=== PATIENT | female | born 1960 | race Caucasian/White ===

== ENCOUNTER 2018-06-07 16:26 | Outpatient (REF) | payer OTHER, SELFPAY ==
[2018-06-07 20:42] LABS: Abs Immature Grans 0.01 k/cumm (0.0-0.09); Absolute Basophil Count 0.02 k/cumm (0.0-0.2); Absolute Eosinophil Count 0.09 k/cumm (0.0-0.7); Absolute Lymphocyte Count 2.23 k/cumm (1.2-3.4); Absolute Monocyte Count 0.71 k/cumm (0.11-0.7); Absolute Neutrophil Count 3.74 k/cumm (1.2-6.7); Basophils % 0.3; Eosinophils % 1.3; HCT 38.5 % (36.0-46.0); HGB 12.5 g/dL (12.0-15.5); Immature Grans % 0.1; Lymphocytes % 32.8; Mean Corp. HGB Concentration 32.5 g/dL (32.0-36.0); Mean Corpuscular Hemoglobin 28.9 pg (27.0-33.0); Mean Corpuscular Volume 89.1 fL (80-95); Mean Platelet Volume 11.6 fL (8.0-11.0); Monocytes % 10.4; Neutrophils % 55.1; Platelet Count 168 x1000/uL (130-400); RBC 4.32 m/cumm (4.00-5.20); RBC Distribution Width 13.8 % (11.7-14.6)
[2018-06-07 20:53] LABS: ALT 22 U/L (12-78); AST 15 U/L (15-37); Albumin 3.8 g/dL (3.4-5.0); Alkaline Phosphatase 54 U/L (46-116); Anion Gap 6.9 mmol/L (3-11); BUN 17 mg/dL (7-18); Bilirubin, Total 0.2 mg/dL (0.2-1.0); CO2 30.1 mmol/L (21.0-32.0); CREATININE 0.74 mg/dL (0.55-1.02); Calcium 9.2 mg/dL (8.5-10.1); Chloride 103 mmol/L (98-107); Glucose 97 mg/dL (70-100); Potassium 3.9 mmol/L (3.5-5.1); Sodium 140 mmol/L (136-145); TSH (W/Ref FT4) 2.69 uIU/mL (0.358-3.74); Total Protein 7.4 g/dL (6.4-8.2)
== END 2018-06-07 16:46 ==
LOC: NCHCN 16:26
PROVIDERS: PCP Nurse Practitioner Family; Visit Provider Nurse Practitioner
DX: R07.89 Other chest pain (principal); R51 Headache; I10 Essential (primary) hypertension
CPT/HCPCS: 80053; 84443; 85025

== ENCOUNTER 2018-06-24 09:11 | Outpatient (REF) | payer OTHER, SELFPAY ==
[2018-06-24 13:23] LABS: Cholesterol 188 mg/dL (50-200); HDL Cholesterol 74 mg/dL (40-60); LDL CHOLESTEROL 101 mg/dL (<100); Triglyceride 52 mg/dL (30-150)
== END 2018-06-24 09:31 ==
LOC: NCHCN 09:11
PROVIDERS: PCP Nurse Practitioner Family; Visit Provider Nurse Practitioner Family
DX: Z00.00 Encounter for general adult medical examination without abnormal findings (principal); I10 Essential (primary) hypertension
CPT/HCPCS: 80061; 83721

== ENCOUNTER 2018-07-16 12:57 | Outpatient (REF) | payer OTHER, SELFPAY ==
[2018-07-18 12:36] LABS: Hepatitis C Ab w Rflx HCV PCR Negative (NEGAT)
== END 2018-07-16 13:17 ==
LOC: NCHCN 12:57
PROVIDERS: PCP Nurse Practitioner Family; Visit Provider Nurse Practitioner Family
DX: I10 Essential (primary) hypertension (principal); R51 Headache; Z00.00 Encounter for general adult medical examination without abnormal findings; R07.89 Other chest pain
CPT/HCPCS: 86803

== ENCOUNTER 2018-10-21 16:05 | Outpatient (REF) | payer OTHER, SELFPAY ==
--- NOTE | 2018-10-21 15:13 | SKI_PTH ---
PATIENT: Maria Ines Hilliard LOC: [facility] U#:[id number] AGE/SX: 58/F ROOM: RE10/21/[address]: Devang Andres DO : 1960 BED: DIS: 10/21/2018 SPEC #: [id number] RECD: 10/22/18 12:48 STATUS: ROCK REQ #: [id number] [place]: 10/21/18 15:[address]: Devang Andres DEPT: Surgical Specimen RECD BY: Clarisa Howell ENTERED: 10/22/18 12:49 SP TYPE: SKI OTHR DR: Neetu Suresh Tissues: 1 - SKIN BIOPSY(SHAVE/PUNCH) Procedures: SKIN LEVEL 4 Comments: [id number]
== END 2018-10-21 16:25 ==
LOC: LBN 16:05
PROVIDERS: PCP Nurse Practitioner Family; Visit Provider Otolaryngology Otolaryngology/Facial Plastic Surgery
DX: B07.9 Viral wart, unspecified (principal)
CPT/HCPCS: 88305

== ENCOUNTER 2020-11-08 16:05 | Outpatient (REF) | payer OTHER, SELFPAY ==
[2020-11-08 21:18] LABS: Calculated LDL 101 mg/dL (<100); Cholesterol 196 mg/dL (<200); HDL Cholesterol 76 mg/dL (40-60); TSH (W/Ref FT4) 2.39 uIU/mL (0.36-3.74); Triglyceride 98 mg/dL (<150)
== END 2020-11-08 16:06 | disposition home or self-care (01) ==
LOC: NCHCN 16:05
PROVIDERS: PCP Nurse Practitioner Family; Visit Provider Nurse Practitioner Family
DX: I10 Essential (primary) hypertension (principal); R51.9 Headache, unspecified; F43.20 Adjustment disorder, unspecified; E04.1 Nontoxic single thyroid nodule; J30.2 Other seasonal allergic rhinitis; G47.00 Insomnia, unspecified; Z80.0 Family history of malignant neoplasm of digestive organs
CPT/HCPCS: 80061; 84443

== ENCOUNTER 2022-05-16 15:51 | Outpatient (REF) | payer BC, SELFPAY ==
--- NOTE | 2022-05-16 15:15 | PAPFT_PTH ---
PATIENT: Maria Ines Hilliard LOC: [facility]#:[id number] AGE/SX: 62/F ROOM: RE05/16/[address]: Neetu Suresh : 1960 BED: DIS: 05/16/2022 SPEC #: [id number] RECD: 05/17/22 12:54 STATUS: ROCK REIsidra #: [id number] DAK[place]: 05/16/22 15:[address]: Neetu Suresh DEPT: [facility] Cytology RECD BY: Clarisa Howell Tissues: 1 - CX/ENDOCX FOR PAP SMEARS Procedures: PAP THIN PREP/UVM Screening HPV DNA PROBE Comments: [id number]
[2022-05-16 21:13] LABS: FREE T4 0.82 ng/dL (0.76-1.46); TSH 3.08 uIU/mL (0.36-3.74)
[2022-05-17 17:57] LABS: T3,Free 3.7 pg/mL (2.8-5.3)
== END 2022-05-16 15:52 | disposition home or self-care (01) ==
LOC: NCHCN 15:51
PROVIDERS: PCP Nurse Practitioner Family; Visit Provider Nurse Practitioner Family
DX: Z00.00 Encounter for general adult medical examination without abnormal findings (principal); I10 Essential (primary) hypertension; E04.1 Nontoxic single thyroid nodule; F43.20 Adjustment disorder, unspecified; G47.00 Insomnia, unspecified; R60.0 Localized edema; Z12.4 Encounter for screening for malignant neoplasm of cervix; Z11.51 Encounter for screening for human papillomavirus (HPV); Z01.419 Encounter for gynecological examination (general) (routine) without abnormal findings
CPT/HCPCS: 88142; 84439; 84443; 84481; 87624

== ENCOUNTER 2022-05-18 01:55 | Outpatient (CLI) | payer OTHER, BC, SELFPAY ==
--- NOTE | 2022-05-18 | DI.MAMMO_ITS ---
Exam(s) MAMMO SCREENING EXAM: MAMMO SCREENING CLINICAL HISTORY: SCREENING MAMMO Z12.31 TECHNIQUE: Mammograms were interpreted according to the usual protocol including computer analysis w Enjoi CAD system, tomosynthesis and C-view imaging. COMPARISON: 2012 through 2018 FINDINGS: The breasts are composed of scattered fibroglandular densities, Breast Density category B. No suspicious masses or suspicious microcalcifications are seen. No skin thickening or abnormal axillary lymph nodes are seen. There has been no significant change from prior exams. IMPRESSION: BI-RADS Category 1, Negative mammogram Yearly screening mammography is recommended. Breast Density - Category B, scattered fibroglandular densities. A negative radiographic report should not delay biopsy if a dominant or clinically suspicious mass is present. Up to ten percent of cancers are not identified on mammography. A negative report may reinforce clinical impression. Adenosis and dense breasts may obscure an underlying neoplasm. False positive reports average 6 to 10%. Patient will receive a letter notifying them of these results.
== END 2022-05-18 02:15 ==
PROVIDERS: PCP Nurse Practitioner Family; Visit Provider Nurse Practitioner Family
DX: Z12.31 Encounter for screening mammogram for malignant neoplasm of breast (principal)
CPT/HCPCS: 77063; 77067

== ENCOUNTER 2022-06-08 01:01 | Outpatient (CLI) | payer OTHER, SELFPAY ==
--- NOTE | 2022-06-08 10:01 | DI.RAD_ITS ---
Exam(s) XR SHOULDER LT COMPLETE 2+V EXAM: XR SHOULDER LT COMPLETE 2+V CLINICAL HISTORY: LT SHOULDER PAIN, M25.512. TECHNIQUE: 2D digital imaging was performed of the left shoulder. Five images were obtained. AP, G rashey, Y-view and axillary views were obtained. COMPARISON: No exams were available for comparison FINDINGS: BONES: There is an acute comminuted mildly displaced fracture of the greater tuberosity. No bony boyd tructive lesion is seen. JOINTS: No dislocation present. SOFT TISSUE: Normal. IMPRESSION: Acute mildly displaced and comminuted fracture of the greater tuberosity. DATA REPOSITORY: RADIATION DOSE DELIVERED:
== END 2022-06-08 01:21 ==
PROVIDERS: PCP Nurse Practitioner Family; Visit Provider Internal Medicine
DX: M25.512 Pain in left shoulder (principal); S42.252A Displaced fracture of greater tuberosity of left humerus, initial encounter for closed fracture
CPT/HCPCS: 73030

== ENCOUNTER 2022-06-22 14:36 | Outpatient (CLI) | payer OTHER, SELFPAY ==
--- NOTE | 2022-06-22 09:03 | DI.RAD_ITS ---
Exam(s) XR SHOULDER LT COMPLETE 2+V EXAM: XR SHOULDER LT COMPLETE 2+V INDICATION: left shoulder fracture. COMPARISON: CR XR SHOULDER LT COMPLETE 2+V from 06/08/2022 TECHNIQUE: 2D digital imaging was performed. Two views. FINDINGS: Previously noted greater tuberosity fractures not well profiled on the current exam. No new findings . DATA REPOSITORY: RADIATION DOSE DELIVERED:
== END 2022-06-22 14:37 | disposition home or self-care (01) ==
LOC: DIORS 14:37
PROVIDERS: PCP Nurse Practitioner Family; Referring Provider Nurse Practitioner Family; Visit Provider Student in an Organized Health Care Education/Training Program
DX: S42.92XA Fracture of left shoulder girdle, part unspecified, initial encounter for closed fracture (principal); X58.XXXA Exposure to other specified factors, initial encounter
CPT/HCPCS: 73030

== ENCOUNTER 2022-06-29 01:17 | Outpatient (CLI) | payer OTHER, SELFPAY ==
--- NOTE | 2022-06-29 06:30 | DI.MRI_ITS ---
Exam(s) MR UPPER JOINT LT WO EXAM: MR UPPER JOINT LT WO CLINICAL HISTORY: PAIN,lt rotator cuff tear,m75.102. TECHNIQUE: Multiplanar multisequence MRI was performed. COMPARISON: Plain films 22 June 2022 FINDINGS: BONES: Increased signal and slight deformity at the region of the greater tuberosity. Fracture noted on prior plain films. JOINTS:The acromioclavicular joint shows minimal degenerative changes. The glenohumeral joint shows minimal fluid. TENDONS: Supraspinatus: Mild edema. No focal tear visible. Infraspinatus: Unremarkable. Subscapularis: Unremarkable. Teres Minor: Unremarkable. Biceps and [place]: Unremarkable. MUSCLES: Unremarkable. GLENOID LABRUM: Unremarkable on this noncontrast examination. SOFT TISSUES: Unremarkable. OTHER: Subacromial and subdeltoid bursae show minimal fluid.. Small amount of fluid in the subcoracoid bursa. IMPRESSION: Greater tuberosity fracture. No evidence of rotator cuff tear. Labrum appears intact. DATA REPOSITORY:
== END 2022-06-29 01:37 ==
LOC: DI 01:17
PROVIDERS: PCP Nurse Practitioner Family; Visit Provider Student in an Organized Health Care Education/Training Program
DX: M25.512 Pain in left shoulder (principal); M75.102 Unspecified rotator cuff tear or rupture of left shoulder, not specified as traumatic; S42.252D Displaced fracture of greater tuberosity of left humerus, subsequent encounter for fracture with routine healing
CPT/HCPCS: 73221

== ENCOUNTER 2022-09-06 11:27 | Outpatient (CLI) | payer OTHER, SELFPAY ==
--- NOTE | 2022-09-06 10:30 | DI.RAD_ITS ---
Exam(s) XR SHOULDER LT COMPLETE 2+V EXAM: XR SHOULDER LT COMPLETE 2+V CLINICAL HISTORY: left shoulder f/u. TECHNIQUE: 2D digital imaging was performed. COMPARISON: CR XR SHOULDER LT COMPLETE 2+V from 06/22/2022 FINDINGS: Two views There is no evidence of fracture nor dislocation at the glenohumeral joint level. No joint space dipti rowing. No osteophytes. Subacromial space exhibits normal height and AC joint appears unremarkable. On the Grashey view there is a faint calcific density at the level the greater tuberosity. This may indicate an element of rotator cuff tendinitis. IMPRESSION: Possible subtle evidence of rotator cuff tendinitis. DATA REPOSITORY: RADIATION DOSE DELIVERED:
== END 2022-09-06 11:28 | disposition home or self-care (01) ==
LOC: DIORS 11:27
PROVIDERS: PCP Nurse Practitioner Family; Referring Provider Nurse Practitioner Family; Visit Provider Student in an Organized Health Care Education/Training Program
DX: S42.252D Displaced fracture of greater tuberosity of left humerus, subsequent encounter for fracture with routine healing (principal); X58.XXXD Exposure to other specified factors, subsequent encounter; M75.102 Unspecified rotator cuff tear or rupture of left shoulder, not specified as traumatic
CPT/HCPCS: 73030

== ENCOUNTER 2023-02-05 11:32 | Day surgery (SDC) | payer OTHER, SELFPAY ==
--- NOTE | 2023-02-04 20:16 | W.PM.DSUDISC ---
Date of service: 02/05/23 Time of Service: 13:49 Discharge Plan Disposition Patient Disposition: Home Condition: Good Discharge Details Reason For Visit: screening colonoscopy Attending Provider: Beto Hernández Primary Care Provider: Neetu Suresh Home Meds and New Rx's Prescriptions: Continued diphenhydramine HCl [Simply Sleep] 25 mg tablet 25 mg PO QHS PRN One Daily Women's 18 mg iron-400 mcg-450 mg Ca tablet 1 tab PO DAILY amlodipine 5 mg tablet 5 mg PO DAILY vitamin B complex Tablet 1 tab PO DAILY cholecalciferol (vitamin D3) 25 mcg (1,000 unit) capsule 25 mcg PO DAILY Discharge Instructions Additional Instructions: Anitha, we were able to do your colonoscopy today without any difficulty. It was totally normal. Based on your family history, you will need another one in 5 years. 1. If tolerated, consume a soft, low fiber diet for 1-2 days. 2[address] Do not drive, drink alcohol, operate machinery, make critical decisions, or do activities that require coordination or balance for 24 hours. 3. Because air was put into your colon during the procedure, expelling air from your rectum (passing gas or farting) is normal. 4. You may not have a bowel movement for 1-3 days because of the colonoscopy prep. This is normal. 5. Go directly to the emergency room if you notice any of the following: Develop chills (warm to touch), or if you have a thermometer and your temperature is above 101 Difficulty breathing or difficultly swallowing Persistent vomiting Severe abdominal pain, other than gas cramps Severe chest pain Black, tarry stools Any bleeding ? exceeding one tablespoon 6. Call your physician if the site where your intravenous was started becomes red, swollen, painful, and warm to touch. 7. Your physician has reviewed your pre-procedure medications. Please continue to take those medications as previously ordered. You will be given specific information/education regarding any changes to your medications before leaving. Activity:: Activity as Tolerated Diet:: As Tolerated Discharge Orders Discharge Orders: Discharge Order (Routine); Ordered 02/04/23 Ordered By: Beto Hernández DS: Diagnosis Discharge Diagnosis (1) Screen for colon cancer: Status: Acute Asessment and Plan: Negative screening colonoscopy; based on family history, follow-up in 5 years
--- NOTE | 2023-02-04 20:17 | W.COLOREPORT ---
Date of service: 02/05/23 Time of Service: 13:50 Colonoscopy Report Date of procedure: 02/05/23 Pre-op diagnosis general: screening colonoscopy Post-op diagnosis procedure note: other (Negative screening colonoscopy) Procedure: Colonoscopy Surgeon: Beto Hernández Anesthesia Type: General:No Airway Estimated blood loss (mL): 0 Pathology: none sent Complications: None Disposition: same day Indications: Maria Ines us a 63 year old woman who needs a screening colonoscopy Prep: Miralax/Dulcolax Procedure Start Time: 13:22 Procedure End Time: 13:40 Retraction Time: 12 Findings: Negative screening colonoscopy Procedure Description: After the induction of monitored anesthetic care, and with the patient in left lateral decubitus position, I began by performing an external anorectal exam.? Perineum and skin were normal, as was the anal verge.? There was no evidence of external hemorrhoids.? Next, I performed a digital rectal exam.? I did not appreciate any abnormal findings.? Next, I advanced a colonoscope into the rectal vault.? I performed retroflexion.? This was normal.? Using insufflation, I then advanced the colonoscope beyond the rectal folds and into the sigmoid colon before advancing towards the cecum.?? The scope was noted to be in the cecum by identification of the ileocecal valve and appendiceal orifice.? I then began withdrawing the colonoscope using repeated irrigation as necessary for full evaluation of the colonic mucosa. ?Once the scope was withdrawn to the level of the rectum, great care was taken to examine portions of the rectal folds.? I did not see any signs of tumors, polyps, or any other abnormality. The quality of the prep by way of the [place] prep score was 3, 3, 3 from right to left. finally, the scope was withdrawn and the patient was brought to the same-day surgery recovery unit as the anesthetic wore off. ?The findings and instructions were shared with the patient prior to discharge.
[2023-02-05 11:59] VITALS: BP 131/73; PULSE 85; RESP 20; TEMP 36.5; O2SAT 99
[2023-02-05] MEDS: Lactated Ringers 1,000 ML 80 ML IV (12:20)
--- NOTE | 2023-02-05 13:07 | ANES.PREOP_ITS ---
General Info Date of Service Date Performed: 02/05/23 Height: 5 ft 8 in Weight: 80.9 kg Body Mass Index (BMI): 27.1 Surgical Procedure: Operation Date: 02/05/23 14:20 Proposed Procedure Side Surgeon reggie Hernández MD Meds Allergies and Home Medications Allergies Allergy/AdvReac Type Severity Reaction Status Date / Time amoxicillin Allergy Severe Verified 02/05/23 11:49 Penicillins Allergy Intermediate horrible Unverified 02/05/23 11:49 rash Home Medication Medication Instructions Recorded amlodipine 5 mg tablet 5 mg PO DAILY 06/19/22 cholecalciferol (vitamin D3) 25 25 mcg PO DAILY 06/19/22 mcg (1,000 unit) capsule multivit-iron 18 mg-folic acid 400 1 tab PO DAILY 06/19/22 mcg-calcium 450 mg-minerals tablet (One Daily Women's) vitamin B complex 1 tab PO DAILY 06/19/22 diphenhydramine HCl 25 mg tablet 25 mg PO QHS PRN 06/22/22 (Simply Sleep) Current Visit Medications: Current Medications Generic Name Dose Route Start Last Admin Trade Name Freq PRN Reason Stop Dose Admin Hyoscyamine Sulfate 0.125 mg 02/04/23 20:19 Hyoscyamine 0.125 Mg Sl/Oral/Chew SL 03/06/23 20:18 DIRECTED PRN Ringer's Solution 1,000 mls @ 80 mls/hr 02/05/23 06:00 02/05/23 12:20 IV 03/04/23 23:59 80 mls/hr INFUSION CAROLINE Administration IV Miscellaneous Supplies 1 each 02/05/23 06:00 Iv Access IV 03/04/23 23:59 DIRECTED CAROLINE Ondansetron HCl 4 mg 02/04/23 20:19 Ondansetron 4 Mg/2 Ml Vial IVP 03/06/23 20:18 Q4H PRN PRN Nausea / Vomiting Sodium Chloride 0 ml 02/05/23 06:00 Normal Saline Flush 10 Ml Syr IV 03/04/23 23:59 PRN PRN Sodium Chloride 0 ml 02/05/23 06:00 Normal Saline 10 Ml Vial IJ 03/04/23 23:59 DIRECTED PRN Sterile Water 0 ml 02/05/23 06:00 Water,Injection,Sterile 10 Ml Vial IJ 03/04/23 23:59 DIRECTED PRN PFSH Active Problems Active Problems: Problem Status Onset Code Screen for colon cancer Z12.11 Fracture of greater tuberosity of left humerus 02/10/22 S42.252A Left rotator cuff tear M75.102 History of thyroid nodule Z86.39 Actinic keratosis L57.0 Medical History Medical History Insomnia Neck pain Grief reaction Headache Family history of colon cancer Hemorrhoid Bruxism Stress incontinence Arrhythmia Pt. 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 Colonoscopy - IV Sedation (02/29/16) Tobacco Smoking/Tobacco Use Status: Never Alcohol Alcohol Intake: current Alcohol intake frequency: a few times a week Alcohol type: wine Substance Use Substance use: Never Substance use type: does not use Details: alcohol: t-14, one glass Vital Signs and Lab Results Vital Signs Most Recent Vital Signs in EMR: Most Recent Vital Signs Temp Pulse Resp BP Pulse Ox 36.5 C 85 20 131/73 99 02/05/23 11:59 02/05/23 11:59 02/05/23 11:59 02/05/23 11:59 02/05/23 11:59 Lab Results Blood Type / Crossmatch: No Data to Display Complete Blood Count: No Data to Display Complete Metabolic Panel: No Data to Display Liver Function Panel: No Data to Display Coagulation Panel: No Data to Display Cardiac Panel: No Data to Display Arterial Blood Gas: No Data to Display Venous Blood Gas: No Data to Display Pancreas Panel: No Data to Display Thyroid Panel: No Data to Display Infectious Disease: No Data to Display Blood Cultures: No Data to Display Toxicology Panel: No Data to Display Anesthesia Assessment and Plan Anesthesia History Personal History: Other [place]awoke during leg surgery, [place] issues with [place] [facility] [place] Family History: No Family History of Anesthesia Complications Exercise Tolerance Exercise Tolerance: Metabolic Equivalents>4 Pertinent Negatives Pertinent Negatives: No Symptoms of GERD, No Major Cardiovascular Symptoms or Complaints and No Major Pulmonary Symptoms or Complaints Cardiac & Pulmonary Exam Cardiac Exam: Normal S1/S2 Heart Sounds Pulmonary Exam: Clear Bilateral Breath Sounds Implantable Cardiac Device Does patient have a Pacemaker or an ICD?: No Airway Exam Known Difficult Airway: No Mallampati Class: 2 Mouth Opening: Normal (> 3cm) Thyromental Distance: Less than 3 cm Neck Range of Motion: Full ROM Neck Circumference: Normal Teeth Condition: Normal Dentition ASA Classification ASA Score: ASA 2 Emergency Case?: No NPO Status NPO Status: NPO Clears >2 hours, Solids >8 hours Anesthesia Plan Resuscitation Status: Full Code Anesthesia Technique: General Anesthesia Airway Planned: Natural Airway Monitors Used: Standard Monitors
[2023-02-05 13:16] VITALS: BMI 27.1
[2023-02-05 13:46] VITALS: BP 122/78; PULSE 69; RESP 17; TEMP 36.5; O2SAT 98
--- NOTE | 2023-02-05 14:03 | W.ANESPOSTOP ---
Postoperative Evaluation Date, Time and Location Date Performed: 02/05/23 Time Performed: 14:03 Patient Location: Day Surgery Unit Vital Signs Most Recent Imported Vital Signs: Most Recent Vital Signs Temp Pulse Resp BP Pulse Ox 36.5 C 69 17 122/78 98 02/05/23 13:46 02/05/23 13:46 02/05/23 13:46 02/05/23 13:46 02/05/23 13:46 Pain Score Most Recent Pain Score: Most Recent Pain Score Pain Level 0 02/05/23 13:46 Assessment Mental Status: Awake (Alert & Oriented to Patient Baseline) Airway and Respiratory Function: Patent airway with normal (patient baseline) respiratory exam Cardiovascular Function: Hemodynamically Stable Hydration Status: Adequately Hydrated Nausea & Vomiting: No Nausea or Vomiting Pain: Pt. Denies Any Pain Peripheral Nerve Block: Patient did not receive a nerve block
[2023-02-05 14:16] VITALS: BP 115/68; PULSE 75; RESP 18; TEMP 36.9; O2SAT 99
== END 2023-02-05 14:25 | disposition home or self-care (01) ==
LOC: SUR 11:33
PROVIDERS: PCP Nurse Practitioner Family; Visit Provider Surgery
PROC: 0DJD8ZZ Inspection of Lower Intestinal Tract, Via Natural or Artificial Opening Endoscopic (ICD-10-PCS; CPT 45378; principal; 2023-02-05 14:15)
DX: Z12.11 Encounter for screening for malignant neoplasm of colon (principal); Z80.0 Family history of malignant neoplasm of digestive organs
CPT/HCPCS: 45378

== ENCOUNTER 2023-05-21 16:14 | Outpatient (REF) | payer OTHER, SELFPAY ==
[2023-05-21 21:35] LABS: Calculated LDL 115 mg/dL (<100); Cholesterol 213 mg/dL (<200); FREE T4 0.79 ng/dL (0.76-1.46); HDL Cholesterol 77 mg/dL (40-60); TSH 2.19 uIU/mL (0.36-3.74); Triglyceride 106 mg/dL (<150)
[2023-05-22 18:40] LABS: T3,Free 4.3 pg/mL (2.8-5.3)
== END 2023-05-21 16:15 | disposition home or self-care (01) ==
LOC: NCHCN 16:14
PROVIDERS: PCP Nurse Practitioner Family; Visit Provider Nurse Practitioner Family
DX: E04.1 Nontoxic single thyroid nodule (principal); Z13.6 Encounter for screening for cardiovascular disorders
CPT/HCPCS: 80061; 84439; 84443; 84481

== ENCOUNTER → 2023-06-01 00:45 | Outpatient (CLI) | payer OTHER, SELFPAY ==
--- NOTE | 2023-06-01 | DI.MAMMO_ITS ---
Exam(s) MAMMO SCREENING EXAM: MAMMO SCREENING CLINICAL HISTORY: SCREENING, Z12.31,FAMILY H/O BREAST CA,H/O LUMPECTOMY 20 YRS AGO NOT FOR CA TECHNIQUE: Bilateral full field digital CC and MLO mammographic images were obtained with 3D tomosyn thesis and utilizing computer aided detection (CAD). COMPARISON: Available for comparison. FINDINGS: Masses/Architectural Distortion: None seen. Microcalcifications: No suspicious pleomorphic-type are seen. Skin Thickening/Nipple Retraction: None. IMPRESSION: 1. No significant interval change with no specific features of malignancy noted. 2. Unless there is more urgent need, screening mammography is recommended, as per [employer] [employer] guidelines. BI-RADS Category 1 - Negative Breast Density - Category B - Scattered areas of fibroglandular density Breast density category C or D implies that the patient has dense breast tissue. Dense breast tissue is very common and is not abnormal but dense breast tissue can make it harder to find cancer on a ma mmogram. Also, dense breast tissue may increase their breast cancer risk. This information about the result of the mammogram report was provided to the patient to raise their awareness. Use this report when you speak with the patient about their risks for breast cancer, which includes their family hist ory. At that time, you may recommend for more screening tests (Ultrasound or MRI) as they might be us eful based on their risk. A negative radiographic report should not delay biopsy if a dominant or clinically suspicious mass is present. Up to ten percent of cancers are not identified on mammography. A negative report may reinforce clinical impression. Adenosis and dense breasts may obscure an underlying neoplasm. False positive reports average 6 to 10%. Patient will receive a letter notifying them of these results.
== END ==
PROVIDERS: PCP Nurse Practitioner Family; Visit Provider Nurse Practitioner Family
DX: Z12.31 Encounter for screening mammogram for malignant neoplasm of breast (principal)
CPT/HCPCS: 77063; 77067

== ENCOUNTER → 2023-11-02 13:43 | Outpatient (CLI) | payer OTHER, SELFPAY ==
--- NOTE | 2023-11-02 14:40 | DI.RAD_ITS ---
Exam(s) XR RIBS LT W PA LAT CHEST CLINICAL HISTORY Pleurodynia, R07.81. COMPARISON: No exams were available for comparison TECHNIQUE:: PA and lateral views of the chest and four views of the left ribs were performed. FINDINGS: LUNGS: Clear. No pleural abnormality seen. HEART: Normal. MEDIASTINUM: Normal. BONES: No displaced rib fracture is seen. No compression fractures are seen in the thoracic spine. No bony destructive lesion is seen. OTHER FINDINGS: None. IMPRESSION: 1. Unremarkable radiographic appearance of the left ribs. 2. No acute pulmonary findings.
== END ==
PROVIDERS: PCP Nurse Practitioner Family; Visit Provider Nurse Practitioner Family
DX: R07.81 Pleurodynia (principal)
CPT/HCPCS: 71046; 71100

== ENCOUNTER 2023-12-28 21:30 | Emergency (ER) | payer OTHER, SELFPAY ==
[2023-12-28] VITALS (14 sets, daily range): BP systolic 136–206; BP diastolic 55–107; PULSE 76–90; RESP 10–20; TEMP 36.6–37.5; O2SAT 95–98
--- NOTE | 2023-12-28 21:30 | RT.EKG_ITS ---
APPROVED REPORT Exam: Resting ECG Reason for Exam: chest pain Patient Location: E HR:87 bpm ECG Measurements Heart Rate 87 AXIS NC 146 P 69 QRSd 88 QRS 28 QT 360 T 27 QTc 435 Conclusion Sinus rhythm...normal P axis, V-rate 60- 99 sinus rhtyhm, normal axis, normal intervals, consider lateral st segment depressions
--- NOTE | 2023-12-28 21:45 | DI.RAD_ITS ---
Exam(s) XR CHEST 2V PA LATERAL EXAM: XR CHEST 2V PA LATERAL CLINICAL HISTORY: chest pain sob TECHNIQUE: 2D digital imaging was performed. Two views. COMPARISON: No exams were available for comparison FINDINGS: HEART: Normal size. Aorta: Not dilated. PULMONARY VASCULATURE: Normal. MEDIASTINUM: Unremarkable. LUNGS: Clear. PLEURAL SPACE: No pleural effusion or pneumothorax. BONE:Unremarkable for age. SOFT TISSUES: Unremarkable. IMPRESSION: No acute abnormality. DATA REPOSITORY: RADIATION DOSE DELIVERED:
--- NOTE | 2023-12-28 21:55 | W.ED.GENAD ---
Discharge Plan Disposition Patient Disposition: Home Condition: Improving Discharge Details Chief Complaint: Chest Pain Clinical Impression: Chest pain Primary Care Provider: Neetu Suresh ED Provider: Aleksey Paz Home Meds and New Rx's Prescriptions: No Action One Daily Women's 18 mg iron-400 mcg-450 mg Ca tablet 1 tab PO DAILY amlodipine 5 mg tablet 5 mg PO DAILY vitamin B complex Tablet 1 tab PO DAILY cholecalciferol (vitamin D3) 25 mcg (1,000 unit) capsule 25 mcg PO DAILY trazodone 50 mg tablet 50 mg PO HS PRN Discharge Instructions Instructions: Chest Pain, Adult ED Additional Instructions: Please follow-up with your primary care physician and cardiology follow-up. We have sent out a referral to [facility] cardiology as well as Dr. Sr cardiology at [facility] [place] [facility] please be seen as soon as possible for cardiac evaluation. If you have any worsening symptoms please return to the emergency department HPI General Date/Time Provider Initiated Documentation: 12/28/23 21:39. HPI Narrative: 63-year-old female history of hypertension, arrhythmia, presents with left anterior chest pain nonexertional over the last several hours, comes and goes no shortness of breath however sometimes discomfort is worse with deep breath, no dizziness nausea or diaphoresis, patient took 81 mg of aspirin before arrival, patient has no personal cardiac history with regards to coronary artery disease however her father had significant coronary disease at a young age and before he could receive a heart transplant. No history of thromboembolic disease. Patient denies orthopnea Related Data Home Medications ?Medication ?Instructions ?Recorded ?Confirmed amlodipine 5 mg tablet 5 mg PO DAILY 06/19/22 12/28/23 cholecalciferol (vitamin D3) 25 25 mcg PO DAILY 06/19/22 12/28/23 mcg (1,000 unit) capsule multivit-iron 18 mg-folic acid 400 1 tab PO DAILY 06/19/22 12/28/23 mcg-calcium 450 mg-minerals tablet (One Daily Women's) vitamin B complex 1 tab PO DAILY 06/19/22 12/28/23 trazodone 50 mg tablet 50 mg PO HS PRN 12/28/23 12/28/23 Allergies Allergy/AdvReac Type Severity Reaction Status Date / Time amoxicillin Allergy Severe Skin Rash Verified 12/28/23 21:40 Penicillins Allergy Intermediate horrible Unverified 12/28/23 21:40 rash General Stated Complaint: Chest Pain CHRISTIANO: 3 Exam Narrative Exam Narrative: Rest comfortably no acute distress Moist mucous membranes tongue secretions normal speech Lungs clear bilaterally no wheezes rales or rhonchi Normal heart sounds no murmurs rubs or gallops Mild edema to bilateral ankles Alert oriented moving all extremities without deficit Course Vital Signs Vital signs: Vital Signs Temperature 37.5 C 12/28/23 21:36 Pulse 88 12/28/23 21:36 Respiratory Rate 18 12/28/23 21:36 Blood Pressure 182/83 H 12/28/23 21:36 Pulse Oximetry 97 12/28/23 21:36 Temperature 36.6 C 12/28/23 21:45 Temperature Source Temporal Artery Scan 12/28/23 21:36 Pulse 88 12/28/23 21:36 Respiratory Rate 14 12/28/23 21:49 Respiratory Effort Normal, Non-Labored 12/28/23 21:49 Respiratory Depth Normal 12/28/23 21:49 Respiratory Pattern Normal 12/28/23 21:49 Blood Pressure 182/83 H 12/28/23 21:36 Blood Pressure Position Sitting 12/28/23 21:36 Pulse Oximetry 97 12/28/23 21:36 Oxygen Delivery Method Room Air 12/28/23 21:36 Oxygen Flow Rate 0 12/28/23 21:36 Pain Level 6 12/28/23 21:49 Medical Decision Making 63-year-old female history of hypertension, arrhythmia, presents with left anterior chest pain nonexertional over the last several hours, comes and goes no shortness of breath however sometimes discomfort is worse with deep breath, no dizziness nausea or diaphoresis, patient took 81 mg of aspirin before arrival, patient has no personal cardiac history with regards to coronary artery disease however her father had significant coronary disease at a young age and before he could receive a heart transplant. No history of thromboembolic disease. Patient denies orthopnea. Patient afebrile nontoxic noted to be hypertensive arrival. EKG normal sinus rhythm nonischemic. No respiratory distress no hypoxia no tachypnea. Patient does have peripheral edema to bilateral ankles. Consider ACS versus hypertensive urgency versus PE versus pleurisy versus musculoskeletal discomfort; will load with remainder 243 mg aspirin, as patient took 81 mg aspirin before arrival, will provide sublingual nitroglycerin as patient does have hypertension to the 200 systolic and active chest discomfort, will obtain serial troponins BNP basic labs chest x-ray, D-dimer. Close reassessment 23: 28 patient resting comfortably no acute distress. 2 troponin negative negative D-dimer chest x-ray clear, blood pressure greatly improved. Coordinated referral to [facility] cardiology as well as Dr. Sr here at [facility] with hopes the patient can receive the most prompt cardiology follow-up, in order to obtain echocardiogram and stress test. Home care instructions and return precautions given Quality:SDOH Health Related Social Needs: No Data to Display PFSH All Active Problems (Updated 12/28/23 @ 23:29 by Aleksey Paz MD) Chest pain (Acute) Screen for colon cancer (Acute) Fracture of greater tuberosity of left humerus (Acute 02/10/22) Left rotator cuff tear (Acute) History of thyroid nodule (Acute) S/P LEFT THYROID LOBECTOMY Actinic keratosis (Acute) Medical History (Updated 12/28/23 @ 23:29 by Aleksey Paz MD) Insomnia Neck pain Grief reaction Headache Family history of colon cancer Hemorrhoid Bruxism Stress incontinence Arrhythmia Pt. 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
[2023-12-28] MEDS: nitroGLYcerin 0.4 MG TAB SL (21:59)
[2023-12-28] MEDS: Aspirin 81 MG CHEW 243 MG CH (21:59)
[2023-12-28 22:02] LABS: Abs Immature Grans 0.02 10^3/uL (0.0-0.06); Absolute Basophil Count 0.05 10^3/uL (0.0-0.2); Absolute Eosinophil Count 0.09 10^3/uL (0.0-0.7); Absolute Lymphocyte Count 3.27 10^3/uL (1.2-3.4); Absolute Neutrophil Count 4.14 10^3/uL (1.2-6.7); Basophils % 0.6 %; Eosinophils % 1.1 %; HCT 37.6 % (36.0-46.0); HGB 12.3 g/dL (11.2-15.7); Immature Grans % 0.2 %; Lymphocytes % 39.1 %; MCH 29.5 pg (27.0-33.0); MCHC 32.7 % (32.0-36.0); MCV 90 fL (80-95); MPV 10.6 fL (8.0-11.0); Monocytes % 9.6 %; Neutrophils % 49.4 %; Platelet Count 158 10^3/uL (130-400); RBC 4.17 10^6/uL (3.93-5.22); RDW 14.3 % (11.7-14.6); RDW-SD 47.7 fL; WBC 8.37 10^3/uL (4.4-10.8)
[2023-12-28 22:15] LABS: PTT Activated 24.5 sec (23.6-32.8); Prothrombin Time 10.2 sec (9.1-11.1)
[2023-12-28 22:26] LABS: ALT 15 U/L (14-59); AST 25 U/L (15-37); Albumin 3.9 g/dL (3.4-5.0); Alkaline Phosphatase 67 U/L (46-116); Anion Gap 5.3 mmol/L (3-11); BUN 16 mg/dL (7-18); CO2 31.7 mmol/L (21.0-32.0); Calcium 9.7 mg/dL (8.5-10.1); Chloride 104 mmol/L (98-107); Estimated GFR 62.91 (mL/min/1.73m2); Glucose 140 mg/dL (74-106); NT-proBNP 25 pg/mL (<300); Potassium 3.5 mmol/L (3.5-5.1); Sodium 141 mmol/L (136-145); TSH (W/Ref FT4) 5.87 uIU/mL (0.36-3.74); Total Protein 7.8 g/dL (6.4-8.2); Troponin I 5 ng/L (<or=51)
--- OUTSIDE RECORDS SUMMARY | 2023-12-28 22:44 | XMS_ITS | Continuity of Care Document ---
Author Organization [place] - [facility] Address [address] [place] [address] Assessment No assessment recorded. Plan of Treatment Reminders Order Date Submit Date Provider Last Modified By Organization Details Last Modified Time Details Appointments Follow Up 30 2023 10:00A M Not available Not available Not available Lab None recorded . Referral None recorded . Procedures None recorded . Surgeries None recorded . Imaging None recorded . Medication Orders None recorded . Patient TargetsNo targets recorded. Patient InstructionsNo instructions recorded. Reason for Referral None Reported. Results Created Date Observation Date Name Description Value Unit Range Abnormal Flag Note LastModifiedBy Organization Detail LastModifiedTime 11/02/19 24 11/02/2023 XR, ribs, unila teral Patien t Name: Jack Valencia Unit #: [id number] Loc: DI Orderi ng Provid er: Elizabeth Álvarez Accoun t #: [id number] Status : REG CLI Primar y Care Provid er: Albania Gonzalez Date of Exam: Sex: F Admiss ion Date: : 1959 Age: 63 Exam(s ) XR RIBS LT W PA LAT CHEST CLINIC AL HISTOR Y Pleuro dynia, R07.81 . COMPAR SHELLEY: No exams were availa ble for compar shelley TECHNI QUE:: PA and latera l views of the chest and four views of the left ribs were perfor med. FINDIN GS: LUNGS: Clear. No pleura l abnorm ality seen. HEART: Normal . MEDIAS TINUM: Normal . BONES: No displa orly rib fractu re is seen. No compre ssion fractu res are seen in the thorac ic spine. No bony destru ctive lesion is seen. OTHER FINDIN GS: None. IMPRES KEILA: 1. Unrema rkable radiog raphic appear ance of the left ribs. 2. No acute pulmon elizabeth findin gs. Ordere d By: Elizabeth Álvarez CC: ------ ------ ------ ------ ------ ------ ------ ------ ------ ------ ------ ------ - Dictat ed By: Russel Sterling [id number] Transc ribed By: Patricio Juarez 145 This is privil eged, confid ential inform ation intend ed only for the provid er named. Any use or distri bution by any person other than this provid er is strict ly prohib ited. If you receiv e this report in error, please notify us immedi joycely at [phone] and return the origin al report to us at the addres s above. Thank- you. [email or web address] [facility] (Radiology) [address] , [place], [address], 12/07/2023 12:02:29 Result Notes None recorded. Problems Name Problem SNOMED Code Status Onset Date Resolution Date Notes Provider Name and Address Organization Details Recorded Time Cardiac arrhythm ia 400474187 Active 200210/25/19 19 - Comments only - Neetu Umana LINER REPLACER - asymptom atic. if becomes symptoma tic, evaluate further. Problem Code: I49.9; Problem Code Type: ICD-10; NEETU UMANA APRN [address], [place], [address] , [place] [facility]. 07:13:29 Heart murmur 18854425 Active 200210/25/19 19 - Comments only - Neetu Umana APRN - monitor routinel y. If becomes more promimen t, would do echocard iogram. Problem Code: R01.1; Problem Code Type: ICD-10; [address], [place], [address] , [facility] 4 07:13:29 Adult health examinat ion Active 201505/14/19 18 - Comments only - Neetu Umana APRN - annual exam complete d today. UTD on pap smear and HPV testing. Order mammogra m. UTD on colonosc opy. UTD on vaccines , flu shot through employer . Problem Code: Z00.00; Problem Code Type: ICD-10; [address], [place], [address] , [facility] 4 07:13:29 Family history of malignan t neoplasm of digestiv e organ 913347814 Active 201505/08/19 17 - Comments only - Neetu Umana APRN - UTD on routine colonosc opy, due every 5 years, next due in 2020. Problem Code: Z80.0; Problem Code Type: ICD-10; [address], [place], [address] , [facility] 4 07:13:29 Insomnia 843018181 Active 201610/25/19 19 - Comments only - Neetu Umana APRN - Well controll ed, continue OTC sleep aid since effectiv e. Problem Code: G47.00; Problem Code Type: ICD-10; [address], [place], [address] , [facility] 4 07:13:29 Genuine stress incontin ence 19330812 Active 201605/14/19 18 - Comments only - Neetu Umana APRN - Encourag ed pelvic floor exercise s, kegel exercise s. Problem Code: N39.3; Problem Code Type: ICD-10; [address], [place], [address] , [facility] 4 07:13:29 Seasonal allergic rhinitis 396037516 Active 201610/25/19 19 - Comments only - Neetu Umana LINER REPLACER - asymptom atic. monitor for now and treat as indicate d. Problem Code: J30.2; Problem Code Type: ICD-10; [address], [place], [address] , [facility] 4 07:13:29 Melanocy tic nevus 330685972 Active 201605/08/19 17 - Comments only - Neetu Umana APRN - right ear lobe. Most likely benign. Desires to have removed, refer to ENT for further manageme nt. Problem Code: D22.9; Problem Code Type: ICD-10; [address], [place], [address] , [facility] 4 07:13:29 Non-toxi c uninodul ar goiter 013617413 Active 2016 Problem Code: E04.1; Problem Code Type: ICD-10; [address], [place], [address] , [facility] 4 07:13:29 Neck pain 79167681 Active 201610/25/19 19 - Comments only - Neetu Umana LINER REPLACER - resolved . Problem Code: M54.2; Problem Code Type: ICD-10; [address], [place], [address] , [facility] 4 07:13:29 Screenin g mammogra phy Completed 201707/12/2017 Problem Code: Z12.31; Problem Code Type: ICD-10; [address], [place], [address] , [facility] 4 07:13:29 Screenin g mammogra phy Active 2018 Problem Code: Z12.31; Problem Code Type: ICD-10; [address], [place] [address] , [facility] 4 07:13:29 Headache 20865282 Active 201810/25/19 19 - Comments only - Neetu Umana APRN - improved . continue APAP PRN. continue norvasc since helping headache s as well. Problem Code: R51; Problem Code Type: ICD-10; [address], [facility] [address] , [facility] 4 07:13:29 Essentia l hyperten keila 32457115 Active 201810/25/19 19 - Comments only - Neetu Umana APRN - stable, continue medicati on regimen. Problem Code: I10; Problem Code Type: ICD-10; [address], [place], [address] , [facility] 4 07:13:29 Screenin g for malignan t neoplasm of colon Active 2020 Problem Code: Z12.11; Problem Code Type: ICD-10; [address], [facility] [address] , [facility] 4 07:13:29 Localize d edema 160221239 Active 2022 Problem Code: R60.0; Problem Code Type: ICD-10; [address], [facility] [address] , [facility] 4 07:13:29 Pain of left shoulder joint 88010461026 792722 Active 2022 Problem Code: M25.512; Problem Code Type: ICD-10; NEETU UMANA APRN [address], [facility] [address] , [facility] 4 07:13:29 Cramp in lower limb associat ed with sleep 86373995311 4104 Active 2022 Problem Code: G47.62; Problem Code Type: ICD-10; [address], [facility] [address] , [facility] 4 07:13:29 Conjunct ival hemorrha ge of left eye 99221278310 9102 Completed 201710/31/2019 Problem Code: H11.32; Problem Code Type: ICD-10; Not Available [facility] 3 04:02:41 Urinary tract infectio us disease 11080609 Completed 201505/08/2016 Problem Code: N39.0; Problem Code Type: ICD-10; Not Available [facility] 3 04:02:41 Dysuria 26884937 Completed 201505/08/2016 Problem Code: R30.0; Problem Code Type: ICD-10; Not Available [facility] 3 04:02:42 Chest pain 41254394 Completed 201705/03/2020 Problem Code: R07.89; Problem Code Type: ICD-10; Not Available [facility] 3 04:02:44 Foot pain 96013463 Completed 201811/08/2020 Problem Code: M79.673; Problem Code Type: ICD-10; Not Available [facility] 3 04:02:44 Hyperlip idemia 67443305 Active 2023 ASCVD risk 6.89% calculat ed 05/22/23 NEETU UMANA APRN [address], [place], [address] , [facility] 4 06:56:16 Rib pain 706517054 Active 2023 JOHN AMBROCIO [address], [place], [address] , [facility] 4 11:24:12 Menopa e present 672377529 Active 2023 JOHN AMBROCIO [address], [facility] [address] , [facility] 4 12:36:07 Overweig 106934550 Active 2023 NEETU UMANA APRN [address], [facility] [address] , [facility] 4 08:39:51 Acute right otitis media 468804843 Active 2023 NEETU UMANA APRN [address], [facility] [address] , [facility] 4 08:50:39 Notes:*Problem Name: Arrhyth fallon Heart *ICD-10 Codes: *Problem Status: inactive *Comments: 05/08/2016 - Comments only - Neetu Umana LINER REPLACER - declined testing or further management at this time. *Note Date: 05/29/2002 *Problem Name: Heart Murmur/mvp *ICD-10 Codes: *Problem Status: inactive *Comments: *Note Date: 05/29/2002 Problem Notes None recorded. Medical Equipment None Reported. Allergies Allergen ID Allergen Name Allergen Category Reaction Reaction Severity Criticality Documentation Date Start Date Code Code System Note Provider Name and Address Organization Details Recorded Time 83336 ampicilli n trihydrat e medicatio n hives Not available Not available 02/23/20232002 62352 5 RxNorm rash/ hives Aller gyRea ction : 'rash / hives '; Not Available [facility] 3 16:22:03 02433 amoxicill in trihydrat e medicatio n hives Not available Not available 02/23/20232003 84429 8 RxNorm rash/ hives Aller gyCod e: '3081 82'; Aller gyNam e: 'AMOX ICILL IN'; Aller gyCon ceptT ype: 'RX Norm' ; Aller gyRea ction : 'rash / hives '; Not Available [facility] 3 16:22:03 90321 Medicinal product containin g penicilli n and acting as antibacte rial agent (product) medicatio n hives Not available Not available 02/23/20232006 14465 05 SNOMED rash/ hives Aller gyCod e: '8340 61'; Aller gyNam e: 'PENI CILLI N'; Aller gyCon ceptT ype: 'RX Norm' ; Aller gyRea ction : 'rash / hives '; Not Available [facility] 3 16:22:03 Medications Name Sig Start Date Stop Date Status Note LastModified by Organization Details LastModified Time doxycycline hyclate 100 mg capsule Take 1 capsule twice a day by oral route for 10 days. active Not Available Not Available No t Available trazodone 50 mg tablet take 1/2- 1 tablet at bedtime active Not Available Not Available No t Available amlodipine 5 mg tablet TAKE 1 TABLET BY MOUTH EVERY DAY active Not Available Not Available No t Available Macrobid 100 mg capsule Take 1 cap by mouth twice daily 08/22 completed Not Available Not Available Not Available cephalexin 500 mg tablet 1 TAB bid 01/30 completed Not Available Not Available Not Available vitamin B complex tablet Take 1 tablet by mouth once a day active Not Available Not Available No t Available cyclobenzapr ine 5 mg tablet Take 1 tab by mouth daily at bedtime as needed 05/14 completed Not Available Not Available Not Available cholecalcife rol (vitamin D3) 25 mcg (1,000 unit) tablet once a day 2020 active Not Available Not Available Not Avai lable Women's Daily Formula 18 mg iron-400 mcg-500 mg Ca tablet Take 1 tablet by mouth once a day active Not Available Not Available No t Available Vitals Date Recorded Body height Body mass index (BMI) Body weight Body temperature Oxygen saturation Oxygen saturation in Arterial blood by Pulse oximetry Heart rate Systolic blood pressure Diastolic blood pressure Provider Name and Address Organization Details Last Updated DateTime 4 171.45 cm 28.1 kg/m2 87597.8 1 g 98.4 [degF] 96 % 96 % 86 /min 142 mm[Hg] 82 mm[Hg] JOLENE PARRY CMA [facility] 08:25:59 Social History Question Answer Notes LastModified by Organizat ion Details LastModified Time Tobacco Smoking Status Never Smoker JOLENE PARRY CMA null, [facility] 05/21/2023 14:26:48 Would You Say That, In General, Your Health Is Good Information not available 05/21/2023 Women Aged 18-50 - Would You Like To Become In The Next Year? (Female Patients Only) No Information not available 05/21/2023 How Often Does Anyone, Including Family, Physically Hurt You? Never Information not available 05/21/2023 How Often Does Anyone, Including Family, Insult Or Talk Down To You? Never Information no t available 05/21/2023 How Often Does Anyone, Including Family, Threaten You With Harm? Never Information not available 05/21/2023 How Often Does Anyone, Including Family, Scream Or Curse At You? Never Information not available 05/21/2023 Within The Past 12 Months, You Worried That Your Food Would Run Out Before You Got Money To Buy More. Never True Information n ot available 05/21/2023 Within The Past 12 Months, The Food You Bought Just Didn't Last And You Didn't Have Money To Get More. Never True Information not available 05/21/2023 How Hard Is It For You To Pay For The Very Basics Like Food, Housing, Medical Care, And Heating? Would You Say It Is: Not Hard At All Information not available 05/21/2023 In The Past 12 Months, Has Lack Of Reliable Transportation Kept You From Medical Appointments, Meetings, Work Or From Getting Things Needed For Daily Living? No Information not available 05/21/2023 What Is Your Housing Situation Today? I Have Housing. Information not available 05/21/2023 How Often In The Past Year Have You Used Marijuana (including Smoking, Vaping, Dabbing, Or Edibles)? Never Information not available 05/21/2023 How Often In The Past Year Have You Used Prescription Medications That Were Not Prescribed To You? Never Information not available 05/21/2023 How Often In The Past Year Have You Taken Your Own Prescription Medication More Than The Way It Was Prescribed Or For Different Reasons Than Its Intended Purpose? Never Information not available 05/21/2023 How Often In The Past Year Have You Used Other Drugs (for Example, Heroin, Cocaine, Meth, Salvia, Inhalants)? Never Information not available 05/21/2023 Have You Ever Used IV Drugs? No Information not available 05/21/2023 Date Of Most Recent SBINS 05/21/2023 Information not available 05/21/2023 What Was The Date Of Your Most Recent Tobacco Screening? 05/21/2023 Information n ot available 05/21/2023 Has Tobacco Cessation Counseling Been Provided? No Information not available 05/21/2023 Do You Or Have You Ever Used Any Other Forms Of Tobacco Or Nicotine? No Information not available 05/21/2023 Sex: Female Functional Status None recorded. Mental Status None recorded. Family History Nothing Reported Notes:*Problem: Mother- dece ased age 65. Multiple myeloma. sleep disorder. chronic anemia Father- age 62 while awaiting heart transplant. CAD/ stroke age 49. HTN. 1 sister- age 40 from colon cancer. Brother- - pancreatic cancer and tumors on liver, HTN Children- 2 farida- both alive and well. HTN: Father HLD: unsure CAD: Yes DM: no Breast CA: MGM Colon CA: Yes, sister Uterine/ ovarian CA: no mental health illness: brother, addiction issues Paternal uncle: lung cancer was a non smoker, he also had capillary cancer and pancreatic cancer. Medical History No medical history recorded. Gynecological HistoryNo gynecological history recorded. Obstetrics History GPAL:G 0 P 0 0 0 0 Immunizations Vaccine Type Date Status Provider Name and Address Organization Details Recorded Time MMR 05/03/2022 completed Not Available [facility] 05:06:54 MMR 03/27/2022 completed Not Available [facility] 05:06:54 Tdap 05/16/2022 completed Not Available [facility] 05:06:55 Tdap 06/14/2012 completed Not Available [facility] 05:06:55 Td(adult) unspecified formulation 04/30/1999 completed Not Available [facility] 02/23/2023 05:06:56 Influenza, split virus, quadrivalent, PF 03/15/2022 completed Not Available [facility] 02/23/2023 05:06:57 zoster recombinant 07/24/2019 completed Not Available [facility] 02/23/2023 05:06:57 zoster recombinant 10/31/2019 completed Not Available [facility] 02/23/2023 05:06:58 COVID-19, mRNA, LNP-S, PF, 100 mcg/0.5mL dose or 50 mcg/0.25mL dose 08/30/2020 completed Not Available [facility] 02/24/20 05:06:59 COVID-19, mRNA, LNP-S, PF, 100 mcg/0.5mL dose or 50 mcg/0.25mL dose 03/02/2021 completed Not Available [facility] 02/24/20 05:06:59 SARS-COV-2 (COVID-19) vaccine, UNSPECIFIED 08/02/2020 completed Not Available [facility] 02/23/2023 05:07:00 SARS-COV-2 (COVID-19) vaccine, UNSPECIFIED 09/08/2021 completed Not Available [facility] 02/23/2023 05:07:00 COVID-19, mRNA, LNP-S, bivalent, PF, 30 mcg/0.3 mL dose 03/17/2022 completed Not Available [facility] 02/23/2023 05:07:00 Hep B, unspecified formulation 05/29/2002 completed Not Available [facility] 02/23/2023 05:07:01 Hep B, unspecified formulation 07/09/2002 completed Not Available [facility] 02/23/2023 05:07:01 Hep B, unspecified formulation 12/09/2003 completed Not Available [facility] 02/23/2023 05:07:01 influenza, unspecified formulation 2019 completed Not Available [facility] 02/23/2023 05:07:01 influenza, unspecified formulation 01/25/2020 completed Not Available [facility] 02/23/2023 05:07:02 influenza, unspecified formulation 01/27/2014 completed Not Available [facility] 02/23/2023 05:07:02 influenza, unspecified formulation 01/31/2017 completed Not Available [facility] 02/23/2023 05:07:02 influenza, unspecified formulation 02/25/2021 completed Not Available [facility] 02/23/2023 05:07:02 influenza, unspecified formulation 02/26/2018 completed Not Available [facility] 02/23/2023 05:07:02 COVID-19, mRNA, LNP-S, PF, 100 mcg/0.5mL dose or 50 mcg/0.25mL dose 05/04/2023 completed JOLENE PARRY RESEARCH MECHANIC null, [facility] 05/15/2023 12:34:41 influenza, unspecified formulation 03/01/2023 completed JOLENE PARRY RESEARCH MECHANIC null, [facility] 05/15/2023 12:35:59 Respiratory syncytial virus (RSV) vaccine, unspecified 05/10/2023 completed JOLENE PARRY RESEARCH MECHANIC null, [facility] 05/21/2023 14:26:21 Past Encounters Encounter ID Performer Location Encounter Start Date Encounter Closed Date Diagnosis/Indication Diagnosis SNOMED-CT Code Diagnosis ICD10 Code [id number] JOHN AMBROCIO [address] [address] 11/01/2023 10:46:16 11/01/2023 11:44:15 Rib pain 211395177 R07.81 Menopause present 693073 006 N95.1 [id number] NEETU UMANA APRN [address] [address] 11/20/2023 08:15:01 11/20/2023 09:07:37 Essential hypertension 53009229 I10 Headache 73229889 R51.9 Neck pain 63338316 M54.2 Non-toxic uninodular goiter 831274033 E04.1 Seasonal a llergic rhinitis 445566916 J30.2 Insomnia 232479774 G47.0 0 Cardiac arrhythmia 77991 7007 I49.9 Localized edema 83245208 4 R60.0 Cramp in l ower limb associated with sleep 9243571820 44367 G47.62 Overweight 677174259 E66 .3 Acute righ t otitis media 900395217 H66.91 [id number] NEETU UMANA APRN [address] [address] 11/27/2023 08:16:42 11/27/2023 08:42:40 Acute right otitis media 821861414 H66.91 Health Concerns Section Related Observation LastModified by Organization Detai ls LastModified Time None Recorded Concern Status LastModified by Organization Details LastModified Time None Recorded Payers Encounter Date Sequence Insurance Name Policy Number Policy [place] Covered Member ID [place] Member ID Guarantor Name 11/27/2023 1 [employer] ([employer]) Maria Inesdeandre Valencia [id number] Maria Inesdeandre Valencia Notes Date Note Type Note Provider Name and Address Organization Details Recorded Time 11/27/2023 text/html HPI Notes: Is he re for follow-up OM. was seen in the office on 11.20.23. She had about 1 week of productive cough, green. No SOB. No loss of smell or taste. + sinus congestion, rhinitis, post nasal drip, mild sore throat. Nausea, no vomiting or diarrhea. Had fatigue. Right ear pain. Taking OTC remedies. On exam her left TM wad effusion without erythema. Right TM was erythematous, bulging. She had some erythema and post nasal drip to her oropharynx, and right sided cervical chain adenopathy. Decision was to treat for OM. Is Pen allergic, hives so opted not to treat with cephalosporins either. Was started on doxycycline. Today: Sore throat has resolved. Sinuses are active today, started yesterday with running some, not a lot. Is able to smell. drainage from sinuses is clear. + headaches, feels better. Nausea when takes doxycyline on empty stomach, no vomiting, no diarrhea. Ear, is about the same. Denies body aches, muscle aches. Not coughing as much, but still has a cough, cough is non productive. Denies SOB. Denies fevers, chills. Symptom mgmt includes APAP, this does help except for the ear pressure. NEETU UMANA APRN [address], [place], [address], [facility]. 11/27/2023 08:45:10 OBGyn Episode No OBEpisode recorded."
--- OUTSIDE RECORDS SUMMARY | 2023-12-28 22:44 | XMS_ITS | Data Portability ---
Author Organization [place] - [facility] Address [address] [place] [address] Assessment Encounter Date Assessment Date Assessment LastModified by Organization Details LastModified Time 11/20/2023 11/20/2023 Flu vaccine: current Comirnaty: current Td: current- due 2032 PCV20: n/a Shingrix: completed RSV: completed 05/10/23 Pap/ HPV: current due 2024 Mammogram: declines Jun 09 CRC: current last 2022- due next 2027; family hx of CRC DEXA: order not completed Lipids: last 06/09, ASCVD risk was 6.89% Annual: last 2.5.24 Hep C screening: completed 4.4.19 HIV screening: declines Diabetes screening: declines Follow-up in 3 Months. Call or RTO sooner if needs arise. Not available 11/20/2023 08:59:00 Plan of Treatment Reminders Order Date Submit Date Provider Last Modified By Organization Details Last Modified Time Details Appointments Follow Up 30 2023 10:00A M Not available Not available Not available Lab pap, LB + HR HPV 2023 024 [email or web address] [facility] (Registration ), [address] [place] [address] [place], [address], 10/08/2023 09:06:54 lipid panel, blood 2023 024 [email or web address] [facility] (Registration ), [address] [place] [address] [place], [address], 05/28/2023 10:47:57 microalbu min/creat inine, mass ratio, urine [address], [address] [place] [address], [address], 05/21/2023 15:49:36 urinalysi s, dipstick [address], [address] [place] [address], [address], 05/21/2023 15:49:36 TSH, serum or plasma 2023 024 [email or web address] [facility] (Registration ), [address] [place] [address] [place], [address], 05/28/2023 10:47:58 T4, free, serum 2023 024 [facility] (Registration ), [address] [place] [address] [place], [address], 05/21/2023 21:39:10 T3, free, serum or plasma 2023 024 [facility] (Registration ), [address] [place] [address] [place], [address], 05/23/2023 14:02:38 rapid strep group A, throat [address], [address] [place] [address], [address], 11/20/2023 09:59:49 Referral None recorded. Procedures None recorded. Surgeries None recorded. Imaging MAMMO, screening , bilateral - Family history of breast CA, maternal grandmoth er, lumpectom y 20 years ago 2023 024 [facility] (Radiology), [address] [place] [address] [place], [address], 06/01/2023 13:20:12 XR, ribs, unilatera l 2023 024 [email or web address] [facility] (Radiology), [address] [place] [address] [place], [address], 12/07/2023 12:02:22 DEXA 2023 024 [email or web address] [facility] (Radiology), [address] [place] [address] [place], [address], 11/02/2023 12:36:59 Medication Orders doxycycli ne hyclate 100 mg capsule [address] [facility], [address] [place] [address] [place], [address], 11/20/2023 09:03:46 trazodone 50 mg tablet [address] [place], [address], 11/20/2023 09:03:43 Patient TargetsNo targets recorded. Patient Instructions Encounter Date Encounter Id Patient Instructions Last Modified By Organization Details Last Modified Time 05/21/2023 [id number] learning about healthy weight Not available 05/21/2023 15:02:23 stay at [facility] weight Not available 05/21/2023 15:02:24 11/20/2023 [id number] starting a weigh t loss plan: care instructions Not available 11/20/2023 09:01:43 diet Not available 2023 09:01:42 exercise Not available 2023 09:01:42 Reason for Referral None Reported. Results Created Date Observation Date Name Description Value Unit Range Abnormal Flag Note LastModifiedBy Organization Detail LastModifiedTime 05/21/1905/21/2023 LIPID 2 cholesterol 213 mg/dL <200 high Not Available Rosalind bacon [address] [place], [address] 05/21/2023 21:39:09 05/21/19 24 05/21/2023 LIPID 2 triglyceride 106 mg/dL <150 Not Available [address] [place], [address] 05/21/2023 21:39:09 05/21/19 24 05/21/2023 LIPID 2 HDL cholesterol 77 mg/dL 40-60 Not Available Jimmylulu sridharjordi [address], [address] 05/21/2023 21:39:09 05/21/19 24 05/21/2023 LIPID 2 calculated LDL 115 mg/dL <100 high Natio nal Anais stero l Educa tion Progr am (NCEP -ATPI II) class ifica tions : Anais stero l <200 mg/dL Rizwana able Anais stero l 200-2 39 mg/dL Borde rline High Anais stero l >or=2 40 mg/dL High HDL <40 mg/dL Low HDL >or=6 0 mg/dL High LDL <100 mg/dL Optim al LDL 100-1 29 mg/dL Near Optim al/Ab ove Optim al LDL 130-1 59 mg/dL Borde rline High LDL 160-1 89 mg/dL High LDL >or=1 90 mg/dL Very High *The above refer ence range is for adult s 18 years or older . Not Available [address] [place], [address] 05/21/2023 21:39:09 05/21/1905/21/2023 TSH TSH 2.19 uIU/m L 0.36-3 .74 normal NOTE: Supra -phys iolog ic doses of Bioti n(B7) may cause false negat cherri resul ts. Not Available [address] [place], [address] 05/21/2023 21:39:10 05/21/19 24 05/21/2023 FREE T4 free T4 0.79 NG/dL 0.76-1 .46 normal Not Available [address] [place], [address] 05/21/2023 21:39:10 05/21/19 24 05/22/2023 T3,FR EE T3,free 4.3 pg/mL 2.8-5. 3 Test perfo rmed or refer red by [facility] [address] [facility] [place] [address] Not Available [facility] [address] [place], [address] 05/23/2023 14:02:38 05/21/19 24 05/21/2023 micro album in/cr eatin ine, mass ratio , urine microalbumin 5.0 mcg/L Not Available [address], [address], 05/21/2023 15:18:21 05/21/19 24 05/21/2023 micro album in/cr eatin ine, mass ratio , urine creatinine 83.2 mg/L Not Available [address], [address], 05/21/2023 15:18:21 05/21/19 24 05/21/2023 micro album in/cr eatin ine, mass ratio , urine microalbumin /creatinine 6.0 mcg/m g Not Available [address], [address], 05/21/2023 15:18:21 05/21/19 24 05/21/2023 urina lysis , dipst ick Leukocytes Trace Not Available [address], [address], 05/21/2023 15:18:48 05/21/19 24 05/21/2023 urina lysis , dipst ick Nitrite negati ve Not Available [address], [address], 05/21/2023 15:18:48 05/21/19 24 05/21/2023 urina lysis , dipst ick Urobilinogen .2 Not Available [address], [address], 05/21/2023 15:18:48 05/21/19 24 05/21/2023 urina lysis , dipst ick Protein Negati ve Not Available [address], [address], 05/21/2023 15:18:48 05/21/19 24 05/21/2023 urina lysis , dipst ick pH 5.5 Not Available [address], [address], 05/21/2023 15:18:48 05/21/19 24 05/21/2023 urina lysis , dipst ick Blood Negati ve Not Available [address], [address], 05/21/2023 15:18:48 05/21/19 24 05/21/2023 urina lysis , dipst ick Specific [place] 1.020 Not Available [address], [address], 05/21/2023 15:18:48 05/21/19 24 05/21/2023 urina lysis , dipst ick Ketone Negati ve Not Available [address], [address], 05/21/2023 15:18:48 05/21/19 24 05/21/2023 urina lysis , dipst ick Bilirubin Negati ve Not Available [address], [address], 05/21/2023 15:18:48 05/21/19 24 05/21/2023 urina lysis , dipst ick Glucose Negati ve Not Available [address], [address], 05/21/2023 15:18:48 05/21/19 24 05/21/2023 urina lysis , dipst ick Appearance Clear Not Available [address], [address], 05/21/2023 15:18:48 05/21/19 24 05/21/2023 urina lysis , dipst ick Color Pale Yellow Not Available [address], [address], 05/21/2023 15:18:48 11/20/19 24 11/20/2023 rapid strep group A, throa t Strep negati ve Not Available [address], [address], 11/20/2023 09:22:14 12/28/19 24 12/28/2023 NT-LA OBNP nt-probnp 25 pg/mL <300 NT-pr oBNP value s <300 pg/mL have a 98% negat cherri predi ctive value for exclu ding acute conge stive heart failu re(CH F). NOTE: Supra -phys iolog ic doses of Bioti n(B7) may cause false negat cherri resul ts. Not Available [address] [place], [address] 12/28/2023 22:32:34 12/28/19 24 12/28/2023 TROPO JENNIFER I troponin I 5 NG/L <or=51 An eleva day/a bnorm al tropo jennifer value above 51ng/ L for Femal e and above 76ng/ L for Male( which is the 99th perce ntile cutof f of a carlitos l, healt hy refer ence popul ation ) must be inter prete d in the edward xt of the clini onesimo prese ntati on. Clini onesimo and labor atory corre latio n is requi red to evalu ate for an acute myoca rdial infar ction . The resul ts of this assay can be false ly lower ed due to the consu mptio n of Bioti n (Shyanne min B7). Not Available [address] [place], [address] 12/28/2023 22:32:34 12/28/19 24 12/28/2023 TSH (W/RE F FT4) TSH (w/ref FT4) 5.87 uIU/m L 0.36-3 .74 high Not Available [address] [place], [address] 12/28/2023 22:32:33 12/28/19 24 12/28/2023 MAGNE SIUM magnesium 2.0 mg/dL 1.8-2. 4 normal Not Available [address] [place], [address] 12/28/2023 22:32:33 12/28/19 24 12/28/2023 COMPR EHENS CHERRI METAB OLIC PANEL calcium 9.7 mg/dL 8.5-10 .1 normal Not Available [address] [place], [address] 12/28/2023 22:32:32 12/28/19 24 12/28/2023 COMPR EHENS CHERRI METAB OLIC PANEL glucose 140 mg/dL 74-106 high Not Available Kailyn coy [address], [address] 12/28/2023 22:32:32 12/28/19 24 12/28/2023 COMPR EHENS CHERRI METAB OLIC PANEL BUN 16 mg/dL 7-18 normal Not Available Kailyn coy [address] [place], [address] 12/28/2023 22:32:32 12/28/19 24 12/28/2023 COMPR EHENS CHERRI METAB OLIC PANEL creatinine 1.0 mg/dL 0.55-1 .02 normal Not Available [address] [place], [address] 12/28/2023 22:32:32 12/28/19 24 12/28/2023 COMPR EHENS CHERRI METAB OLIC PANEL estimated GFR 62.91 mL/min /1.73M 2 The eGFR is calcu lated from a serum creat inine using the CKD-E PI 2020 equat ion. Other varia bles requi red for the equat ion are gende r and age; this equat ion does not inclu de a race coeff icien t. This equat ion has simil ar overa ll perfo rmanc e to previ ous equat ions excep t value s may diffe r, in parti cular , in patie nts with highe r value s of eGFR and young er-ag ed adult s. Not Available [address] [place], [address] 12/28/2023 22:32:32 12/28/19 24 12/28/2023 COMPR EHENS CHERRI METAB OLIC PANEL total protein 7.8 g/dL 6.4-8. 2 normal Not Available [address] [place], [address] 12/28/2023 22:32:32 12/28/19 24 12/28/2023 COMPR EHENS CHERRI METAB OLIC PANEL albumin 3.9 g/dL 3.4-5. 0 normal Not Available [address] [place], [address] 12/28/2023 22:32:32 12/28/19 24 12/28/2023 COMPR EHENS CHERRI METAB OLIC PANEL bilirubin, total 0.20 mg/dL 0.2-1. 0 normal Not Available [address] [place], [address] 12/28/2023 22:32:32 12/28/19 24 12/28/2023 COMPR EHENS CHERRI METAB OLIC PANEL alk phos 67 U/L 46-116 normal Not Available [address] [place], [address] 12/28/2023 22:32:32 12/28/19 24 12/28/2023 COMPR EHENS CHERRI METAB OLIC PANEL sodium 141 mmol/ L 136-14 5 normal Not Available [address] [place], [address] 12/28/2023 22:32:32 12/28/19 24 12/28/2023 COMPR EHENS CHERRI METAB OLIC PANEL potassium 3.5 mmol/ L 3.5-5. 1 normal Not Available [address] [place], [address] 12/28/2023 22:32:32 12/28/19 24 12/28/2023 COMPR EHENS CHERRI METAB OLIC PANEL chloride 104 mmol/ L 98-107 normal Not Available [address] [place], [address] 12/28/2023 22:32:32 12/28/19 24 12/28/2023 COMPR EHENS CHERRI METAB OLIC PANEL CO2 31.7 mmol/ L 21.0-3 2.0 normal Not Available [address] [place], [address] 12/28/2023 22:32:32 12/28/19 24 12/28/2023 COMPR EHENS CHERRI METAB OLIC PANEL anion gap 5.3 mmol/ L 3-11 normal Not Available [address] [place], [address] 12/28/2023 22:32:32 12/28/19 24 12/28/2023 COMPR EHENS CHERRI METAB OLIC PANEL AST 25 U/L 15-37 normal Not Available Kailyn [address] [place], [address] 12/28/2023 22:32:32 12/28/19 24 12/28/2023 COMPR EHENS CHERRI METAB OLIC PANEL ALT 15 U/L 14-59 normal Not Available Kailyn [address] [place], [address] 12/28/2023 22:32:32 12/28/19 24 12/28/2023 COMPL ETE BLOOD COUNT W/DIF F WBC 8.37 10_3/ uL 4.4-10 .8 normal Not Available [address] [place], [address] 12/28/2023 22:05:28 12/28/19 24 12/28/2023 COMPL ETE BLOOD COUNT W/DIF F RBC 4.17 10_6/ uL 3.93-5 .22 normal Not Available [address] [place], [address] 12/28/2023 22:05:28 12/28/19 24 12/28/2023 COMPL ETE BLOOD COUNT W/DIF F HGB 12.3 g/dL 11.2-1 5.7 normal Not Available [address] [place], [address] 12/28/2023 22:05:28 12/28/19 24 12/28/2023 COMPL ETE BLOOD COUNT W/DIF F HCT 37.6 % 36.0-4 6.0 normal Not Available [address] [place], [address] 12/28/2023 22:05:28 12/28/19 24 12/28/2023 COMPL ETE BLOOD COUNT W/DIF F MCV 90 fL 80-95 normal Not Available [address] [place], [address] 12/28/2023 22:05:28 12/28/19 24 12/28/2023 COMPL ETE BLOOD COUNT W/DIF F MCH 29.5 pg 27.0-3 3.0 normal Not Available [address] [place], [address] 12/28/2023 22:05:28 12/28/19 24 12/28/2023 COMPL ETE BLOOD COUNT W/DIF F MCHC 32.7 % 32.0-3 6.0 normal Not Available [address] [place], [address] 12/28/2023 22:05:28 12/28/19 24 12/28/2023 COMPL ETE BLOOD COUNT W/DIF F RDW 14.3 % 11.7-1 4.6 normal Not Available [address] [place], [address] 12/28/2023 22:05:28 12/28/19 24 12/28/2023 COMPL ETE BLOOD COUNT W/DIF F platelet count 158 10_3/ uL 130-40 0 normal Not Available [address] [place], [address] 12/28/2023 22:05:28 12/28/19 24 12/28/2023 COMPL ETE BLOOD COUNT W/DIF F MPV 10.6 fL 8.0-11 .0 normal Not Available [address] [place], [address] 12/28/2023 22:05:28 12/28/19 24 12/28/2023 COMPL ETE BLOOD COUNT W/DIF F neutrophils % 49.4 % Not Available [address] [place], [address] 12/28/2023 22:05:28 12/28/19 24 12/28/2023 COMPL ETE BLOOD COUNT W/DIF F lymphocytes % 39.1 % Not Available [address] [place], [address] 12/28/2023 22:05:28 12/28/19 24 12/28/2023 COMPL ETE BLOOD COUNT W/DIF F monocytes % 9.6 % Not Available [address] [place], [address] 12/28/2023 22:05:28 12/28/19 24 12/28/2023 COMPL ETE BLOOD COUNT W/DIF F eosinophils % 1.1 % Not Available [address] [place], [address] 12/28/2023 22:05:28 12/28/19 24 12/28/2023 COMPL ETE BLOOD COUNT W/DIF F basophils % 0.6 % Not Available [address] [place], [address] 12/28/2023 22:05:28 12/28/19 24 12/28/2023 COMPL ETE BLOOD COUNT W/DIF F immature grans % 0.2 % Not Available [address] [place], [address] 12/28/2023 22:05:28 12/28/19 24 12/28/2023 COMPL ETE BLOOD COUNT W/DIF F nucleated RBC 0.0 % 0.0-0. 3 normal Not Available [address] [place], [address] 12/28/2023 22:05:28 12/28/19 24 12/28/2023 COMPL ETE BLOOD COUNT W/DIF F absolute neutrophil count 4.14 10_3/ uL 1.2-6. 7 normal Not Available [address] [place], [address] 12/28/2023 22:05:28 12/28/19 24 12/28/2023 COMPL ETE BLOOD COUNT W/DIF F absolute lymphocyte count 3.27 10_3/ uL 1.2-3. 4 normal Not Available [address] [place], [address] 12/28/2023 22:05:28 12/28/19 24 12/28/2023 COMPL ETE BLOOD COUNT W/DIF F absolute monocyte count 0.80 10_3/ uL 0.1-0. 8 normal Not Available [address] [place], [address] 12/28/2023 22:05:28 12/28/19 24 12/28/2023 COMPL ETE BLOOD COUNT W/DIF F absolute eosinophil count 0.09 10_3/ uL 0.0-0. 7 normal Not Available [address] [place], [address] 12/28/2023 22:05:28 12/28/19 24 12/28/2023 COMPL ETE BLOOD COUNT W/DIF F absolute basophil count 0.05 10_3/ uL 0.0-0. 2 normal Not Available [address] [place], [address] 12/28/2023 22:05:28 12/28/19 24 12/28/2023 PTT ACTIV ATED PTT activated 24.5 sec 23.6-3 2.8 normal Hepar in Thera peuti c Range for PTT = 52-84 secon ds New Hepar in Thera peuti c Range 05/22 Not Available [address] [place], [address] 12/28/2023 22:18:30 12/28/19 24 12/28/2023 PROTH ROMBI N TIME prothrombin time 10.2 sec 9.1-11 .1 normal Not Available [address] [place], [address] 12/28/2023 22:18:30 12/28/19 24 12/28/2023 PROTH ROMBI N TIME INR 1.0 0.9-1. 1 normal Recom teja d INR thera peuti c range s for orall y admin ister ed drugs are as follo ws: -Gama dard Inten sity 2.0 to 3.0 -High er Inten sity 3.0 to 4.5 Not Available [address] [place], [address] 12/28/2023 22:18:30 06/01/19 24 06/01/2023 MAMMO , scree miesha, bilat eral No observ ation record ed. [email or web address] [facility] (Radiology) [address] [place] [address] [facility] [place], [address], 06/06/2023 15:17:30 11/02/19 24 11/02/2023 XR, ribs, unila teral Patien t Name: Jack Valencia Unit #: [id number] Loc: DI Orderi ng Provid er: Elizabeth Álvarez Accoun t #: [id number] Status : REG CLI Primar y Care Provid er: Martin[place] chase [email or web address] Date of Exam: Sex: F Admiss ion [...] ------ - Dictat ed By: Russel Sterling [id number] Transc ribed By: Patricio Juarez 1452 This is privil eged, confid ential inform ation intend ed only for the provid er named. Any use or distri bution by any person other than this provid er is strict ly prohib ited. If you receiv e this report in error, please notify us immedi joycely at and return the origin al report to us at the addres s above. Thank- you. [email or web address] [facility] (Radiology) [address], [place], [address], 12/07/2023 12:02:29 Result Notes Documentation Provider Name and Address Organization Details Recorded Time Xr, Ribs, Unilateral : Patient Name: Maria Ines Valencia Unit #: [id number] Loc: DI Ordering Provider: Elizabeth Álvarez Status: REG CLI Primary Care Provider: Neetu Umana Date of Exam: Sex: F Admission Date: 11/02/23 : 1960 Age: 63 Exam(s) XR RIBS LT W PA LAT CHEST CLINICAL HISTORY Pleurodynia, R07.81. COMPARISON: No exams were available for comparison TECHNIQUE:: PA and lateral views of the chest and four views of the left ribs were performed. FINDINGS: LUNGS: Clear. No pleural abnormality seen. HEART: Normal. MEDIASTINUM: Normal. BONES: No displaced rib fracture is seen. No compression fractures are seen in the thoracic spine. No bony destructive lesion is seen. OTHER FINDINGS: None. IMPRESSION: 1. Unremarkable radiographic appearance of the left ribs. 2. No acute pulmonary findings. Ordered By: Elizabeth Álvarez CC: - Dictated By: Stephanie Juarez M.D. 11/02/23 1453 11/02/23 1453 Transcribed By: Stephanie Juarez 11/02/23 1453 This is privileged, confidential information intended only for the provider named. Any use or distribution by any person other than this provider is strictly prohibited. If you receive this report in error, please notify us immediately at [phone] and return the original report to us at the address above. Thank-you. Jordana mao, [facility] 12/07/2023 12:02:29 Problems Name Problem SNOMED Code Status Onset Date Resolution Date Notes Provider Name and Address Organization Details Recorded Time Cardiac arrhythm ia 556469731 Active 200210/25/19 19 - Comments only - Neetu Umana APRN - asymptom atic. if becomes symptoma tic, evaluate further. Problem Code: I49.9; Problem Code Type: ICD-10; NEETU UMANA APRN [address], [place], [address] , [facility] 4 07:13:29 Heart murmur 43024976 Active 200210/25/19 19 - Comments only - Neetu Umana APRN - monitor routinel y. If becomes more promimen t, would do echocard iogram. Problem Code: R01.1; Problem Code Type: ICD-10; NEETU UMANA APRN [address], [place], [address] , [facility] 4 07:13:29 Adult health examinat ion Active 201505/14/19 18 - Comments only - Neetu Umana APRN - annual exam complete d today. UTD on pap smear and HPV testing. Order mammogra m. UTD on colonosc opy. UTD on vaccines , flu shot through employer . Problem Code: Z00.00; Problem Code Type: ICD-10; [address], [place], [address] , [facility] 4 07:13:29 Family history of malignan t neoplasm of digestiv e organ [id number] Active 201505/08/19 17 - Comments only - Neetu Umana APRN - UTD on routine colonosc opy, due every 5 years, next due in 2020. Problem Code: Z80.0; Problem Code Type: ICD-10; [address], [place], [address] , [facility] 4 07:13:29 Insomnia 496838740 Active 201610/25/19 19 - Comments only - Neetu Umana APRN - Well controll ed, continue OTC sleep aid since effectiv e. Problem Code: G47.00; Problem Code Type: ICD-10; [address], [place], [address] , [facility] 4 07:13:29 Genuine stress incontin ence 09925698 Active 201605/14/19 18 - Comments only - Neetu Umana APRN - [facility] ed pelvic floor exercise s, kegel exercise s. Problem Code: N39.3; Problem Code Type: ICD-10; [address], [place], [address] , [facility] 4 07:13:29 Seasonal allergic rhinitis 304108028 Active 201610/25/19 19 - Comments only - Neetu Umana APRN - asymptom atic. monitor for now and treat as indicate d. Problem Code: J30.2; Problem Code Type: ICD-10; [address], [place], [address] , [facility] 4 07:13:29 Melanocy tic nevus 619501627 Active 201605/08/19 17 - Comments only - Neetu Umana [employer] - right ear lobe. Most likely benign. Desires to have removed, refer to ENT for further manageme nt. Problem Code: D22.9; Problem Code Type: ICD-10; [address], [place], [address] , [facility] 4 07:13:29 Non-toxi c uninodul ar goiter 941493155 Active 2016 Problem Code: E04.1; Problem Code Type: ICD-10; [address], [place], [address] , [facility] 4 07:13:29 Neck pain 02438465 Active 201610/25/19 19 - Comments only - Neetu Umana [employer] - resolved . Problem Code: M54.2; Problem Code Type: ICD-10; [address], [place], [address] , [facility] 4 07:13:29 Screenin g mammogra phy Completed 201707/12/2017 Problem Code: Z12.31; Problem Code Type: ICD-10; [address], [place], [address] , [facility] 4 07:13:29 Screenin g mammogra phy Active 2018 Problem Code: Z12.31; Problem Code Type: ICD-10; [address], [place], [address] , [facility] 4 07:13:29 Headache 72891932 Active 201810/25/19 19 - Comments only - Neetu Umana [employer] - improved . continue APAP PRN. continue norvasc since helping headache s as well. Problem Code: R51; Problem Code Type: ICD-10; [address], [place], [address] , [facility] 4 07:13:29 [facility]entia l hyperten keila 36765667 Active 201810/25/19 19 - Comments only - Neetu Umana APRN - stable, continue medicati on regimen. Problem Code: I10; Problem Code Type: ICD-10; [address], [place], [address] , [facility] 4 07:13:29 Screenin g for malignan t neoplasm of colon Active 2020 Problem Code: Z12.11; Problem Code Type: ICD-10; [address], [place], [address] , [facility] 4 07:13:29 Localize d edema [id number] Active 2022 Problem Code: R60.0; Problem Code Type: ICD-10; [address], [place], [address] , [facility] 4 07:13:29 Pain of left shoulder joint [id number] Active 2022 Problem Code: M25.512; Problem Code Type: ICD-10; [address], [place], [address] , [facility] 4 07:13:29 Cramp in lower limb associat ed with sleep [id number] 4104 Active 2022 Problem Code: G47.62; Problem Code Type: ICD-10; [address], [place], [address] , [facility]. 4 07:13:29 Conjunct ival hemorrha ge of left eye 39663967810 9102 Completed 201710/31/2019 Problem Code: H11.32; Problem Code Type: ICD-10; Not Available [facility] 3 04:02:41 Urinary tract infectio us disease 53782636 Completed 201505/08/2016 Problem Code: N39.0; Problem Code Type: ICD-10; Not Available [facility] 3 04:02:41 Dysuria 30034393 Completed 201505/08/2016 Problem Code: R30.0; Problem Code Type: ICD-10; Not Available [facility] 3 04:02:42 Chest pain 93331217 Completed 201705/03/2020 Problem Code: R07.89; Problem Code Type: ICD-10; Not Available [facility] 3 04:02:44 Foot pain 14967274 Completed 201811/08/2020 Problem Code: M79.673; Problem Code Type: ICD-10; Not Available [facility] 3 04:02:44 Hyperlip idemia 13481519 Active 2023 ASCVD risk 6.89% calculat ed 05/22/23 NEETU UMANA APRN [address], [place], [address] , [facility]. 4 06:56:16 Rib pain 999755237 Active [address], [place], [address] , [facility]. 4 11:24:12 Menopaus e present 069575051 Active [address], [place], [address] , [facility]. 4 12:36:07 Overweig ht 104372209 Active 2023 NEETU UMANA APRN [address], [place], [address] , [facility], [facility] 4 08:39:51 Acute right otitis media 826104176 Active 2023 NEETU UMANA APRN [address], [place], [address] , [facility] 4 08:50:39 Notes:*Problem Name: Arrhyth fallon Heart *ICD-10 Codes: *Problem Status: inactive *Comments: 05/08/2016 - Comments only - Neetu Umana [employer] - declined testing or further management at this time. *Note Date: 05/29/2002 *Problem Name: Heart Murmur/mvp *ICD-10 Codes: *Problem Status: inactive *Comments: *Note Date: 05/29/2002 Problem Notes None recorded. Procedures Surgical History None recorded. Imaging Results Imaging Date Name Status LastModified by Darrian ation Details LastModified Time 06/01/2023 MAMMO, screening, bilateral completed [email or web address] [facility] (Radiology) [address] [place] [address] [facility] [place], [address], 06/06/2023 15:17:30 11/02/2023 XR, ribs, unilateral completed [email or web address] [facility] (Radiology) [address] [place] [address] [place] [facility] [place], [address], 12/07/2023 12:02:29 Procedure Notes None recorded. Medical Equipment None Reported. Allergies Allergen ID Allergen Name Allergen Category Reaction Reaction Severity Criticality Documentation Date Start Date Code Code System Note Provider Name and Address Organization Details Recorded Time 88971 ampicilli n trihydrat e medicatio n hives Not available Not available 02/23/20232002 87087 5 RxNorm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
--- OUTSIDE RECORDS SUMMARY | 2023-12-28 22:44 | XMS_ITS | Continuity of Care Document ---
Author Organization [place] - [facility], [facility] Address [address] [place] [address] Assessment Encounter Date Assessment Date Assessment LastModified [...] Not available Not available Not available Lab rapid strep group A, throat 2023 024 [facility], [address] [place], [address], 11/20/2023 09:59:49 Referral None recorded. Procedures None recorded. Surgeries None recorded. Imaging None recorded. Medication Orders doxycycli ne hyclate 100 mg capsule 2023 024 [facility], [address] [place], [address], 11/20/2023 09:03:46 trazodone 50 mg tablet [address] [facility] [place] [facility] [place], [address], 11/20/2023 09:03:43 Patient TargetsNo targets recorded. Patient Instructions Encounter Date Encounter Id Patient Instructions Last Modified By Organization Details Last Modified Time 11/20/2023 [id number] starting a weigh t loss plan: care instructions Not available 11/20/2023 09:01:43 diet Not available 2023 09:01:42 exercise Not available 2023 09:01:42 Reason for Referral None Reported. Results Created Date Observation Date Name Description Value Unit Range Abnormal Flag Note LastModifiedBy Organization Detail LastModifiedTime 11/20/1911/20/2023 rapid strep group A, throa t Strep negati ve Not Available [address], [address], 11/20/2023 09:22:14 11/02/19 24 11/02/2023 XR, ribs, unila teral Patien t Name: Jack Valencia Unit #: [id number] Loc: DI Orderi ng Provid er: Elizabeth Álvarez Accoun t #: [id number] Status : REG CLI Primar y Care Provid er: Tanvi Albania pathak herson Date of Exam: Sex: F Admiss ion [...] 1453 145 Transc ribed By: Patricio Juarez 1453 This is privil eged, confid ential inform ation intend ed only for the [facility] named. Any use or distri bution by any person other than this [facility] is strict ly prohib ited. If you receiv e this report in error, please notify us immedi ately at [phone] and return the origin al report to us at the addres s above. Thank- you. [email or web address] [facility] (Radiology) [address] [facility] , [place], [address], 12/07/2023 12:02:29 Result Notes None recorded. Problems Name Problem SNOMED Code Status Onset Date Resolution Date Notes Provider Name and Address Organization Details Recorded Time Cardiac arrhythm ia 697446232 Active 200210/25/19 19 - Comments only - Neetu Umana APRN - asymptom atic. if becomes symptoma tic, evaluate further. Problem Code: I49.9; Problem Code Type: ICD-10; NEETU UMANA APRN [address], [place], [address] , [place] - [facility] 07:13:29 Heart murmur 79010467 Active 200210/25/19 19 - Comments only - Neetu Umana APRN - monitor routinel y. If becomes more promimen t, would do echocard iogram. Problem Code: R01.1; Problem Code Type: ICD-10; [address], [place], [address] , [facility] 4 07:13:29 Adult health examinat ion Active 201505/14/19 18 - Comments only - Neetu Umana APRN - annual exam complete d today. UTD on pap smear and HPV testing. Order mammogra m. UTD on colonosc opy. UTD on vaccines , flu shot through employer . Problem Code: Z00.00; Problem Code Type: ICD-10; [address], [place], [address] , [facility] 4 07:13:29 Family history of malignan t neoplasm of digestiv e organ 619757390 Active 201505/08/19 17 - Comments only - Neetu Umana APRN - UTD on routine colonosc opy, due every 5 years, next due in 2020. Problem Code: Z80.0; Problem Code Type: ICD-10; [address], [place], [address] , [facility] 4 07:13:29 Insomnia 550258411 Active 201610/25/19 19 - Comments only - Neetu Umana APRN - Well controll ed, continue OTC sleep aid since effectiv e. Problem Code: G47.00; Problem Code Type: ICD-10; [address], [place], [address] , [facility] 4 07:13:29 Genuine stress incontin ence 91459435 Active 201605/14/19 18 - Comments only - Neetu Umana APRN - Encourag ed pelvic floor exercise s, kegel exercise s. Problem Code: N39.3; Problem Code Type: ICD-10; [address], [facility] [address] , [facility] 4 07:13:29 Seasonal allergic rhinitis 188484026 Active 201610/25/19 19 - Comments only - Neetu Umana APRN - asymptom atic. monitor for now and treat as indicate d. Problem Code: J30.2; Problem Code Type: ICD-10; [address], [facility] [address] , [facility] 4 07:13:29 Melanocy tic nevus 569696150 Active 201605/08/19 17 - Comments only - Neetu Umana APRN - right ear lobe. Most likely benign. Desires to have removed, refer to ENT for further manageme nt. Problem Code: D22.9; Problem Code Type: ICD-10; [address], [place], [address] , [facility] 4 07:13:29 Non-toxi c uninodul ar goiter 152870845 Active 2016 Problem Code: E04.1; Problem Code Type: ICD-10; [address], [facility] [address] , [facility] 4 07:13:29 Neck pain 98549206 Active 201610/25/19 19 - Comments only - Neetu Umana APRN - resolved . Problem Code: M54.2; Problem Code Type: ICD-10; [address], [facility] [address] , [facility] 4 07:13:29 Screenin g mammogra phy Completed 201707/12/2017 Problem Code: Z12.31; Problem Code Type: ICD-10; [address], [place], [address] , [facility] 4 07:13:29 Screenin g mammogra phy Active 2018 Problem Code: Z12.31; Problem Code Type: ICD-10; [address], [facility] [address] , [facility] 4 07:13:29 Headache 34093656 Active 201810/25/19 19 - Comments only - Neetu Umana APRN - improved . continue APAP PRN. continue norvasc since helping headache s as well. Problem Code: R51; Problem Code Type: ICD-10; [address], [place], [address] , [facility] 4 07:13:29 Essentia l hyperten keila 54999219 Active 201810/25/19 19 - Comments only - Neetu Umana APRN - stable, continue medicati on regimen. Problem Code: I10; Problem Code Type: ICD-10; [address], [place], [address] , [facility] 4 07:13:29 Screenin g for malignan t neoplasm of colon Active 2020 Problem Code: Z12.11; Problem Code Type: ICD-10; [address], [place], [address] , [facility] 4 07:13:29 Localize d edema 300435802 Active 2022 Problem Code: R60.0; Problem Code Type: ICD-10; [address], [place], [address] , [facility] 4 07:13:29 Pain of left shoulder joint 76556411719 987383 Active 2022 Problem Code: M25.512; Problem Code Type: ICD-10; [address], [place], [address] , [facility] 4 07:13:29 Cramp in lower limb associat ed with sleep 10034799321 4104 Active 2022 Problem Code: G47.62; Problem Code Type: ICD-10; [address], [place], [address] , [facility] 4 07:13:29 Conjunct ival hemorrha ge of left eye 79513571502 9102 Completed 201710/31/2019 Problem Code: H11.32; Problem Code Type: ICD-10; Not Available [facility] 3 04:02:41 Urinary tract infectio us disease 14850694 Completed 201505/08/2016 Problem Code: N39.0; Problem Code Type: ICD-10; Not Available [facility] 3 04:02:41 Dysuria 73671857 Completed 201505/08/2016 Problem Code: R30.0; Problem Code Type: ICD-10; Not Available [facility] 3 04:02:42 Chest pain 65768082 Completed 201705/03/2020 Problem Code: R07.89; Problem Code Type: ICD-10; Not Available [facility] 3 04:02:44 Foot pain 91927572 Completed 201811/08/2020 Problem Code: M79.673; Problem Code Type: ICD-10; Not Available [facility] 3 04:02:44 Hyperlip idemia 38300860 Active 2023 ASCVD risk 6.89% calculat ed 05/22/23 NEETU UMANA APRN [address], [place], [address] , [facility] 4 06:56:16 Rib pain 160510197 Active 2023 JOHN AMBROCIO [address], [facility] [address] [facility] 4 11:24:12 Menopaus e present 986131055 Active 2023 JOHN AMBROCIO [address], [facility] [address] [place] [address] 4 12:36:07 [facility] 692319878 Active 2023 NEETU UMANA APRN [address], [facility] [address] [place] [address] 4 08:39:51 Acute right otitis media 478248433 Active 2023 NEETU UMANA APRN [address], [facility] [address] [place] [address] 4 08:50:39 Notes:*Problem Name: Arrhyth fallon Heart *ICD-10 Codes: *Problem Status: inactive *Comments: 05/08/2016 - Comments only - Neetu Umana APRN - declined testing or further management at this time. *Note Date: 05/29/2002 *Problem Name: Heart Murmur/mvp *ICD-10 Codes: *Problem Status: inactive *Comments: *Note Date: 05/29/2002 Problem Notes None recorded. Medical Equipment None Reported. Allergies Allergen ID Allergen Name Allergen Category Reaction Reaction Severity Criticality Documentation Date Start Date Code Code System Note Provider Name and Address Organization Details Recorded Time 59383 ampicilli n trihydrat e medicatio n hives Not available Not available 02/23/20232002 85633 5 RxNorm rash/ hives Aller gyRea ction : 'rash / hives '; Not Available [facility] 3 16:22:03 92820 amoxicill in trihydrat e medicatio n hives Not available Not available 02/23/20232003 60517 8 RxNorm rash/ hives Aller gyCod e: '3081 82'; Aller gyNam e: 'AMOX ICILL IN'; Aller gyCon ceptT ype: 'RX Norm' ; Aller gyRea ction : 'rash / hives '; Not Available [facility] 3 16:22:03 85786 Medicinal product containin g penicilli n and acting as antibacte rial agent (product) medicatio n hives Not available Not available 02/23/20232006 50319 05 SNOMED rash/ hives Aller gyCod e: '8340 61'; Aller gyNam e: 'PENI CILLI N'; Aller gyCon ceptT ype: 'RX Norm' ; Aller gyRea ction : 'rash / hives '; Not Available [facility] 3 16:22:03 Medications Name Sig Start Date [...] Updated DateTime 4 171.45 cm 27.7 kg/m2 38950.1 3 g 100.2 [degF] 96 % 96 % 83 /min 130 mm[Hg] 74 mm[Hg] JOLENE PARRY CMA [facility] 08:32:48 Social History Question Answer Notes LastModified by Organizat ion Details LastModified Time Tobacco Smoking Status Never Smoker JOLENE PARRY CMA null, [facility] 05/21/2023 14:26:48 Would You Say That, [...] Recorded Time MMR 05/03/2022 completed Not Available [facility] 05:06:54 MMR 03/27/2022 completed Not Available [facility] 05:06:54 Tdap 05/16/2022 completed Not Available [facility] 05:06:55 Tdap 06/14/2012 completed Not Available [facility] 05:06:55 Td(adult) unspecified formulation 04/30/1999 completed Not Available [facility] 02/23/2023 05:06:56 Influenza, split virus, quadrivalent, PF 03/15/2022 completed Not Available [facility] 02/23/2023 05:06:57 zoster recombinant 07/24/2019 completed Not Available [facility] 02/23/2023 05:06:57 zoster recombinant 10/31/2019 completed Not Available [facility] 02/23/2023 05:06:58 COVID-19, mRNA, LNP-S, PF, 100 mcg/0.5mL dose or 50 mcg/0.25mL dose 08/30/2020 completed Not Available [facility] 02/24/20 05:06:59 COVID-19, mRNA, LNP-S, PF, 100 mcg/0.5mL dose or 50 mcg/0.25mL dose 03/02/2021 completed Not Available [facility] 02/24/20 05:06:59 SARS-COV-2 (COVID-19) vaccine, UNSPECIFIED 08/02/2020 completed Not Available [facility] 02/23/2023 05:07:00 SARS-COV-2 (COVID-19) vaccine, UNSPECIFIED 09/08/2021 completed Not Available [facility] 02/23/2023 05:07:00 COVID-19, mRNA, LNP-S, bivalent, PF, 30 mcg/0.3 mL dose 03/17/2022 completed Not Available [facility] 02/23/2023 05:07:00 Hep B, unspecified formulation 05/29/2002 completed Not Available [facility] 02/23/2023 05:07:01 Hep B, unspecified formulation 07/09/2002 completed Not Available [facility] 02/23/2023 05:07:01 Hep B, unspecified formulation 12/09/2003 completed Not Available [facility] 02/23/2023 05:07:01 influenza, unspecified formulation 2019 completed Not Available [facility] 02/23/2023 05:07:01 influenza, unspecified formulation 01/25/2020 completed Not Available [facility] 02/23/2023 05:07:02 influenza, unspecified formulation 01/27/2014 completed Not Available [facility] 02/23/2023 05:07:02 influenza, unspecified formulation 01/31/2017 completed Not Available [facility] 02/23/2023 05:07:02 influenza, unspecified formulation 02/25/2021 completed Not Available [facility] 02/23/2023 05:07:02 influenza, unspecified formulation 02/26/2018 completed Not Available [facility] 02/23/2023 05:07:02 COVID-19, mRNA, LNP-S, PF, 100 mcg/0.5mL dose or 50 mcg/0.25mL dose 05/04/2023 completed JOLENE PARRY CMA null, [facility] 05/15/2023 12:34:41 influenza, unspecified formulation 03/01/2023 completed JOLENE PARRY CMA null, [facility] 05/15/2023 12:35:59 Respiratory syncytial virus (RSV) vaccine, unspecified 05/10/2023 completed JOLENE PARRY CUSHION INSTALLER null, [facility] 05/21/2023 14:26:21 Past Encounters Encounter ID Performer Location Encounter Start Date Encounter Closed Date Diagnosis/Indication Diagnosis SNOMED-CT Code Diagnosis ICD10 Code [id number] JOHN AMBROCIO [address] [address] 11/01/2023 10:46:16 11/01/2023 11:44:15 Rib pain 285393285 R07.81 Menopause present 197031 006 N95.1 [id number] NEETU UMANA APRN [address] [address] 11/20/2023 08:15:01 11/20/2023 09:07:37 Essential hypertension 35129274 I10 Headache 97492231 R51.9 Neck pain 53566574 M54.2 Non-toxic uninodular goiter 018021170 E04.1 Seasonal a llergic rhinitis 338810253 J30.2 Insomnia 663719977 G47.0 0 Cardiac arrhythmia 12808 7007 I49.9 Localized edema 46610612 4 R60.0 Cramp in l ower limb associated with sleep 2304761712 01113 G47.62 Overweight 660004893 E66 .3 Acute righ t otitis media 900599223 H66.91 Health Concerns Section Related Observation LastModified by Organization Detai ls LastModified Time None Recorded Concern Status LastModified by Organization Details LastModified Time None Recorded Payers Encounter Date Sequence Insurance Name Policy Number Policy [place] Covered Member ID [place] Member ID Guarantor Name 11/20/2023 1 [employer] ([employer]) Maria Ines Valencia [id number] Maria Ines Valencia Notes Date Note Type Note Provider Name and Address Organization Details Recorded Time 11/20/2023 text/html HPI Notes: Is he re [...] cramps, nocturnal. Managed with hydration. -Overweight. Joined [employer]. Working on weight loss. Trying to eat better. NEETU UMANA, KITCHEN RUNNER [address], [place], [address], [place] - [facility]. 11/20/2023 10:00:05 OBGyn Episode No OBEpisode recorded.
--- OUTSIDE RECORDS SUMMARY | 2023-12-28 22:45 | XMS_ITS | Clinical Summary ---
Author Organization [facility] [place] [address] Care Team Providers Care Enchilada Maker Name Role Phone Neetu Suresh APRN Primary Care Provider [phone] Allergies Active Allergy Reactions Criticality Noted Date Comments Penicillins Hives,Rash High 07/05/2016 All cillins Medications Medication Sig Dispensed Refills Start Date End Date Status amLODIPine (NORVASC) 5 mg Tablet take 1 tablet by mouth once daily 0 08/05/2018 Active Active Problems Problem Noted Date Diagnosed Date Multiple thyroid nodules Social History Tobacco Use Types Packs/Day Years Used Date Smoking Tobacco: Never Smokeless Tobacco: Never Sex and Gender Information Value Date Recorded Sex Assigned at Not on file Gender Identity Not on file Sexual Orientation Not on file Last Filed Vital Signs Vital Sign Reading Time Taken Comments Blood Pressure 148/79 02/11/2020 1:30 PM EDT Pulse 76 02/11/2020 1:30 PM EDT Temperature 36 ??C (96.8 ??F) 02/11/2020 12: 45 PM EDT Respiratory Rate 16 02/11/2020 1:30 PM EDT Oxygen Saturation 99% 02/11/2020 1:30 PM EDT Inhaled Oxygen Concentration - - Weight 75.7 kg (166 lb 14.4 oz) 020 11:30 AM EST Height 172.7 cm (5' 8) 02/11/2020 9:23 AM EDT Body Mass Index 25.38 02/11/2020 9:23 AM EDT Plan of Treatment Health Maintenance Due Date Last Done Comments CT Colonography 1959 Colonoscopy 1959 Colorectal Cancer Screening 1959 FIT DNA 1959 FIT 1959 Sigmoidoscopy (10 year) with FIT yearly 1959 Sigmoidoscopy 1959 HIV screen 1977 Hepatitis C Screening 1977 Tdap adult 1978 Tetanus vaccine 1978 HPV test 1989 PAP Smear 1989 Breast Cancer Share Decision Needed 1999 Breast Cancer screening 1999 Zoster vaccine (1 of 2) 2009 Advance Directive 2014 Covid-19 Vaccine ( - season) 2023 Influenza (Flu) vaccine (1 o f 1 - Influenza standard series) 12/16/2023 Care Teams Enchilada Maker Relationship Specialty Start Date End Date Neetu Suresh APRN [address] [place], [place] [address] PCP - General Family Medicine 05/31/16
--- OUTSIDE RECORDS SUMMARY | 2023-12-28 22:45 | XMS_ITS | Encounter Summary ---
Author Organization [facility] Address [address] [place] [address] Care Team Providers Care Tennis Director Name Role Phone Rosemary Patel JOHN Primary Care Provider [phone] Encounter Details Date Type Department Care Team (Latest Contact Info) Description 05/18/2022 Lab Requisition [facility] Pathology & Laboratory Medicine - [facility] [address] [place] [address] Neetu Suresh, SKATE SHOP ATTENDANT [address] [address] Encounter for general adult medical examination without abnormal findings; Encounter for gynecological examination (general) (routine) without abnormal findings; Encounter for screening for malignant neoplasm of cervix Social History Tobacco Use Types Packs/Day Years Used Date Smoking Tobacco: Never Assessed Interpersonal Safety Answer Date Record ed Physically Hurt Never 11/16/2019 Verbally Threaten Not on file 11/16/2019 Sex and Gender Information Value Date Recorded Sex Assigned at Not on file Gender Identity Not on file Sexual Orientation Not on file documented as of this encounter Plan of Treatment Not on file documented as of this encounter Procedures Procedure Name Priority Date/Time Associated Diagnosis Comments PAP TEST Today 05/16/2022 15:15 EST Encounter for general adult medical examination without abnormal findings Encounter for gynecological examination (general) (routine) without abnormal findings Encounter for screening for malignant neoplasm of cervix HPV DNA DETECTION WITH GENOTYPING, PCR Today 05/16/2022 15:15 EST Encounter for general adult medical examination without abnormal findings Encounter for gynecological examination (general) (routine) without abnormal findings Encounter for screening for malignant neoplasm of cervix documented in this encounter Results * HUMAN PAPILLOMAVIRUS (HPV) DETECTION-HIGH RISK TYPES (05/16/2022 15:15 EST) HPV other High Risk types, PCR Negative Negative 05/29/2022 14:03 [facility] Comment:No E6 or E7 mRNA is detected from HPV types 16,18,31,33,35,39,45,51,52,56,58,59,66, and 68 by siphon operator mediated amplification. Papanicolaou smear specimen (specimen) CERVIX UTERI STRUCTURE / Unknown 05/16/2022 15:15 EST 05/26/2022 14:59 EST Neetu Suresh APRN MICROBIOLOGY - GE NERAL ORDERABLES [facility] [address] [place] [address] * PAP TEST (05/16/2022 15:15 EST) Specimens A. Cervix and/or Endocervix , ThinPrep Imaging System with Manual Evaluation 05/29/2022 14:03 [facility] Specimen Adequacy Satisfactory for Evaluation - transformation zone component present 05/29/2022 14:03 [facility] General Categorization Negative for intraepithelial lesion or malignancy 05/29/2022 14:03 [facility] Attestation . 05/29/2022 14:03 [facility] at 1403 Clinical History See below 05/29/19 23 14:03 [facility] HPV The result for the Human Papillomavirus (HPV) Detection-High Risk Types is Negative. No E6 or E7 mRNA is detected from HPV types 16,18,31,33,35,39 ,45,51,52,56,58,5 9,66, and 68 by siphon operator mediated amplification.Annalisa ting was performed on specimen [id number] and was resulted on 05/29/2022 1403 EST by MELANIE, LAB INSTRUMENT RESULTS IN 05/29/2022 14:03 EST [facility] Performing Lab [facility] 05/29/2022 14:03 EST [facility] Scanned Images 05/29/2022 14:03 EST [facility] Papanicolaou smear specimen (specimen) CERVIX UTERI STRUCTURE / Unknown 05/16/2022 15:15 EST 05/18/2022 11:51 EST Neetu Suresh SKATE SHOP ATTENDANT PATHOLOGY ORDERAB LES [facility] [address] [place] [address] documented in this encounter Visit Diagnoses Diagnosis Encounter for general adult medical examination without abnormal findings Unspecified general medical examination Encounter for gynecological examination (general) (routine) without abnormal findings Encounter for screening for malignant neoplasm of cervix Screening for malignant neoplasm of the cervix documented in this encounter Care Teams Tennis Director Relationship Specialty Start Date End Date Rosemary Patel FNP [address] [place] [address] PCP - General 08/07/08 documented as of this encounter
--- OUTSIDE RECORDS SUMMARY | 2023-12-28 22:45 | XMS_ITS | Encounter Summary ---
Author Organization [facility] Address [address] [place] [address] Care Team Providers Care Peripheral Equipment Operator Name Role Phone Rosemary Patel INSTALLER INSPECTOR FINAL Primary Care Provider [phone] Encounter Details Date Type Department Care Team (Late st Contact Info) Description 02/03/2004 Results Only [facility] - Maple conversion [address] [place] [address] Soumya Marshall MD [address] [place] [address] [place] [address] Social History Tobacco Use Types Packs/Day Years Used Date Smoking Tobacco: Never Assessed Sex and Gender Information Value Date Recorded Sex Assigned at Not on file Gender Identity Not on file Sexual Orientation Not on file documented as of this encounter Plan of Treatment Not on file documented as of this encounter Procedures Procedure Name Priority Date/Time Associated Diagnosis Comments CYTOPATHOLOGY Routine 02/03/2004 0:00 EDT documented in this encounter Results * CYTOPATHOLOGY (02/03/2004 0:00 EDT) Pathology Report: CYTOPATHOLOGY REPORT Reports generated via electronic interface contain original data; however they are lacking the format of the original report. Caution should be taken when reading/interpreti ng unformatted reports. Name: ? MARIA INES THORNTON ? Accession #: ? [id number] : ? 1960 (Age: 44) ??F ?Collect Date: ? 02/03/2004 Location: ? [facility] ? Receive Date: ? 02/05/2004 Provider: ?SOUMYA MARSHALL MD Copy to: ? Specimen/Source: ?ThinPrep Pap Test, Cervix/Endocervix Last Menstrual Period: ? 01/21/04 Previous Gynecologic Pathology: ? LSIL: 08/15 ? SPECIMEN ADEQUACY ? Satisfactory for Evaluation - transformation zone component present GENERAL CATEGORIZATION ? Negative for Intraepithelial Lesion or Malignancy ? Document reviewed and electronically signed by: ? Denny Jacob, [place](ASCP) ? Report Date: ??02/10/2004 12:42 End of Report AUNDRE[facility] GRANADO 02/03/2004 02/05/2004 Soumya Marshall MD PATHOLOGY ORDERABLES Performing Organization Address City/State/[facility] Co de Phone Number [facility] [address] [place] [address] documented in this encounter Visit Diagnoses Not on filedocumented in this encounter Care Teams Peripheral Equipment Operator Relationship Specialty Start Date End Date Rosemary Patel FNP [address] [place] [address] PCP - General 08/07/08 documented as of this encounter
--- OUTSIDE RECORDS SUMMARY | 2023-12-28 22:45 | XMS_ITS | Encounter Summary ---
Author Organization [facility] Address [address] [place] [address] Care Team Providers Care Leaf Conditioner Helper Name Role Phone Rosemary Patel CHARGING MANIPULATOR Primary Care Provider Encounter Details Date Type Department Care Team (Late st Contact Info) Description 05/08/2016 Results Only [facility] [phone] Edwin Umana, MAIL PROCESSING EQUIPMENT MECHANIC [address] [facility] [address] [place] [address] Social History Tobacco Use Types Packs/Day Years Used Date Smoking Tobacco: Never Assessed Sex and Gender Information Value Date Recorded Sex Assigned at Not on file Gender Identity Not on file Sexual Orientation Not on file documented as of this encounter Plan of Treatment Not on file documented as of this encounter Procedures Procedure Name Priority Date/Time Associated Diagnosis Comments PAP TEST- RESULT ONLY Routine 05/08/2016 0:00 EST documented in this encounter Results * PAP TEST- RESULT ONLY (05/08/2016 0:00 EST) Pathology Report: CYTOPATHOLOGY REPORT Reports generated via electronic interface contain original data; however they are lacking the format of the original report. Caution should be taken when reading/interpreti ng unformatted reports. Name: ? MARIA INES THORNTON ? Accession #: ? [id number] ? : ? 1960 (Age: 56) ??F ?Collect Date: ? 05/08/2016 ? Location: ? [facility] ? Receive Date: ? 05/10/2016 ? Provider: EDWIN UMANA MAIL PROCESSING EQUIPMENT MECHANIC Copy to: ? Final Report SPECIMEN ADEQUACY ? Satisfactory for Evaluation - transformation zone component present - scant squamous epithelial component - obscuring contamination, possibly lubricant GENERAL CATEGORIZATION ? Negative for Intraepithelial Lesion or Malignancy ?? Hormonal/Contracep tive status: None Treatment History: Colposcopy: Once in 30's neg results Specimen/Source: ??Pap Test, Cervix/Endocervix, ThinPrep Imaging System with manual evaluation Document reviewed and electronically signed by: ? Rose Cronin, [facility](ASCP) ? Report ??Date: 05/12/2016 15:11 HPV with Pap Test ? Date Ordered: ? 05/12/2016 ? Status: ?? Signed Out ?Date Complete: ? 05/16/2016 ? By: ??System Interface ? Date Reported: ? 05/16/2016 ? Interpretation RESULT: Negative for HPV. No E6 or E7 mRNA is detected from HPV types 16,18,31,33,35, 39,45,51,52,56,58, 59,66, and 68 by fuel system maintenance supervisor mediated amplification. Comments Document reviewed and electronically signed by: ? System Interface ? Report date: 05/16/2016 By the signature above, the attending physician certifies that he/she has personally conducted a gross and/or microscopic examination of the described specimens and rendered or confirmed the above diagnosis. End of Report [facility] 05/08/2016 05/10/2016 Edwin Umana MAIL PROCESSING EQUIPMENT MECHANIC PATHOLOGY ORDERAB LES [facility] [address] [place] [address] documented in this encounter Visit Diagnoses Not on filedocumented in this encounter Care Teams Leaf Conditioner Helper Relationship Specialty Start Date End Date Rosemary Patel FNP [address] [place], [place] [address] PCP - General 08/07/08 documented as of this encounter
--- OUTSIDE RECORDS SUMMARY | 2023-12-28 22:45 | XMS_ITS | Encounter Summary ---
Author Organization [facility] [place] [address] Care Team Providers Care Heavy Duty Press Operator Name Role Phone Neetu Suresh APRN Primary Care Provider [phone] Reason for Referral * Consultation (Routine) - Closed Specialty Diagnoses / Procedures Referred By Aislinn lawson Referred To Contact General Surgery Diagnoses Nontoxic single thyroid nodule Velasquez Muñiz MD [facility] [place] [address] Marilou Dozier MD [facility] [place] [address] Referral ID Status Reason Start Date Expiration Date V isits Requested Visits Authorized [id number] Closed Consult, Test & Treat 09/01/2019 08/31/2020 1 1 Reason for Visit * Reason Comments Follow-up Encounter Details Date Type Department Care Team (Late st Contact Info) Description 09/01/2019 4:30 PM EDT Office [place] [address] Velasquez Muñiz MD [facility] [place] [address] Nontoxic single thyroid nodule Social History Tobacco Use Types Packs/Day Years Used Date Smoking Tobacco: Never Smokeless Tobacco: Never Sex and Gender Information Value Date Recorded Sex Assigned at Not on file Gender Identity Not on file Sexual Orientation Not on file documented as of this encounter Last Filed Vital Signs Vital Sign Reading Time Taken Comments Blood Pressure 148/82 09/01/2019 4:22 PM EDT Pulse 82 09/01/2019 4:22 PM EDT Temperature - - Respiratory Rate 16 09/01/2019 4:22 PM EDT Oxygen Saturation 98% 09/01/2019 4:22 PM EDT Inhaled Oxygen Concentration - - Weight 90.7 kg (200 lb) 09/01/2019 4:22 PM EDT Height 172.7 cm (5' 8) 09/01/2019 4:22 PM EDT Body Mass Index 30.41 09/01/2019 4:22 PM EDT documented in this encounter Progress Notes * Velasquez Muñiz MD - 09/01/2019 4:30 PM EDT Endocrinology Clinic Follow-up Visit Reason for Visit: thyroid nodule reassessment. HISTORY OF PRESENT ILLNESS: Ms. Maria Ines Valencia is a 59 y.o. year old lady with history significant for a L- sided spongiform nodule that had benign cytology on FNA in June 2016, which I rebiopsied at last visit in August 2018 because of a significant enlargement. Cytology of the re-biopsy in August 2018 was benign. She preferred to shorten her follow-up intervals to 6 months, and at last visit 6 months ago, her thyroid nodule was 3.6 cm in greatest dimension, and appeared to have continued to increase in size in all 3 dimensions, Cytology has been benign twice, as recently as August 2018. No dysphagia, no anterior neck pressure. But she has noticed some enlargement since last visit. PAST MEDICAL HISTORY: Patient Active Problem List Diagnosis Date Noted ??? Multiple thyroid nodules MEDICATIONS: Medications 09/01/19 1634 Medication Sig Taking? amLODIPine (NORVASC) 5 mg Tablet take 1 tablet by mouth once daily ALLERGIES: Allergies Allergen Reactions ??? Penicillins Hives and Rash All cillins SOCIAL HISTORY: Social History Tobacco Use Smoking Status Never Smoker Smokeless Tobacco Never Used FAMILY HISTORY: Mother & maternal grandmother had thyroid surgery, but doesn't recall they taking thyroid medication afterwards. Mother had multiple myeloma, sister had colon cancer dx age 38. Brother pancreatic cancer. Mat grandmother had breast cancer. Father's brother had lung cancer but wasnot a smoker, also had pancreatic cancer. REVIEW OF SYSTEMS: All 12 systems reviewed and negative except as noted per HPI. PHYSICAL EXAM: Vitals [place] [facility] [place] 90.7 kg (200 lb) Height 172.7 cm (5' 8) BSA (Calculated - sq m) 2.09 sq meters BMI (Calculated) 30.41 Heart Rate 82 Resp 16 BP 148/82 SpO2 98 % Gen: NAD, AAOx3, speaking full sentences, Calm very pleasant demeanor, average habitus Skin: warm and dry Eyes: PERRL, EOMI, anicteric sclerae without injection, no proptosis or lid lag ENT: moist oral mucosa Neck: L-sided thyromegaly with visible and palpable nodule, no lymphadenopathy Pulm: CTAB, no stridor Cardiac: reg s1s2, no m/r/g MSK: 5/5 strength in all muscle groups of the upper and lower extremities Neuro: 1+ biceps and patellar DTRs, no clonus, no delay of the relaxation phase, no tremor. ASSESSMENT: 59 yo F with a L-sided spongiform thyroid nodule that had benign cytology on two FNA biopsies (in 2016 and August 2018). This nodule continues to increase in size and is now larger than 4cm,which is the threshold above which FNA is not felt to be helpful due to the probability of samplingerrorAlvino is interested in pursuing thyroidectomy. PLAN: --referral for L hemithyroidectomy vs total thyroidectomy. VELASQUEZ MUÑIZ MD General Office Workerautomation engineering manager Section of Endocrinology [facility] [place] * Velasquez Muñiz MD - 09/01/2019 4:30 PM EDT THYROID ULTRASOUND Date: 09/01/2019 Indication: thyroid nodule reassessment Comparison: June 2016, August 2017, Feb 2018, August 2018, Feb 2019 Real time images of the thyroid gland were obtained using a BK US machine. All measurements are given as AP x Transverse x Longitudinal. Right Lobe: The right lobe measures 1.3 x 1.6 x 4.3 cm, with slightly heterogeneous echotexture. Solid isoechoic nodule stable in size at 0.45 x 0.52 x 0.45 cm Left Lobe: L-sided spongiform nodule almost completely replacing the L hemithyroid, ~35% cystic (multiple pockets), currently measures 3.1 x 3.6 x4.1 cm (Feb 2019 - 2.9 x 3.6 x 3.5 cm, August 2018 - 2.2 x 3.2 x 3.2 cm, 02/2018 - 2.1 x 3.0 x 3.0 cm, 08/2017 - 2.1 x 2.7 x 3.0cm, 06/2016 - 2.2 x 2.6 x 2.6 cm). This nodule underwent FNA in June 2016 and August 2018 and had benign cytology each time. Lateral neck: Several reactive-appearing lymph nodes seen bilaterally, all with benign architecture. Isthmus: The isthmus measures 0.23 cm in the AP dimension. Pure cyst in the mid-isthmus 0.6cm Impression: L spongiform nodule, despite prior benign cytologies as recently as 1 year ago, continues to increase in size, and at 4.1cm is now larger than the 4cm threshold for proceeding to surgical resection. Velasquez Muñiz MD General Office Workerautomation engineering manager Section of Endocrinology [facility] [place] documented in this encounter Plan of Treatment Scheduled Referrals Name Type Priority Associated Diagnoses Orde r Schedule Referral to General Surgery Outpatient Referral Routine Nontoxic single thyroid nodule Ordered: 09/01/2019 documented as of this encounter Visit Diagnoses Diagnosis Nontoxic single thyroid nodule Nontoxic uninodular goiter documented in this encounter Care Teams Heavy Duty Press Operator Relationship Specialty Start Date End Date Neetu Suresh, CREPE SOLE WIRE BRUSHER [address] [place] [address] PCP - General Family Medicine 05/31/16 documented as of this encounter
--- OUTSIDE RECORDS SUMMARY | 2023-12-28 22:45 | XMS_ITS | Encounter Summary ---
Author Organization [facility] Address [address] [place] [address] Care Team Providers Care Cut Off Saw Tender Metal Name Role Phone Rosemary Patel Primary Care Provider [phone] Encounter Details Date Type Department Care Team (Latest Contact Info) Description 07/24/2016 8:21 EDT - 07/24/2016 23:59 EDT Hospital Encounter [address] [address] Unknown, Provider, Discharge Disposition: Home or Self Care Social History Tobacco Use Types Packs/Day Years Used Date Smoking Tobacco: Never Assessed Sex and Gender Information Value Date Recorded Sex Assigned at Not on file Gender Identity Not on file Sexual Orientation Not on file documented as of this encounter Discharge Disposition Disposition Code Departure Means Destination Home or Self Longterm documented in this encounter Plan of Treatment Not on file documented as of this encounter Visit Diagnoses Not on filedocumented in this encounter Care Teams Cut Off Saw Tender Metal Relationship Specialty Start Date End Date Rosemary Patel FNP [address] [place] [address] PCP - General 08/07/08 documented as of this encounter
--- OUTSIDE RECORDS SUMMARY | 2023-12-28 22:45 | XMS_ITS | Encounter Summary ---
Author Organization [facility] [address] Care Team Providers Care Hall Clerk Name Role Phone Neetu Suresh APRN Primary Care Provider [phone] Encounter Details Date Type Department Care Team (Late st Contact Info) Description 09/05/2018 Telephone [place] [phone] Stephanie Bryan LPN Social History Tobacco Use Types Packs/Day Years Used Date Smoking Tobacco: Never Smokeless Tobacco: Never Sex and Gender Information Value Date Recorded Sex Assigned at Not on file Gender Identity Not on file Sexual Orientation Not on file documented as of this encounter Miscellaneous Notes * Telephone Encounter - Stephanie Bryan LPN - 09/05/2018 4:31 PM EDT Able to reach patient at work number, and read her Dr. Muñiz's message below. She stated GREAT, and she'll see her at follow up appointment in 6 months. Message Jacob Brown, would you let Maria Ines know the great news that her thyroid nodule biopsy came back benign,so I'll just plan to see her back in 6 months like we planned, for reassessment of the nodule with ultrasound. Thanks! Mckenzie ----- Message ----- From: Hung, Lab In [facility] Sent: 09/04/2018 ?? 2:18 PM To: Mckenzie Muñiz MD documented in this encounter Plan of Treatment Not on file documented as of this encounter Visit Diagnoses Not on filedocumented in this encounter Care Teams Hall Clerk Relationship Specialty Start Date End Date Neetu Suresh APRN [address] [place] [address] PCP - General Family Medicine 05/31/16 documented as of this encounter
--- OUTSIDE RECORDS SUMMARY | 2023-12-28 22:45 | XMS_ITS | Encounter Summary ---
Author Organization [facility] Address [address] [place] [address] Care Team Providers Care Grinding Machine Operator Portable Name Role Phone Hannah Patel DOT ETCHER APPRENTICE Primary Care Provider [phone] Encounter Details Date Type Department Care Team (Late st Contact Info) Description 09/07/2003 Results Only [facility] - Maple conversion [address] [place] [address] Blaine Pérez MD [address] [place] [address] Social History Tobacco Use Types Packs/Day Years Used Date Smoking Tobacco: Never Assessed Sex and Gender Information Value Date Recorded Sex Assigned at Not on file Gender Identity Not on file Sexual Orientation Not on file documented as of this encounter Plan of Treatment Not on file documented as of this encounter Procedures Procedure Name Priority Date/Time Associated Diagnosis Comments SURGICAL PATHOLOGY Routine 09/07/2003 0:00 EDT documented in this encounter Results * SURGICAL PATHOLOGY (09/07/2003 0:00 EDT) Pathology Report: SURGICAL PATHOLOGY REPORT Reports generated via electronic interface contain original data; however they are lacking the format of the original report. Caution should be taken when reading/interpreti ng unformatted reports. Name: ? MARIA INES THORNTON ? Accession #: ? [id number] ? : ? 1960 (Age: 43) ??F ? Collect Date: ? 09/07/2003 ? Location: ? [facility] ? Receive Date: ? 09/07/2003 ? Provider: BLAINE PÉREZ MD Copy to: HANNAH PATEL DOT ETCHER APPRENTICE ? Final Pathologic Diagnosis: ? Breast, right, 5 to 6 o'clock, region of inframammary crease, excisional biopsy: - Fibroadenoma with myxoid stroma. Document reviewed and electronically signed by: CHAI MENDOZA MD Report ??Date: 09/08/2003 15:27 By the signature above, the attending physician certifies that he/she has personally conducted a gross and/or microscopic examination of the described specimens and rendered or confirmed the above diagnosis. Specimen(s) Received: ? Rt breast 5-6 o' clock inframammary crease Clinical History: ? Palp mass prob. fibroadenoma Gross Description: ? Received in formalin labelled Babak and right breast mass is a coleman-yellow to white unoriented soft tissue fragment measuring 1.7 x 1.0 x 0.6 cm and weighs 1.06 grams. ??The cut surfaces reveal an ovoid coleman-pink 1.2 x 0.8 x 0.6 cm coleman-white glistening nodule. ??The specimen is inked, serially sectioned, and entirely submitted as (A1) and (A2). ??(Lizbet Mir)/[facility] End of Report AUNDREA GRANADO 09/07/2003 09/07/2003 15: 07 EDT Blaine Pérez MD PATHOLOGY ORDERABLE S AUNDREA GRANADO [address] [place] [address] documented in this encounter Visit Diagnoses Not on filedocumented in this encounter Care Teams Grinding Machine Operator Portable Relationship Specialty Start Date End Date Hannah Patel FNP [address] [place], [place] [address] PCP - General 08/07/08 documented as of this encounter
--- OUTSIDE RECORDS SUMMARY | 2023-12-28 22:45 | XMS_ITS | Encounter Summary ---
Author Organization [facility] Address [address] [place] [address] Care Team Providers Care Cut Pressman Name Role Phone Rosemary Patel JOHN Primary Care Provider Encounter Details Date Type Department Care Team (Late st Contact Info) Description 05/22/2023 Lab Requisition [facility] Pathology & Laboratory Medicine - [address] [id number] Outr Resulting Lab, Provider Social History Tobacco Use Types Packs/Day Years [...] Procedure Name Priority Date/Time Associated Diagnosis Comments T3 FREE Routine 05/21/2023 15:05 EST documented in this encounter Results * T3 FREE (05/21/2023 15:05 EST) T3, Free 4.3 2.8 - 5.3 pg/mL 05/22/2023 18:35 EST [facility] Blood VENOUS BLOOD / Unknown 05/21/2023 15:05 EST 05/22/2023 17:58 EST Provider Outr Resulting Lab CHEMISTRY & BLOOD GAS ORDERABLES [facility] [address] [place] [address] documented in this encounter Visit Diagnoses Not on filedocumented in this encounter Care Teams Cut Pressman Relationship Specialty Start Date End Date Rosemary Patel FNP [address] [place], [place] [id number] PCP - General 08/07/08 documented as of this encounter
--- OUTSIDE RECORDS SUMMARY | 2023-12-28 22:45 | XMS_ITS | Encounter Summary ---
[place] [address] Care Team Providers Care Supervisor Denture Department Name Role Phone Neetu Suresh APRN Primary Care Provider [phone] Encounter Details Date Type Department Care Team (Late st Contact Info) Description 07/12/2016 Tele[place] [phone] Norah Boswell RN Social History Tobacco Use Types Packs/Day Years Used Date Smoking Tobacco: Never Smokeless Tobacco: Never Sex and Gender Information Value Date Recorded Sex Assigned at Not on file Gender Identity Not on file Sexual Orientation Not on file documented as of this encounter Miscellaneous Notes * Telephone Encounter - Norah Boswell RN - 07/12/2016 8:40 AM EDT Maria Ines Valencia - 07/05/16 << Less Detail ?? Mckenzie Muñiz MD ?? Sent: SunJuly 11, 2016 ??9:35 PM ?? To: Norah Boswell RN ?? Message ?? Jacob Almazan, may you let Maria Ines know that her thyroid nodule biopsy came back benign. ?? I'll see her back in 1 year unless the nodule becomes more symptomatic in which case she should let me know and if so, i would refer her to the thyroid surgeon. ? Thanks so much! ? Mckenzie ?? Placed call to Maria Ines, message from Dr Muñiz given. Maria Ines states understanding and agrees with plan. documented in this encounter Plan of Treatment Not on file documented as of this encounter Visit Diagnoses Not on filedocumented in this encounter Care Teams Supervisor Denture Department Relationship Specialty Start Date End Date Neetu Suresh, NEW ACCOUNTS BANKING REPRESENTATIVE [address] [place] [address] PCP - General Family Medicine 05/31/16 documented as of this encounter
--- OUTSIDE RECORDS SUMMARY | 2023-12-28 22:45 | XMS_ITS | Encounter Summary ---
Author Organization [facility] Address [address] [place] [address] Care Team Providers Care Nuts And Bolts Assembler Name Role Phone Rosemary Patel JOHN Primary Care Provider [phone] Encounter Details Date Type Department Care Team (Late st Contact Info) Description 05/16/2022 Lab Requisition [facility]ology & Laboratory Medicine - [address] [id number] Outr Resulting Lab, Provider Social History Tobacco [...] Date/Time Associated Diagnosis Comments T3 FREE Routine 05/16/2022 15:25 EST documented in this encounter Results * T3 FREE (05/16/2022 15:25 EST) T3, Free 3.7 2.8 - 5.3 pg/mL 05/17/2022 17:52 EST [facility] Blood VENOUS BLOOD / Unknown 05/16/2022 15:25 EST 05/17/2022 17:13 EST Provider Outr Resulting Lab CHEMISTRY & BLOOD GAS ORDERABLES [facility] [address] [place] [address] documented in this encounter Visit Diagnoses Not on filedocumented in this encounter Care Teams Nuts And Bolts Assembler Relationship Specialty Start Date End Date Rosemary Patel FNP [address] [place], [place] [id number] PCP - General 08/07/08 documented as of this encounter
--- OUTSIDE RECORDS SUMMARY | 2023-12-28 22:45 | XMS_ITS | Encounter Summary ---
Author Organization [facility] [place] [address] Care Team Providers Care Obiee Architect Name Role Phone Neetu Suresh APRN Primary Care Provider [phone] Reason for Visit * Auth/Cert Specialty Diagnoses / Procedures Referred By Aislinn lawson Referred To Contact Diagnoses THYROID NODULE Procedures PRO THYROID LOBECTOMY, UNILAT PRG EMG, LARYNX THYROIDECTOMY, LOBECTOMY, TOTAL, UNILATERAL (WRVU 11.19) FACIAL NERVE MONITORING, SETUP LARYNGEAL (WRVU 1.57) Referral ID Status Reason Start Date Expiration Date Visits Re quested Visits Authorized [id number] 1 1 Encounter Details Date Type Department Care Team (Late st Contact Info) Description 02/11/2020 10:21 AM EDT - 02/11/2020 12:20 PM EDT Surgery [facility] [place] [address] Rosanna Torres MD [facility] [place] [address] THYROIDECTOMY, LOBECTOMY, TOTAL, UNILATERAL (WRVU 11.19) Social History Tobacco Use Types Packs/Day Years Used Date Smoking Tobacco: Never Smokeless Tobacco: Never Sex and Gender Information Value Date Recorded Sex Assigned at Not on file Gender Identity Not on file Sexual Orientation Not on file documented as of this encounter Last Filed Vital Signs Vital Sign Reading Time Taken Comments Blood Pressure 133/69 02/11/2020 9:23 AM EDT Pulse 66 02/11/2020 9:23 AM EDT Temperature 36.6 ??C (97.9 ??F) 02/11/2020 9:23 AM ED T Respiratory Rate 18 02/11/2020 9:23 AM EDT Oxygen Saturation 98% 02/11/2020 9:23 AM EDT Inhaled Oxygen Concentration - - Weight 91.5 kg (201 lb 11.5 oz) 02/11/2020 9:23 AM EDT Height 172.7 cm (5' 8) 02/11/2020 9:23 AM EDT Body Mass Index 30.67 02/11/2020 9:23 AM EDT documented in this encounter Discharge Instructions * Discharge Instructions* Linda Barreto RN - 02/11/2020 10:19 AM EDT General Anesthesia Discharge Instructions Go home and rest. You may be sleepy for several hours. Take it easy as sudden position changes may cause nausea and/or dizziness. Use caution on stairs. Do not smoke if you are alone. Follow a light to regular diet as tolerated today. If nausea occurs, start with clear liquids, and progress slowly to a regular diet. Do not drive, operate machinery, drink alcoholic beverages or make any legal decisions after havinggeneral anesthesia. The medications given change your reaction time and alter your judgement. IV site -- slight redness is normal, you can use warm compresses. If tenderness and redness increases or foul drainage occurs, please contact your M.D. Patients who have had endotracheal tubes/LMA (tubes used by the anesthesia staff to ensure a safe airway during your operation) may have a sore throat. This is normal and cold liquids or soothing lozenges will help ease this discomfort. Narcotic pain medications can cause constipation, please ask the surgeons office what they recommend for prevention of this. Some non-pharmaceutical means of constipation prevention include increasing intake of fluids, eating more fruits and vegetables as well as fruit juices. If you are uncomfortable and/or unable to urinate within 8 hours of discharge and it is before 5 pm, call your physician. If it is after 5pm go to the closest emergency room or call the hospital band scroll saw operator at [phone] and ask for physician carton waxing machine operator covering for your physician. Questions or problems after 5pm or on a weekend: Call the [facility] band scroll saw operator at and ask for the physician carton waxing machine operator covering for your doctor. * Patient Instructions* Sy Dunn MD - 02/11/2020 12:49 PM EDT THYROID LOBECTOMY (HEMITHYROIDECTOMY) PATIENT DISCHARGE INSTRUCTIONS What to Expect Following Surgery: Swelling and/or bruising under and around the incision is normal. It is usually greatest on the second or third day following surgery. You may also feel the sensation of swelling or firmness that canlast for a month or more Your scar will be most visible for 1-2 months following your operation and will gradually fade overthe next 6-8 months. As it heals, a scar often looks more pink or red than the skin around it. You may feel a ???healing ridge?? directly under the incision. This is completely normal and is the result of swelling, healing, and scar formation. Usually, this will go away when healing is complete in 3-6 months. The skin just above and below your incision will feel numb. This will improve over several months but some patients may have a long-term decrease in sensation over these areas. You may notice minor difficulty in swallowing which will improve over time. Your voice may be hoarse or weak at first--this is normal and does not mean there was damage done to the nerves that make the vocal cords move. Your voice will usually go back to normal after severaldays to a few weeks. Incision Care: Neck incisions heal rapidly--usually within a week or two. The incision can get wet in the shower 24 hours after surgery. However, do not submerge the incision underwater (i.e. bath tub, swimming pool, hot tub, etc.) for at least 2 weeks after your operation. Pat the incision dry immediately following your shower. Do not scrub the area vigorously for the next 2 weeks. You have a skin glue closure, and you may notice tiny pieces of yellow/white/pearson material on your washcloth or there may be a thin clear or purplish/pearson crust around the edges of the incision. Thisis normal. The glue will start to come off about a week after surgery. Do not pull off the skin glue in order to allow time for the incision to heal completely. If there is still some glue on your skin 2 weeks after surgery, you may gently wash it away. Do not use any ointments/salves/Vitamin E on the incision for 2 weeks as these may impair early wound healing. After 2 weeks (and after the skin glue is gone), you may apply vitamin E oil or scar creams to the incision. Gentle massage may help soften your scar tissue. Incisions are sensitive to sunlight. For at least 1 year after surgery you should use sunscreen when outdoors for long periods of time to prevent permanent darkening of the scar. This includes tanning booths. Pain Management: You may apply ice or cold packs to the incision for 15-20 minutes several times a day for the first2-3 days following surgery to help with discomfort. You may feel some stiffness/soreness in your shoulders, back, and neck. This may take a few days orweeks to go away completely. You may use moist warm heat, a heating pad, or massage to these areas for 15-20 minutes several times a day. Do not be afraid to move your neck - gently flexing and stretching your neck muscles and light massage will help prevent stiffness NSAIDs (non-steroidal anti-inflammatory drugs) such as ibuprofen (Motrin, Advil) and naproxen (Naprosyn, Aleve) or acetaminophen (Tylenol) are most helpful for the pain experienced after surgery. Generally, these are even more effective than the stronger pain medications (narcotics or opioids) after thyroid surgery. Take NSAIDS or Tylenol every 6 hours [id number] for the first 3-5 days following surgery to help minimize pain. It is unusual to require opioid pain medications after thyroid surgery. If you were prescribed oxycodone, use only for severe pain, and never take with alcohol. Opioid medications typically cause constipation, so we suggest using a stool softener in addition (metamucil, colace...etc.). Diet & Activity: No restrictions in your diet are necessary. Activity as tolerated by your comfort level. You may return to work as soon as you would like. However, if your job requires heavy lifting or strenuous physical activity, your surgeon may ask you to wait to return to work for two weeks. NO DRIVING for 24 hours after general anesthesia and for at least 8 hours following any dose of an opioid pain medication if one was prescribed for you. Thyroid Hormone: About 25% of patients will require thyroid hormone supplementation after a hemithyroidectomy. A blood test will performed in approximately 6 weeks to determine whether you need this. This lab test will be coordinated with your follow-up appointment. Pathology Report: All specimens removed at surgery are analyzed by a pathologist. This report usually takes approximately 5-7 business days to be ready. Dr. Torres will call you with this report as soon as it is available. Follow-up Appointment: Will be scheduled with Dr. Torres in approximately 6 weeks. Please call [phone] to confirm the date and time of your appointment if you do not hear from us in the next 2 weeks or if you need to reschedule. Call Doctor for: Call if you have trouble talking or breathing (call 911 if this is severe) Call if you develop numbness or tingling around your mouth/lips or on the tips of your fingers or your hands, as this may mean your calcium is low. This may also be related to pain medication, where the breathing tube was positioned against your lips, the positioning of your arms and hands in the operating room, or how you were positioned when sleeping. If the sensation does not go away within a half hour, or if it worsens prior to that, call us immediately so we can discuss increasing your calcium if we think you need it. Call if your incision becomes red or begins to drain fluid. Call if you have fevers greater than 101 degrees F Call if you have persistent nausea or vomiting (this may be related to opioid pain medications). Call if you begin feeling worse, rather than better, several days after surgery. Phone number for questions: [phone] before 5 PM on weekdays [phone] after 5 PM and on weekends/holidays. Ask for the general surgery resident carton waxing machine operator. documented in this encounter Medications at Time of Discharge Medication Sig Dispensed Refills Start Date End Date amLODIPine (NORVASC) 5 mg Tablet take 1 tablet by mouth once daily 0 08/05/2018 documented as of this encounter Progress Notes * Linda Barreto RN - 02/11/2020 1:48 PM EDT Discharge instructions and medications reviewed with patient and daughter Padma. All questions answered and written copy sent home with patient. Patient ambulated to restroom and then to car for discharge accompanied by [facility] staff member. * Mariela Vega RN - 02/11/2020 12:45 PM EDT Arrived [facility] #11 monitors placed, alarms set/ audible. Neck incision open to air with no drainage, ice applied to site. * Mckenzie Brown RN - 02/06/2020 9:45 AM EDT During this call the patient was questioned regarding travel outside of [facility], fever, cough, SOB or other illness in the last 14 days. Patient also questioned regarding any exposure to aCOVID positive person, a person awaiting results from testing or a person in quarantine.Patient denies any positive responses to the above questions for themselves or their escort for the day of procedure. Patient informed of procedure to be followed upon arrival to the [facility]. 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 documented in this encounter H&P Notes * Sy Dunn MD - 02/11/2020 10:42 AM EDT Patient Name: Maria Ines Valencia Patient Age: 60 y.o. Birthdate: 1960 Admit date: 02/11/2020 Attending Physician: Rosanna Torres MD H&P 24hr interval update/Pre-operative note Please see Dr. Torres's note from clinic on 11/13/19 for further information. ID: Maria Ines Valencia is a 60 y.o. female with a hx of left-sided thyroid nodule who presents to [facility] for left thyroidectomy S: Maria Ines Valencia endorses no recent change in health. Denies any fever, chills, cough, congestion, change in bowel habits. Prior to arrival today, Maria Ines Valencia was in a normal state of health. O: Physical Exam: Patient Vitals for the past 24 hrs: Temp Pulse Resp BP SpO2 02/11/20 0923 36.6 ??C (97.9 ??F) 66 18 133/69 98 % Gen: NAD CVS: RRR Pulm: CTAB Abd: soft, nt/nd Ext: wwp A/P: Maria Ines Valencia is a 60 y.o. female who presents for planned left thyroidectomy. Will proceed with planned operation. Sy Dunn MD 02/11/2020 General Surgery Pgr. [id number] documented in this encounter Miscellaneous Notes * Op Note - Rosanna Torres MD - 02/11/2020 12:26 PM EDT [facility] Operative Note Patient Name: Maria Ines Valencia : [id number] MR#: [id number] Case Date: 02/11/2020 Surgeon: Surgeon(s) and Role: * Rosanna Torres MD - Primary * Sy Dunn MD - Resident Preoperative diagnosis: THYROID NODULE Postoperative diagnosis: THYROID NODULE Procedure(s) (LRB): THYROIDECTOMY, LOBECTOMY, TOTAL, UNILATERAL (WRVU 11.19) (N/A) FACIAL NERVE MONITORING, SETUP LARYNGEAL (WRVU 1.57) (N/A) Anesthesia: General Estimated Blood Loss: 47 mL Specimens removed during surgery: Order Name Source Comment Collection Info Order Time SPECIMEN TO PATHOLOGY THYROID NODULE Left hemithyroid lobe excision 02/11/2020 12:12 PM Time specimen removed from patient: 12:12 PM Number of tissue samples (in container) 1 Drains: * No LDAs found * Surgical Closure: Primary Closure - skin incision is completely closed without any wires, ibrahima, drains or other devices Disposition: awakened from anesthesia, extubated and taken to the recovery room in a stable condition, having suffered no apparent untoward event. Condition: doing well without problems (Please see the Surgical Encounter Summary for any Implant and Specimen details pertinent to this patient.) HPI/Surgical Indications: Ms. Maria Ines Valencia is a 59 y.o. year old female with a left-sided thyroid nodule and FNA demonstrating benign (Marlette 2) cytology. The nodule has been enlarging over time, and is becoming increasingly bothersome to the patient in terms of its appearance and also concern that it might be causing trouble every time she coughs or chokes. It now exceeds 4cm. I therefore recommended left thyroid lobectomy. Procedure Description: The patient was correctly identified in the preoperative holding area. The risks, benefits, and indications of a thyroidectomy were reviewed with the patient. She was then taken to the operating room and placed on the operating table in the supine position and an identification procedure was performed. Adequate general anesthesia was achieved by anesthesiology with the [employer] recurrent laryngeal nerve monitoring system. A natural crease in the anterior neck was marked with a marking pen. This area was infiltrated with 0.25% Sensorcaine with epinephrine. The patient'santerior neck was then prepped and draped in sterile fashion. A timeout procedure was done and all members of the OR team were in agreement. We made a curvilinear incision along the previously marked crease with a scalpel. The incision was carried down through the subcutaneous tissue and platysma muscle using electrocautery. Subplatysmal flaps were created in the cranial and caudal directions. The median raphe of the strap muscles was id entified and this was divided in vertical fashion using electrocautery. This exposed the thyroid gland, which was from its lateral attachments to the strap muscles on the left side using electrocautery. The thyroid lobe was replaced by a large nodule (~4-5cm). The middle thyroidal veins were ligated with 3-0 silk sutures and Harmonic scalpel. The inferior thyroid vessels were identifiedand divided using a combination of hand ties and harmonic scalpel. We then identified the recurrentlaryngeal nerve as it ran in the tracheoesophageal groove and followed this up to chip of Luis, ligating vessels to expose the nerve's anterior surface. We then took down the upper pole thyroid vessels with a combination of 2-0 and 3-0 silk sutures and Harmonic scalpel. In this process, one ofthe arteries avulsed, and there was some bleeding that dissected within the muscle layers posteriorto the nerve. Hemostasis was achieved with a combination of silk ties and a small clip. The left upper parathyroid gland was seen and preserved on its vascular pedicle. A candidate for the left lower parathyroid was preserved, though at the conclusion of the case, this looked more like a tiny pieceof nodular thyroid tissue. We then divided the attachments of the ligament of Smith with sharp dissection and 3-0 silk sutures and divided the attachments of the thyroid off the pretracheal fascia past the midline with electrocautery. We divided the thyroid through its isthmus using the Harmonic scalpel and sent the specimen to pathology. The recurrent laryngeal nerve remained intact throughout. We then irrigated the operative field. A Valsalva to 30 millimeters of mercury was accomplished by Anesthesia. Hemostasis was assured. Surgicel was placed in the paratracheal space. We then closed the strap muscles using running 3-0 Vicryl suture, the platysma with interrupted 3-0Vicryl suture, and the skin with running 5-0 Prolene subcuticular suture, followed by placement of Dermabond and removal of the Prolene suture. The patient tolerated the procedure well. Sponge and needle counts were correct upon completion of the procedure. Infection Bundle used? N/A Attestation: Case Date: 02/11/2020 I was present and I participated during the entire procedure (does not need to include opening and closing). ROSANNA TORRES MD 02/11/2020 * Brief Op Note - Rosanna Torres MD - 02/11/2020 12:24 PM EDT Brief Operative Note Patient Name: Maria Ines Valencia DOB: [id number] MR#: [id number] Case Date: 02/11/2020 Surgeon: Surgeon(s) and Role: * Rosanna Torres MD - Primary * Sy Dunn MD - Resident Preoperative diagnosis: THYROID NODULE Postoperative diagnosis: THYROID NODULE Procedure(s) (LRB): THYROIDECTOMY, LOBECTOMY, TOTAL, UNILATERAL (WRVU 11.19) (N/A) FACIAL NERVE MONITORING, SETUP LARYNGEAL (WRVU 1.57) (N/A) Anesthesia: General Findings: left thyroid essentially replaced by large (4.5-5cm) nodule. Left RLN intact throughout. Left upper and candidate for left lower parathyroids preserved. Complications: none apparent Intake: Intraprocedure Crystalloid Total Intake Lactated Ringers 800.00 mL Total Intake 800 mL Output Blood Loss 47 mL Total Output 47 mL Net Net Volume 753 mL Transfusion No data found in the last 1 encounters. Output: Estimated Blood Loss: 47 mL Urine Output:: (no urine output recorded) Other Output: (no other output recorded) Drains: none Specimens removed during surgery: Order Name Source Comment Collection Info Order Time SPECIMEN TO PATHOLOGY THYROID NODULE Left hemithyroid lobe excision 02/11/2020 12:12 PM Time specimen removed from patient: 12:12 PM Number of tissue samples (in container) 1 Disposition: awakened from anesthesia, extubated and taken to the recovery room in a stable condition, having suffered no apparent untoward event. Condition: doing well without problems Attestation: Case Date: 02/11/2020 I was present and I participated during the entire procedure (does not need to include opening and closing). (Please see the Surgical Encounter Summary for any Implant and Specimen details pertinent to this patient.) Infection Bundle used? N/A documented in this encounter Plan of Treatment Not on file documented as of this encounter Procedures Procedure Name Priority Date/Time Associated Diagnosis Comments SURGICAL PATHOLOGY REPORT Routine 02/11/2020 12:12 PM EDT SPECIMEN TO PATHOLOGY Routine 02/11/2020 12:12 PM EDT Needle Electromyography, Larynx Global ([id number]) Yes 02/11/2020 11:04 AM EDT THYROID NODULE Total Thyroid Lobectomy Unilateral W/Wo Isthmusectomy ([id number]) Yes 02/11/2020 11:04 AM EDT THYROID NODULE documented in this encounter Results * TSH (03/26/2020 10:18 AM EST) Thyroid Stimulating Hormone 2.47 0.27 - 4.20 mcIU/mL [facility] Blood specimen (specimen) 03/26/2020 10:18 AM EST 03/26/2020 10:33 AM EST Narrative Resulting Agency Comment Spec In Lab Rosanna Torres MD CHEMISTRY ORDERAB LES [facility] [place] [address] * Surgical Pathology Report (02/11/2020 12:12 PM EDT) Final Diagnosis [id number] ? Location: [facility] The signing pathologist has (i) examined the relevant preparation(s) for the specimen(s) and (ii) rendered or confirmed the diagnosis(es). . 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 Electronically signed by: ??MD Eligio, Tyler Lamb Verified: ??02/17/2020 ?Pathologist Performed at: ??-[facility] Dept. of Pathology, [place], [place] SPECIMEN(S) SUBMITTED A - Left hemithyroid lobe, excision (1) CLINICAL INFORMATION Thyroid nodule SPECIMEN PROCESSING A - Labeled/Fixative: Left hemithyroid lobe, formalin. Quantity/Size/Weig ht: Single, 5.1 x 4.9 x 2.5 cm, 43.71 g. SPECIMEN DESCRIPTION: Resection Specimen: Intact, kerry-thyroidectomy , consisting of left thyroid lobe. External Surface: Purple smooth and intact. Thyroid lobe symmetrically enlarged. ??LESION ?Location: Lower pole, mid-lobe, upper pole. ?Description: Well-circumscribed , cystic, hemorrhagic and necrotic soft mass. ?Size: 3.7 x 3.5 x 1.4 cm. ?Contour/capsule: Circumscribed. Parenchyma: Firm, dark brown and glassy. Inking: The thyroid capsule is inked black. The isthmic margin is inked yellow. Serially sectioned and entirely submitted in 33 cassettes as follows: ?A1-A33: ??Thyroid, superior to inferior ??RT 02/17/2020 2:02 PM EST [facility] THYROID STRUCTURE / Unknown 02/11/2020 12:12 PM EDT 02/11/2020 12:12 PM EDT Rosanna Torres MD PATHOLOGY/CYTOLOG Y ORDERABLES Performing Organization Address City/[facility]/ZIP [place] [address] * Specimen to Pathology (02/11/2020 12:12 PM EDT) AP Specimen 02/11/2020 12:1 2 PM EDT 02/11/2020 12:12 PM EDT Narrative [facility] - 02/11/2020 12:12 PM EDT Specimen requisition ordered. ??Separate Pathology report to follow Rosanna Torres MD PATHOLOGY/CYTOLOG Y ORDERABLES Performing Organization Address City/[facility]/[place]IP [place] [address] documented in this encounter Visit Diagnoses Not on filedocumented in this encounter Administered Medications Inactive Administered Medications - up to 3 most recent administrations Medication Order MAR Action Action Date Dose Rate Site acetaminophen (Tylenol) tablet 1,000 mg 1,000 mg, Oral, ONCE, 1 dose, On Sun02/11/20 at 1315, Maximum dose of acetaminophen is 4000 mg from all sources in 24 hours. When ordered for pain, acetaminophen should be given even when other ordered pain medications are indicated. , Routine Given 02/11/2020 1:12 PM EDT 1,000 mg BUpivacaine (PF) (MARCAINE) 0.25 % (2.5 mg/mL) injection ONCE PRN, Starting on Sun02/11/20 at 1138, Until Sun02/11/20 at 1548, Intra-Operative (Intra-Procedure), Routine Given 02/11/2020 11:38 AM EDT 5 mLs 19- Surgical Site lidocaine-EPINEPHrine 1 %-1:100,000 injection ONCE PRN, Starting on Sun02/11/20 at 1138, Until Sun02/11/20 at 1548, Intra-Operative (Intra-Procedure), Routine Given 02/11/2020 11:38 AM EDT 5 mLs 19- Surgical Site documented in this encounter Active and Recently Administered Medications Times are shown in EDT. Scheduled Medication Order 02/09/2020 02/10/2020 02/11/2020 acetaminophen (Tylenol) tablet 1,000 mg (COMPLETED) 1,000 mg, Oral, ONCE, 1 dose, On Sun02/11/20 at 1315, Maximum dose of acetaminophen is 4000 mg from all sources in 24 hours. When ordered for pain, acetaminophen should be given even when other ordered pain medications are indicated. , Routine 1312 (Given - Provid er: Mariela Christiansen RN) PRN Medication Order 02/09/2020 02/10/2020 02/11/2020 BUpivacaine (PF) (MARCAINE) 0.25 % (2.5 mg/mL) injection (CANCELED) ONCE PRN, Starting on Sun02/11/20 at 1138, Until Sun02/11/20 at 1548, Intra-Operative (Intra-Procedure), Routine 1138 (Given - Provid er: Rosanna Torres MD - Comment: local mix of 0.25% bupivacaine mixed 1-1 with 1% lidocaine with epi. total of 10 ml given at this time.) lidocaine-EPINEPHrine 1 %-1:100,000 injection (CANCELED) ONCE PRN, Starting on Sun02/11/20 at 1138, Until Sun02/11/20 at 1548, Intra-Operative (Intra-Procedure), Routine 1138 (Given - Provid er: Rosanna Torres MD - Comment: local mix of 0.25% bupivacaine mixed 1-1 with 1% lidocaine with epi. total of 10 ml given at this time.) documented in this encounter Care Teams Obiee Architect Relationship Specialty Start Date End Date Neetu Suresh APRN [address] [place] [address] PCP - General Family Medicine 05/31/16 documented as of this encounter
--- OUTSIDE RECORDS SUMMARY | 2023-12-28 22:45 | XMS_ITS | Encounter Summary ---
Author Organization [facility] Address [address] [place] [address] Care Team Providers Care Adapted Physical Education Teacher Name Role Phone Hannah Patel TURKISH LINE ATTENDANT Primary Care Provider [phone] Encounter Details Date Type Department Care Team (Late st Contact Info) Description 07/24/2016 Results Only [facility] [phone] Eliseo Davalos, [address] [place], [place] [id number] Social History Tobacco Use Types Packs/Day Years Used Date Smoking Tobacco: Never Assessed Sex and Gender Information Value Date Recorded Sex Assigned at Not on file Gender Identity Not on file Sexual Orientation Not on file documented as of this encounter Plan of Treatment Not on file documented as of this encounter Procedures Procedure Name Priority Date/Time Associated Diagnosis Comments SURGICAL PATHOLOGY Routine 07/24/2016 9:09 EDT documented in this encounter Results * SURGICAL PATHOLOGY (07/24/2016 9:09 EDT) Pathology Report: SURGICAL PATHOLOGY REPORT Reports generated via electronic interface contain original data; however they are lacking the format of the original report. Caution should be taken when reading/interpreting unformatted reports. Name: ? MARIA INES THORNTON ? Accession #: ? [id number] ? : ? 1960 (Age: 56) ??F ? Collect Date: ? 07/24/2016 ? Location: ? [facility] ? Receive Date: ? 07/26/2016 ? Provider: ELISEO DAVALOS DO Copy to: HANNAH PATEL TURKISH LINE ATTENDANT ? Final Pathologic Diagnosis: A. ??SKIN OF EARLOBE, RIGHT, SHAVE BIOPSY: - Melanocytic nevus, intradermal type. B. ??SKIN OF FOREHEAD, RIGHT, SHAVE BIOPSY: - Features suggestive of actinic keratosis. ??See comment. Comment: The biopsy from right forehead (B) is small and transects the epidermis. Where the epidermis is best represented, there is mild nuclear atypia and overlying parakeratosis. ??These features are suggestive of actinic keratosis. However, given the superficial nature of the biopsy, a deeper pathologic process cannot be excluded. ??Correlation with the clinical history and examination is recommended. ??(Dr. Moreno)/[facility] Microscopic Description: (A) ??Sections are of a papule with mild epidermal hyperplasia and hyperkeratosis. ??There is a proliferation of melanocytes within the dermis. ??The proliferation consists of nests, cords, and strands that diminish in size with descent into the dermis. ??The melanocytes are slightly enlarged but generally have round-oval nuclei and a moderate amount of cytoplasm. ??The melanocytes show senior ruby developer maturation. ?? (B) ??Sections consist of a shave biopsy of skin that transects the epidermis and papillary dermis. ??There is orthohyperkeratosis and parakeratosis. ??The epidermis is mildly hyperplastic. ??In areas, there is mild atypia along the basal zone. ??Deeper sections have similar features. ??(Dr. Moreno)/[facility] [place] Document reviewed and electronically signed by: CAMILLE MORENO MD Report ??Date: 07/28/2016 16:33 By the signature above, the attending physician certifies that he/she has personally conducted a gross and/or microscopic examination of the described specimens and rendered or confirmed the above diagnosis. Specimen(s) Received: A. ??Right earlobe B. ??Right forehead Clinical History: Enlarging skin lesion(s); clinical diagnosis code: ??D49.2 Gross Description: A. ?Received in formalin labelled with proper patient identification (initials H, T) and right earlobe is a rubbery ovoid skin, 0.9 x 0.6 x up to 0.3 cm. The central skin surface shows an ill-defined mottled pale to darker brown area, 0.6 x 0.5 cm. The margin is inked, trisected and entirely submitted in A1. B. ?Received in formalin labelled with proper patient identification (initials H, T) and right forehead is an irregular skin shave, 0.3 x 0.2 x 0.1 cm. The skin surface is dull coleman-pearson. Entirely submitted in B1. KE Shrestha (ASCP) 07/26/2016 10:19 AM End of Report [facility] 07/24/2016 9:09 EDT 07/26/2016 9:09 EDT Eliseo Davalos DO PATHOLOGY ORDER EGRDA [facility] [address] [place] [address] documented in this encounter Visit Diagnoses Not on filedocumented in this encounter Care Teams Adapted Physical Education Teacher Relationship Specialty Start Date End Date Hannah Patel FNP [address] [place] [address] PCP - General 08/07/08 documented as of this encounter
--- OUTSIDE RECORDS SUMMARY | 2023-12-28 22:45 | XMS_ITS | Encounter Summary ---
[place] [address] Care Team Providers Care Towel Sewer Name Role Phone Neetu Suresh APRN Primary Care Provider [phone] Encounter Details Date Type Department Care Team (Latest Contact Info) Description 03/26/2020 10:20 AM EST Laboratory Appointment Lab [address] [place] [address] Multiple thyroid nodules Social History Tobacco Use [...] Procedure Name Priority Date/Time Associated Diagnosis Comments HC THYROID STIMULATING HORMONE, SERUM Routine 03/26/2020 10:18 AM EST Multiple thyroid nodules documented in this encounter Results * TSH (03/26/2020 10:18 AM EST) Thyroid Stimulating Hormone 2.47 0.27 - 4.20 mcIU/mL [facility] Blood specimen (specimen) 03/26/2020 10:18 AM EST 03/26/2020 10:33 AM EST Narrative Resulting Agency Comment Spec In Lab Marilou J Dozier MD CHEMISTRY ORDERAB LES [facility] [place] [address] documented in this encounter Visit Diagnoses Diagnosis Multiple thyroid nodules Nontoxic multinodular goiter documented in this encounter Care Teams Towel Sewer Relationship Specialty Start Date End Date Neetu Suresh, [employer] [address] [place] [address] PCP - General Family Medicine 05/31/16 documented as of this encounter
--- OUTSIDE RECORDS SUMMARY | 2023-12-28 22:45 | XMS_ITS | Encounter Summary ---
Author Organization [facility] Address [address] [place] [address] Care Team Providers Care Mobile Home Mechanic Name Role Phone Rosemary Patel [employer]CT SUPPORT TECH[employer]ANS Primary Care Provider [phone] Encounter Details Date Type Department Care Team (Late st Contact Info) Description 05/20/2002 Results Only [facility] [address] [place] [address] Soumya Marshall MD [address] [place] [address] [place] [address] Social History Tobacco Use Types Packs/Day Years Used Date Smoking Tobacco: Never Assessed Sex and Gender Information Value Date Recorded Sex Assigned at Not on file Gender Identity Not on file Sexual Orientation Not on file documented as of this encounter Plan of Treatment Not on file documented as of this encounter Procedures Procedure Name Priority Date/Time Associated Diagnosis Comments CYTOPATHOLOGY Routine 05/20/2002 0:00 EST documented in this encounter Results * CYTOPATHOLOGY (05/20/2002 0:00 EST) Pathology Report: CYTOPATHOLOGY REPORT Reports generated via electronic interface contain original data; however they are lacking the format of the original report. Caution should be taken when reading/interpreti ng unformatted reports. Name: ? MARIA INES THORNTON ? Accession #: ? [id number] : ? 1960 (Age: 42) ??F ?Collect Date: ? 05/20/2002 Location: ? [facility] ? Receive Date: ? 05/22/2002 Provider: ?SOUMYA MARSHALL MD Copy to: ? Specimen/Source: ?ThinPrep Pap Test, Cervix/Endocervix Last Menstrual Period: ? 04/28/02 Previous Gynecologic Pathology: ? LSIL: 08/15 Treatment History: ? Colposcopy: no TA 09/15 Cervical biopsy: no TA 09/15 Other: ? HPVA - HPV testing requested if ASC-US on the current ThinPrep Pap test. ? SPECIMEN ADEQUACY ? Satisfactory for Evaluation - transformation zone component present GENERAL CATEGORIZATION ? Negative for Intraepithelial Lesion or Malignancy ? Document reviewed and electronically signed by: ? Gricelda Khoury, ??SCT(ASCP) ? Report Date: ??05/22/2002 14:38 End of Report [facility] 05/20/2002 05/22/2002 Soumya Marshall MD PATHOLOGY ORDERABLES Performing Organization Address City/State/[facility] Co de Phone Number [facility] [address] [place] [address] documented in this encounter Visit Diagnoses Not on filedocumented in this encounter Care Teams Mobile Home Mechanic Relationship Specialty Start Date End Date Rosemary Patel FNP [address] [place], [place] [id number] PCP - General 08/07/08 documented as of this encounter
--- OUTSIDE RECORDS SUMMARY | 2023-12-28 22:45 | XMS_ITS | Encounter Summary ---
Author Organization [facility] [place] [address] Care Team Providers Care Inspector Machined Parts Name Role Phone Neetu Suresh APRN Primary Care Provider [phone] Reason for Visit * Consultation (Routine) - Closed Specialty Diagnoses / Procedures Referred By Aislinn lawson Referred To Contact General Surgery Diagnoses Nontoxic single thyroid nodule Mckenzie Muñiz MD [facility] [address] Marilou Dozier MD [facility] [place] [address] Referral ID Status Reason Start Date Expiration Date V isits Requested Visits Authorized [id number] Closed Consult, Test & Treat 09/01/2019 08/31/2020 1 1 Encounter Details Date Type Department Care Team (Late st Contact Info) Description 11/13/2019 9:30 AM EDT Office [place] [id number] Marilou Dozier MD [facility] [place] [address] Thyroid nodule Social History Tobacco Use Types Packs/Day Years Used Date Smoking Tobacco: Never Smokeless Tobacco: Never Sex and Gender Information Value Date Recorded Sex Assigned at Not on file Gender Identity Not on file Sexual Orientation Not on file documented as of this encounter Last Filed Vital Signs Vital Sign Reading Time Taken Comments Blood Pressure 146/73 11/13/2019 9:21 AM EDT Pulse 73 11/13/2019 9:21 AM EDT Temperature 36.7 ??C (98.1 ??F) 11/13/2019 9:21 AM ED T Respiratory Rate 16 11/13/2019 9:21 AM EDT Oxygen Saturation 99% 11/13/2019 9:21 AM EDT Inhaled Oxygen Concentration - - Weight 91.5 kg (201 lb 12.8 oz) 11/13/2019 9:21 AM EDT Height 172.7 cm (5' 8) 11/13/2019 9:21 AM EDT Body Mass Index 30.68 11/13/2019 9:21 AM EDT documented in this encounter Progress Notes * Marilou Dozier MD - 11/13/2019 9:30 AM EDT Endocrine Surgery Initial Consultation HPI: Ms. Maria Ines Valencia is a 59 y.o. year old female referred by Dr. Muñiz who presents for evaluation of a left-sided thyroid nodule. This has been followed for several years and has been gradually enlarging. She denies compressive symptoms including dysphagia, dyspnea, globus sensation and pos itional discomfort. She denies symptoms of hyperthyroidism or hypothyroidism, and recent thyroid function tests have been normal per report. There is not personal history of radiation exposure, and the patient has not had prior anterior neck surgery. There is not a known family history of endocrinetumors or malignancy, but her mother and maternal grandmother had thyroid surgery (for unknown reason) and her brother is being worked up for a nodule. Imaging studies to date include thyroid ultrasound [facility], including a spongiform nodule on the left that measures 4.1cm. There is not a reported substernal component. 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 She is now referred to me for consideration of surgical management of her thyroid disease. Past Medical History: Diagnosis Date ??? Thyroid nodule Past Surgical History: Procedure Laterality Date ??? BONE RESECTION Left Femur ??? BREAST LUMPECTOMY Current Outpatient Medications on File Prior to Visit Medication Sig Dispense Refill ??? amLODIPine (NORVASC) 5 mg Tablet take 1 tablet by mouth once daily 0 No current facility-administered medications on file prior to visit. Allergies Allergen Reactions ??? Penicillins Hives and Rash All cillins Family History: No known thyroid cancer, but mother and maternal grandmother had thyroid surgery, and brother is being worked up for a nodule. No pituitary, pancreas or adrenal tumors. No parathyroiddisease. Social History: (I operated on her a few years ago). Nonsmoker. Social EtOH. 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 She does not do any professional public speaking or singing. Review of Systems - 10 of 14 systems were reviewed with the patient and were negative except as perHPI Most Recent Vitals: 11/13/19 0921 BP: 146/73 Pulse: 73 Resp: 16 Temp: 36.7 ??C (98.1 ??F) SpO2: 99% PainSc: 0 - No pain Body mass index is 30.68 kg/m??. Physical Exam: General: well-appearing, NAD Neuro: Alert and oriented x 3. Cranial nerves II-XII grossly intact. Eyes: no lid lag or proptosis ENT: Moist mucus membranes. Trachea midline Thyroid: large (~4-5cm) visible and palpable left thyroid nodule. Mobile with swallowing. Lymph: No palpable cervical lymphadenopathy CV: RRR Respiratory: Normal respiratory effort. Lungs clear bilaterally. Extremities well-perfused without edema Skin: warm and dry. No rashes Psych: appropriate affect Labs: None available Imaging: Thyroid, Parathyroid and Cervical Ultrasound I performed a thyroid, parathyroid and cervical ultrasound at the time of the clinic visit today using the 12 mHz linear ultrasound transducer. The thyroid, parathyroid and central and bilateral lateral neck lymph node basins were evaluated. Thyroid Isthmus: Thickness: 0.31 cm Nodules: none Right lobe: Lobe: 4.57 x 1.32 x 1.65 cm Nodules: There is a hyperechoic nodule measuring 0.64 x 0.60 x0.54 cm. It has well-defined borders.There are not microcalcifications. There is no/low vascularity Left lobe: Lobe: 5.13 x 3.08 x 3.99 cm Nodules: There is a mixed nodule measuring 4.54 x 2.96 x3.92 cm. It has well- defined borders. Thereare not microcalcifications. There is increased central vascularity. It is partially cystic Cervical lymph nodes Central neck: Normal ultrasonographic appearing lymph nodes. Right lateral neck: Normal ultrasonographic appearing lymph nodes. Left lateral neck: Normal ultrasonographic appearing lymph nodes. A/P: Ms. Maria Ines Valencia is a 59 y.o. year old female with a left-sided thyroid nodule and FNA demonstrating benign (Tacoma 2) cytology. The nodule has been enlarging over time, and is becoming increasingly bothersome to the patient in terms of its appearance and also concern that it might be causing trouble every time she coughs or chokes. It now exceeds 4cm. I therefore recommended left thyroidlobectomy. I discussed the risks of thyroidectomy including, but not limited to, laryngeal nerve injury resulting in voice changes or hoarseness, low calcium due to damage or removal of one or more parathyroid glands, bleeding which may require return to the operating room, post-operative infectionand other complications related to anesthesia. The patient's questions were answered, and consent was obtained today. We will schedule surgery for the next mutually convenient date. [facility] Data Body mass index is 30.68 kg/m??. Race: Patient Ethnicity & Race Ethnic Group Patient Race Not nor White Prior neck irradiation: no Prior anterior neck surgery: no Pre-operative laryngoscopy: no Anti-coagulation meds (aspirin, warfarin, clopidogrel, heparin, oral thrombin or factor Xa inhibitors): no Substernal component: no Symptoms of compression: no FNA: yes FNA Classification: [place] 2 documented in this encounter Plan of Treatment Scheduled Referrals Name Type Priority Associated Diagnoses Orde r Schedule Referral to General Surgery Outpatient Referral Routine Nontoxic single thyroid nodule Ordered: 09/01/2019 documented as of this encounter Visit Diagnoses Diagnosis Thyroid nodule Nontoxic uninodular goiter documented in this encounter Care Teams Inspector Machined Parts Relationship Specialty Start Date End Date Neetu Suresh APRN [address] [place] [address] PCP - General Family Medicine 05/31/16 documented as of this encounter
--- OUTSIDE RECORDS SUMMARY | 2023-12-28 22:45 | XMS_ITS | Encounter Summary ---
Author Organization [facility] [place] [address] Care Team Providers Care Aquaculture Director Name Role Phone Neetu Suresh APRN Primary Care Provider [phone] Encounter Details Date Type Department Care Team (Late st Contact Info) Description 09/03/2018 3:00 PM EDT Office [place] [phone] Mckenzie Muñiz MD [facility] [place] [address] Multiple thyroid nodules; Nontoxic single thyroid nodule Social History Tobacco Use Types Packs/Day Years Used Date Smoking Tobacco: Never Smokeless Tobacco: Never Sex and Gender Information Value Date Recorded Sex Assigned at Not on file Gender Identity Not on file Sexual Orientation Not on file documented as of this encounter Last Filed Vital Signs Vital Sign Reading Time Taken Comments Blood Pressure 132/68 09/03/2018 3:06 PM EDT Pulse 72 09/03/2018 3:06 PM EDT Temperature - - Respiratory Rate - - Oxygen Saturation - - Inhaled Oxygen Concentration - - Weight 88.5 kg (195 lb) 09/03/2018 3:06 PM EDT Height 172.7 cm (5' 8) 09/03/2018 3:06 PM EDT Body Mass Index 29.65 09/03/2018 3:06 PM EDT documented in this encounter Progress Notes * Mckenzie Muñiz MD - 09/03/2018 3:00 PM EDT Endocrinology Clinic Follow-up Visit Reason for Visit: thyroid nodule reassessment. HISTORY OF PRESENT ILLNESS: Ms. Maria Ines Valencia is a 58 y.o. year old lady with history significant for a L- sided spongiform nodule that had benign cytology on FNA in June 2016. At follow-up about a year later, in August 2017, her nodule measured 3.0cm in greatest dimension and appeared to have increased by 4mm in the longitudinal dimension only. Six months later the longitudinal dimension has remained stable in size but the transverse dimension has increased by 3mm, so we planned another 6-month follow-up and possible FNA this visit. No dysphagia, no anterior neck pressure. She hasn't noticed any enlargement since last visit. PAST MEDICAL HISTORY: Patient Active Problem List Diagnosis Date Noted ??? Multiple thyroid nodules MEDICATIONS: Medications 09/03/18 1516 Medication Sig Taking? amLODIPine (NORVASC) 5 mg Tablet take 1 tablet by mouth once daily Yes ALLERGIES: Allergies Allergen Reactions ??? Penicillins Hives [...] HPI. PHYSICAL EXAM: Vitals Office Visit from 09/03/2018 in Endocrinology at [place] Weight 88.5 kg (195 lb) Height 172.7 cm (5' 8) BSA (Calculated - sq m) 2.06 sq meters BMI (Calculated) 29.65 Heart Rate 72 BP 132/68 Gen: NAD, AAOx3, speaking full sentences, Calm [...] of the relaxation phase, no tremor. ASSESSMENT: 58 yo F with a L-sided spongiform thyroid nodule that has been enlarging over the past 2 years, currently 3.2cm in greatest dimension. We will proceed with FNA of this thyroid nodule today. PLAN: --will plan follow-up in 6 months if cytology is benign, per patient's preference (versus 1 year). MCKENZIE MUÑIZ MD Master Data Analystsupervising law enforcement analyst Section of Endocrinology [facility] * Mckenzie Muñiz MD - 09/03/2018 3:00 PM EDT THYROID ULTRASOUND Date: 09/03/18 Indication: thyroid nodule reassessment Comparison: June 2016, August 2017, Feb 2018 Real time images of the thyroid gland were obtained using a BK US machine. All measurements are given as AP x Transverse x Longitudinal. Right Lobe: The right lobe measures 1.3 x 1.6 x 4.3 cm, with slightly heterogeneous echotexture. Pure cyst, currently 0.6 cm in greatest dimension, continues to decrease in size (02/2018 - 0.8 cm, Solid isoechoic nodule stable in size at ~0.5 cm, unchanged Left Lobe: L-sided spongiform nodule almost completely replacing the L hemithyroid, ~35% cystic (multiple pockets), currently measures 2.2 x 3.2 x 3.2 cm (02/2018 - 2.1 x 3.0 x 3.0 cm, 08/2017 - 2.1 x 2.7 x 3.0cm, 06/2016 - 2.2 x 2.6 x 2.6 cm). This nodule underwent FNA in June 2016 and had benign cytology. Lateral neck: Several reactive-appearing lymph nodes seen bilaterally, all with benign architecture. Isthmus: The isthmus measures 0.23 cm in the AP dimension. Impression: L spongiform nodule, continuing to increase in size, in all 3 dimensions, currently 3.2cm in greatest dimension. Mckenzie Muñiz MD Master Data Analystsupervising law enforcement analyst Section of Endocrinology [facility] * Mckenzie Muñiz MD - 09/03/2018 3:00 PM EDT THYROID ULTRASOUND GUIDED BIOPSY PROCEDURE NOTE Indication: enlarging thyroid nodule, previously with benign cytology in June 2016. Date: 09/03/2018 Informed consent was obtained after a discussion of the nature of the procedure, its risks, benefits and possible alternatives. Immediately prior to the start of the procedure a time out was taken: - The patient's identity was confirmed using two identifiers - The intended procedure, patient positioning and availability of all required equipment was also confirmed. - The proper site(s)/side(s) of the nodule(s) was/were confirmed by visualization with ultrasound. The biopsy site(s) on the patient's neck was/were prepared using isopropyl alcohol. 5 passes of a 25g needle were performed at each site. Two passes were placed on slides, two passes directly to Cytolyte liquid medium, and one pass reserved for Thyroseq molecular genetic testing in the event of an indeterminate cytology result. The needle placement was ultrasound guided. The needle was visualizedin the nodule(s) in each pass. -Biopsy was performed of: -3.2 cm L spongiform nodule The procedure was well tolerated by the patient without any complications. The patient was given a thyroid FNA post-procedure handout upon completion Representatives from pathology were present during the procedure. Mckenzie Muñiz MD Master Data Analystsupervising law enforcement analyst Section of Endocrinology documented in this encounter Plan of Treatment Not on file documented as of this encounter Procedures Procedure Name Priority Date/Time Associated Diagnosis Comments NON-CUTTING MACHINE OFFBEARER FINAL REPORT Routine 09/03/2018 3:32 PM EDT CYTOPATHOLOGY NON-GYNECOLOGICAL Routine 09/03/2018 3:32 PM EDT Nontoxic single thyroid nodule documented in this encounter Results * Non-Sql Application Developer Final Report (09/03/2018 3:32 PM EDT) Diagnosis Discussion [id number] ? Location: 5C The signing pathologist has (i) examined the relevant preparation(s) for the specimen(s) and (ii) rendered or confirmed the diagnosis(es). . ? Non-Sql Application Developer Final DIAGNOSIS Benign Electronically signed by: ??Rachael RAMIREZ PhD, Gonzales Rios Verified: ??09/04/2018 ?Pathologist Performed at: ??-[facility] Dept. of Pathology, [place], [place] DISCUSSION Thyroid, left (US-guided FNA): Benign (see note). Cytologic preservation: ?? Adequate Cellularity (follicular cells): ?? Low, adequate Colloid: ?? Absent Macrophages: ?? Present Architectural pattern: ?? Predominantly macrofollicular pattern. Note: Recommend clinicopathologic correlation and follow up as clinically indicated. Reference: Samaria PEREZ, Jose LINO. The [place] System for Reporting Thyroid Cytopathology. [place]: [place]; 2018. CLINICAL INFORMATION Specimen Source : Thyroid, left (US-guided FNA, assisted) Pertinent Clinical Data and Significant Therapy: 58 yo F with a 3.3 cm L spongiform nodule that has been enlarging over the past 1.5 years. benign cytology in 2017, but would like to rebiopsy because of growth Clinical Impression : Enlarging thyroid nodule, previously with benign cytology in 2017 Pertinent Radiologic Findings ??: Size: (not provided) Echogenicity: Iso Cystic: Partial Calcification: No Vascularity: (not provided) Gross Description: Received in CytoLyt approximately 15 mL total volume of cloudy, pink fluid, with light flecks. . CLINICAL INFORMATION Total Preparation: Liquid-Based Prep 1; Diff-Quik 2; Pap Stain 2. A separate sample was received for potential molecular testing. 09/04/2018 2:18 PM EDT [facility] THYROID STRUCTURE / Unknown 09/03/2018 3:32 PM EDT 09/03/2018 3:32 PM EDT Mckenzie Muñiz MD PATHOLOGY/CYTOLOGY O PETE Performing Organization Address [place]/[place] [address] * Cytopathology Non-Gynecological (09/03/2018 3:32 PM EDT) AP Specimen 09/03/2018 3:32 PM EDT 09/03/2018 3:32 PM EDT Narrative [facility] - 09/03/2018 3:32 PM EDT Specimen requisition ordered. ??Separate Pathology report to follow Mckenzie Muñiz MD PATHOLOGY/CYTOLOGY O PETE Performing Organization Address [place] [place] [address] documented in this encounter Visit Diagnoses Diagnosis Multiple thyroid nodules Nontoxic multinodular goiter Nontoxic single thyroid nodule Nontoxic uninodular goiter documented in this encounter Care Teams Aquaculture Director Relationship Specialty Start Date End Date Neetu Suresh, CARE ATTENDANT [address] [place] [id number] PCP - General Family Medicine 05/31/16 documented as of this encounter
--- OUTSIDE RECORDS SUMMARY | 2023-12-28 22:45 | XMS_ITS | Encounter Summary ---
Author Organization [facility] [place] [address] Care Team Providers Care Syrup Blender Name Role Phone Neetu Suresh APRN Primary Care Provider [phone] Encounter Details Date Type Department Care Team (Late st Contact Info) Description 08/22/2017 4:30 PM EDT Office [place] [phone] Mckenzie Muñiz MD [facility] [place] [address] Multiple thyroid nodules Social History Tobacco Use Types Packs/Day Years Used Date Smoking Tobacco: Never Smokeless Tobacco: Never Sex and Gender Information Value Date Recorded Sex Assigned at Not on file Gender Identity Not on file Sexual Orientation Not on file documented as of this encounter Last Filed Vital Signs Vital Sign Reading Time Taken Comments Blood Pressure 159/81 08/22/2017 4:30 PM EDT Pulse 80 08/22/2017 4:30 PM EDT Temperature - - Respiratory Rate - - Oxygen Saturation - - Inhaled Oxygen Concentration - - Weight 83.9 kg (185 lb) 08/22/2017 4:30 PM EDT Height 172.7 cm (5' 8) 08/22/2017 4:30 PM EDT Body Mass Index 28.13 08/22/2017 4:30 PM EDT documented in this encounter Progress Notes * Mckenzie Muñiz MD - 08/22/2017 4:30 PM EDT Endocrinology Clinic Follow-up Visit Reason for Visit: thyroid nodule reassessment HISTORY OF PRESENT ILLNESS: Ms. Maria Ines Valencia is a 57 y.o. year old lady with history significant for 2.6cm L thyroid nodule noted on thyroid ultrasound in April 2016. TSH was 2.39 at the time. I initially evaluated her for this about 1 year ago in June 2016 and performed FNA of this nodule which had benign cytology. She is just getting over an upper respiratory infection. She feels like perhaps her thyroid nodule has increased in size over the past year. No dysphagia. Has had some neck muscle strain at her posterolateral neck bilaterally. She reports she had a recent TSH done by her PCP that she was told was normal. PAST MEDICAL HISTORY: Patient Active Problem List Diagnosis Date Noted ??? Multiple thyroid nodules MEDICATIONS: Medications 08/22/17 1636 Not on File ALLERGIES: Allergies Allergen Reactions ??? Penicillins Hives and Rash All cillins SOCIAL HISTORY: History Smoking Status ??? Never Smoker Smokeless Tobacco ??? Never Used FAMILY HISTORY: No family history on file. REVIEW OF SYSTEMS: All 12 systems reviewed and negative except as noted per HPI. PHYSICAL EXAM: Vitals Office Visit from 08/22/2017 in Endocrinology at [place] Weight 83.9 kg (185 lb) Height 172.7 cm (5' 8) BSA (Calculated - sq m) 2.01 sq meters BMI (Calculated) 28.13 Heart Rate 80 BP 159/81 Gen: NAD, AAOx3, speaking full sentences, Calm [...] of the relaxation phase, no tremor. ASSESSMENT: 57 yo F with a dominant L-sided spongiform nodule that is almost completely replacing the L hemithyroid, which had benign cytology 1 year ago, but has increased in size longitudinally by 4mm in the past year. AP dimension is slightly smaller and transverse dimension is not significantlychanged. This nodule does seem to have more cystic areas than 1 year ago, which could explain the size increase. Because only one dimension has increased in size, and slightly, I think it is reasonable to reassess in 6 months and decide at that time whether a repeat FNA is needed at that time. PLAN: --follow-up in 6 months for thyroid nodule reassessment and possible FNA if the L-sided thyroid nodule continues to enlarge. MCKENZIE MUÑIZ MD Repairer Engine Productionbirdcage assembler Section of Endocrinology [facility] * Mckenzie Muñiz MD - 08/22/2017 4:30 PM EDT THYROID ULTRASOUND Date: 08/22/17 Indication: thyroid nodule reassessment Comparison: June 2016 Real time images of the thyroid gland were obtained using a BK US machine. All measurements are given as AP x Transverse x Longitudinal. Right Lobe: The right lobe measures 1.3 x 1.6 x 4.3 cm, with slightly heterogeneous echotexture. Pure cyst, slightly smaller in size, currently 0.8 cm in greatest dimension. Solid isoechoic nodule stable in size at ~0.5 cm. Left Lobe: L-sided nodule almost completely replacing the L hemithyroid now more clearly appears spongiform and is ~35% cystic (multiple pockets), currently measures 2.1 x 2.7 x 3.0cm (06/2016 - 2.2 x 2.6 x 2.6 cm). This nodule underwent FNA in June 2016 and had benign cytology. Lateral neck: Several reactive-appearing lymph nodes seen bilaterally, all with benign architecture. Isthmus: The isthmus measures 0.23 cm in the AP dimension. Impression: L spongiform nodule with benign cytology 1 year ago, slightly increased in longitudinal dimension from 2.6cm to 3.0cm over the past 1 year, and contains more cystic areas. Mckenzie Muñiz MD Repairer Engine Productionbirdcage assembler Section of Endocrinology [facility] documented in this encounter Plan of Treatment Not on file documented as of this encounter Visit Diagnoses Diagnosis Multiple thyroid nodules Nontoxic multinodular goiter documented in this encounter Care Teams Syrup Blender Relationship Specialty Start Date End Date Neetu Suresh APRN [address] [place] [address] PCP - General Family Medicine 05/31/16 documented as of this encounter
--- OUTSIDE RECORDS SUMMARY | 2023-12-28 22:45 | XMS_ITS | Encounter Summary ---
Author Organization [facility] Address [address] [place] [address] Care Team Providers Care Calf Skinner Name Role Phone Rosemary Patel ASPHALT SCREED OPERATOR Primary Care Provider [phone] Encounter Details Date Type Department Care Team (Late st Contact Info) Description 11/06/2006 Results Only [facility] [address] [place] [address] Soumya Marshall MD [address] [place] [address] [place] [address] Social History Tobacco Use Types Packs/Day Years Used Date Smoking Tobacco: Never Assessed Sex and Gender Information Value Date Recorded Sex Assigned at Not on file Gender Identity Not on file Sexual Orientation Not on file documented as of this encounter Plan of Treatment Not on file documented as of this encounter Procedures Procedure Name Priority Date/Time Associated Diagnosis Comments CYTOPATHOLOGY Routine 11/06/2006 0:00 EDT documented in this encounter Results * CYTOPATHOLOGY (11/06/2006 0:00 EDT) Pathology Report: CYTOPATHOLOGY REPORT Reports generated via electronic interface contain original data; however they are lacking the format of the original report. Caution should be taken when reading/interpreti ng unformatted reports. Name: ? MARIA INES THORNTON ? Accession #: ? [id number] : ? 1960 (Age: 46) ??F ?Collect Date: ? 11/06/2006 Location: ? [facility] ? Receive Date: ? 11/07/2006 Provider: ?SOUMYA MARSHALL MD Copy to: ? Specimen/Source: ?ThinPrep Pap Test, Cervix/Endocervix, processed on Cyota ThinPrep Imaging System, with manual evaluation Last Menstrual Period: ? Other: ? HPVA - HPV testing requested if ASC-US on the current ThinPrep Pap test. ? SPECIMEN ADEQUACY ? Satisfactory for Evaluation - transformation zone component present GENERAL CATEGORIZATION ? Negative for Intraepithelial Lesion or Malignancy ? Document reviewed and electronically signed by: ? [facility] Martinez(ASCP) ? Report Date: ??11/13/2006 10:55 End of Report AUNDREA GRANADO 11/06/2006 11/07/2006 Soumya Marshall MD PATHOLOGY ORDERABLES Performing Organization Address City/State/[facility] Co de Phone Number AUNDREA GRANADO [address] [place] [address] documented in this encounter Visit Diagnoses Not on filedocumented in this encounter Care Teams Calf Skinner Relationship Specialty Start Date End Date Rosemary Patel FNP [address] [place] [address] PCP - General 08/07/08 documented as of this encounter
--- OUTSIDE RECORDS SUMMARY | 2023-12-28 22:45 | XMS_ITS | Encounter Summary ---
Author Organization [place] [address] Care Team Providers Care Process Improvement Analyst Name Role Phone Neetu Suresh APRN Primary Care Provider [phone] Encounter Details Date Type Department Care Team (Late st Contact Info) Description 03/05/2018 3:00 PM EST Office [place] [phone] Mckenzie Muñiz MD [facility] [place] [address] Multiple thyroid nodules Social History Tobacco Use Types Packs/Day Years Used Date Smoking Tobacco: Never Smokeless Tobacco: Never Sex and Gender Information Value Date Recorded Sex Assigned at Not on file Gender Identity Not on file Sexual Orientation Not on file documented as of this encounter Last Filed Vital Signs Vital Sign Reading Time Taken Comments Blood Pressure 161/77 03/05/2018 2:54 PM EST Pulse - - Temperature - - Respiratory Rate 18 03/05/2018 2:54 PM EST Oxygen Saturation - - Inhaled Oxygen Concentration - - Weight 86.3 kg (190 lb 3.2 oz) 03/05/2018 2:54 P M EST Height 172.7 cm (5' 8) 03/05/2018 2:54 PM EST Body Mass Index 28.92 03/05/2018 2:54 PM EST documented in this encounter Progress Notes * Mckenzie Muñiz MD - 03/05/2018 3:00 PM EST Endocrinology Clinic Follow-up Visit Reason for Visit: [...] increased by 4mm in the longitudinal dimension only (and some increased cystic areas, and was stable in the other 2 dimensions, so a 6 month reassessment was planned to determine growth trend. She is here today for this reason. She reports today that she feels like the nodule is sticking out more. No dysphagia, no anterior neck pressure. PAST MEDICAL HISTORY: Patient Active Problem List Diagnosis Date Noted ??? Multiple thyroid nodules MEDICATIONS: Medications 03/05/18 1456 Not on File ALLERGIES: Allergies Allergen Reactions ??? Penicillins Hives and Rash All cillins SOCIAL HISTORY: Social History Tobacco Use Smoking Status Never Smoker Smokeless Tobacco Never Used FAMILY HISTORY: No family history on file. REVIEW OF SYSTEMS: All 12 systems reviewed and negative except as noted per HPI. PHYSICAL EXAM: Vitals Office Visit from 03/05/2018 in Endocrinology at [place] Weight 86.3 kg (190 lb 3.2 oz) Height 172.7 cm (5' 8) BSA (Calculated - sq m) 2.03 sq meters BMI (Calculated) 28.92 Resp 18 BP 161/77 Gen: NAD, AAOx3, speaking full sentences, Calm [...] no tremor. ASSESSMENT: 58 yo F with an asymptomatic dominant L-sided spongiform nodule that is almost completely replacing the L hemithyroid, which had benign cytology 1.5 year ago. The longitudinal dimension has remained stable in size over the past 6 months but the transverse dimension has increased by 3mm,AP dimension remains unchanged. Will continue to monitor the nodule closely, next US evaluation in a nother 6 months. Will tentatively plan for an FNA at that visit, if current trend continues. PLAN: --follow-up in 6 months for thyroid nodule reassessment. --will plan for 1 hour appt in case FNA is needed. MCKENZIE MUÑIZ MD Bank Runnerweeder thinner Section of Endocrinology [facility] * Mckenzie Muñiz MD - 03/05/2018 3:00 PM EST THYROID ULTRASOUND Date: 03/05/18 Indication: thyroid nodule reassessment Comparison: June 2016, August 2017. Real time images of the thyroid gland [...] size at ~0.5 cm. Left Lobe: L-sided spongiform nodule almost completely replacing the L hemithyroid, ~35% cystic (multiple pockets), currently measures 2.1 x 3.0 x 3.0 cm (08/2017 - 2.1 x 2.7 x 3.0cm, 06/2016 - 2.2 x 2.6 x 2.6 cm). This nodule underwent FNA in June 2016 and had benign cytology. Lateral neck: Several reactive-appearing lymph nodes seen bilaterally, all with benign architecture. Isthmus: The isthmus measures 0.23 cm in the AP dimension. Impression: 3.0cm L spongiform nodule with benign cytology June 2016, stable in size in the AP and longitudinal dimension, over the past 6 months, but increased by 3 mm in the transverse dimension this time. Mckenzie Muñiz MD Bank Runnerweeder thinner Section of Endocrinology [facility] documented in this encounter Plan of Treatment Not on file documented as of this encounter Visit Diagnoses Diagnosis Multiple thyroid nodules Nontoxic multinodular goiter documented in this encounter Care Teams Process Improvement Analyst Relationship Specialty Start Date End Date Neetu Suresh APRN [address] [place] [address] PCP - General Family Medicine 05/31/16 documented as of this encounter
--- OUTSIDE RECORDS SUMMARY | 2023-12-28 22:45 | XMS_ITS | Referral Summary ---
Author Organization [facility] Address [address] [place] [address] Care Team Providers Care Sports Doctor Name Role Phone Rosemary Patel Primary Care Provider [phone] Social History Tobacco Use Types Packs/Day Years Used Date Smoking Tobacco: Never Assessed Interpersonal Safety Answer Date Record ed Physically Hurt Never 11/16/2019 Verbally Threaten Not on file 11/16/2019 Sex and Gender Information Value Date Recorded Sex Assigned at Not on file Gender Identity Not on file Sexual Orientation Not on file Plan of Treatment Not on file Care Teams Sports Doctor Relationship Specialty Start Date End Date Rosemary Patel FNP [address] [place] [address] PCP - General 08/07/08
--- OUTSIDE RECORDS SUMMARY | 2023-12-28 22:45 | XMS_ITS | Encounter Summary ---
Author Organization [facility] [address] Care Team Providers Care Business Database Analyst Name Role Phone Neetu Suresh APRN Primary Care Provider [phone] Encounter Details Date Type Department Care Team (Late st Contact Info) Description 02/28/2019 3:00 PM EST Office [place] [id number] Mckenzie Muñiz MD [facility] [place] [address] Multiple thyroid nodules Social History Tobacco Use Types Packs/Day Years Used Date Smoking Tobacco: Never Smokeless Tobacco: Never Sex and Gender Information Value Date Recorded Sex Assigned at Not on file Gender Identity Not on file Sexual Orientation Not on file documented as of this encounter Last Filed Vital Signs Vital Sign Reading Time Taken Comments Blood Pressure 133/76 02/28/2019 3:06 PM EST Pulse 91 02/28/2019 3:06 PM EST Temperature - - Respiratory Rate - - Oxygen Saturation - - Inhaled Oxygen Concentration - - Weight 90.8 kg (200 lb 3.2 oz) 02/28/2019 3:06 P M EST Height 172.7 cm (5' 8) 02/28/2019 3:06 PM EST Body Mass Index 30.44 02/28/2019 3:06 PM EST documented in this encounter Progress Notes * Mckenzie Muñiz MD - 02/28/2019 3:00 PM EST Endocrinology Clinic Follow-up Visit [...] shorten her follow-up intervals to 6 months, so she is here today for reassessment of her thyroid nodule No dysphagia, no anterior neck pressure. She hasn't noticed any enlargement since last visit. She describes that she's been feeling more tension soreness along her L shoulder, that she wonders if it's related to her thyroid nodule. PAST MEDICAL HISTORY: Patient Active Problem List Diagnosis Date Noted ??? Multiple thyroid nodules MEDICATIONS: Medications 02/28/19 1511 Medication Sig Taking? amLODIPine (NORVASC) 5 mg [...] HPI. PHYSICAL EXAM: Vitals Office Visit from 02/28/2019 in Endocrinology at [facility] Weight 90.8 kg (200 lb 3.2 oz) Height 172.7 cm (5' 8) BSA (Calculated - sq m) 2.09 sq meters BMI (Calculated) 30.44 Heart Rate 91 BP 133/76 Gen: NAD, AAOx3, speaking full sentences, Calm [...] two FNA biopsies (in 2016 and August 2018) despite a significant size increase over 2 years. PLAN: --will plan follow-up in 6 months for thyroid nodule reassessment. MCKENZIE MUÑIZ MD Pulperincident response manager Section of Endocrinology [facility] * Mckenzie Muñiz MD - 02/28/2019 3:00 PM EST THYROID ULTRASOUND Date: 02/28/19 Indication: thyroid nodule reassessment Comparison: June 2016, August 2017, Feb 2018, August 2018 Real time images of the thyroid [...] hemithyroid, ~35% cystic (multiple pockets), currently measures 2.9 x 3.6 x 3.5 cm (August 2018 - 2.2 x 3.2 x 3.2 [...] the mid-isthmus 0.6cm Impression: L spongiform nodule, continuing to increase in size, in all 3 dimensions, currently 3.6cm in greatest dimension. Cytology has been benign twice, as recently as August 2018. Mckenzie Muñiz MD Pulperincident response manager Section of Endocrinology [facility] documented in this encounter Plan of Treatment Not on file documented as of this encounter Visit Diagnoses Diagnosis Multiple thyroid nodules Nontoxic multinodular goiter documented in this encounter Care Teams Business Database Analyst Relationship Specialty Start Date End Date Neetu Suresh, FITTER TACKER [address] [place] [address] PCP - General Family Medicine 05/31/16 documented as of this encounter
--- OUTSIDE RECORDS SUMMARY | 2023-12-28 22:45 | XMS_ITS | Encounter Summary ---
Author Organization [facility] [address] Care Team Providers Care Him Specialists Name Role Phone Neetu Suresh APRN Primary Care Provider [phone] Reason for Visit * Auth/Cert Specialty Diagnoses / Procedures Referred By Aislinn lawson Referred To Contact Diagnoses THYROID NODULE Procedures PRO THYROID LOBECTOMY, UNILAT PRG EMG, LARYNX THYROIDECTOMY, LOBECTOMY, TOTAL, UNILATERAL (WRVU 11.19) FACIAL NERVE MONITORING, SETUP LARYNGEAL (WRVU 1.57) Referral ID Status Reason Start Date Expiration Date Visits Re quested Visits Authorized [id number] 1 1 Encounter Details Date Type Department Care Team (Late st Contact Info) Description 02/11/2020 11:04 AM EDT Anesthesia Event [facility]patient [place] [address] Matt Bernard MD [facility] [place] [address] Berry Longoria MD [facility] [place] [address] Anesthesia Record Procedure Summary Procedure Name Responsible Anesthesiologist Anesthesia Start Time Anesthesia Stop Time THYROIDECTOMY, LOBECTOMY, TOTAL, UNILATERAL (WRVU 11.19) (Neck) Matt Bernard MD 02/11/20 1104 02/11/20 1244 Events Date Time Event Comment 02/11/2020 1104 AN Verify 1104 Start 1104 An Start Data 1109 An Induction 1112 An Intubation 1119 Anesthesia Ready 1132 Procedure Start 1240 Extubation/LMA Out 1244 an stop data 1244 Recovery or ICU Handoff Ju ent care was transferred to the destination unit staff after review of the patient's medical history, current anesthetic/surgical status and plan, according to the Provider Handoff Checklist. 1244 Stop 1347 Meds Name Total Midazolam 2 mg IV Lidocaine 40 mg Propofol 210 mg PHENYLephrine 160 mcg Ondansetron 8 mg Dexamethasone 8 mg Lidocaine 4% LTA 3 mL Succinylcholine 100 mg Propofol INF 1,390.8 mg ketorolac (Toradol) (30 mg/mL) injection 15 mg Lactated Ringers 800 mL * Agents Name O2 Air N2O Sevoflurane (et) * Blood No blood administrations on file. Lines, Drains, and Airways Type Details Placement Removal (RETIRED) Peripheral IV Line - Single Lumen 02/11/20; 1000; basilic vein (medial side of arm), left; [id number] catheter system; 20 gauge, 1 in length; pre-op RN; 01/19/21 (LDA Cleanup utility RA#[id number]); 1650 (LDA Cleanup utility RA#[id number]) 02/11/20 1000 by Mariela Vega RN 01/19/21 1650 by Zohaib Lees ETT Mask Ventilation: Ea sy (1); ETT Type: Cuffed, Oral, NIM; ETT Size: 7 mm; Mac Blade: 3; Notes: Asleep, Stylette, Cricoid Pressure; Attempts: 1; Laryngoscopy Grade: 2; ETT Placement Verified By: Capnometry, Visual; Removal Date: 02/11/20; Removal Time: 1240 02/11/20 1124 by Berry Longoria MD 02/11/20 1240 by Berry Longoria MD Incision 02/11/20; 1136; neck ; 12/12/21 (LDA cleanup utility RA#[id number]); 1715 (LDA cleanup utility RA#[id number]) 02/11/20 1136 by Britta Robles RN 12/12/21 1715 by Marion Schultz documented in this encounter Social History Tobacco Use Types Packs/Day Years Used Date Smoking Tobacco: Never Smokeless Tobacco: Never Sex and Gender Information Value Date Recorded Sex Assigned at Not on file Gender Identity Not on file Sexual Orientation Not on file documented as of this encounter OR Notes * Anesthesia Postprocedure Evaluation - Berry Longoria - 02/11/2020 12:50 PM EDT Department of Anesthesiology Post-procedure Note Patient: Maria Ines Valencia Procedure Summary Date: 02/11/20 Room / Location: [facility] OR [address] [place] [address] Anesthesia Start: 1104 Anesthesia Stop: 1244 Procedures: THYROIDECTOMY, LOBECTOMY, TOTAL, UNILATERAL (WRVU 11.19) (N/A Neck) FACIAL NERVE MONITORING, SETUP LARYNGEAL (WRVU 1.57) (N/A Neck) Diagnosis: (THYROID NODULE) Surgeon: Marilou Dozier MD Responsible Provider: Matt Bernard MD Anesthesia Type: general ASA Status: 3 All Anesthesia Providers: Anesthesiologist: Matt Bernard MD Crematorium Operator: Berry Longoria MD Vitals Value Taken Time BP Temp Pulse Resp SpO2 Pain Level Patient Location: PACU/[facility] Level of Consciousness: Conscious but Sleepy Pain Management: Satisfactory Analgesia PONV: None Cardiovascular Status: At Baseline Respiratory Status: At Baseline Postoperative Fluid Status: Intravascular EUvolemia Possible Anesthetic Complications: NONE apparent at time of evaluation Final Primary Anesthesia Type: General (The anesthetic type performed was the same as planned.) Comments: * Anesthesia Preprocedure Evaluation - Matt Bernard MD - 02/10/2020 1:38 PM EDT Pre-Anesthesia Evaluation for: Maria Ines Valencia a 60 y.o. female. Procedure(s): THYROIDECTOMY, LOBECTOMY, TOTAL, UNILATERAL (WRVU 11.19) FACIAL NERVE MONITORING, SETUP LARYNGEAL (WRVU 1.57) Patient Active Problem List Diagnosis ??? Multiple thyroid nodules Past Medical History: Diagnosis Date ??? Thyroid nodule Past Surgical History: Procedure Laterality Date ??? BONE RESECTION Left Femur ??? BREAST LUMPECTOMY Social History Tobacco Use ??? Smoking status: Never Smoker ??? Smokeless tobacco: Never Used Substance Use Topics ??? Alcohol use: Not on file Social History Substance and Sexual Activity Drug Use Not on file Allergies Allergen Reactions ??? Penicillins Hives and Rash All cillins Medications: MAR and/or home medications have been reviewed. Physical Exam: No data found. There is no height or weight on file to calculate BMI. Airway Assessment: Mallampati: II TM distance: >3 FB Neck ROM: full Cardiovascular Assessment: Rate: normal Pulmonary Assessment: breath sounds clear to auscultation Dental Assessment: - normal exam Misc Assessment: Patient is wearing No contact(s). IV access: Peripheral line Anesthesia Plan: ASA 3 general, 60 yo f will undergo thyroidectomy. Has thyroid nodules (benighn). No other significant Mhx. No cardiac hx. No prior anesthesia record. Will plan on GA with neuromonitoring. Berry Longoria PhD, MD. Anesthesiology CA2. Informed Consent: PAT Clinic Note documented in this encounter Plan of Treatment Not on file documented as of this encounter Visit Diagnoses Not on filedocumented in this encounter Administered Medications Inactive Administered Medications - up to 3 most recent administrations Medication Order MAR Action Action Date Dose Rate Site dexamethasone (Decadron) injection PRN, Starting on Sun02/11/20 at 1127, Until Sun02/11/20 at 1244, Anesthesia Intra-op, Routine Given 02/11/2020 11:27 AM EDT 8 mg ketorolac (Toradol) (30 mg/mL) injection PRN, Starting on Sun02/11/20 at 1238, Until Sun02/11/20 at 1244, Anesthesia Intra-op, Routine Given 02/11/2020 12:38 PM EDT 15 mg lactated ringers infusion CONTINUOUS PRN, Starting on Sun02/11/20 at 1104, Until Sun02/11/20 at 1244, Anesthesia Intra-op New Bag 02/11/2020 11:04 AM EDT lidocaine (PF) (XYLOCAINE) 100 mg/5 mL (2 %) injection PRN, Starting on Sun02/11/20 at 1109, Until Sun02/11/20 at 1244, Anesthesia Intra-op, Routine Given 02/11/2020 11:09 AM EDT 40 mg lidocaine (XYLOCAINE) 4 % external solution PRN, Starting on Sun02/11/20 at 1109, Until Sun02/11/20 at 1244, Anesthesia Intra-op Given 02/11/2020 11:09 AM EDT 3 mLs midazolam (PF) (VERSED) multi-dose injection PRN, Starting on Sun02/11/20 at 1124, Until Sun02/11/20 at 1244, Anesthesia Intra-op, Routine Given 02/11/2020 11:24 AM EDT 2 mg ondansetron (ZOFRAN) injection PRN, Starting on Sun02/11/20 at 1244, Until Sun02/11/20 at 1250, Anesthesia Intra-op, Routine Given 02/11/2020 12:44 PM EDT 8 mg PHENYLephrine in NS (PF) (CHE-SYNEPHRINE) 0.8 mg/10 mL (80 mcg/mL) multi-dose injection Syrg PRN, Starting on Sun02/11/20 at 1140, Until Sun02/11/20 at 1244, Anesthesia Intra-op, Routine Given 02/11/2020 11:40 AM EDT 160 mcg propofoL (Diprivan) 10 mg/mL bolus injection (Anesthesia) PRN, Starting on Sun02/11/20 at 1109, Until Sun02/11/20 at 1244, Anesthesia Intra-op Given 02/11/2020 12:33 PM EDT 30 mg Given 02/11/2020 11:09 AM EDT 180 mg propofoL (Diprivan) infusion CONTINUOUS PRN, Starting on Sun02/11/20 at 1109, Until Sun02/11/20 at 1244, Anesthesia Intra-op, Routine Rate/Dose Change 02/11/2020 12:18 PM EDT 150 mcg/kg/min 82.4 mL/hr Rate/Dose Change 02/11/2020 11:59 AM EDT 200 mcg/kg/min 10 9.8 mL/hr New Bag 02/11/2020 11:09 AM EDT 150 mcg/kg/min 82.4 mL/ hr succinylcholine chloride (Quelicin) injection PRN, Starting on Sun02/11/20 at 1109, Until Sun02/11/20 at 1244, Anesthesia Intra-op, Routine Given 02/11/2020 11:09 AM EDT 100 mg documented in this encounter Care Teams Him Specialists Relationship Specialty Start Date End Date Neetu Suresh APRN [address] [place] [address] PCP - General Family Medicine 05/31/16 documented as of this encounter
--- OUTSIDE RECORDS SUMMARY | 2023-12-28 22:45 | XMS_ITS | Encounter Summary ---
Author Organization [facility] Address [address] [place] [address] Care Team Providers Care Railroad Signal And Switch Operator Name Role Phone Rosemary Patel CHIEF YEOMAN Primary Care Provider Encounter Details Date Type Department Care Team (Late st Contact Info) Description 10/21/2018 Results Only [facility] [phone] Eliseo Davalos, [address] [place], [place] [id number] Social History Tobacco Use Types Packs/Day Years Used Date Smoking Tobacco: Never Assessed Sex and Gender Information Value Date Recorded Sex Assigned at Not on file Gender Identity Not on file Sexual Orientation Not on file documented as of this encounter Plan of Treatment Not on file documented as of this encounter Procedures Procedure Name Priority Date/Time Associated Diagnosis Comments SURGICAL PATHOLOGY Routine 10/21/2018 15 :50 EDT documented in this encounter Results * SURGICAL PATHOLOGY (10/21/2018 15:50 EDT) Pathology Report: SURGICAL PATHOLOGY REPORT Reports generated via electronic interface contain original data; however they are lacking the format of the original report. Caution should be taken when reading/interpret ing unformatted reports. Name: ? MARIA INES THORNTON ? Accession #: ? [id number] ? : ? 1960 (Age: 58) ??F ? Collect Date: ? 10/21/2018 ? Location: ? [facility] ? Receive Date: ? 10/22/2018 ? Provider: EILSEO DAVALOS DO Copy to: EDWIN UMANA FLUMER ? Final Pathologic Diagnosis: SKIN OF FOREHEAD, LEFT, SHAVE BIOPSY: - Superficial portion of verruca vulgaris. ?? Document reviewed and electronically signed by: AMANDA GUERRERO MD Report ??Date: 10/23/2018 12:59 By the signature above, the attending physician certifies that he/she has personally conducted a gross and/or microscopic examination of the described specimens and rendered or confirmed the above diagnosis. Specimen(s) Received: Left forehead Clinical History: History of actinic keratosis; clinical diagnosis code: D49.2 Gross Description: ? Received in formalin labelled with proper patient identification (initials H, T) and left forehead is a shave biopsy of coleman-white skin (0.4 x 0.3 x 0.1 cm). There is a central white well-circumscribe d nodule (0.3 x 0.2 x 0.1 cm) located on the skin surface. The margin is inked blue and the tissue is submitted intact in 1. KE Rahman (ASCP) 10/22/2018 5:43 PM End of Report [facility] 10/21/2018 15:5 0 EDT 10/22/2018 15:50 EDT Eliseo Davalos DO PATHOLOGY ORDER GERDA [facility] [address] [place] [address] documented in this encounter Visit Diagnoses Not on filedocumented in this encounter Care Teams Railroad Signal And Switch Operator Relationship Specialty Start Date End Date Rosemary Patel FNP [address] [place] [address] PCP - General 08/07/08 documented as of this encounter
--- OUTSIDE RECORDS SUMMARY | 2023-12-28 22:45 | XMS_ITS | Encounter Summary ---
Author Organization [facility] [place] [address] Care Team Providers Care Hat Forming Machine Feeder Name Role Phone Neetu Suresh APRN Primary Care Provider [phone] Reason for Visit * Reason Comments Follow-up Encounter Details Date Type Department Care Team (Latest Contact Info) Description 03/26/2020 11:20 AM EST Office [place] [address] Amira León APRN [facility] [place] [address] S/P partial thyroidectomy Social History Tobacco Use Types Packs/Day Years Used Date Smoking Tobacco: Never Smokeless Tobacco: Never Sex and Gender Information Value Date Recorded Sex Assigned at Not on file Gender Identity Not on file Sexual Orientation Not on file documented as of this encounter Last Filed Vital Signs Vital Sign Reading Time Taken Comments Blood Pressure - - Pulse - - Temperature - - Respiratory Rate - - Oxygen Saturation - - Inhaled Oxygen Concentration - - Weight 75.7 kg (166 lb 14.4 oz) 020 11:30 AM EST Height - - Body Mass Index 25.38 02/11/2020 9:23 AM EDT documented in this encounter Progress Notes * Amira León APRN - 03/26/2020 11:20 AM EST Thyroid Lobectomy Follow Up Subjective: Ms. Maria Ines Valencia is a very pleasant 60 y.o. year old female who is 6 weeks s/p left thyroid lobectomy for solitary thyroid nodule. She is doing very well without complaints. She is not having issueswith pain or difficulty swallowing. Exam: No data found. Healing anterior neck incision with underlying healing ridge. No hematoma or seroma. Voice appears normal. 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 Labs: Lab Results Component Value Date TSH 2.47 03/26/2020 Assessment and Plan: Ms. Maria Ines Valencia is a very pleasant 60 y.o. year old female s/p left thyroid lobectomy who is doing very well post-operatively without evidence of complications. I discussed the pathology results with the patient and recommended no further treatment. TSH today was within normal limits, so she willnot require thyroid hormone supplementation. I discussed scar massage with vitamin E to aid in incisional appearance and discussed the importance of UV light protection on scar healing. Overall, she is doing very well post-operatively and I recommended follow up with me on an as needed basis hereafter. Amira León APRN documented in this encounter Plan of Treatment Not on file documented as of this encounter Visit Diagnoses Diagnosis S/P partial thyroidectomy Other postprocedural status documented in this encounter Care Teams Hat Forming Machine Feeder Relationship Specialty Start Date End Date Neetu Suresh APRN [address] [place] [address] PCP - General Family Medicine 05/31/16 documented as of this encounter
--- OUTSIDE RECORDS SUMMARY | 2023-12-28 22:45 | XMS_ITS | Encounter Summary ---
Author Organization [facility] Address [address] [place] [address] Care Team Providers Care Sharepoint Manager Name Role Phone Rosemary Patel Primary Care Provider [phone] Encounter Details Date Type Department Care Team (Latest Contact Info) Description 10/21/2018 10:14 EDT - 10/21/2018 23:59 EDT Hospital Encounter [address] [address] Unknown, Provider, Discharge Disposition: Home or Self Care Social History Tobacco Use Types Packs/Day Years Used Date Smoking Tobacco: Never Assessed Sex and Gender Information Value Date Recorded Sex Assigned at Not on file Gender Identity Not on file Sexual Orientation Not on file documented as of this encounter Discharge Disposition Disposition Code Departure Means Destination Home or Self Custodial documented in this encounter Plan of Treatment Not on file documented as of this encounter Visit Diagnoses Not on filedocumented in this encounter Care Teams Sharepoint Manager Relationship Specialty Start Date End Date Rosemary Patel FNP [address] [place] [address] PCP - General 08/07/08 documented as of this encounter
--- OUTSIDE RECORDS SUMMARY | 2023-12-28 22:45 | XMS_ITS | Encounter Summary ---
Author Organization [facility] Address [address] [place] [address] Care Team Providers Care Rn Wound Name Role Phone Rosemary Patel JOHN Primary Care Provider [phone] Encounter Details Date Type Department Care Team (Late st Contact Info) Description 03/17/2022 Lab Requisition [facility] Pathology & Laboratory Medicine - [facility] [address] [place] [address] Outr Resulting Lab, Provider Social History Tobacco [...] Procedure Name Priority Date/Time Associated Diagnosis Comments HOLD SST Today 03/16/2022 15:13 EST HOLD SST Today 03/16/2022 15:13 EST HOLD SST Today 03/16/2022 15:13 EST MEASLES IGG AB Today 03/16/2022 15:13 EST RUBELLA IGG ANTIBODY Today 03/16/2022 15:13 EST HEPATITIS B SURFACE ANTIBODY Today 03/16/2022 15:13 EST MUMPS ANTIBODY IGG Today 03/16/2022 15 :13 EST documented in this encounter Results * HOLD SST (03/16/2022 15:13 EST) Hold Hold 03/17/2022 19:46 EST [facility] Blood VENOUS BLOOD / Unknown 03/16/2022 15:13 EST 03/17/2022 18:34 EST Provider Outr Resulting Lab LAB INFO SER VICE AND SUPPORT & PHONE RESULT Performing Organization Address [facility]/ZIP Co de Phone Number [facility] [address] [place] [address] * HOLD SST (03/16/2022 15:13 EST) Hold Hold 03/17/2022 19:46 EST [facility] Blood VENOUS BLOOD / Unknown 03/16/2022 15:13 EST 03/17/2022 18:34 EST Provider Outr Resulting Lab LAB INFO SER VICE AND SUPPORT & PHONE RESULT Performing Organization Address [facility]/ZIP Co de Phone Number [facility] [address] [place] [address] * HOLD SST (03/16/2022 15:13 EST) Hold Hold 03/17/2022 19:46 EST [facility] Blood VENOUS BLOOD / Unknown 03/16/2022 15:13 EST 03/17/2022 18:34 EST Provider Outr Resulting Lab LAB INFO SER VICE AND SUPPORT & PHONE RESULT Performing Organization Address [facility]/ZIP Co de Phone Number [facility] [address] [place] [address] * HEPATITIS B SURFACE ANTIBODY (03/16/2022 15:13 EST) Hep B Surface Ab, Quantitative 196.5 See Note mIU/mL 03/20/2022 9:32 EST [facility] Comment: Reference Range for Hep B Surface Ab, Quant: Positive: >= 10.0 mIU/mL Negative: ??< 10.0 mIU/mL Patient is presumed to be immune to infection with Hepatitis B Virus. Hep B Surface Ab, Qualitative Positive See Note 03/20/2022 9:32 EST [facility] Comment: Reference Range for Hep B Surface Ab, Qual: Unvaccinated: ??Negative Vaccinated: ??Positive Blood VENOUS BLOOD / Unknown 03/16/2022 15:13 EST 03/17/2022 18:34 EST Provider Outr Resulting Lab CHEMISTRY & BLOOD GAS ORDERABLES Performing Organization Address [facility] Co de Phone Number [facility] [address] [place] [address] * MEASLES IGG AB (03/16/2022 15:13 EST) Measles IgG Ab Positive See Note 03/20/2022 9:10 EST [facility] Comment:Presence of detectab le measles virus IgG antibodies. Blood VENOUS BLOOD / Unknown 03/16/2022 15:13 EST 03/17/2022 18:34 EST Provider Outr Resulting Lab IMMUNOLOGY A ND SEROLOGY ORDERABLES Performing Organization Address [facility] Co de Phone Number [facility] [address] [place] [address] * MUMPS ANTIBODY IGG (03/16/2022 15:13 EST) Mumps Antibody IgG Equivocal See Note 03/20/2022 11:21 EST [facility] Comment:Recommend collecting a second sample for testing in no less than one to two weeks. Blood VENOUS BLOOD / Unknown 03/16/2022 15:13 EST 03/17/2022 18:34 EST Provider Outr Resulting Lab IMMUNOLOGY A ND SEROLOGY ORDERABLES Performing Organization Address [facility] Co de Phone Number [facility] [address] [place] [address] * RUBELLA IGG ANTIBODY (03/16/2022 15:13 EST) Rubella IgG Ab Positive See Note 03/20/2022 9:16 EST [facility] Comment:Positive for IgG ant ibodies to Rubella virus. Blood VENOUS BLOOD / Unknown 03/16/2022 15:13 EST 03/17/2022 18:34 EST Provider Outr Resulting Lab CHEMISTRY & BLOOD GAS ORDERABLES Performing Organization Address City/State/[facility] Co de Phone Number [facility] [address] [place] [address] documented in this encounter Visit Diagnoses Not on filedocumented in this encounter Care Teams Rn Wound Relationship Specialty Start Date End Date Rosemary Patel FNP [address] [place], [place] [id number] PCP - General 08/07/08 documented as of this encounter
--- OUTSIDE RECORDS SUMMARY | 2023-12-28 22:45 | XMS_ITS | Encounter Summary ---
Author Organization [facility] [place] [address] Care Team Providers Care Medical Records Clerk Name Role Phone Neetu Suresh APRN Primary Care Provider [phone] Reason for Visit * Reason Comments Thyroid Nodule * Consultation (Routine) - Closed Specialty Diagnoses / Procedures Referred By Aislinn lawson Referred To Contact Endocrinology Diagnoses thyroid nodules Neetu Suresh APRN [address] [place] [address] [facility] [address] [place] [address] Referral ID Status Reason Start Date Expiration Date V isits Requested Visits Authorized [id number] Closed Consult, Test & Treat Connection Center 05/31/2016 05/31/2017 1 1 Encounter Details Date Type Department Care Team (Late st Contact Info) Description 07/05/2016 2:00 PM EDT Office [place] [address] Velasquez Muñiz MD [facility] [place] [address] Nontoxic single thyroid nodule Social History Tobacco Use Types Packs/Day Years Used Date Smoking Tobacco: Never Smokeless Tobacco: Never Sex and Gender Information Value Date Recorded Sex Assigned at Not on file Gender Identity Not on file Sexual Orientation Not on file documented as of this encounter Last Filed Vital Signs Vital Sign Reading Time Taken Comments Blood Pressure 154/100 07/05/2016 2:04 PM EDT Pulse 79 07/05/2016 2:04 PM EDT Temperature - - Respiratory Rate - - Oxygen Saturation - - Inhaled Oxygen Concentration - - Weight 83.6 kg (184 lb 4.8 oz) 07/05/2016 2:04 P M EDT Height 172.7 cm (5' 8) 07/05/2016 2:04 PM EDT Body Mass Index 28.02 07/05/2016 2:04 PM EDT documented in this encounter Progress Notes * Velasquez Muñiz MD - 07/05/2016 2:00 PM EDT Endocrinology New Patient Consultation RFC: Referred to Endocrinology by Neetu Suresh for further evaluation of a thyroid nodule HISTORY OF PRESENT ILLNESS: Ms. Maria Ines Valencia is a 56 y.o. year old lady with history significant for a 2.6cm L thyroid nodule noted on thyroid ultrasound in April 2016. TSH was 2.39 at the time. First noticed nodule about 6 months ago, noticed some asymmetry to her anterior neck. Coughs a lot after drinking a liquid, seems to go down the wrong way. Sometimes feels a mild pressure sensation at the anterior neck, not necessarily with laying flat. FH - Mother & maternal grandmother had thyroid surgery, but doesn't recall they taking thyroid medication afterwards. Mother had multiple myeloma, sister had colon cancer dx age 38. Brother pancreatic cancer. Mat grandmother had breast cancer. Father's brother had lung cancer but was not a smoker, also had pancreatic cancer. No known exposure to ionizing radiation. PAST MEDICAL HISTORY: No other medical problems Lipomas Thyroid nodule MEDICATIONS: Medications 07/05/16 1419 Not on File ALLERGIES: Allergies Allergen Reactions ??? Penicillins Hives and Rash All cillins SOCIAL HISTORY: History Smoking Status ??? Never Smoker Smokeless Tobacco ??? Never Used FAMILY HISTORY: No family history on file. REVIEW OF SYSTEMS: All 12 systems reviewed and negative except as noted per HPI. PHYSICAL EXAM: Vitals Office Visit from 07/05/2016 in Endocrinology Weight - Scale 83.6 kg (184 lb 4.8 oz) Height 172.7 cm (5' 8) BSA (Calculated - sq m) 2 sq meters BMI (Calculated) 28.1 Heart Rate 79 BP (!) 154/100 Gen: NAD, AAOx3, speaking full sentences, calm very pleasant demeanor, average habitus Skin: warm and dry Eyes: PERRL, EOMI, anicteric sclerae without injection, no proptosis or lid lag ENT: moist oral mucosa Neck: L-sided thyromegaly, L thyroid nodule visible and palpable, no lymphadenopathy Pulm: CTAB, no stridor Cardiac: reg s1s2, no m/r/g MSK: 5/5 strength in all muscle groups of the upper and lower extremities Neuro: 2+ patellar DTRs, no clonus, no delay of the relaxation phase, no tremor. ASSESSMENT: 56 yo clinically and biochemically euthryoid female with a mildly symptomatic 2.6cm L thyroid nodule, appearing spongiform on sonographic examination, but meeting size criteria for FNA. Will perform FNA today. PLAN: --FNA of 2.6cm L thyroid nodule today. VELASQUEZ MUÑIZ MD Finishing Department Supervisorfood service representative Section of Endocrinology [facility] [place] * Velasquez Muñiz MD - 07/05/2016 2:00 PM EDT THYROID ULTRASOUND GUIDED BIOPSY PROCEDURE NOTE Indication: thyroid nodule meeting size criteria for FNA Date: 07/05/2016 Informed consent was obtained after a discussion [...] the patient's neck was/were prepared using isopropyl alchohol. 3 passes of a 25g needle were performed at each site. The needle placement was ultrasound guided. The needle was visualized in the nodule(s) in each pass. -Biopsy was performed of: -2.6cm spongiform L-sided thyroid nodule The procedure was well tolerated by the patient without any complications. The patient was given a thyroid FNA post-procedure handout upon completion Representatives from pathology were present during the procedure. Velasquez Muñiz MD Finishing Department Supervisorfood service representative Section of Endocrinology * Velasquez Muñiz MD - 07/05/2016 2:00 PM EDT THYROID ULTRASOUND Date: 07/05/16 Indication: thyroid nodule Comparison: Real time images of the thyroid gland were obtained using a BK US machine. All measurements are given as AP x Transverse x Longitudinal. Right Lobe: The right lobe measures 1.3 x 1.6 x 4.3 cm, with slightly heterogeneous echotexture. 0.63 x 0.70 x 1.0 cm Pure cyst 0.47 x 0.61 x 0.49 cm solid isoechoic nodule Left Lobe: 2.2 x 2.6 x 2.6 cm isoechoic complex versus spongiform nodule with ~20% cystic component almost completely replacing the L hemithyroid. Lateral neck: No abnormal lymph nodes were seen. Isthmus: The isthmus measures 0.23 cm in the AP dimension. Impression: 2.6cm L solid-cystic nodule meeting size criteria for FNA. Velasquez Muñiz MD Finishing Department Supervisorfood service representative Section of Endocrinology [facility] [place] documented in this encounter Plan of Treatment Not on file documented as of this encounter Procedures Procedure Name Priority Date/Time Associated Diagnosis Comments NON-PARATRANSIT OPERATOR FINAL REPORT Routine 07/05/2016 3:36 PM EDT CYTOPATHOLOGY NON-GYNECOLOGICAL Routine 07/05/2016 2:46 PM EDT Nontoxic single thyroid nodule documented in this encounter Results * Non-School Leader Final Report (07/05/2016 3:36 PM EDT) Diagnosis Discussion [id number] ?Location: 5C The signing pathologist has (i) examined the relevant preparation(s) for the specimen(s) and (ii) rendered or confirmed the diagnosis(es). . ? Non-School Leader Final DIAGNOSIS Negative for Malignancy Electronically signed by: ??Sangita Betts MD Verified: ??07/06/2016 ?Pathologist DISCUSSION Thyroid, left (US guided FNA): Favor ??a benign follicular nodule (see note). Cytologic preservation: ?? A few follicular groups are embedded in blood clot. Cellularity (follicular cells): ?? Adequate, low. Colloid: ?? Present, moderate amount. Macrophages: ?? Present, abundant. Architectural pattern: ?? Mixed microfollicular and macrofollicular pattern (see note). Note: ?? The vast majority of mixed microfollicular and macrofollicular pattern aspirates are considered to represent benign follicular lesions (adenomas and goiters). There is a low risk of malignancy. ?? Recommend clinical and radiologic correlation and follow-up as clinically indicated. CLINICAL INFORMATION Specimen Source : Thyroid, left (US guided FNA, assisted) Pertinent Clinical Data and Significant Therapy: 2.6cm mildly symptomatic L thyroid spongiform nodule meeting size criteria for FNA Clinical Impression: Thyroid nodule meeting size criteria for FNA Pertinent Radiologic Findings: (not provided) Gross Description: Received in CytoLyt approximately 15 mL total volume of clear, pink fluid. Total Preparation: Liquid Based Prep 1; Diff-Quik 3; Pap Stain 3. Fine Needle Aspiration Intraoperative Consultation: Evaluation Episode #1 (3 slides): Adequate for final diagnosis; deferred. . CLINICAL INFORMATION Low cellularity, a few clusters of follicular epithelial cells present. Intraoperative Consultation by: ?? John Isaac MD (fellow) and ?? Sangita Betts MD. I have personally examined the cytologic slides. My interpretation is as stated. Note: Intraoperative Consultation results are preliminary assessments of adequacy and diagnosis. See final diagnostic comments for completed interpretation. 07/06/2016 2:18 PM EDT [facility] THYROID STRUCTURE / Unknown 07/05/2016 3:36 PM EDT 07/05/2016 3:36 PM EDT Velasquez Muñiz MD PATHOLOGY/CYTOLOGY O PETE Performing Organization Address City/[facility]/[place] [address] * Cytopathology Non-Gynecological (07/05/2016 2:46 PM EDT) AP Specimen 07/05/2016 2:46 PM EDT 07/05/2016 2:46 PM EDT Narrative [facility] - 07/05/2016 2:46 PM EDT Specimen requisition ordered. ??Separate Pathology report to follow Velasquez Muñiz MD PATHOLOGY/CYTOLOGY O PETE Performing Organization Address City/[facility] [place] [address] documented in this encounter Visit Diagnoses Diagnosis Nontoxic single thyroid nodule Nontoxic uninodular goiter documented in this encounter Care Teams Medical Records Clerk Relationship Specialty Start Date End Date Neetu Suresh, POCKET MACHINE OPERATOR [address] [place] [id number] PCP - General Family Medicine 05/31/16 documented as of this encounter
--- OUTSIDE RECORDS SUMMARY | 2023-12-28 22:45 | XMS_ITS | Encounter Summary ---
Author Organization [facility] [place] [address] Care Team Providers Care Computer Hardware Designer Name Role Phone Neetu Suresh APRN Primary Care Provider [phone] Encounter Details Date Type Department Care Team (Late st Contact Info) Description 02/20/2020 Telephone [place] [address] Amira León APRN [facility] [place] [address] Social History Tobacco Use Types Packs/Day Years Used Date Smoking Tobacco: Never Smokeless Tobacco: Never Sex and Gender Information Value Date Recorded Sex Assigned at Not on file Gender Identity Not on file Sexual Orientation Not on file documented as of this encounter Miscellaneous Notes * Telephone Encounter - Amira León APRN - 02/20/2020 4:24 PM EST I called Ms. Maria Ines Valencia today to discuss the results of her pathology. Specifically, this demonstrated: Left hemithyroid lobe, excision: ??- Follicular adenoma (3.7 cm), predominantly macrofollicular pattern. She is doing well. Her voice sounds normal. She is not complaining of perioral numbness/tingling, numbness/tingling in the hands, or muscle spasms. I answered her questions, and we will discuss further at her regularly-scheduled postoperative follow up appointment. Amira León APRN documented in this encounter Plan of Treatment Not on file documented as of this encounter Visit Diagnoses Not on filedocumented in this encounter Care Teams Computer Hardware Designer Relationship Specialty Start Date End Date Neetu Suresh APRN [address] [place] [address] PCP - General Family Medicine 05/31/16 documented as of this encounter
--- OUTSIDE RECORDS SUMMARY | 2023-12-28 22:45 | XMS_ITS | Encounter Summary ---
Author Organization [facility] Address [address] [place] [address] Care Team Providers Care Flight Operations Dispatch Clerk Name Role Phone Rosemary Patel SUPERVISOR DOG LICENSE OFFICER Primary Care Provider Encounter Details Date Type Department Care Team (Late st Contact Info) Description 02/29/2016 Results Only [facility] [phone] Jose Cruz Suh MD [address] [facility] [place], [place] [id number] Social History Tobacco Use Types Packs/Day Years Used Date Smoking Tobacco: Never Assessed Sex and Gender Information Value Date Recorded Sex Assigned at Not on file Gender Identity Not on file Sexual Orientation Not on file documented as of this encounter Plan of Treatment Not on file documented as of this encounter Procedures Procedure Name Priority Date/Time Associated Diagnosis Comments SURGICAL PATHOLOGY Routine 02/29/2016 13 :45 EST documented in this encounter Results * SURGICAL PATHOLOGY (02/29/2016 13:45 EST) Pathology Report: SURGICAL PATHOLOGY REPORT Reports generated via electronic interface contain original data; however they are lacking the format of the original report. Caution should be taken when reading/interpret ing unformatted reports. Name: ? MARIA INES THORNTON ? Accession #: ? [id number] ? : ? 1960 (Age: 56) ??F ? Collect Date: ? 02/29/2016 ? Location: ? [facility] ? Receive Date: ? 03/01/2016 ? Provider: JOSE CRUZ SUH MD Copy to: EDWIN UMANA SENIOR ACCOUNTS PAYABLE CLERK ? Final Pathologic Diagnosis: COLON, TRANSVERSE, POLYP, BIOPSY: - Colonic mucosa with prominent lymphoid aggregate. See comment. Comment: Deeper levels have been examined; no adenomatous epithelium is identified. ? Dr. Blum 03/03/2016 9:05 AM Document reviewed and electronically signed by: DEB BLUM MD Report ??Date: 03/03/2016 16:31 By the signature above, the attending physician certifies that he/she has personally conducted a gross and/or microscopic examination of the described specimens and rendered or confirmed the above diagnosis. Specimen(s) Received: Transverse colon polyp Clinical History: F/H colon cancer Gross Description: ? Received in formalin labelled with proper patient identification (initials H, T) and transverse colon polyp is a single pink-coleman tissue fragment (0.3 x 0.3 x 0.2 cm). Submitted intact in 1. KE Pearl (ASCP) 03/01/2016 4:36 PM End of Report [facility] 02/29/2016 13:4 5 EST 03/01/2016 13:45 EST Jose Cruz Suh MD PATHOLOGY ORDERA BLES [facility] [address] [place] [address] documented in this encounter Visit Diagnoses Not on filedocumented in this encounter Care Teams Flight Operations Dispatch Clerk Relationship Specialty Start Date End Date Rosemary Patel FNP [address] [place] [address] PCP - General 08/07/08 documented as of this encounter
--- OUTSIDE RECORDS SUMMARY | 2023-12-28 22:45 | XMS_ITS | Encounter Summary ---
Author Organization [facility] Address [address] [place] [address] Care Team Providers Care Quality Control Systems Manager Name Role Phone Rosemary Patel SALES AND MARKETING ASSISTANT Primary Care Provider [phone] Encounter Details Date Type Department Care Team (Late st Contact Info) Description 11/18/2002 Results Only [facility] - [facility] [address] [place] [address] Soumya Marshall MD [address] [place] [address] [place] [address] Social History Tobacco Use Types Packs/Day Years Used Date Smoking Tobacco: Never Assessed Sex and Gender Information Value Date Recorded Sex Assigned at Not on file Gender Identity Not on file Sexual Orientation Not on file documented as of this encounter Plan of Treatment Not on file documented as of this encounter Procedures Procedure Name Priority Date/Time Associated Diagnosis Comments CYTOPATHOLOGY Routine 11/18/2002 0:00 EDT documented in this encounter Results * CYTOPATHOLOGY (11/18/2002 0:00 EDT) Pathology Report: CYTOPATHOLOGY REPORT Reports generated via electronic interface contain original data; however they are lacking the format of the original report. Caution should be taken when reading/interpreti ng unformatted reports. Name: ? MARIA INES THORNTON ? Accession #: ? [id number] : ? 1960 (Age: 42) ??F ?Collect Date: ? 11/18/2002 Location: ? [facility] ? Receive Date: ? 11/20/2002 Provider: ?SOUMYA MARSHALL MD Copy to: ? Specimen/Source: ?ThinPrep Pap Test, Cervix/Endocervix Last Menstrual Period: ? 11/18/02 Previous Gynecologic Pathology: ? [facility] Other: ? HPVA - HPV testing requested if ASC-US on the current ThinPrep Pap test. ? SPECIMEN ADEQUACY ? Satisfactory for Evaluation - transformation zone component present GENERAL CATEGORIZATION ? Negative for Intraepithelial Lesion or Malignancy ? Document reviewed and electronically signed by: ? Mckenzie Dickens, [facility](ASCP) ? Report Date: ??11/25/2002 12:46 End of Report [facility] 11/18/2002 11/20/2002 Soumya Marshall MD PATHOLOGY ORDERABLES Performing Organization Address City/State/[facility] Co de Phone Number [facility] [address] [place] [address] documented in this encounter Visit Diagnoses Not on filedocumented in this encounter Care Teams Quality Control Systems Manager Relationship Specialty Start Date End Date Rosemary Patel FNP [address] [place] [address] PCP - General 08/07/08 documented as of this encounter
--- OUTSIDE RECORDS SUMMARY | 2023-12-28 22:45 | XMS_ITS | Clinical Summary ---
Author Organization [facility] Address [address] [place] [address] Care Team Providers Care Cell Attendant Helper Name Role Phone Rosemary Patel Primary Care Provider [phone] Social History Tobacco Use Types Packs/Day Years Used Date Smoking Tobacco: Never Assessed Interpersonal Safety Answer Date Record ed Physically Hurt Never 11/16/2019 Verbally Threaten Not on file 11/16/2019 Sex and Gender Information Value Date Recorded Sex Assigned at Not on file Gender Identity Not on file Sexual Orientation Not on file Plan of Treatment Health Maintenance Due Date Last Done Comments Hepatitis C Screen 1960 RSV Immunization ( o r 60+ Years) (1 - 1-dose 60+ series) 2019 COVID-19 Vaccine (2022- season) 2022 Care Teams Cell Attendant Helper Relationship Specialty Start Date End Date Rosemary Patel FNP [address] [place] [address] PCP - General 08/07/08
--- OUTSIDE RECORDS SUMMARY | 2023-12-28 22:45 | XMS_ITS | Encounter Summary ---
Author Organization [facility] [place] [address] Care Team Providers Care Roofer Vinyl Coating Name Role Phone Neetu Suresh APRN Primary Care Provider [phone] Reason for Visit * Auth/Cert Specialty Diagnoses / Procedures Referred By Aislinn lawson Referred To Contact Diagnoses THYROID NODULE Procedures PRO THYROID LOBECTOMY, UNILAT PRG EMG, LARYNX THYROIDECTOMY, LOBECTOMY, TOTAL, UNILATERAL (WRVU 11.19) FACIAL NERVE MONITORING, SETUP LARYNGEAL (WRVU 1.57) Referral ID Status Reason Start Date Expiration Date Visits Re quested Visits Authorized [id number] 1 1 Encounter Details Date Type Department Care Team (Latest Contact Info) Description 02/11/2020 9:11 AM EDT - 02/11/2020 1:48 PM EDT Hospital Encounter [place] [address] Rosanna Torres MD [facility] [place] [address] Multiple thyroid nodules Discharge Disposition: Home Social History Tobacco Use Types Packs/Day Years [...] closest emergency room or call the hospital side seam machine operator at [phone] and ask for physician welder production line gas covering for your physician. Questions or problems after 5pm or on a weekend: Call the [facility] side seam machine operator at and ask for the physician welder production line gas covering for your doctor. * Patient Instructions* [...] Take NSAIDS or Tylenol every 6 hours [id number] for the first 3-5 days following surgery [...] Torres in approximately 6 weeks. Please call [phone] to confirm the date and time of [...] days after surgery. Phone number for questions: [phone] before 5 PM on weekdays [phone] after 5 PM and on weekends/holidays. Ask for the general surgery resident welder production line gas. documented in this encounter Medications at Time [...] patient was questioned regarding travel outside of [facility], fever, cough, SOB or other illness in [...] again, temperature will be taken, patient and caregiver/lift driver will be given a mask to [...] of left-sided thyroid nodule who presents to [facility] for left thyroidectomy S: Maria Ines Valencia [...] Torres MD - 02/11/2020 12:26 PM EDT [facility] Operative Note Patient Name: Maria Ines Valencia : [id number] MR#: [id number] Case Date: 02/11/2020 Surgeon: Surgeon(s) and Role: [...] left-sided thyroid nodule and FNA demonstrating benign ([place] 2) cytology. The nodule has been enlarging [...] anesthesia was achieved by anesthesiology with the [employer] recurrent laryngeal nerve monitoring system. A natural [...] tracheoesophageal groove and followed this up to Eliseo, ligating vessels to expose the nerve's anterior [...] Note Patient Name: Maria Ines Valencia : [id number] MR#: [id number] Case Date: 02/11/2020 Surgeon: Surgeon(s) and Role: [...] 12:12 PM EDT Needle Electromyography, Larynx Global ([id number]) Yes 02/11/2020 11:04 AM EDT THYROID NODULE Total Thyroid Lobectomy Unilateral W/Wo Isthmusectomy ([id number]) Yes 02/11/2020 11:04 AM EDT THYROID NODULE documented in this encounter Results * TSH (03/26/2020 10:18 AM EST) Thyroid Stimulating Hormone 2.47 0.27 - 4.20 mcIU/mL [facility] Blood specimen (specimen) 03/26/2020 10:18 AM EST 03/26/2020 10:33 AM EST Narrative Resulting Agency Comment Spec In Lab Rosanna Torres MD CHEMISTRY ORDERAB LES [facility] [place] [address] * Surgical Pathology Report (02/11/2020 12:12 PM EDT) Final Diagnosis [id number] ? Location: [facility] The signing pathologist has (i) examined the relevant preparation(s) for the specimen(s) and (ii) rendered or confirmed the diagnosis(es). . 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 Electronically signed by: ??MD Eligio, Tyler Lamb Verified: ??02/17/2020 ?Pathologist Performed at: ??-[facility] Dept. of Pathology, [place], [place] SPECIMEN(S) SUBMITTED A - Left hemithyroid [...] to inferior ??RT 02/17/2020 2:02 PM EST [facility] THYROID STRUCTURE / Unknown 02/11/2020 12:12 PM EDT 02/11/2020 12:12 PM EDT Rosanna Torres MD PATHOLOGY/CYTOLOG Y ORDERABLES Performing Organization Address City/[facility]/ZIP Co de Phone Number [facility] [place] [address] * Specimen to Pathology (02/11/2020 12:12 PM EDT) AP Specimen 02/11/2020 12:1 2 PM EDT 02/11/2020 12:12 PM EDT Narrative [facility] - 02/11/2020 12:12 PM EDT Specimen requisition ordered. ??Separate Pathology report to follow Rosanna Torres MD PATHOLOGY/CYTOLOG Y ORDERABLES Performing Organization Address City/[facility]/ZIP Co de Phone Number [facility] [place] [address] documented in this encounter Visit Diagnoses Diagnosis Multiple thyroid nodules Nontoxic multinodular goiter documented in this encounter Administered Medications Inactive Administered [...] Given 02/11/2020 1:12 PM EDT 1,000 mg documented in this encounter Active and Recently [...] time.) documented in this encounter Care Teams Roofer Vinyl Coating Relationship Specialty Start Date End Date Neetu Suresh APRN [address] [place] [address] PCP - General Family Medicine 05/31/16 documented as of this encounter
--- OUTSIDE RECORDS SUMMARY | 2023-12-28 22:45 | XMS_ITS | Continuity of Care Document ---
Author Organization [place] - [facility] Address [address] [place] [address] Assessment No assessment recorded. Plan of Treatment Reminders Order Date Submit Date Provider Last Modified By Organization Details Last Modified Time Details Appointments Follow Up 30 2023 10:00A M Not available Not available Not available Lab None recorded. Referral None recorded. Procedures None recorded. Surgeries None recorded. Imaging XR, ribs, unilatera l 2023 024 [facility] (Radiology), [address] [place] [address] [facility] [place], [address], 12/07/2023 12:02:22 DEXA 2023 024 [email or web address] [facility] (Radiology), [address] [place] [address] [place], [address], 11/02/2023 12:36:59 Medication Orders None recorded. Patient TargetsNo targets recorded. Patient InstructionsNo instructions recorded. Reason for Referral None Reported. Results Created Date Observation Date Name Description Value Unit Range Abnormal Flag Note LastModifiedBy Organization Detail LastModifiedTime 11/02/1911/02/2023 XR, ribs, unila teral Patien t Name: Jack Valencia Unit #: [id number] Loc: DI Orderi ng Provid er: Casa Álvarez t #: [id number] Status : REG CLI Primar y [...] pulmon elizabeth findin gs. Ordere d By: Casa Álvarez CC: ------ ------ ------ ------ ------ ------ ------ ------ ------ ------ ------ ------ - Dictat ed By: Russel Sterling 1453 1453 Transc ribed By: Patricio Juarez 1453 This is privil eged, confid ential inform ation intend ed only for the provid er named. Any use or distri bution by any person other than this [facility] er is strict ly prohib ited. If you receiv e this report in error, please notify us immedi joycely at and return the origin al report to us at the addres s above. Thank- you. [email or web address] [facility] (Radiology) [address] [place] [address] [place], [address], 12/07/2023 12:02:29 Result Notes Documentation Provider Name and Address Organization Details Recorded Time Xr, Ribs, Unilateral : Patient Name: Maria Ines Valencia Unit #: [id number] Loc: DI Ordering Provider: Casa Álvarez Status: REG CLI Primary Care Provider: Neetu Suresh Date of Exam: Sex: F Admission Date: [...] 2. No acute pulmonary findings. Ordered By: Casa Álvarez CC: - Dictated By: Stephanie Juarez M.D. 11/02/23 1453 11/02/23 1453 Transcribed By: Stephanie Juarez 11/02/23 1453 This is privileged, confidential information intended only for the provider named. Any use or distribution by any person other than this provider is strictly prohibited. If you receive this report in error, please notify us immediately at [phone] and return the original report to us at the address above. Thank-you. Jordana mao, [place] - [facility]. 12/07/2023 12:02:29 Problems Name Problem SNOMED Code Status Onset Date Resolution Date Notes Provider Name and Address Organization Details Recorded Time Cardiac arrhythm ia 270953893 Active 200210/25/19 19 - Comments only - Neetu Suresh [employer] - asymptom atic. if becomes symptoma tic, evaluate further. Problem Code: I49.9; Problem Code Type: ICD-10; [address], [place], [address] , [facility] 4 07:13:29 Heart murmur 98356912 Active 200210/25/19 19 - Comments only - Neetu Suresh APRN - monitor routinel y. If becomes more promimen t, would do echocard iogram. Problem Code: R01.1; Problem Code Type: ICD-10; [address], [place], [address] , [facility], [facility] 4 07:13:29 Adult health examinat ion Active 201505/14/19 18 - Comments only - Neetu Suresh APRN - annual exam complete d today. UTD on pap smear and HPV testing. Order mammogra m. UTD on colonosc opy. UTD on vaccines , flu shot through employer . Problem Code: Z00.00; Problem Code Type: ICD-10; [address], [place], [address] , [facility] 4 07:13:29 Family history of malignan t neoplasm of digestiv e organ 192720932 Active 201505/08/19 17 - Comments only - Neetu Suresh APRN - UTD on routine colonosc opy, due every 5 years, next due in 2020. Problem Code: Z80.0; Problem Code Type: ICD-10; [address], [place], [address] , [facility] 4 07:13:29 Insomnia 192341455 Active 201610/25/19 19 - Comments only - Neetu Suresh APRN - Well controll ed, continue OTC sleep aid since effectiv e. Problem Code: G47.00; Problem Code Type: ICD-10; [address], [place], [address] , [facility] 4 07:13:29 Genuine stress incontin ence 78692696 Active 201605/14/19 18 - Comments only - Neetu Suresh APRN - [facility] ed pelvic floor exercise s, kegel exercise s. Problem Code: N39.3; Problem Code Type: ICD-10; [address], [place], [address] , [facility] 4 07:13:29 Seasonal allergic rhinitis 462139246 Active 201610/25/19 19 - Comments only - Neetu Suresh APRN - asymptom atic. monitor for now and treat as indicate d. Problem Code: J30.2; Problem Code Type: ICD-10; [address], [facility] [address] , [facility] 4 07:13:29 Melanocy tic nevus 224062090 Active 201605/08/19 17 - Comments only - Neetu Suresh APRN - right ear lobe. Most likely benign. Desires to have removed, refer to ENT for further manageme nt. Problem Code: D22.9; Problem Code Type: ICD-10; [address], [place], [address] , [facility] 4 07:13:29 Non-toxi c uninodul ar goiter 034049794 Active 2016 Problem Code: E04.1; Problem Code Type: ICD-10; [address], [place], [address] , [facility] 4 07:13:29 Neck pain 28997761 Active 201610/25/19 19 - Comments only - Neetu Surehs APRN - resolved . Problem Code: M54.2; Problem Code Type: ICD-10; [address], [place] [address] , [facility] 4 07:13:29 Screenin g mammogra phy Completed 201707/12/2017 Problem Code: Z12.31; Problem Code Type: ICD-10; [address], [facility] [address] , [facility] 4 07:13:29 Screenin g mammogra phy Active 2018 Problem Code: Z12.31; Problem Code Type: ICD-10; [address], [place] [address] , [facility] 4 07:13:29 Headache 92583284 Active 201810/25/19 19 - Comments only - Neetu Suresh APRN - improved . continue APAP PRN. continue norvasc since helping headache s as well. Problem Code: R51; Problem Code Type: ICD-10; [address], [place], [address] , [facility] 4 07:13:29 Essentia l hyperten keila 14987215 Active 201810/25/19 19 - Comments only - Neetu Suresh APRN - stable, continue medicati on regimen. Problem Code: I10; Problem Code Type: ICD-10; [address], [facility] [address] , [facility] 4 07:13:29 Screenin g for malignan t neoplasm of colon Active 2020 Problem Code: Z12.11; Problem Code Type: ICD-10; [address], [place], [address] , [facility] 4 07:13:29 Localize d edema 813516024 Active 2022 Problem Code: R60.0; Problem Code Type: ICD-10; [address], [place], [address] , [facility] 4 07:13:29 Pain of left shoulder joint 51338835642 030138 Active 2022 Problem Code: M25.512; Problem Code Type: ICD-10; [address], [facility] [address] , [facility] 4 07:13:29 Cramp in lower limb associat ed with sleep 36580476659 4104 Active 2022 Problem Code: G47.62; Problem Code Type: ICD-10; [address], [place], [address] , [facility] 4 07:13:29 Conjunct ival hemorrha ge of left eye 05449219413 9102 Completed 201710/31/2019 Problem Code: H11.32; Problem Code Type: ICD-10; Not Available [facility] 3 04:02:41 Urinary tract infectio us disease 16223412 Completed 201505/08/2016 Problem Code: N39.0; Problem Code Type: ICD-10; Not Available [facility] 3 04:02:41 Dysuria 82978071 Completed 201505/08/2016 Problem Code: R30.0; Problem Code Type: ICD-10; Not Available [facility] 3 04:02:42 Chest pain 96673847 Completed 201705/03/2020 Problem Code: R07.89; Problem Code Type: ICD-10; Not Available [facility] 3 04:02:44 Foot pain 12936434 Completed 201811/08/2020 Problem Code: M79.673; Problem Code Type: ICD-10; Not Available [facility] 3 04:02:44 Hyperlip idemia 94328394 Active 2023 ASCVD risk 6.89% calculat ed 05/22/23 NEETU SURESH APRN [address], [place], [address] , [facility] 4 06:56:16 Rib pain 699250181 Active [address], [facility] [address] , [facility] 4 11:24:12 Menopaus e present 803639117 Active [address], [facility] [address] , [facility] 4 12:36:07 [place]weig ht 691918414 Active 2023 NEETU SURESH APRN [address], [facility] [address] , [facility] 4 08:39:51 Acute right otitis media 155520573 Active [address], [place], [address] , [facility] 4 08:50:39 Notes:*Problem Name: Arrhyth fallon Heart *ICD-10 Codes: *Problem Status: inactive *Comments: 05/08/2016 - Comments only - Neetu Suresh APRN - declined testing or further management at this time. *Note Date: 05/29/2002 *Problem Name: Heart Murmur/mvp *ICD-10 Codes: *Problem Status: inactive *Comments: *Note Date: 05/29/2002 Problem Notes None recorded. Medical Equipment None Reported. Allergies Allergen ID Allergen Name Allergen Category Reaction Reaction Severity Criticality Documentation Date Start Date Code Code System Note Provider Name and Address Organization Details Recorded Time 18198 ampicilli n trihydrat e medicatio n hives Not available Not available 02/23/20232002 5 RxNorm rash/ hives Aller gyRea ction : 'rash / hives '; Not Available [facility] 3 16:22:03 92036 amoxicill in trihydrat e medicatio n hives Not available Not available 02/23/20232003 11933 8 RxNorm rash/ hives Aller gyCod e: '3081 82'; Aller gyNam e: 'AMOX ICILL IN'; Aller gyCon ceptT ype: 'RX Norm' ; Aller gyRea ction : 'rash / hives '; Not Available [facility] 3 16:22:03 99588 Medicinal product containin g penicilli n and acting as antibacte rial agent (product) medicatio n hives Not available Not available 02/23/20232006 70521 05 SNOMED rash/ hives Aller gyCod e: '8340 61'; Aller gyNam e: 'PENI CILLI N'; Aller gyCon ceptT ype: 'RX Norm' ; Aller gyRea ction : 'rash / hives '; Not Available [facility] 3 16:22:03 Medications Name Sig Start Date [...] Updated DateTime 4 171.45 cm 28 kg/m2 93966.3 7 g 97 [degF] 98 % 98 % 73 /min 140 mm[Hg] 82 mm[Hg] Jane Beavers RN [facility] 4 11:08:27 Social History Question Answer Notes LastModified by Organizat ion Details LastModified Time Tobacco Smoking Status Never Smoker JOLENE PARRY CMA null, [facility] 05/21/2023 14:26:48 Would You Say That, [...] Recorded Time MMR 05/03/2022 completed Not Available [facility] 05:06:54 MMR 03/27/2022 completed Not Available [facility] 05:06:54 Tdap 05/16/2022 completed Not Available [facility] 05:06:55 Tdap 06/14/2012 completed Not Available [facility] 05:06:55 Td(adult) unspecified formulation 04/30/1999 completed Not Available [facility] 02/23/2023 05:06:56 Influenza, split virus, quadrivalent, PF 03/15/2022 completed Not Available [facility] 02/23/2023 05:06:57 zoster recombinant 07/24/2019 completed Not Available [facility] 02/23/2023 05:06:57 zoster recombinant 10/31/2019 completed Not Available [facility] 02/23/2023 05:06:58 COVID-19, mRNA, LNP-S, PF, 100 mcg/0.5mL dose or 50 mcg/0.25mL dose 08/30/2020 completed Not Available [facility] 02/24/20 05:06:59 COVID-19, mRNA, LNP-S, PF, 100 mcg/0.5mL dose or 50 mcg/0.25mL dose 03/02/2021 completed Not Available [facility] 02/24/20 05:06:59 SARS-COV-2 (COVID-19) vaccine, UNSPECIFIED 08/02/2020 completed Not Available [facility] 02/23/2023 05:07:00 SARS-COV-2 (COVID-19) vaccine, UNSPECIFIED 09/08/2021 completed Not Available [facility] 02/23/2023 05:07:00 COVID-19, mRNA, LNP-S, bivalent, PF, 30 mcg/0.3 mL dose 03/17/2022 completed Not Available [facility] 02/23/2023 05:07:00 Hep B, unspecified formulation 05/29/2002 completed Not Available [facility] 02/23/2023 05:07:01 Hep B, unspecified formulation 07/09/2002 completed Not Available [facility] 02/23/2023 05:07:01 Hep B, unspecified formulation 12/09/2003 completed Not Available [facility] 02/23/2023 05:07:01 influenza, unspecified formulation 2019 completed Not Available [facility] 02/23/2023 05:07:01 influenza, unspecified formulation 01/25/2020 completed Not Available [facility] 02/23/2023 05:07:02 influenza, unspecified formulation 01/27/2014 completed Not Available [facility] 02/23/2023 05:07:02 influenza, unspecified formulation 01/31/2017 completed Not Available [facility] 02/23/2023 05:07:02 influenza, unspecified formulation 02/25/2021 completed Not Available [facility] 02/23/2023 05:07:02 influenza, unspecified formulation 02/26/2018 completed Not Available [facility] 02/23/2023 05:07:02 COVID-19, mRNA, LNP-S, PF, 100 mcg/0.5mL dose or 50 mcg/0.25mL dose 05/04/2023 completed JOLENE PARRY CMA null, [facility] 05/15/2023 12:34:41 influenza, unspecified formulation 03/01/2023 completed JOLENE PARRY FIRE TENDER null, [facility] 05/15/2023 12:35:59 Respiratory syncytial virus (RSV) vaccine, unspecified 05/10/2023 completed JOLENE PARRY FIRE TENDER null, [facility] 05/21/2023 14:26:21 Past Encounters Encounter ID Performer Location Encounter Start Date Encounter Closed Date Diagnosis/Indication Diagnosis SNOMED-CT Code Diagnosis ICD10 Code [id number] JOHN AMBROCIO [address] [address] 11/01/2023 10:46:16 11/01/2023 11:44:15 Rib pain 926699339 R07.81 Menopause present 576733 006 N95.1 Health Concerns Section Related Observation LastModified by Organization Detai ls LastModified Time None Recorded Concern Status LastModified by Organization Details LastModified Time None Recorded Payers Encounter Date Sequence Insurance Name Policy Number Policy [place] Covered Member ID [place] Member ID Guarantor Name 11/01/2023 1 [employer] (PP[employer]) Maria Ines Valencia [id number] Maria Ines Valencia Notes Date Note Type Note Provider Name and Address Organization Details Recorded Time 11/01/2023 text/html HPI Notes: Patient stated that 5 days ago she was [...] broken her arm and her ankle historically. CASA ÁLVAREZ, JOHN [address], [place], [address], [facility] - [facility]. 11/02/2023 12:37:22 OBGyn Episode No OBEpisode recorded.
--- OUTSIDE RECORDS SUMMARY | 2023-12-28 22:45 | XMS_ITS | Encounter Summary ---
Author Organization [facility] Address [address] [place] [address] Care Team Providers Care Inclusion Internship Name Role Phone Unavailable Primary Care Provider Unavailabl e Encounter Details Date Type Department Care Team (Late st Contact Info) Description 08/05/2008 Orders Only [facility] Medicine [address] [address] Travis Talley MD [address] [place], [place] [id number] Social History Tobacco Use Types Packs/Day Years Used Date Smoking Tobacco: Never Assessed Sex and Gender Information Value Date Recorded Sex Assigned at Not on file Gender Identity Not on file Sexual Orientation Not on file documented as of this encounter Plan of Treatment Not on file documented as of this encounter Procedures Procedure Name Priority Date/Time Associated Diagnosis Comments SURGICAL PATHOLOGY Routine 08/05/2008 0:00 EDT documented in this encounter Results * SURGICAL PATHOLOGY (08/05/2008 0:00 EDT) Pathology Report: SURGICAL PATHOLOGY REPORT ? Reports generated via electronic interface contain original data; ? however they are lacking the format of the original report. ? Caution should be taken when reading/interpreti ng unformatted reports. ? Name: ? HILLARY, MARIA INES ? Accession #: ? [id number] ? : ? 1960 (Age: 48) ??F ? Collect Date: ? 08/05/2008 ? Location: ? [facility] ? Receive Date: ? 08/05/2008 ? Provider: TRAVIS WALKO MD ? Copy to: HANNAH JANG MOTION PICTURE PROJECTIONIST ? Final Pathologic Diagnosis: ? Ileocecal valve, biopsy: ? - Benign ileal mucosa with prominent lymphoid follicles. ? Document reviewed and electronically signed by: ? Masatoshi Kida, MD ? Report ??Date: 08/06/2008 15:53 ? By the signature above, the attending physician certifies that he/she has ? personally conducted a gross and/or microscopic examination of the described ? specimens and rendered or confirmed the above diagnosis. ? Specimen(s) Received: ? Bx ileocecal valve ? Clinical History: ? thickened?, F/H colon cancer ? Gross Description: ? Received in Hollande's fixative labelled Hillary, Maria Ines and bx ileocecal valve is a coleman-pink 0.3 x 0.2 x 0.2 cm soft tissue fragment. ??The specimen is ?? entirely submitted in one cassette. /mpl ? End of Report ? [facility] 08/05/2008 08/05/2008 8:2 6 EDT Travis Talley MD PATHOLOGY ORDERABLES Performing Organization Address City/State/[facility] Co de Phone Number [facility] [address] [place] [address] documented in this encounter Visit Diagnoses Not on filedocumented in this encounter
--- OUTSIDE RECORDS SUMMARY | 2023-12-28 22:45 | XMS_ITS | Encounter Summary ---
Author Organization [facility] Address [address] [place] [address] Care Team Providers Care Speed Belt Sander Name Role Phone Rosemary Patel JOHN Primary Care Provider [phone] Encounter Details Date Type Department Care Team (Late st Contact Info) Description 03/17/2022 Lab Requisition [facility] Pathology & Laboratory Medicine - [facility] [address] [place] [address] Outr Resulting Lab, Provider Social History Tobacco [...] Procedure Name Priority Date/Time Associated Diagnosis Comments QUANTIFERON MITOGEN (PERFORMABLE) Today 03/16/2022 15:13 EST QUANTIFERON TB2 (PERFORMABLE) Today 03/16/2022 15:13 EST QUANTIFERON TB1 (PERFORMABLE) Today 03/16/2022 15:13 EST QUANTIFERON NIL (PERFORMABLE) Today 03/16/2022 15:13 EST QUANTIFERON INTERPRETATION (PERFORMABLE) Today 03/16/2022 15:13 EST QUANTIFERON TB GOLD PLUS Routine 03/16/2022 15:13 EST documented in this encounter Results * QUANTIFERON INTERPRETATION (PERFORMABLE) (03/16/2022 15:13 EST) [facility] Quantiferon Interpretation Negative Negative 03/20/2022 11:13 EST [facility] Comment:No interferon-gamma response to M. tuberculosis antigens was detected. ??Infection with M. tuberculosis is unlikely. A single negative result does not exclude infection with M. tuberculosis. ??In patients at high risk for M. tuberculosis infection, a second test should be considered. TB1 Ag minus Nil 0.00 IU/ml 03/20/20 11:13 EST [facility] TB2 Ag minus Nil 0.01 IU/mL 03/20/20 11:13 EST [facility] Blood VENOUS BLOOD / Unknown 03/16/2022 15:13 EST 03/20/2022 11:10 EST Narrative [facility] - 03/20/2022 11:13 EST Results were obtained with the [employer] QuantiFERON-TB Gold Plus CLIA. New platform in use 12/22/2020 Provider Outr Resulting Lab IMMUNOLOGY A ND SEROLOGY ORDERABLES Performing Organization Address [facility] Co de Phone Number [facility] [address] [place] [address] * QUANTIFERON MITOGEN (PERFORMABLE) (03/16/2022 15:13 EST) Blood VENOUS BLOOD / Unknown 03/16/2022 15:13 EST 03/17/2022 18:35 EST Provider Outr Resulting Lab IMMUNOLOGY A ND SEROLOGY ORDERABLES Performing Organization Address City/[facility]/ZIP Co de Phone Number [facility] [address] [place] [address] * QUANTIFERON TB2 (PERFORMABLE) (03/16/2022 15:13 EST) Blood VENOUS BLOOD / Unknown 03/16/2022 15:13 EST 03/17/2022 18:35 EST Provider Outr Resulting Lab IMMUNOLOGY A ND SEROLOGY ORDERABLES Performing Organization Address [facility]/ZIP Co de Phone Number [facility] [address] [place] [address] * QUANTIFERON TB1 (PERFORMABLE) (03/16/2022 15:13 EST) Blood VENOUS BLOOD / Unknown 03/16/2022 15:13 EST 03/17/2022 18:35 EST Provider Outr Resulting Lab IMMUNOLOGY A ND SEROLOGY ORDERABLES Performing Organization Address [facility] de Phone Number [facility] [address] [place] [address] * QUANTIFERON NIL (PERFORMABLE) (03/16/2022 15:13 EST) Blood VENOUS BLOOD / Unknown 03/16/2022 15:13 EST 03/17/2022 18:35 EST Provider Outr Resulting Lab IMMUNOLOGY A ND SEROLOGY ORDERABLES Performing Organization Address [facility] de Phone Number [facility] [address] [place] [address] documented in this encounter Visit Diagnoses Not on filedocumented in this encounter Care Teams Speed Belt Sander Relationship Specialty Start Date End Date Rosemary Patel FNP [address] [place] [address] PCP - General 08/07/08 documented as of this encounter
--- OUTSIDE RECORDS SUMMARY | 2023-12-28 22:45 | XMS_ITS | Encounter Summary ---
Author Organization [facility] Address [address] [place] [address] Care Team Providers Care Cloth Classer Name Role Phone Rosemary Patel Primary Care Provider [phone] Encounter Details Date Type Department Care Team (Latest Contact Info) Description 03/03/2016 15:02 EST - 03/03/2016 23:59 EST Hospital Encounter [address] [address] Unknown, Provider, Discharge Disposition: Home or Self Care Social History Tobacco Use Types Packs/Day Years Used Date Smoking Tobacco: Never Assessed Sex and Gender Information Value Date Recorded Sex Assigned at Not on file Gender Identity Not on file Sexual Orientation Not on file documented as of this encounter Discharge Diagnoses Diagnosis Z01.89 Encounter for other specified special examinations-Z01.89[ICD-10-CM] documented in this encounter Discharge Disposition Disposition Code Departure Means Destination Home or Self [facility] documented in this encounter Plan of Treatment Not on file documented as of this encounter Visit Diagnoses Not on filedocumented in this encounter Care Teams Cloth Classer Relationship Specialty Start Date End Date Rosemary Patel FNP [address] [place] [address] PCP - General 08/07/08 documented as of this encounter
[2023-12-28 22:46] LABS: FREE T4 0.75 ng/dL (0.76-1.46)
[2023-12-28 23:12] LABS: Troponin I 5 ng/L (<or=51)
--- NOTE | 2023-12-28 23:12 | DI.VRAD_ITS ---
PROCEDURE INFORMATION: Exam: XR Chest Exam date and time: 12/28/2023 10:11 PM Age: 63 years old Clinical indication: Shortness of breath; Additional info: Chest pain SOB TECHNIQUE: Imaging protocol: Radiologic exam of the chest. Views: 2 views. COMPARISON: CR XR RIBS LT W PA LAT CHEST 11/02/2023 2:35 PM FINDINGS: Lungs: Unremarkable. No consolidation. Pleural spaces: Unremarkable. No pleural effusion. No pneumothorax. Heart/Mediastinum: Unremarkable. No cardiomegaly. Bones/joints: Unremarkable. IMPRESSION: No acute findings. Dictated and Authenticated by: Constantino Salinas MD. Ordering:SUKUMAR Ryder MD
[2023-12-28 23:14] LABS: D-Dimer 296 ng/mlFEU (<500)
--- NOTE | 2024-01-02 07:31 | NUR.NOTE ---
Access chart to review referral that was sent. Nursing Note:
== END 2023-12-28 23:53 | disposition home or self-care (01) ==
PROVIDERS: Emergency Provider Emergency Medicine; PCP Nurse Practitioner Family
DX: R07.9 Chest pain, unspecified (principal); I10 Essential (primary) hypertension; Z82.49 Family history of ischemic heart disease and other diseases of the circulatory system
CPT/HCPCS: 80053; 93005; 99285; 71046; 83735; 83880; 84439; 84443; 84484; 85025; 85379; 85610; 85730; 93010; 99284

== ENCOUNTER 2024-01-24 00:49 | Outpatient (CLI) | payer OTHER, SELFPAY ==
--- NOTE | 2024-01-24 | ETT_ITS ---
APPROVED REPORT Exam: Exercise Treadmill Patient Location: Out-Patient Room/Bed: Stress Nurse: Earlene Cain RN Ordering Provider:EDWIN UMANA, Contact Number: [phone] BMI: 27.51 Baseline Rhythm: Sinus Rhythm Indications: Chest pain, Medical History Medical History: HTN, arrythmia, thyroid nodule, insomnia, prediabetes, murmur Cardiac Medications: Amlodipine, levothyroxine, magnesium, trazodone Allergies: Amoxicillin, penicillins Cardiac Risk Factors: Family hx, HTN, HLD, prediabetes Previous Cardiac Procedures: None Pretest Chest Pain Characteristics: None Exercise History: Sedentary Physical Disabilities: None Lung Sounds: Clear to auscultation Heart Sounds: Regular Stress Test Details Test: Exercise stress testing was performed using a René protocol. Rest Stress HR Resting HR Supine: 68 bpm Max Heart Rate (APMHR): 155 bpm Resting HR Standin bpm Target HR (85% APMHR): 132 bpm Max HR Achieved: 135 bpm % of APMHR: 87 Recovery HR: 77 bpm HR response to stress: Normal HR response to stress BP Resting BP Supine: 138/74 mmHg Resting BP Standin/76 mmHg Max BP: 200/35 mmHg Recovery BP: 140/68 mmHg BP response to stress: Normal blood pressure response to stress. ECG Resting ECG: Sinus Rhythm Ectopy: None Stress ECG: Sinus Tachycardia ST Change: No significant ST segment changes noted Arrhythmia: Rare PAC Recovery ECG: Sinus Rhythm Recovery ST Change: No significant ST segment changes noted Recovery Arrhythmia: None Clinical Reason for Termination: Target HR Achieved, artifiact Stress Symptoms: None Exercise duration: 07 min41 sec Highest Stage Reached: Stage 3: 3.4 mph at 14% grade. Exercise capacity: 9.64 METs Angina Score: None Rate Pressure Product: [id number] Stress ECG Conclusion 1. Resting electrocardiogram was normal 2. Patient exercised on the René protocol and completed workload of 9.64 METS 3. Normal heart rate and blood pressure response to exercise. The patient achieved 87% of maximum pr edicted heart rate for age 4. There was no electrocardiographic evidence of myocardial ischemia 5. There were no significant dysrhythmias Stress Test Summary STAGE Time (mins) Speed (mph) Grade (%) HR BP SpO2 SYMPTOMS METS Supine 68 138/74 Standing 67 148/76 1 3 1.7 10 100 156/58 4.5 2 6 2.5 12 100 7 3 9 3.4 14 133 10 1 min recovery 113 200/35 3 min recovery 83 190/48 6 min recovery 77 140/68
== END 2024-01-24 01:09 ==
PROVIDERS: PCP Nurse Practitioner Family; Visit Provider Nurse Practitioner Family
DX: R07.9 Chest pain, unspecified (principal)
CPT/HCPCS: 93017

== ENCOUNTER 2024-02-14 01:49 | Outpatient (CLI) | payer OTHER, SELFPAY ==
--- NOTE | 2024-02-14 | DI.DEXA_ITS ---
Exam(s) XR DEXA BONE DENSITY W/WO TRUMAN EXAM: XR DEXA BONE DENSITY W/WO TRUMAN CLINICAL HISTORY: Menopausal and female climacteric states, N95.1 TECHNIQUE: Routine DEXA evaluation of the lumbar spine, hip, or forearm. COMPARISON: No exams were available for comparison FINDINGS: Performed on a Hologic unit. Lateral image: No compression fracture evident. Lumbar Spine total T-score: -1.9 Hip total T-score:-0.9 Independent reading at the level of the femoral neck yields T-score of -1.5 Forearm total T-score: -1.4 IMPRESSION: Bone mineral density measures in the osteopenia range. Fracture risk is moderate. Note: Any spine fracture indicates 5x risk for subsequent spine fracture and 2x risk for subsequent h ip fracture. World Health Organization criteria for BMD interpretation classify patients: Normal...... T- Score at or above -1.0 Osteopenic... T- Score between -1.0 and -2.5 Osteoporosis... T-Score at or below -2.5
== END 2024-02-14 02:09 ==
LOC: DI 01:49
PROVIDERS: PCP Nurse Practitioner Family; Visit Provider Nurse Practitioner Family
DX: Z13.820 Encounter for screening for osteoporosis (principal); N95.1 Menopausal and female climacteric states; M85.89 Other specified disorders of bone density and structure, multiple sites
CPT/HCPCS: 77080

== ENCOUNTER 2024-02-22 11:25 | Outpatient (REF) | payer OTHER, SELFPAY ==
--- OUTSIDE RECORDS SUMMARY | 2024-02-22 11:28 | XMS_ITS | Data Portability ---
Author Organization [place] - [facility] Address [address] [place] [address] Care Team Providers Care [facility] And Wellness Director Name Role Phone NEETU UMANA Primary Care Provider [phone] BOZENA BRANHAM OTHER CHEYANNE GARCIA OTHER Assessment Encounter Date Assessment Date Assessment LastModified [...] if needs arise. Not available 11/20/2023 08:59:00 01/07/2024 01/07/2024 The total time devoted to today's encounter, including both the hcsl-ro-osqa time with the patient and/or family/caregi sylwia and lcv-vwdq-cv-f tana time I personally spent is 35 minutes. Flu vaccine: she will get through employer Comirnaty: declines Td: current due 2032 PCV20: n/a Shingrix: completed RSV: Completed Pap/ HPV: current due 2024 Mammogram: declines CRC: current last 2022- due next 2027; family hx of CRC DEXA: n/a Lipids: last 06/09, ASCVD risk was 6.89% Annual: last 2.5.24 Hep C screening: completed 4.4.19 HIV screening: declines Diabetes screening: declines Future Nursing Orders: Lab work to include TSH with R in approx 6 weeks. Primary diagnosis includes thyroid goiter. [email or web address] Not available 01/07/2024 10:31:02 Plan of Treatment Reminders Order Date Submit Date Provider Last Modified By Organization Details Last Modified Time Details Appointments Follow Up 30 2023 10:00A M NEETU UMANA Not available Not available Not available Annual Chronic Care (65+) 40 2024 11:50A M NEETU UMANA Not available Not available Not available Lab rapid strep group A, throat [address], [address] [place] [address], [address], 11/20/2023 09:59:49 hemoglobi n A1C, fingersti ck [address], [address] [place] [address], [address], 01/07/2024 09:38:00 Referral cardiolog ist referral 2023 024 [facility]- Cardiology, [address] [place] [address] [place], [address], 01/28/2024 13:32:37 Procedures None recorded. Surgeries None recorded. Imaging XR, ribs, unilatera l [email or web address] [place] [address] (Radiology), [address] [place] [address] [place], [address], 12/07/2023 12:02:22 DEXA 2023 024 [facility] (Radiology), [address] [place] [address] [place], [address], 02/20/2024 08:56:28 exercise stress test 2023 [email or web address] [facility] ([facility]), [address] [place] [address] [place], [address], 01/28/2024 07:49:12 Medication Orders doxycycli ne hyclate 100 mg capsule [address] [place], [address], 01/07/2024 05:12:10 trazodone 50 mg tablet [address] [place], [address], 01/07/2024 08:08:38 levothyro xine 25 mcg tablet [address] [place], [address], 01/07/2024 09:40:22 Patient TargetsNo targets recorded. Patient Instructions Encounter Date Encounter Id Patient Instructions Last Modified By Organization Details Last Modified Time 11/20/2023 [id number] starting a weigh t loss plan: care instructions Not available 11/20/2023 09:01:43 diet Not available 2023 09:01:42 exercise Not available 2023 09:01:42 01/07/2024 [id number] Dear Anitha, Thank you for visiting us on January 07, 2024. We appreciate your commitment to improving your health and addressing your concerns thoroughly. Here is a summary of the gamble instructions and recommendations from your visit: - Medications: - Levothyroxine: Start with half of a 25-microgram tablet daily. Take with a full glass of water on an empty stomach, and avoid other medications or vitamins for 30-60 minutes after taking it. - Trazodone: Increase to a maximum dose of 100 mg at bedtime for sleep issues. - Tests and Monitoring: - Blood Pressure: Continue monitoring at home and maintain current medication as it shows satisfactory levels. - Thyroid Function: Recheck in six weeks to assess the effectiveness of Levothyroxine. - Diabetes: Finger stick test performed today; follow up with an A1C test every three to six months. You have been diagnosed with prediabetes (A1C 5.8%). - Cardiac Health: Referral for a stress test and consultation with cardiology to evaluate chest pain and heart function under stress. - Lifestyle Adjustments: - Diet: Focus on reducing red meats, sweets, and increasing intake of chicken, fish, and turkey. - Exercise: Regular physical activity to help manage prediabetes. - Educational Materials: - Provided a blue folder with initial information about managing prediabetes. - Ear Health: - Flonase: Use once or twice a day to address Eustachian tube dysfunction. - Follow-Up Appointments: - With Bozena: For prediabetes management. - With me: Scheduled for February, and I will call you with any test results. Please follow these instructions carefully and do not hesitate to reach out if you have any questions or concerns. Best regards, Padma rowdy Not available 01/07/2024 09:39:34 Reason for Referral Protective Services Officer Referral for Ch est pain Referring Physician: Neetu Umana, Family Medicine, Encounter Date: 01/07/2024 Results Created Date Observation Date Name Description Value Unit Range Abnormal Flag Note LastModifiedBy Organization Detail LastModifiedTime 11/20/1911/20/2023 rapid strep group A, throa t Strep negati ve Not Available [address], [address], 11/20/2023 09:22:14 12/28/19 24 12/28/2023 TROPO JENNIFER I troponin [...] Bioti n (Shyanne min B7). Not Available [address], [place], [address] 12/28/2023 23:14:36 12/28/19 24 12/28/2023 [facility] REPOR T vrad report Abram silva Name: Arcadio Dozier Unit #: [id number] Loc: ER Order ing Provi kraig: Accou nt #: [id number] Statu s: REG ER Prima ry Care Provi kraig: Ximena Dale Date of Exam: Sex: F : [birth year] Age: 63 Exam( s) PROCE DURE INFOR MATIO N: Exam: XR Chest Exam date and time: 2023 10:11 PM Age: 63 years old Clini onesimo indic ation : Short ness of breat h; Addit ional info: Chest pain SOB TECHN IQUE: Imagi ng mao col: Radio logic exam of the chest . Views : 2 views . TRINIDAD RISON : CR XR RIBS LT W PA LAT CHEST 2023 2:35 PM FINDI NGS: Lungs : Unrem arkab le. No conso lidat ion. Pleur al space s: Unrem arkab le. No pleur al effus ion. No pneum othor ax. Heart /Medi astin um: Unrem arkab le. No cardi omega ly. Bones /join ts: Unrem arkab le. IMPRE SSION : No acute findi ngs. Dicta day and Authe ntica day by: Ana pleitez MD. Order ing:P .JOAQUIN giang MD Accivan radha# [id number] Order ed By: CC: ----- ----- ----- ----- ----- ----- ----- ----- ----- ----- ----- ----- ----- ----- ----- - Dicta day By: Lacey ts vrad 12/27 Trans cribe d By: Licha Saunders 12/27 This is privi leged , confi denti al infor matosman purcell inten ded only for the provi kraig named . Any use or distr ibuti on by any perso n other than this provi kraig is stric tly prohi bited . If you recei ve this repor t in error , pleas e notif y us immed iatel y at [phone] and retur n the origi nal repor t to us at the addre ss above . Thank -you. Not Available [address] [facility] [place], [address] 12/28/2023 23:15:36 12/28/19 24 12/28/2023 D-DIM ER D-dimer 296 NG/ml feu <500 *Lite ratur e suppo rts the exclu radha of DVT and/o r PE with a resul t less than 500 ng/ml FEU with this metho d.* Not Available [address] [facility] [place], [address] 12/28/2023 23:16:37 12/28/1912/28/2023 PTT ACTIV ATED PTT activated 24.5 sec 23.6-3 2.8 normal Hepar in Thera peuti c Range for PTT = 52-84 secon ds New Hepar in Thera peuti c Range 05/22 Not Available [address] [place], [address] 12/28/2023 23:16:37 12/28/19 24 12/28/2023 PROTH ROMBI N TIME prothrombin time 10.2 sec 9.1-11 .1 normal Not Available [address] [place], [address] 12/28/2023 23:16:36 12/28/19 24 12/28/2023 PROTH ROMBI N TIME INR 1.0 0.9-1. 1 normal Recom teja d INR thera peuti c range s for orall y admin ister ed drugs are as follo ws: -Gama dard Inten sity 2.0 to 3.0 -High er Inten sity 3.0 to 4.5 Not Available [address] [place], [address] 12/28/2023 23:16:36 12/28/19 24 12/28/2023 NT-MA OBNP nt-probnp 25 pg/mL <300 NT-pr oBNP value s <300 pg/mL have a 98% negat cherri predi ctive value for exclu ding acute conge stive heart failu re(CH F). NOTE: Supra -phys iolog ic doses of Bioti n(B7) may cause false negat cherri resul ts. Not Available [address] [place], [address] 12/28/2023 22:51:37 12/28/1912/28/2023 TROPO JENNIFER I troponin I 5 NG/L [...] Bioti n (Shyanne min B7). Not Available [address] [place], [address] 12/28/2023 22:51:36 12/28/19 24 12/28/2023 FREE T4 free T4 0.75 NG/dL 0.76-1 .46 low Not Available [address] [place], [address] 12/28/2023 22:51:36 12/28/19 24 12/28/2023 TSH (W/RE F FT4) TSH (w/ref FT4) 5.87 uIU/m L 0.36-3 .74 high Not Available [address] [place], [address] 12/28/2023 22:51:35 12/28/19 24 12/28/2023 MAGNE SIUM magnesium 2.0 mg/dL 1.8-2. 4 normal Not Available [address] [place], [address] 12/28/2023 22:51:35 12/28/19 24 12/28/2023 COMPR EHENS CHERRI METAB OLIC PANEL calcium 9.7 mg/dL 8.5-10 .1 normal Not Available [address] [place], [address] 12/28/2023 22:51:34 12/28/19 24 12/28/2023 COMPR EHENS CHERRI METAB OLIC PANEL glucose 140 mg/dL 74-106 high Not Available Kailyn coy [address] [place], [address] 12/28/2023 22:51:34 12/28/19 24 12/28/2023 COMPR EHENS CHERRI METAB OLIC PANEL BUN 16 mg/dL 7-18 normal Not Available Kailyn coy [address] [place], [address] 12/28/2023 22:51:34 12/28/19 24 12/28/2023 COMPR EHENS CHERRI METAB OLIC PANEL creatinine 1.0 mg/dL 0.55-1 .02 normal Not Available [address] [place], [address] 12/28/2023 22:51:34 12/28/19 24 12/28/2023 COMPR EHENS CHERRI METAB [...] young er-ag ed adult s. Not Available [address] [place], [address] 12/28/2023 22:51:34 12/28/19 24 12/28/2023 COMPR EHENS CHERRI METAB OLIC PANEL total protein 7.8 g/dL 6.4-8. 2 normal Not Available [address] [place], [address] 12/28/2023 22:51:34 12/28/19 24 12/28/2023 COMPR EHENS CHERRI METAB OLIC PANEL albumin 3.9 g/dL 3.4-5. 0 normal Not Available [address] [place], [address] 12/28/2023 22:51:34 12/28/19 24 12/28/2023 COMPR EHENS CHERRI METAB OLIC PANEL bilirubin, total 0.20 mg/dL 0.2-1. 0 normal Not Available [address] [place], [address] 12/28/2023 22:51:34 12/28/19 24 12/28/2023 COMPR EHENS CHERRI METAB OLIC PANEL alk phos 67 U/L 46-116 normal Not Available [address] [place], [address] 12/28/2023 22:51:34 12/28/19 24 12/28/2023 COMPR EHENS CHERRI METAB OLIC PANEL sodium 141 mmol/ L 136-14 5 normal Not Available [address] [place], [address] 12/28/2023 22:51:34 12/28/19 24 12/28/2023 COMPR EHENS CHERRI METAB OLIC PANEL potassium 3.5 mmol/ L 3.5-5. 1 normal Not Available [address] [place], [address] 12/28/2023 22:51:34 12/28/19 24 12/28/2023 COMPR EHENS CHERRI METAB OLIC PANEL chloride 104 mmol/ L 98-107 normal Not Available [address] [place], [address] 12/28/2023 22:51:34 12/28/19 24 12/28/2023 COMPR EHENS CHERRI METAB OLIC PANEL CO2 31.7 mmol/ L 21.0-3 2.0 normal Not Available [address] [place], [address] 12/28/2023 22:51:34 12/28/19 24 12/28/2023 COMPR EHENS CHERRI METAB OLIC PANEL anion gap 5.3 mmol/ L 3-11 normal Not Available [address] [place], [address] 12/28/2023 22:51:34 12/28/19 24 12/28/2023 COMPR EHENS CHERRI METAB OLIC PANEL AST 25 U/L 15-37 normal Not Available Kailyn coy [address] [place], [address] 12/28/2023 22:51:34 12/28/19 24 12/28/2023 COMPR EHENS CHERRI METAB OLIC PANEL ALT 15 U/L 14-59 normal Not Available Kailyn [address] [place], [address] 12/28/2023 22:51:34 12/28/19 24 12/28/2023 NT-MA OBNP nt-probnp 25 pg/mL <300 NT-pr oBNP value s <300 pg/mL have a 98% negat cherri predi ctive value for exclu ding acute conge stive heart failu re(CH F). NOTE: Supra -phys iolog ic doses of Bioti n(B7) may cause false negat cherri resul ts. Not Available [address] [place], [address] 12/28/2023 22:32:34 12/28/1912/28/2023 TROPO JENNIFER I troponin I 5 NG/L [...] Bioti n (Shyanne min B7). Not Available [address] [place], [address] 12/28/2023 22:32:34 12/28/19 24 12/28/2023 TSH (W/RE F FT4) TSH (w/ref FT4) 5.87 uIU/m L 0.36-3 .74 high Not Available [address] [place], [address] 12/28/2023 22:32:33 12/28/19 24 12/28/2023 MAGNE SIUM magnesium 2.0 mg/dL 1.8-2. 4 normal Not Available [address] [place], [address] 12/28/2023 22:32:33 12/28/19 24 12/28/2023 COMPR EHENS CHERRI METAB OLIC PANEL calcium 9.7 mg/dL 8.5-10 .1 normal Not Available [address] [place], [address] 12/28/2023 22:32:32 12/28/19 24 12/28/2023 COMPR EHENS CHERRI METAB OLIC PANEL glucose 140 mg/dL 74-106 high Not Available Kailyn coy [address] [facility] [place], [address] 12/28/2023 22:32:32 12/28/19 24 12/28/2023 COMPR EHENS CHERRI METAB OLIC PANEL BUN 16 mg/dL 7-18 normal Not Available Kailyn coy [address] [facility] [place], [address] 12/28/2023 22:32:32 12/28/19 24 12/28/2023 COMPR EHENS CHERRI METAB OLIC PANEL creatinine 1.0 mg/dL 0.55-1 .02 normal Not Available [address] [place], [address] 12/28/2023 22:32:32 12/28/19 24 12/28/2023 COMPR EHENS [...] young er-ag ed adult s. Not Available [address] [place], [address] 12/28/2023 22:32:32 12/28/19 24 12/28/2023 COMPR EHENS CHERRI METAB OLIC PANEL total protein 7.8 g/dL 6.4-8. 2 normal Not Available [address] [place], [address] 12/28/2023 22:32:32 12/28/19 24 12/28/2023 COMPR EHENS CHERRI METAB OLIC PANEL albumin 3.9 g/dL 3.4-5. 0 normal Not Available [address] [place], [address] 12/28/2023 22:32:32 12/28/19 24 12/28/2023 COMPR EHENS CHERRI METAB OLIC PANEL bilirubin, total 0.20 mg/dL 0.2-1. 0 normal Not Available [address] [place], [address] 12/28/2023 22:32:32 12/28/19 24 12/28/2023 COMPR EHENS CHERRI METAB OLIC PANEL alk phos 67 U/L 46-116 normal Not Available [address] [place], [address] 12/28/2023 22:32:32 12/28/19 24 12/28/2023 COMPR EHENS CHERRI METAB OLIC PANEL sodium 141 mmol/ L 136-14 5 normal Not Available [address] [place], [address] 12/28/2023 22:32:32 12/28/19 24 12/28/2023 COMPR EHENS CHERRI METAB OLIC PANEL potassium 3.5 mmol/ L 3.5-5. 1 normal Not Available [address] [place], [address] 12/28/2023 22:32:32 12/28/19 24 12/28/2023 COMPR EHENS CHERRI METAB OLIC PANEL chloride 104 mmol/ L 98-107 normal Not Available [address] [place], [address] 12/28/2023 22:32:32 12/28/19 24 12/28/2023 COMPR EHENS CHERRI METAB OLIC PANEL CO2 31.7 mmol/ L 21.0-3 2.0 normal Not Available [address] [place], [address] 12/28/2023 22:32:32 12/28/19 24 12/28/2023 COMPR EHENS CHERRI METAB OLIC PANEL anion gap 5.3 mmol/ L 3-11 normal Not Available [address] [place], [address] 12/28/2023 22:32:32 12/28/19 24 12/28/2023 COMPR EHENS CHERRI METAB OLIC PANEL AST 25 U/L 15-37 normal Not Available Kailyn coy [address] [place], [address] 12/28/2023 22:32:32 12/28/19 24 12/28/2023 COMPR EHENS CHERRI METAB OLIC PANEL ALT 15 U/L 14-59 normal Not Available Kailyn coy [address] [place], [address] 12/28/2023 22:32:32 12/28/19 24 12/28/2023 COMPL ETE BLOOD COUNT W/DIF F WBC 8.37 10_3/ uL 4.4-10 .8 normal Not Available [address] [place], [address] 12/28/2023 22:05:28 12/28/19 24 12/28/2023 COMPL ETE BLOOD COUNT W/DIF F RBC 4.17 10_6/ uL 3.93-5 .22 normal Not Available [address] [place], [address] 12/28/2023 22:05:28 12/28/19 24 12/28/2023 COMPL ETE BLOOD COUNT W/DIF F HGB 12.3 g/dL 11.2-1 5.7 normal Not Available [address] [place], [address] 12/28/2023 22:05:28 12/28/19 24 12/28/2023 COMPL ETE BLOOD COUNT W/DIF F HCT 37.6 % 36.0-4 6.0 normal Not Available [address] [place], [address] 12/28/2023 22:05:28 12/28/19 24 12/28/2023 COMPL ETE BLOOD COUNT W/DIF F MCV 90 fL 80-95 normal Not Available [address] [place], [address] 12/28/2023 22:05:28 12/28/19 24 12/28/2023 COMPL ETE BLOOD COUNT W/DIF F MCH 29.5 pg 27.0-3 3.0 normal Not Available [address] [place], [address] 12/28/2023 22:05:28 12/28/19 24 12/28/2023 COMPL ETE BLOOD COUNT W/DIF F MCHC 32.7 % 32.0-3 6.0 normal Not Available [address] [place], [address] 12/28/2023 22:05:28 12/28/19 24 12/28/2023 COMPL ETE BLOOD COUNT W/DIF F RDW 14.3 % 11.7-1 4.6 normal Not Available [address] [place], [address] 12/28/2023 22:05:28 12/28/19 24 12/28/2023 COMPL ETE BLOOD COUNT W/DIF F platelet count 158 10_3/ uL 130-40 0 normal Not Available [address] [place], [address] 12/28/2023 22:05:28 12/28/19 24 12/28/2023 COMPL ETE BLOOD COUNT W/DIF F MPV 10.6 fL 8.0-11 .0 normal Not Available [address] [place], [address] 12/28/2023 22:05:28 12/28/19 24 12/28/2023 COMPL ETE BLOOD COUNT W/DIF F neutrophils % 49.4 % Not Available [address] [place], [address] 12/28/2023 22:05:28 12/28/19 24 12/28/2023 COMPL ETE BLOOD COUNT W/DIF F lymphocytes % 39.1 % Not Available [address] [place], [address] 12/28/2023 22:05:28 12/28/19 24 12/28/2023 COMPL ETE BLOOD COUNT W/DIF F monocytes % 9.6 % Not Available [address] [place], [address] 12/28/2023 22:05:28 12/28/19 24 12/28/2023 COMPL ETE BLOOD COUNT W/DIF F eosinophils % 1.1 % Not Available [address] [place], [address] 12/28/2023 22:05:28 12/28/19 24 12/28/2023 COMPL ETE BLOOD COUNT W/DIF F basophils % 0.6 % Not Available [address] [place], [address] 12/28/2023 22:05:28 12/28/19 24 12/28/2023 COMPL ETE BLOOD COUNT W/DIF F immature grans % 0.2 % Not Available [address] [place], [address] 12/28/2023 22:05:28 12/28/19 24 12/28/2023 COMPL ETE BLOOD COUNT W/DIF F nucleated RBC 0.0 % 0.0-0. 3 normal Not Available [address] [place], [address] 12/28/2023 22:05:28 12/28/19 24 12/28/2023 COMPL ETE BLOOD COUNT W/DIF F absolute neutrophil count 4.14 10_3/ uL 1.2-6. 7 normal Not Available [address] [place], [address] 12/28/2023 22:05:28 12/28/19 24 12/28/2023 COMPL ETE BLOOD COUNT W/DIF F absolute lymphocyte count 3.27 10_3/ uL 1.2-3. 4 normal Not Available [address] [place], [address] 12/28/2023 22:05:28 12/28/19 24 12/28/2023 COMPL ETE BLOOD COUNT W/DIF F absolute monocyte count 0.80 10_3/ uL 0.1-0. 8 normal Not Available [address] [place], [address] 12/28/2023 22:05:28 12/28/19 24 12/28/2023 COMPL ETE BLOOD COUNT W/DIF F absolute eosinophil count 0.09 10_3/ uL 0.0-0. 7 normal Not Available [address] [place], [address] 12/28/2023 22:05:28 12/28/19 24 12/28/2023 COMPL ETE BLOOD COUNT W/DIF F absolute basophil count 0.05 10_3/ uL 0.0-0. 2 normal Not Available [address] [place], [address] 12/28/2023 22:05:28 12/28/19 24 12/28/2023 PTT ACTIV ATED PTT activated 24.5 sec 23.6-3 2.8 normal Hepar in Thera peuti c Range for PTT = 52-84 secon ds New Hepar in Thera peuti c Range 05/22 Not Available [address] [place], [address] 12/28/2023 22:18:30 12/28/19 24 12/28/2023 PROTH ROMBI N TIME prothrombin time 10.2 sec 9.1-11 .1 normal Not Available [address] [facility] [place], [address] 12/28/2023 22:18:30 12/28/19 24 12/28/2023 PROTH ROMBI N TIME INR 1.0 0.9-1. 1 normal Recom teja d INR thera peuti c range s for orall y admin ister ed drugs are as follo ws: -Gama dard Inten sity 2.0 to 3.0 -High er Inten sity 3.0 to 4.5 Not Available [address] [place], [address] 12/28/2023 22:18:30 01/07/20 24 01/07/2024 hemog lobin A1C, finge rstic k hemoglobin A1C 5.8 % <5.7 Not Available [address], [address], 01/07/2024 08:48:13 11/02/19 24 11/02/2023 XR, ribs, unila teral Patien t Name: Jack Valencia Unit #: [id number] Loc: DI Orderi ng Provid er: Cas[facility]lvarez Accoun t #: [id number] Status : REG CLI Primar y Care Provid er: Albania Gonzalez Date of Exam: Sex: F Admiss ion Date: : 1959 Age: 63 Exam(s ) XR RIBS LT W PA LAT CHEST CLINIC AL HISTOR Y Pleuro dynia, R07.81 . COMPAR MAX: No exams were availa ble for compar max TECHNI QUE:: PA and latera l views [...] is seen. OTHER FINDIN GS: None. IMPRES RADHA: 1. Unrema rkable radiog raphic appear ance [...] error, please notify us immedi joycely at [phone] and return the origin al report to us at the addres s above. Thank- you. [email or web address] [facility] (Radiology) [facility], [place], [address], 12/07/2023 12:02:29 12/29/19 24 12/29/2023 x-ray imagi ng lacey lawson Name: Jack Valencia Unit #: [id number] Loc: ER Orderi ng Provid er: Glenn Knowles M.D. Accoun t #: [id number] Status : DEP ER Primar y Care Provid er: Tanvi pathakAlbaniamoncho bains Date of Exam: Sex: F Admiss ion Date: : 1959 Age: 63 Exam(s ) XR CHEST 2V PA LATERA L EXAM: XR CHEST 2V PA LATERA L CLINIC AL HISTOR Y: chest pain sob TECHNI QUE: 2D digita l imagin g was perfor med. Two views. COMPAR MAX: No exams were availa ble for compar max FINDIN GS: HEART: Normal size. Aorta: Not dilate d. PULMON ELIZABETH VASCUL ATURE: Normal . MEDIAS TINUM: Unrema rkable . LUNGS: Clear. PLEURA L SPACE: No pleura l effusi on or pneumo thorax . BONE:U nremar kable for age. SOFT TISSUE S: Unrema rkable . IMPRES RADHA: No acute abnorm ality. DATA REPOSI TORY: RADIAT ION DOSE DELIVE RED: Ordere d By: Glenn Knowles M.D. CC: ------ ------ ------ ------ ------ ------ ------ ------ ------ ------ ------ ------ - Dictat ed By: Russel Sterling 744 Transc ribed By: Patricio Juarez 744 This is privil eged, confid ential inform ation intend ed only for the provid er named. Any use or distri bution by any person other than this provid er is strict ly prohib ited. If you receiv e this report in error, please notify us immedi ately at [phone] and return the origin al report to us at the addres s above. Thank- you. INTERFACE [facility] [address], [place], [address] 12/29/2023 07:50:03 12/31/19 24 06/08/2022 imagi ng/di agnos tic resul t No observ ation record ed. Not Available 12/30 06:54:48 12/31/19 24 06/22/2022 imagi ng/di agnos tic resul t No observ ation record ed. Not Available 12/30 06:54:49 12/31/19 24 09/06/2022 imagi ng/di agnos tic resul t No observ ation record ed. Not Available 12/30 06:54:50 12/31/19 24 08/23/2018 MAMMO , diagn ostic No observ ation record ed. Not Available 12/30 06:55:15 12/31/19 24 02/21/2021 MAMMO , diagn ostic No observ ation record ed. Not Available 12/30 06:55:16 12/31/19 24 05/18/2022 MAMMO , scree miesha No observ ation record ed. Not Available 12/30 06:55:17 12/31/19 24 02/20/2020 MAMMO , diagn ostic No observ ation record ed. Not Available 12/30 06:55:21 12/31/19 24 06/29/2022 imagi ng/di agnos tic resul t No observ ation record ed. Not Available 12/30 06:55:22 01/24/20 24 01/24/2024 exerc ise stres s test STRESS TEST PATIEN T NAME: Jack Valencia UNIT #: [id number] ORDERI NG PROVID ER: [place]ia Gonzalez ACCOUN T #: [id number] PRIMAR Y CARE PROVID ER: Karmen GONZALEZ APRN DATE/T DENNIS OF SERVIC E: ADMITT ING PROVID ER: ROLANDO GUERRA MD : 1959 ------ ------ --- APPROV ED REPORT ------ ------ -- Exam: Exerci se Treadm ill Patien t Locati on: Out-Pa tient Room/B ed: Stress Nurse: Earlene purcell RN Orderi ng Provid er:Aislinn CORTEZ Number : [id number] BMI: 27.51 Baseli ne Rhythm : Sinus Rhythm Indica tions: Chest pain, Medica l Histor y Medica l Histor y: HTN, arryth alysia, thyroi d nodule , insomn ia, predia betes, murmur Cardia c Medica tions: Amlodi pine, levoth yroxin e, magnes ium, trazod one Allerg ies: Amoxic illin, penici llins Cardia c Risk Factor s: Family hx, HTN, HLD, predia betes Previo us Cardia c Proced ures: None Pretes t Chest Pain Charac terist ics: None Exerci se Histor y: Sedent elizabeth Physic al Disabi lities : None Lung Sounds : Clear to auscul tation Heart Sounds : Regula r Stress Test Detail s Test: Exerci se stress testin g was perfor med using a René protoc ol. Rest Stress HR Restin g HR Supine : 68 bpm Max Heart Rate (APMHR ): 155 bpm Restin g HR Standi n bpm Target HR (85% APMHR) : 132 bpm Max HR Achiev ed: 135 bpm % of APMHR: 87 Recove ry HR: 77 bpm HR respon se to stress : Normal HR respon se to stress BP Restin g BP Supine : 138/74 mmHg Restin g BP Standi n/76 mmHg Max BP: 200/35 mmHg Recove ry BP: 140/68 mmHg BP respon se to stress : Normal blood pressu re respon se to stress . ECG Restin g ECG: Sinus Rhythm Ectopy : None Stress ECG: Sinus Tachyc ardia ST Change : No signif icant ST segmen t change s noted Arrhyt hmia: Rare PAC Recove ry ECG: Sinus Rhythm Recove ry ST Change : No signif icant ST segmen t change s noted Recove ry Arrhyt hmia: None Clinic al Reason for Termin ation: Target HR Achiev ed, artifi act Stress Sympto ms: None Exerci se durati on: 07 min41 sec Highes t Stage Reache d: Stage 3: 3.4 mph at 14% grade. Exerci se capaci ty: 9.64 METs Angina Score: None Rate Pressu re Produc t: 08149 Stress ECG Conclu radha 1. Restin g electr ocardi ogram was normal 2. Patien t exerci sed on the René protoc ol and comple day worklo ad of 9.64 METS 3. Normal heart rate and blood pressu re respon se to exerci se. The patien t achiev ed 87% of jen bernstein heart rate for age 4. There was no electr ocardi ograph ic eviden ce of myocar dial ischem ia 5. There were no signif icant dysrhy thmias Stress Test Summar y STAGE Time (mins) Speed (mph) Grade (%) HR BP SpO2 SYMPTO MS METS Supine 68 138/74 Standi ng 67 148/76 1 3 1.7 10 100 156/58 4.5 2 6 2.5 12 100 7 3 9 3.4 14 133 10 1 min recove ry 113 200/35 3 min recove ry 83 190/48 6 min recove ry 77 140/68 ------ ------ ------ ------ ------ ------ ------ ------ ------ ------ ------ ------ ------ ------ ------ ------ ---- -- Dictat ed by: CHARLIE RAMIREZ,ROLANDO SKY Dictat ed:: 936 Transc ribed Date: Transc ribed Time: 936 By: CELINA This is privil eged, confid ential inform ation, intend ed only for the provid er named. Any use or distri bution by any person other than this provid er is strict ly prohib ited. If you receiv e this report in error, please notify us immedi grace at [phone] and return the origin al report to us at the addres s above. Thank you. [email or web address] [facility] (Radiology) [facility], [place], [address], 02/20/2024 08:56:37 02/14/20 24 02/14/2024 MEREDITH Uday lawson Name: Jack Valencia Unit #: [id number] Loc: DI Orderi ng Provid er: Casa Álvarez t #: [id number] Status : REG CLI Primar y Care Provid er: Albania Gonzalez Date of Exam: Sex: F Admiss ion Date: : 1959 Age: 64 Exam(s ) XR DEXA BONE DENSIT Y W/WO TRUMAN EXAM: XR DEXA BONE DENSIT Y W/WO TRUMAN CLINIC AL HISTOR Y: Menopa usal and female climac ter states , N95.1 TECHNI QUE: Routin e DEXA evalua tion of the lumbar spine, hip, or forear m. COMPAR MAX: No exams were availa ble for compar max FINDIN GS: Perfor med on a Hologi c unit. Latera l image: No compre ssion fractu re eviden t. Lumbar Spine total T-scor e: -1.9 Hip total T-scor e:-0.9 Indepe ndent readin g at the level of the femora l neck yields T-scor e of -1.5 Forear m total T-scor e: -1.4 IMPRES RADHA: Bone minera l densit y measur es in the osteop enia range. Fractu re risk is modera te. Note: Any spine fractu re indica hilary 5x risk for subseq uent spine fractu re and 2x risk for subseq uent hip fractu re. World Health Organi zation criter ia for BMD interp retati on classi fy patien ts: Normal ...... T- Score at or above -1.0 Osteop enic.. . T- Score betwee n -1.0 and -2.5 Osteop orosis ... T-Scor e at or below -2.5 Ordere d By: Casa Álvarez CC: ------ ------ ------ ------ ------ ------ ------ ------ ------ ------ ------ ------ - Dictat ed By: Rajinder Nichols M.D. 1410 1410 Transc ribed By: Tyrese Nichols MD 1410 This is privil eged, confid ential inform ation intend ed only for the provid er named. Any use or distri bution by any person other than this [facility] er is strict ly prohib ited. If you receiv e this report in error, please notify us immedi ately at and return the origin al report to us at the addres s above. Thank- you. [email or web address] [facility] (Radiology) [address], [place], [address], 02/20/2024 08:56:28 Result Notes Documentation Provider Name and Address Organization Details Recorded Time Xr, Ribs, Unilateral : Patient Name: Maria Ines Valencia Unit #: [id number] Loc: DI Ordering Provider: Casa Álvarez Status: [...] pulmonary findings. Ordered By: Casa Álvarez CC: Dictated By: Stephanie Juarez M.D. 11/02/23 1453 11/02/23 1453 Transcribed By: Stephanie Juarez 11/02/23 1453 This is privileged, confidential information intended only for the provider named. Any use or distribution by any person other than this provider is strictly prohibited. If you receive this report in error, please notify us immediately at [phone] and return the original report to us at the address above. Thank-you. Jordana Mai [facility] [place] - [facility]. 12/07/2023 12:02:29 Dexa : Patient Name: Maria Ines Valencia Unit #: [id number] Loc: DI Ordering Provider: Casa Álvarez Status: REG I Primary Care Provider: Neetu Umana Date of Exam: Sex: F Admission Date: 02/14/24 : 1960 Age: 64 Exam(s) XR DEXA BONE DENSITY W/WO TRUMAN EXAM: XR DEXA BONE DENSITY W/WO TRUMAN CLINICAL HISTORY: Menopausal and female climacteric states, N95.1 TECHNIQUE: Routine DEXA evaluation of the lumbar spine, hip, or forearm. COMPARISON: No exams were available for comparison FINDINGS: Performed on a Hologic unit. Lateral image: No compression fracture evident. Lumbar Spine total T-score: -1.9 Hip total T-score:-0.9 Independent reading at the level of the femoral neck yields T-score of -1.5 Forearm total T-score: -1.4 IMPRESSION: Bone mineral density measures in the osteopenia range. Fracture risk is moderate. Note: Any spine fracture indicates 5x risk for subsequent spine fracture and 2x risk for subsequent hip fracture. World Health Organization criteria for BMD interpretation classify patients: Normal...... T- Score at or above -1.0 Osteopenic... T- Score between -1.0 and -2.5 Osteoporosis... T-Score at or below -2.5 Ordered By: Casa Álvarez CC: Dictated By: Rajinder Nichols M.D. 02/14/24 1410 02/14/24 141 Transcribed By: Rajinder Nichols MD 02/14/24 141 This is privileged, confidential information intended only for the provider named. Any use or distribution by any person other than this provider is strictly prohibited. If you receive this report in error, please notify us immediately at [phone] and return the original report to us at the address above. Thank-you. Jordana mao, [facility] 02/20/2024 08:56:28 Problems Name Problem SNOMED Code Status Onset Date Resolution Date Notes Provider Name and Address Organization Details Recorded Time Osteopen ia 519875683 Active 2023 Major risk is 8.8% Hip fracture risk is 0.9% [address], [place], [address] , [facility] 4 15:37:18 Cardiac arrhythm ia 408922306 Active 200210/25/19 19 - Comments only - Neetu Umana APRN - asymptom atic. if becomes symptoma tic, evaluate further. Problem Code: I49.9; Problem Code Type: ICD-10; [address], [place], [address] , [facility] 4 07:13:29 Heart murmur 91298497 Active 200210/25/19 19 - Comments only - Neetu Umana APRN - monitor routinel y. If becomes more promimen t, would do echocard iogram. Problem Code: R01.1; Problem Code Type: ICD-10; [address], [place], [address] , [facility] 4 07:13:29 Adult health examinat ion Active 201505/14/19 18 - Comments only - Neetu Umana APRN - annual exam complete d today. UTD on pap smear and HPV testing. Order mammogra m. UTD on colonosc opy. UTD on vaccines , flu shot through employer . Problem Code: Z00.00; Problem Code Type: ICD-10; [address], [place], [address] , [facility] 4 07:13:29 Family history of malignan t neoplasm of digestiv e organ 941948093 Active 201505/08/19 17 - Comments only - Neetu Umana APRN - UTD on routine colonosc opy, due every 5 years, next due in 2020. Problem Code: Z80.0; Problem Code Type: ICD-10; [address], [place], [address] , [facility] 4 07:13:29 Insomnia 941710656 Active 201610/25/19 19 - Comments only - Neetu Umana APRN - Well controll ed, continue OTC sleep aid since effectiv e. Problem Code: G47.00; Problem Code Type: ICD-10; [address], [place], [address] , [facility] 4 07:13:29 Genuine stress incontin ence 81054111 Active 201605/14/19 18 - Comments only - Neetu Umana APRN - [facility] ed pelvic floor exercise s, kegel exercise s. Problem Code: N39.3; Problem Code Type: ICD-10; [address], [place], [address] , [facility] 4 07:13:29 Seasonal allergic rhinitis 801386218 Active 201610/25/19 19 - Comments only - Neetu Umana APRN - asymptom atic. monitor for now and treat as indicate d. Problem Code: J30.2; Problem Code Type: ICD-10; [address], [place], [address] , [facility] 4 07:13:29 Melanocy tic nevus 266881644 Active 201605/08/19 17 - Comments only - Neetu Umana APRN - right ear lobe. Most likely benign. Desires to have removed, refer to ENT for further manageme nt. Problem Code: D22.9; Problem Code Type: ICD-10; [address], [facility] [address] , [facility] 4 07:13:29 Non-toxi c uninodul ar goiter 011747908 Active 2016 Problem Code: E04.1; Problem Code Type: ICD-10; [address], [facility] [address] , [facility] 4 07:13:29 Neck pain 90718402 Active 201610/25/19 19 - Comments only - Neetu Umana APRN - resolved . 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 continue APAP PRN. continue norvasc since helping headache s as well. Problem Code: R51; Problem Code Type: ICD-10; [address], [place], [place], [address] [place] [address] , [facility] 4 07:13:29 Essdariel l hyperten radha 06312955 Active 201810/25/19 19 - Comments only - Neetu Umana PAPERHANGER ASSISTANT - stable, continue medicati on regimen. Problem Code: I10; Problem Code Type: ICD-10; [address], [place], [place], [address] [place] [address] , [facility] 4 07:13:29 Screenin g for malignan t neoplasm of colon Active 2020 Problem Code: Z12.11; Problem Code Type: ICD-10; [address], [place] [address] , [facility] 4 07:13:29 Localize d edema 021183600 Active 2022 Problem Code: R60.0; Problem Code Type: ICD-10; [address], [facility] [address] , [facility] 4 07:13:29 Pain of left shoulder joint 77960950589 220838 Active 2022 Problem Code: M25.512; Problem Code Type: ICD-10; [address], [facility] [address] , [facility] 4 07:13:29 Cramp in lower limb associat ed with sleep 06330316354 4104 Active 2022 Problem Code: G47.62; Problem Code Type: ICD-10; [address], [facility] [address] , [facility] 4 07:13:29 Conjunct ival hemorrha ge of left eye 93190046853 9102 Completed 201710/31/2019 Problem Code: H11.32; Problem Code Type: ICD-10; Not Available [facility] 3 04:02:41 Urinary tract infectio us disease 46564874 Completed 201505/08/2016 Problem Code: N39.0; Problem Code Type: ICD-10; Not Available [facility] 3 04:02:41 Dysuria 57324280 Completed 201505/08/2016 Problem Code: R30.0; Problem Code Type: ICD-10; Not Available [facility] 3 04:02:42 Chest pain 64341399 Completed 201705/03/2020 Problem Code: R07.89; Problem Code Type: ICD-10; NEETU UMANA APRN [address], [place], [address] , [facility]. 4 05:12:03 Foot pain 51730315 Completed 201811/08/2020 Problem Code: M79.673; Problem Code Type: ICD-10; Not Available [facility] 3 04:02:44 Hyperlip idemia 96445929 Active 2023 ASCVD risk 6.89% calculat ed 05/22/23 NEETU UMANA APRN [address], [place], [address] , [facility]. 4 06:56:16 Rib pain 137710080 Active [address], [place], [address] , [facility]. 4 11:24:12 Menopaus e present 834638287 Active [address], [place], [address] , [facility]. 4 12:36:07 Overweig ht 779302919 Active 2023 NEETU UMANA APRN [address], [facility] [address] , [facility] 4 08:39:51 Acute right otitis media 221603585 Active 2023 NEETU UMANA APRN [address], [facility] [address] , [facility] 4 08:50:39 Chest pain 09544964 Active 2023 Problem Code: R07.89; Problem Code Type: ICD-10; [address], [place] [address] , [facility] 4 05:12:02 Hypergly cemia 25079589 Active 2023 NEETU UMANA APRN [address], [facility] [address] , [facility] 4 08:23:35 Prediabe hilary 823179444 Active 2023 NEETU UMANA APRN [address], [facility] [address] [place] [address] 4 08:31:22 Dysfunct ion of eustachi an tube 36756253 Active [address], [facility] [address] , [facility] 4 08:35:51 Notes:*Problem Name: Arrhyth fallon Heart *ICD-10 Codes: *Problem Status: inactive *Comments: 05/08/2016 - Comments only - Neetu Umana APRN - declined testing or further management at this time. *Note Date: 05/29/2002 *Problem Name: Heart Murmur/mvp *ICD-10 Codes: *Problem Status: inactive *Comments: *Note Date: 05/29/2002 Problem Notes None recorded. Procedures Surgical History None recorded. Imaging Results Imaging Date Name Status [facility]Modified by [facility] Details LastModified Time 11/02/2023 XR, ribs, unilateral completed [address] (Radiology) [address] [place] [address] [place], [address], 12/07/2023 12:02:29 12/29/2023 x-ray imaging report completed INTERFACE [address] [place], [address] 12/29/2023 07:50:03 06/08/2022 imaging/diagnos tic result completed Information not available 12/31/2023 06:54:48 06/22/2022 imaging/diagnos tic result completed Information not available 12/31/2023 06:54:49 09/06/2022 imaging/diagnos tic result completed Information not available 12/31/2023 06:54:50 08/23/2018 MAMMO, diagnostic completed Information not available 12/31/2023 06:55:15 02/21/2021 MAMMO, diagnostic completed Information not available 12/31/2023 06:55:16 05/18/2022 MAMMO, screening completed Information not available 12/31/2023 06:55:17 02/20/2020 MAMMO, diagnostic completed Information not available 12/31/2023 06:55:21 06/29/2022 imaging/diagnos tic result completed Information not available 12/31/2023 06:55:22 01/24/2024 exercise stress test completed [address] (Radiology) [address] [place] [address] [place], [address], 02/20/2024 08:56:37 02/14/2024 DEXA active [address] (Radiology) [address] [place] [address] [place], [address], 02/20/2024 08:56:28 Procedure Notes None recorded. Medical Equipment None Reported. Allergies Allergen ID Allergen Name Allergen Category Reaction Reaction Severity Criticality Documentation Date Start Date Code Code System Note Provider Name and Address Organization Details Recorded Time 02494 ampicilli n trihydrat e medicatio n hives Not available Not available 02/23/20232002 20463 5 RxNorm rash/ hives Aller gyRea ction : 'rash / hives '; Not Available [facility] 3 16:22:03 [address] amoxicill in trihydrat e medicatio n hives Not available Not available 02/23/20232003 36877 8 RxNorm rash/ hives Aller gyCod e: '3081 82'; Aller gyNam e: 'AMOX ICILL IN'; Aller gyCon ceptT ype: 'RX Norm' ; Aller gyRea ction : 'rash / hives '; Not Available [facility] 3 16:22:03 [address] Medicinal product containin g penicilli n and acting as antibacte rial agent (product) medicatio n hives Not available Not available 02/23/20232006 39497 05 SNOMED rash/ hives Aller gyCod e: '8340 61'; Aller gyNam e: 'PENI CILLI N'; Aller gyCon ceptT ype: 'RX Norm' ; Aller gyRea ction : 'rash / hives '; Not Available [facility] 3 16:22:03 Medications Name Sig Start Date Stop Date Status Note LastModified by Organization Details LastModified Time doxycycline hyclate 100 mg capsule Take 1 capsule twice a day by oral route for 10 days. 01/06 completed Not Available Not Available Not Available trazodone 50 mg tablet take 1/2- 1 tablet at bedtime 01/06 completed Not Available Not Available Not Available amlodipine 5 mg tablet TAKE 1 TABLET BY MOUTH EVERY DAY active Not Available Not Available No t Available levothyroxin e 25 mcg tablet 1/2 tablet by mouth once a day active Not Available Not Available No t Available Macrobid 100 mg capsule Take 1 cap by mouth twice daily 08/22 completed Not Available Not Available Not Available trazodone 100 mg tablet Take 1 tablet every day by oral route at bedtime. active Not Available Not Available No t Available cephalexin 500 mg tablet 1 TAB bid 01/30 completed Not Available Not Available Not Available vitamin B complex tablet Take 1 tablet by mouth once a day active Not Available Not Available No t Available magnesium 250 mg (as magnesium oxide) tablet Take 1 tablet every day by oral route. active Not Available Not Available No t Available cyclobenzapr ine 5 mg tablet Take 1 tab by mouth daily at bedtime as needed 05/14 completed Not Available Not Available Not Available vitamin E 1 daily active Not Available Not Av ailable Not Available cholecalcife rol (vitamin D3) 25 [...] Updated DateTime 4 171.45 cm 28 kg/m2 52474.3 7 g 97 [degF] 98 % 98 % 73 /min 140 mm[Hg] 82 mm[Hg] Jane Beavers RN [facility] 4 11:08:27 Date Recorded Body height Body mass index (BMI) Body weight Body temperature Oxygen saturation Oxygen saturation in Arterial blood by Pulse oximetry Heart rate Systolic blood pressure Diastolic blood pressure Provider Name and Address Organization Details Last Updated DateTime 4 171.45 cm 27.7 kg/m2 13734.1 3 g 100.2 [degF] 96 % 96 % 83 /min 130 mm[Hg] 74 mm[Hg] JOLENE PARRY CMA [facility] 4 08:32:48 Date Recorded Body height Body mass index (BMI) Body weight Body temperature Oxygen saturation Oxygen saturation in Arterial blood by Pulse oximetry Heart rate Systolic blood pressure Diastolic blood pressure Provider Name and Address Organization Details Last Updated DateTime 4 171.45 cm 28.1 kg/m2 78088.8 1 g 98.4 [degF] 96 % 96 % 86 /min 142 mm[Hg] 82 mm[Hg] JOLENE PARRY [facility] 4 08:25:59 Date Recorded Body height Body mass index (BMI) Body weight Body temperature Oxygen saturation Oxygen saturation in Arterial blood by Pulse oximetry Heart rate Systolic blood pressure Diastolic blood pressure Provider Name and Address Organization Details Last Updated DateTime 4 171.45 cm 28 kg/m2 46599.6 2 g 98.2 [degF] 96 % 96 % 76 /min 148 mm[Hg] 66 mm[Hg] JOLENE PARRY CMA [facility] 4 08:10:55 Date Recorded Systolic blood pressure Diastolic blood pressure Provider Name and Address Organization Details Last Updated DateTime 01/07/2024 122 mm[Hg] 78 mm[Hg] NEETU UMANA APRN [address], [place], [address], [facility] 01/07/2024 08:18:26 Date Recorded Body height Body mass index (BMI) Body weight Body temperature Oxygen saturation Oxygen saturation in Arterial blood by Pulse oximetry Heart rate Systolic blood pressure Diastolic blood pressure Provider Name and Address Organization Details Last Updated DateTime 4 171.45 cm 27.8 kg/m2 78438.6 3 g 97.6 [degF] 97 % 97 % 68 /min 132 mm[Hg] 76 mm[Hg] JOLENE PARRY CMA [facility] 4 09:57:05 Social History Question Answer Notes LastModified by Organizat ion Details LastModified Time Tobacco Smoking Status Never Smoker JOLENE PARRY CMA null, [facility] 05/21/2023 14:26:48 Care Coordination Start Date: 01/17/2024 Information not available 01/18/2024 Would You Say That, In General, Your [...] Money To Buy More. Never True Information not available 05/21/2023 Within The Past [...] I Have Housing. Information not available 05/21/2023 Assigned Pearl Peller: Bozena Branham [email or web address] Information not available 01/18/2024 Is [facility] The Lead Pearl Peller? Yes Information no t available 01/18/2024 Level Of Intensity: Bi-Annuall y Information not available 01/18/2024 Team Based Care: No Informat ion not available 01/18/2024 Other Barriers To Care (See Note) Yes Just Finding It Hard To Stick With A Diet And Exercise Regime Especially When Stress Creeps In. Information not available 01/18/2024 Learning Barrier No Informat ion not available 01/18/2024 Behavioral Health Yes We Discussed They Could Help With Strategies. Maria Ines Will Let Us Know If She Is Interested Information not available 01/18/2024 Physical Activity Programs Yes Pt Had Been Going To The Gym Regularly. Waiting For Cardiology Apptmt Before Starting Back Up Information not available 01/18/2024 Diabetes Prevention Program Yes We Discussed. Pt Will Consider This In The Future Information not available 01/18/2024 How Often In The Past Year Have [...] Reasons Than Its Intended Purpose? Never Information no t available 05/21/2023 How Often In The Past Year Have You Used Other Drugs (for Example, Heroin, Cocaine, Meth, Salvia, Inhalants)? Never Information not available 05/21/2023 Have You Ever Used IV Drugs? No Information not available 05/21/2023 Date Of Most Recent SBINS 05/21/2023 Information not available 05/21/2023 What Was The Date Of Your Most Recent Tobacco Screening? 05/21/2023 Information not available 05/21/2023 Has Tobacco Cessation Counseling Been [...] Recorded Time MMR 05/03/2022 completed Not Available [facility] 05:06:54 MMR 03/27/2022 completed Not Available [facility] 05:06:54 Tdap 05/16/2022 completed Not Available [facility] 05:06:55 Tdap 06/14/2012 completed Not Available [facility] 05:06:55 Td(adult) unspecified formulation 04/30/1999 completed Not Available [facility] 02/23/2023 05:06:56 Influenza, split virus, quadrivalent, PF 03/15/2022 completed Not Available [facility] 02/23/2023 05:06:57 zoster recombinant 07/24/[address] [facility] 02/23/2023 05:06:57 zoster recombinant 10/31/[address] [facility] 02/23/2023 05:06:58 COVID-19, mRNA, LNP-S, PF, 100 mcg/0.5mL dose or 50 mcg/0.25mL dose 08/30/2020 completed Not Available [facility] 02/23/2023 05:06:59 COVID-19, mRNA, LNP-S, PF, 100 mcg/0.5mL dose or 50 mcg/0.25mL dose 03/02/2021 completed Not Available [facility] 02/23/2023 05:06:59 SARS-COV-2 (COVID-19) vaccine, UNSPECIFIED 08/02/2020 completed Not Available [facility] 02/23/2023 05:07:00 SARS-COV-2 (COVID-19) vaccine, UNSPECIFIED 09/08/2021 completed Not Available [facility] 02/23/2023 05:07:00 COVID-19, mRNA, LNP-S, bivalent, PF, 30 mcg/0.3 mL dose 03/17/2022 completed Not Available [facility] 02/24/20 05:07:00 Hep B, unspecified formulation 05/29/2002 completed Not Available [facility] 02/23/2023 05:07:01 Hep B, unspecified formulation 07/09/2002 completed Not Available [facility] 02/23/2023 05:07:01 Hep B, unspecified formulation 12/09/2003 completed Not Available [facility] 02/23/2023 05:07:01 influenza, unspecified formulation 2019 completed Not Available [facility] 02/23/2023 05:07:01 influenza, unspecified formulation 01/25/2020 completed Not Available [facility] 02/23/2023 05:07:02 influenza, unspecified formulation 01/27/2014 completed Not Available [facility] 02/23/2023 05:07:02 influenza, unspecified formulation 01/31/2017 completed Not Available [facility] 02/23/2023 05:07:02 influenza, unspecified formulation 02/25/2021 completed Not Available [facility] 02/23/2023 05:07:02 influenza, unspecified formulation 02/26/2018 completed Not Available [facility] 02/23/2023 05:07:02 Pneumococcal conjugate PCV20, polysaccharide [id number] conjugate, adjuvant, PF 02/22/2024 completed JOLENE PARRY PUMP ERECTOR HELPER null, [facility] 02/22/2024 10:43:46 COVID-19, mRNA, LNP-S, PF, 100 mcg/0.5mL dose or 50 mcg/0.25mL dose 05/04/2023 completed JOLENE PARRY PUMP ERECTOR HELPER null, [facility] 05/15/2023 12:34:41 influenza, unspecified formulation 03/01/2023 completed JOLENE PARRY PUMP ERECTOR HELPER null, [facility] 05/15/2023 12:35:59 Respiratory syncytial virus (RSV) vaccine, unspecified 05/10/2023 completed JOLENE PARRY PUMP ERECTOR HELPER null, [facility] 05/21/2023 14:26:21 Influenza, adjuvanted, trivalent, PF 01/25/2024 completed JOLENE PARRY PUMP ERECTOR HELPER null, [facility] 02/22/2024 07:33:35 Past Encounters Encounter ID Performer Location Encounter Start Date Encounter Closed Date Diagnosis/Indication Diagnosis SNOMED-CT Code Diagnosis ICD10 Code [id number] NEETU UMANA APRN [address] [address] 05/21/2023 14:18:35 05/21/2023 15:15:34 Screening for malignant neoplasm of colon 233182696 Z12.11 Screening for cardiovascular system disease 090161316 Z13.6 Screening mammography 24 708637 Z12.31 Gynecologi c examination 02369049 Z01.419 Active or passive immunization 676527066 Z23 Adult heal th examination 010339172 Z00.00 Diabetes m ellitus screening 606244792 Z13.1 Essential hypertension 33178293 I10 Headache 10953380 R51.9 Neck pain 28784571 M54.2 Non-toxic uninodular goiter 799195372 E04.1 Seasonal a llergic rhinitis 574935167 J30.2 Insomnia 810062610 G47.0 0 Cardiac arrhythmia 22028 7007 I49.9 Localized edema 88913212 4 R60.0 Cramp in l ower limb associated with sleep 4410917497 82388 G47.62 [id number] CASA ÁLVAREZ [address] [address] 11/01/2023 10:46:16 11/01/2023 11:44:15 Rib pain 288065570 R07.81 Menopause present 812229 006 N95.1 [id number] NEETU UMANA [address] [address] 11/20/2023 08:15:01 11/20/2023 09:07:37 Essential hypertension 55760902 I10 Headache 42870786 R51.9 Neck pain 18720468 M54.2 Non-toxic uninodular goiter 542277104 E04.1 Seasonal a llergic rhinitis 170047590 J30.2 Insomnia 932011433 G47.0 0 Cardiac arrhythmia 56049 7007 I49.9 Localized edema 77169137 4 R60.0 Cramp in l ower limb associated with sleep 2954934860 96733 G47.62 Overweight 433134613 E66 .3 Acute righ t otitis media 110469896 H66.[address] [id number] [address] 11/27/2023 08:16:42 11/27/2023 08:42:40 Acute right otitis media 192378657 H66.91 [id number] NEETU UMANA [address] [place] [address] 01/07/2024 07:58:51 01/07/2024 08:53:50 Essential hypertension 07839884 I10 Chest pain 35471605 R07. 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 Prediabetes 025787362 R7 3.03 Dysfunctio n of eustachian tube 27649890 H69.93 Insomnia 016156176 G47.0 0 [id number] JOLENE PARRY [facility] [address] [place] [address] 02/22/2024 09:48:29 02/22/2024 11:02:26 Essential hypertension 30591556 I10 Headache 51697486 R51.9 Neck pain 54773023 M54.2 Non-toxic uninodular goiter 082301470 E04.1 Seasonal a llergic rhinitis 677712441 J30.2 Insomnia 991122284 G47.0 0 Cardiac arrhythmia 44888 7007 I49.9 Localized edema 19222678 4 R60.0 Cramp in l ower limb associated with sleep 0581131890 19902 G47.62 Overweight 992743166 E66 .3 Chest pain 90706948 R07. 9 Osteopenia 374275629 M85 .80 Active or passive immunization 849917372 Z23 Goals Section Goal Description Status Start Date LastModified by Organization Details LastModified Time Pt will be out of the PreDiabetes range None Recorded Goal not achieved BOZENA BRANHAM Information not available 01/18/2024 17:10:30 Pt will lose 5% of body weight None Recorded Goal not achieved BOZENA BRANHAM Information not available 01/18/2024 17:13:44 Health Concerns Section Related Observation LastModified by Organization Detai ls LastModified Time None Recorded Concern Status LastModified by Organization Details LastModified Time None Recorded Advance Directives Directive None Recorded Payers Encounter Date Sequence Insurance Name Policy Number Policy [place] Covered Member ID [place] Member ID Guarantor Name 11/01/2023 1 [employer]ANS [facility] QBE PILGRIM (PPO) Maria Ines Valencia [id number] Maria Ines Valencia 11/20/2023 1 HEALTH PLANS [facility] PILGRIM (PPO) Maria Ines Valencia [id number] Maria Ines Valencia 11/27/2023 1 [facility] PILGRIM (PPO) Maria Ines Valencia [id number] Maria Ines Valencia 01/07/2024 1 [facility] PILGRIM (PPO) Maria Ines Valencia [id number] Maria Ines Valencia Notes Date Note Type Note Provider Name and Address Organization Details Recorded Time 11/01/2023 text/html HPI Notes: Abram nt stated that 5 days ago she was [...] arm and her ankle historically. CASA ÁLVAREZ, FLOWERS SALESPERSON [address], [place], [address], [facility] 11/02/2023 12:37:22 11/20/2023 text/html HPI Notes: Is [...] cramps, nocturnal. Managed with hydration. -Overweight. Joined [employer]. Working on weight loss. Trying to eat better. NEETU UMANA, PAPERHANGER ASSISTANT [address], [place], [address], [facility] 11/20/2023 10:00:05 11/27/2023 text/html HPI Notes: Is [...] except for the ear pressure. NEETU UMANA, PAPERHANGER ASSISTANT [address], [place], [address], [facility]. 11/27/2023 08:45:10 01/07/2024 text/html HPI Notes: Is he re for ER. Was at [facility] ER on 12.28.23 for chest pain. Their note stated that she had left anterior chest pain non exertional for several hours, comes and goes; no associated SOB but had pain with deep breaths. No dizziness, nausea, diaphoresis. She took ASA prior to arrival. No orthopnea. BP while there was 182/83, HR 88. noted to have peripheral edema to ankles. Was provided nitro. Had serial troponins, BNP, CXR, ddimer. CXR was normal. Troponins normal. Ddimer normal. Coag panel normal. BNP normal. TSH 5.87, free T4 was low. Normal mag. CMP normal, elevated glucose. CBCD normal. EKG done, showed possible ST segment depressions in lateral view; showed NSR. She states that the chest pain was the left upper chest and into the left arm pit. The pain started around 2-3pm in the afternoon, was progressively worsening. Went to ER at 10pm. Took nitro with some relief. She states the pain radiated into her arm pit. The pain resolved except for the spot in the arm pit lasted until Dec 30. She describes the pain at pinpoint, in one particular spot. Worried about a clot. Had pain with any movement. Would hurt when she would breathe. She limited her activity because of the pain. Has not had chest pain since. Denies n/v. Denies diarrhea. Denies SOB. Denies PND, orthopnea. Has small pedal edema, not new and not changing. Feels some palpitations, feels pounding of her heart. The pounding is every night. The pounding will last for 20 minutes. Is anxious about not getting sleep before she lays down. She is trying some coping skills for this. Is not checking her BP, plans to find out. Has concerns about fluids to her ears since the ear infection. She is concerned about her sleeping. Worrying about her sleep routinely. Not taking anything right now. She is taking magnesium. Has been doing lavendar cream. She did not feel that trazodone was greatly effective for her. NEETU UMANA, PAPERHANGER ASSISTANT [address], [place], [address], [facility]. 01/07/2024 10:31:12 OBGyn Episode No OBEpisode recorded.
--- OUTSIDE RECORDS SUMMARY | 2024-02-22 11:29 | XMS_ITS | Encounter Summary ---
Author Organization [facility] Address [address] [place] [address] Care Team Providers Care Aircraft Designer Name Role Phone Rosemary Patel JOHN Primary Care Provider [phone] Encounter Details Date Type Department Care Team (Late st Contact Info) Description 05/16/2022 Lab Requisition [facility] Pathology & Laboratory Medicine - [address] [id number] Outr Resulting Lab, Provider Social History Tobacco [...] 2.8 - 5.3 pg/mL 05/17/2022 17:52 EST [facility] Blood VENOUS BLOOD / Unknown 05/16/2022 15:25 EST 05/17/2022 17:13 EST Provider Outr Resulting Lab CHEMISTRY & BLOOD GAS ORDERABLES [facility] [address] [place] [address] documented in this encounter Visit Diagnoses Not on filedocumented in this encounter Care Teams Aircraft Designer Relationship Specialty Start Date End Date Rosemary Patel FNP [address] [place], [place] [phone] PCP - General 08/07/08 documented as of this encounter
--- OUTSIDE RECORDS SUMMARY | 2024-02-22 11:29 | XMS_ITS | Encounter Summary ---
Author Organization [facility] Address [address] [place] [address] Care Team Providers Care Cupola Tender Name Role Phone Rosemary Patel CUSTOM FRAMING SPECIALIST Primary Care Provider [phone] Encounter Details Date Type Department Care Team (Late st Contact Info) Description 10/21/2018 Results Only [facility] [phone] Eliseo Davalos, [address] [place], [place] [phone] Social History Tobacco Use Types Packs/Day Years [...] MARIA INES THORNTON ? Accession #: ? [id number] ? : ? 1960 (Age: 58) ??F ? Collect Date: ? 10/21/2018 ? Location: ? [facility] ? Receive Date: ? 10/22/2018 ? Provider: ELISEO DAVALOS DO Copy to: EDWIN UMANA TALENT ACQUISITION PROGRAM MANAGER ? Final Pathologic Diagnosis: SKIN OF FOREHEAD, [...] (ASCP) 10/22/2018 5:43 PM End of Report [facility] 10/21/2018 15:5 0 EDT 10/22/2018 15:50 EDT Eliseo Davalos DO PATHOLOGY ORDER GERDA [facility] [address] [place] [address] documented in this encounter Visit Diagnoses Not on filedocumented in this encounter Care Teams Cupola Tender Relationship Specialty Start Date End Date Rosemary Patel FNP [address] [place] [address] PCP - General 08/07/08 documented as of this encounter
--- OUTSIDE RECORDS SUMMARY | 2024-02-22 11:29 | XMS_ITS | Clinical Summary ---
[place] [address] Care Team Providers Care Aircraft Detail Draftsperson Name Role Phone Neetu Suresh MACKENZIE Primary Care Provider [phone] Allergies Active Allergy Reactions Criticality Noted Date Comments Amoxicillin Trihydrate Hives 04/24/2003 Ampicillin Hives,Other (See Comments) 05/29/2002 Penicillin V Potassium Other (See Comments) Penicillins Hives,Rash High 10/26/2006 All cillins Medications Medication Sig Dispensed Refills Start Date End Date Status amLODIPine (NORVASC) 5 mg Tablet take 1 tablet by mouth once daily 0 08/05/2018 Active levothyroxine (Synthroid) 25 mcg tablet Take 25 mcg by mouth daily. Active traZODone (Desyrel) 100 mg tablet Take 100 mg by mouth nightly. Active Magnesium Oxide 250 mg magnesium Tablet Take 1 tablet by mouth daily. Active b complex vitamins Tablet Take 1 tablet by mouth daily. Active zwjagmcm-dpdd-PN-calci um-mins (Women's Daily Formula) 18 mg iron-400 mcg-500 mg Ca Tablet Take 1 tablet by mouth daily. Active vitamin E 400 unit capsule Take 1 capsule by mouth. Takes 1000mg Active Active Problems Problem Noted Date Diagnosed Date Multiple thyroid nodules Encounters Date Type Department Care Team Description 02/05/2024 12:42 PM EDT - 02/05/2024 11:59 PM EDT Hospital Encounter Non-[place] [address] Ernie Peterson MD Chest pain, unspecified type Discharge Disposition: Home 02/05/2024 Travel 01/28/2024 11:20 AM EDT Office Visit Cardiology at [address] [place] [address] Ernie Peterson MD Chest pain, unspecified type 01/28/2024 Travel 01/02/2024 Transcribe Orders eDH Incoming Referrals [phone] Aleksey Paz MD Chest pain, unspecified type; Hypertension, unspecified type from Last 3 Months Social History Tobacco Use Types Packs/Day Years Used Date Smoking Tobacco: Never Smokeless Tobacco: Never Sex and Gender Information Value Date Recorded Sex Assigned at Not on file Gender Identity Not on file Sexual Orientation Not on file Last Filed Vital Signs Vital Sign Reading Time Taken Comments Blood Pressure 127/68 01/28/2024 11:12 AM EDT Pulse 71 01/28/2024 11:12 AM EDT Temperature 36 ??C (96.8 ??F) 02/11/2020 12:45 PM EDT Respiratory Rate 16 02/11/2020 1:30 PM EDT Oxygen Saturation 98% 01/28/2024 11:12 AM EDT Inhaled Oxygen Concentration - - Weight 81.2 kg (179 lb) 01/28/2024 11:12 AM EDT Height 172.7 cm (5' 8) 01/28/2024 11:12 AM EDT Body Mass Index 27.22 01/28/2024 11:12 AM EDT Plan of Treatment Health Maintenance Due Date Last Done Comments CT Colonography 1959 Colonoscopy 1959 Colorectal Cancer Screening 1959 FIT DNA 1959 FIT 1959 Sigmoidoscopy (10 year) with FIT yearly 1959 Sigmoidoscopy 1959 HIV screen 1977 Hepatitis C Screening 1977 Tetanus/Diphtheria/Pertussis Vaccines (1 - Tdap) 01/14 HPV test 1989 PAP Smear 1989 Breast Cancer Share Decision Needed 1999 Breast Cancer screening 1999 Diabetes Screening (HgbA1C or Glucose) 1999 Zoster vaccine (1 of 2) 2009 Advance Directive 2014 Covid-19 Vaccine (2 season) 2023 Influenza (Flu) vaccine (1 o f 1 - Influenza standard series) 12/16/2023 Bone Density Scan 01/15/2024 Pneumoccocal Vaccine: 65+ (1 of 1 - PCV) 01/15/2024 Procedures Procedure Name Priority Date/Time Associated Diagnosis Comments STRESS ECHO W LMTD SPEC DOPP COLOR DOPP Routine 02/05/2024 2:14 PM EDT Chest pain, unspecified type EKG 12-LEAD Routine 01/28/2024 11:43 AM EDT from Last 3 Months Results * STRESS ECHO W LMTD SPEC DOPP COLOR DOPP (02/05/2024 2:14 PM EDT) Anatomical Region Laterality Modality Cardiac Other 02/05/2024 1:22 PM EDT Narrative 02/05/2024 4:50 PM EDT [address] [place] [address] ? Exercise Stress Echocardiogram Report Name: HILLARY SIN ?Study Date: 02/05/2024 01:22 PMBP: 130/84 mmHg ? Patient Location: 4A ? HR: 68 : 1960 ? Height: 173 cm ? Account: [id number] Age: 64 yrs ? Weight: 81 kg Gender: Female ?BSA: 1.9 m2 Ordering Physician: Ernie Peterson MD Referring Physician: Ernie Peterson MD Performed By: Stephy Owen RDCS Reason For Study: Chest pain Exam Location: [facility]. Interpretation Summary CONCLUSION: There is no echocardiographic evidenece of ischemia at a diagnostic workload. STRESS: The patient exercised on the treadmill for 8:15 mins achieving 10 METS and a peak HR of 150 bpm (97% max predicted). Patient did not experience chest pain or discomfort. BP response was hypertensive. On ECG, there were no sustained arrhythmias or diagnostic ST changes. On TTE, all LV segments appear to augment normally at peak stress. BASELINE: Left ventricle is of normal size. Left ventricular systolic function is normal. Left ventricular ejection fraction is estimated visually at 55-60%. There are no segmental wall motion abnormalities. The right ventricle is of normal size and systolic function is normal. RVSP could not be obtained due to inadequate TR jet. Stress Results ? Protocol: ??René ?Maximum Predicted HR: ?? 155 bpm ? Target HR: 132 bpm ?% Maximum Predicted HR: 97 % ? Stage ??DurationHeart Rate ??BP ?Comment ?(mm:ss) ?? (bpm) ? Rest ? 68 ?130/84 ?Stage 1 ?? 3:00 ? 111 ?162/64 ?Stage 2 ?? 3:00 ? 129 ?190/72Mild dyspnea reported during exercise. ?Stage 3 ?? 2:15 ? 150 ?220/80Moderate dyspnea reported at peak exercise. ?? RecoveryR ??6:00 ?85 ?122/70Dyspnea resolved in early recovery. ?Stress Duration: ?? 8:15 mm:ss ?Recovery Time: 6:00 mm:ss ?Maximum Stress HR: 150 bpm ? METS: ?10 Procedure Stress echocardiogram with limited spectral Doppler, color Doppler. Exercise capacity was excellent. The patient's blood pressure was hypertensive with exercise. The patient reported dyspnea. The study was terminated because of leg fatigue. Left Ventricle Left ventricle is of normal size. Wall thickness is normal. There is no left ventricular outflow tract obstruction. Left ventricular systolic function is normal. Left ventricular ejection fraction is estimated visually at 55-60%. There are no segmental wall motion abnormalities. There is Grade I LV diastolic dysfunction (abnormal relaxation with normal left ventricular filling pressure). Right Ventricle The right ventricle is of normal size. Right ventricular systolic function is normal. RVSP could not be obtained due to inadequate TR jet. Left Atrium The left atrium is normal. Right Atrium The right atrium is normal. Aortic Valve The aortic valve is structurally normal. The aortic valve is tricuspid. There is no aortic stenosis. There is no aortic regurgitation. Mitral Valve The mitral valve leaflets are thickened. There is no mitral stenosis. There is trace mitral regurgitation. Tricuspid Valve The tricuspid valve is structurally normal. There is trace tricuspid regurgitation. Great Vessels The diameter at the level of the sinuses of Valsalva is 3.1 cm. The ascending aorta is not well visualized. Effusion There is no pericardial effusion. Rest ECG/Medications The patient's resting blood pressure was normal at baseline. The patient's oxygen saturation at baseline was >98%. The baseline ECG displays normal sinus rhythm. The patient is on the following cardiac medications:. Calcium channel abdelrahman (non-dihydropyridine). Stress ECG There was a maximum .[address] segment depression in the inferolateral lead(s) with stress. PVC's with rare. The patient's oxygen saturation during stress was >97%. Up to 0.[address] depression in inferolateral leads during exercise. Stress Echo The left ventricular ejection fraction is hyperdynamic at peak exercise. There was normal augmentation of all left ventricular wall segments post exercise. Recovery No new ST segment changes during recovery. Patient demonstrated PAC . The ECG in recovery demonstrated: sinus arrythmia. ST depression resolved in late recovery. Time to recovery of ST segments was 5 to 7 minutes. Ejection Fraction ?2D Measurements ? Volumes EF(MOD-bp): 54.7 % ?IVSd: 1.1 cm ? LAV(MOD- bp) Indexed: ?LVIDd: 4.1 cm ?25.9 ml/m2 ?LVIDs: 3.1 cm ?LVPWd: 1.1 cm ?RA A4Cs_phl: 17.0 cm2 ?RWT: 0.55 {ratio} ?EDV(MOD-bp) Indexed: ?LV mass(C)d: 155.5 grams ? 41.5 ml/m2 ? ESV(MOD-bp) Indexed: ?LV mass(C)dI: 79.7 grams/m2 ?Ao root diam: 3.1 cm ? 18.8 ml/m2 ?Ao root diam index: 1.6 ?SV(LVOT): 74.6 ml ?LVOT diam: 2.0 cm ?SI(LVOT): 38.3 ml/m2 ?TAPSE_phl: 2.3 cm Doppler LV V1 VTI: 23.9 cm Ao V2 VTI: 30.6 cm Ao Max Chencho: 154.2 cm/sec Ao valve max: 9.5 mmHg Ao valve mean: 4.9 mmHg MV E max chencho: 72.7 cm/sec MV A max chencho: 102.3 cm/sec MV E/A: 0.71 MV dec time: 0.23 sec Lat Peak E' Chencho: 11.4 cm/sec E/e' (lat): 6.4 Med Peak E' Chencho: 10.6 cm/sec E/e' (med): 6.8 E/e' Average: 6.6 BERENICE(I,D): 2.4 cm2 Dimensionless index Aov: 0.78 I ?WMSI = 1.00 ? % Normal = 100 II ?WMSI = 1.00 ? % Normal = 100 ?Segments ??Size X - Cannot ?? 1 - Normal ?? 2 - ? 3 - Akinetic 4 - ?1-2 ? small Interpret ? Hypokinetic ?Dyskinetic ?? 3-5 ? moderate 5 - ? 6-14 ?large Aneurysmal ?15-16 ?? diffuse Procedure Note Prem Dueñas MD - 02/05/2024 1 [place] [address] Exercise Stress Echocardiogram Report Name: SIN THORNTON Study Date: 1:22 PMBP: 130/84 mmHg Patient Location: HR: 68 : 1960 Height: 173 cm Account: [id number] Age: 64 yrs Weight: 81 kg Gender: Female BSA: 1.9 m2 Ordering Physician: Ernie Peterson MD Referring Physician: Ernie Peterson MD Performed By: Stephy Owen RDCS Reason For Study: Chest pain Exam Location: [facility]. Interpretation Summary CONCLUSION: There is no echocardiographic evidenece of ischemia at adiagnostic workload. STRESS: The patient exercised on the treadmill for 8:15 mins achieving 10METS and a peak HR of 150 bpm (97% max predicted). Patient did not experience chestpain or discomfort. BP response was hypertensive. On ECG, there were nosustained arrhythmias or diagnostic ST changes. On TTE, all LV segments appear toaugment normally at peak stress. BASELINE: Left ventricle is of normal size. Left ventricular systolicfunction is normal. Left ventricular ejection fraction is estimated visually at55-60%. There are no segmental wall motion abnormalities. The right ventricle is ofnormal size and systolic function is normal. RVSP could not be obtained due toinadequate TR jet. Stress Results Protocol: René Maximum Predicted HR: 155 bpm Target HR: 132 bpm % Maximum Predicted HR: 97 % Stage DurationHeart Rate BP Comment (mm:ss) (bpm) Rest 68 130/84 Stage 1 3:00 111 162/64 Stage 2 3:00 129 190/72Mild dyspnea reported duringexercise. Stage 3 2:15 150 220/80Moderate dyspnea reported at peakexercise. RecoveryR 6:00 85 122/70Dyspnea resolved in early recovery. Stress Duration: 8:15 mm:ss Recovery Time: 6:00 mm:ss Maximum Stress HR: 150 bpm METS: 10 Procedure Stress echocardiogram with limited spectral Doppler, color Doppler.Exercise capacity was excellent. The patient's blood pressure was hypertensivewith exercise. The patient reported dyspnea. The study was terminated becauseof leg fatigue. Left Ventricle Left ventricle is of normal size. Wall thickness is normal. There is noleft ventricular outflow tract obstruction. Left ventricular systolic functionis normal. Left ventricular ejection fraction is estimated visually at55-60%. There are no segmental wall motion abnormalities. There is Grade I LVdiastolic dysfunction (abnormal relaxation with normal left ventricular fillingpressure). Right Ventricle The right ventricle is of normal size. Right ventricular systolic functionis normal. RVSP could not be obtained due to inadequate TR jet. Left Atrium The left atrium is normal. Right Atrium The right atrium is normal. Aortic Valve The aortic valve is structurally normal. The aortic valve is tricuspid.There is no aortic stenosis. There is no aortic regurgitation. Mitral Valve The mitral valve leaflets are thickened. There is no mitral stenosis.There is trace mitral regurgitation. Tricuspid Valve The tricuspid valve is structurally normal. There is trace tricuspid regurgitation. Great Vessels The diameter at the level of the sinuses of Valsalva is 3.1 cm. Theascending aorta is not well visualized. Effusion There is no pericardial effusion. Rest ECG/Medications The patient's resting blood pressure was normal at baseline. The patient'soxygen saturation at baseline was >98%. The baseline ECG displays normal sinusrhythm. The patient is on the following cardiac medications:. Calcium channelblocker (non-dihydropyridine). Stress ECG There was a maximum .[address] segment depression in the inferolaterallead(s) with stress. PVC's with rare. The patient's oxygen saturation during stress was>97%. Up to 0.[address] depression in inferolateral leads duringexercise. Stress Echo The left ventricular ejection fraction is hyperdynamic at peak exercise.There was normal augmentation of all left ventricular wall segments post exercise. Recovery No new ST segment changes during recovery. Patient demonstrated PAC . TheECG in recovery demonstrated: sinus arrythmia. ST depression resolved in laterecovery. Time to recovery of ST segments was 5 to 7 minutes. Ejection Fraction 2D Measurements Volumes EF(MOD-bp): 54.7 % IVSd: 1.1 cm LAV(MOD-bp)Indexed: LVIDd: 4.1 cm 25.9 ml/m2 LVIDs: 3.1 cm LVPWd: 1.1 cm RA A4Cs_phl: 17.0cm2 RWT: 0.55 {ratio} EDV(MOD-bp)Indexed: LV mass(C)d: 155.5 grams 41.5 ml/m2 ESV(MOD-bp)Indexed: LV mass(C)dI: 79.7 grams/m2 Ao root diam: 3.1 cm 18.8 ml/m2 Ao root diam index: 1.6 SV(LVOT): 74.6ml LVOT diam: 2.0 cm SI(LVOT): 38.3ml/m2 TAPSE_phl: 2.3 cm Doppler LV V1 VTI: 23.9 cm Ao V2 VTI: 30.6 cm Ao Max Chencho: 154.2 cm/sec Ao valve max: 9.5 mmHg Ao valve mean: 4.9 mmHg MV E max chencho: 72.7 cm/sec MV A max chencho: 102.3 cm/sec MV E/A: 0.71 MV dec time: 0.23 sec Lat Peak E' Chencho: 11.4 cm/sec E/e' (lat): 6.4 Med Peak E' Chencho: 10.6 cm/sec E/e' (med): 6.8 E/e' Average: 6.6 BERENICE(I,D): 2.4 cm2 Dimensionless index Aov: 0.78 I WMSI = 1.00 % Normal = 100 II WMSI = 1.00 % Normal = 100 SegmentsSize X - Cannot 1 - Normal 2 - 3 - Akinetic 4 - 1-2small Interpret Hypokinetic Dyskinetic 3-5moderate 5 - 6-14large Aneurysmal 15-16diffuse Ernie Peterson MD ECHO ORDERABLES * EKG 12 Lead (01/28/2024 11:43 AM EDT) Ventricular rate 68 BPM MUSE SYSTEM Atrial Rate 68 BPM MUSE SYSTEM P-R Interval 162 ms MUSE SYSTEM QRS Duration 78 ms MUSE SYSTEM Q-T Interval 398 ms MUSE SYSTEM QTC Calculated (Bezet) 423 ms MUSE SYSTEM Calculated P [place] 73 degrees MUSE SYSTEM Calculated R [place] 53 degrees MUSE SYSTEM Calculated T [place] 54 degrees MUSE SYSTEM INTERPRETATION Normal sinus rhythm Normal ECG No previous ECGs available Confirmed by MD Nicholas, Ernie ([id number]) on 01/28/2024 3:31:27 PM MUSE SYSTEM 01/28/2024 11:4 3 AM EDT 01/28/2024 3:31 PM EDT Unknown ECG ORDERABLES MUSE SYSTEM from Last 3 Months Care Teams Aircraft Detail Draftsperson Relationship Specialty Start Date End Date Neetu Suresh APRN [address] [place], [place] [id number] PCP - General Family Medicine 01/02/24
--- OUTSIDE RECORDS SUMMARY | 2024-02-22 11:29 | XMS_ITS | Encounter Summary ---
Author Organization [facility] Address [address] [place] [address] Care Team Providers Care Topline Beading Machine Tender Name Role Phone Rosemary Patel JOHN Primary Care Provider [phone] Encounter Details Date Type Department Care Team (Latest Contact Info) Description 05/18/2022 Lab Requisition [facility] Pathology & Laboratory Medicine - [facility] [address] [place] [address] Neetu Suresh, [employer] MAINFRAME DEVELOPER [address] [address] Encounter for general adult medical examination without [...] Risk types, PCR Negative Negative 05/29/2022 14:03 [facility] Comment:No E6 or E7 mRNA is detected from HPV types 16,18,31,33,35,39,45,51,52,56,58,59,66, and 68 by senior quality methods specialist mediated amplification. Papanicolaou smear specimen (specimen) CERVIX UTERI STRUCTURE / Unknown 05/16/2022 15:15 EST 05/26/2022 14:59 EST Neetu Suresh APRN MICROBIOLOGY - GE NERAL ORDERABLES [facility] [address] [place] [address] * PAP TEST (05/16/2022 15:15 EST) Specimens A. Cervix and/or Endocervix , ThinPrep Imaging System with Manual Evaluation 05/29/2022 14:03 [facility] Specimen Adequacy Satisfactory for Evaluation - transformation zone component present 05/29/2022 14:03 [facility] General Categorization Negative for intraepithelial lesion or malignancy 05/29/2022 14:03 [facility] Attestation . 05/29/2022 14:03 [facility] at 1403 Clinical History See below 05/29/19 23 14:03 [facility] HPV The result for the Human Papillomavirus (HPV) Detection-High Risk Types is Negative. No E6 or E7 mRNA is detected from HPV types 16,18,31,33,35,39 ,45,51,52,56,58,5 9,66, and 68 by senior quality methods specialist mediated amplification.Annalisa ting was performed on specimen [id number] and was resulted on 05/29/2022 1403 EST by MELANIE, LAB INSTRUMENT RESULTS IN 05/29/2022 14:03 EST [facility] Performing Lab [facility] 05/29/2022 14:03 EST [facility] Scanned Images 05/29/2022 14:03 EST [facility] Papanicolaou smear specimen (specimen) CERVIX UTERI STRUCTURE / Unknown 05/16/2022 15:15 EST 05/18/2022 11:51 EST Neetu Suresh [employer] MAINFRAME DEVELOPER PATHOLOGY ORDERAB LES [facility] [address] [place] [address] documented in this encounter Visit Diagnoses Diagnosis Encounter for general adult medical examination without abnormal findings Unspecified general medical examination Encounter for gynecological examination (general) (routine) without abnormal findings Encounter for screening for malignant neoplasm of cervix Screening for malignant neoplasm of the cervix documented in this encounter Care Teams Topline Beading Machine Tender Relationship Specialty Start Date End Date Rosemary Patel FNP [address] [place] [address] PCP - General 08/07/08 documented as of this encounter
--- OUTSIDE RECORDS SUMMARY | 2024-02-22 11:29 | XMS_ITS | Encounter Summary ---
Author Organization [facility] Address [address] [place] [address] Care Team Providers Care Rubber Flap Tuber Machine Operator Name Role Phone Rosemary Patel Primary Care Provider [phone] Encounter Details Date Type Department Care Team (Latest Contact Info) Description 03/03/2016 15:02 EST - 03/03/2016 23:59 EST Hospital Encounter [address] [address] Unknown, Provider, MD Discharge Disposition: Home or Self Care Social [...] Code Departure Means Destination Home or Self Long-Term documented in this encounter Plan of Treatment Not on file documented as of this encounter Visit Diagnoses Not on filedocumented in this encounter Care Teams Rubber Flap Tuber Machine Operator Relationship Specialty Start Date End Date Rosemary Patel FNP [address] [place] [address] PCP - General 08/07/08 documented as of this encounter
--- OUTSIDE RECORDS SUMMARY | 2024-02-22 11:29 | XMS_ITS | Encounter Summary ---
[place] [address] Care Team Providers Care Lodging House Keeper Name Role Phone Neetu Suresh MACKENZIE Primary Care Provider [phone] Reason for Visit * Reason Comments Follow-up Encounter Details Date Type Department Care Team (Latest Contact Info) Description 03/26/2020 11:20 AM EST Office [place] [address] Amira León APRN [facility] [place] [address] S/P partial thyroidectomy Social History Tobacco Use [...] status documented in this encounter Care Teams Lodging House Keeper Relationship Specialty Start Date End Date Neetu Suresh APRN [address] [place] [address] PCP - General Family Medicine 05/31/16 01/01/24 documented as of this encounter
--- OUTSIDE RECORDS SUMMARY | 2024-02-22 11:29 | XMS_ITS | Encounter Summary ---
Author Organization [facility] Address [address] [place] [address] Care Team Providers Care Superintendent Schools Name Role Phone Rosemary Patel SAT MATH TUTOR Primary Care Provider [phone] Encounter Details Date Type Department Care Team (Late st Contact Info) Description 05/08/2016 Results Only [facility] [phone] Edwin Umana, SHRUB GROWER [address] [facility] [address] [place] [address] Social History Tobacco Use Types [...] MARIA INES THORNTON ? Accession #: ? [id number] ? : ? 1960 (Age: 56) ??F ?Collect Date: ? 05/08/2016 ? Location: ? [facility] ? Receive Date: ? 05/10/2016 ? Provider: EDWIN UMANA SHRUB GROWER Copy to: ? Final Report SPECIMEN ADEQUACY [...] and electronically signed by: ? Rose Cronin, [facility](AS[facility]) ? Report ??Date: 05/12/2016 15:11 HPV with Pap Test ? Date Ordered: ? 05/12/2016 ? Status: ?? Signed Out ?Date Complete: ? 05/16/2016 ? By: ??System Interface ? Date Reported: ? 05/16/2016 ? Interpretation RESULT: Negative for HPV. No E6 or E7 mRNA is detected from HPV types 16,18,31,33,35, 39,45,51,52,56,58, 59,66, and 68 by supervisor riveting mediated amplification. Comments Document reviewed and electronically signed by: ? System Interface ? Report date: 05/16/2016 By the signature above, the attending physician certifies that he/she has personally conducted a gross and/or microscopic examination of the described specimens and rendered or confirmed the above diagnosis. End of Report [facility] 05/08/2016 05/10/2016 Edwin Umana SHRUB GROWER PATHOLOGY ORDERAB LES [facility] [address] [place] [address] documented in this encounter Visit Diagnoses Not on filedocumented in this encounter Care Teams Superintendent Schools Relationship Specialty Start Date End Date Roesmary Patel FNP [address] [place], [place] [address] PCP - General 08/07/08 documented as of this encounter
--- OUTSIDE RECORDS SUMMARY | 2024-02-22 11:29 | XMS_ITS | Encounter Summary ---
[place] [address] Care Team Providers Care Landfill Grader Name Role Phone Neetu Suresh APRN Primary Care Provider [phone] Encounter Details Date Type Department Care Team (Latest Contact Info) Description 02/05/2024 Travel Social History Tobacco Use Types Packs/Day Years [...] on filedocumented in this encounter Care Teams Landfill Grader Relationship Specialty Start Date End Date Neetu Suresh APRN [address] [place] [address] PCP - General Family Medicine 01/02/24 documented as of this encounter
--- OUTSIDE RECORDS SUMMARY | 2024-02-22 11:29 | XMS_ITS | Encounter Summary ---
Author Organization [facility] Address [address] [place] [address] Care Team Providers Care Epidemiologist Name Role Phone Rosemary Patel Primary Care Provider [phone] Encounter Details Date Type Department Care Team (Latest Contact Info) Description 07/24/2016 8:21 EDT - 07/24/2016 23:59 EDT Hospital Encounter [address] [address] Unknown, Provider, MD Discharge Disposition: Home or Self Care Social History Tobacco Use Types Packs/Day Years Used Date Smoking Tobacco: Never Assessed Sex and Gender Information Value Date Recorded Sex Assigned at Not on file Gender Identity Not on file Sexual Orientation Not on file documented as of this encounter Discharge Disposition Disposition Code Departure Means Destination Home or Self Long Term documented in this encounter Plan of Treatment Not on file documented as of this encounter Visit Diagnoses Not on filedocumented in this encounter Care Teams Epidemiologist Relationship Specialty Start Date End Date Rosemary Patel FNP [address] [place] [address] PCP - General 08/07/08 documented as of this encounter
--- OUTSIDE RECORDS SUMMARY | 2024-02-22 11:29 | XMS_ITS | Encounter Summary ---
[place] [address] Care Team Providers Care Rfid Systems Engineer Name Role Phone Neetu Suresh APRN Primary Care Provider [phone] Encounter Details Date Type Department Care Team (Latest Contact Info) Description 01/28/2024 Travel Social History Tobacco Use Types Packs/Day [...] on filedocumented in this encounter Care Teams Rfid Systems Engineer Relationship Specialty Start Date End Date Neetu Suresh APRN [address] [place] [address] PCP - General Family Medicine 01/02/24 documented as of this encounter
--- OUTSIDE RECORDS SUMMARY | 2024-02-22 11:29 | XMS_ITS | Encounter Summary ---
Author Organization [facility] Address [address] [place] [address] Care Team Providers Care Tipping Machine Operator Automatic Name Role Phone Rosemary Patel JOHN Primary Care Provider [phone] Encounter Details Date Type Department Care Team (Late st Contact Info) Description 03/17/2022 Lab Requisition [facility] Pathology & Laboratory Medicine - [facility] [address] [place] [address] Outr Resulting Lab, Provider Social History Tobacco [...] * QUANTIFERON INTERPRETATION (PERFORMABLE) (03/16/2022 15:13 EST) [facility] Quantiferon Interpretation Negative Negative 03/20/2022 11:13 EST [facility] Comment:No interferon-gamma response to M. tuberculosis antigens was detected. ??Infection with M. tuberculosis is unlikely. A single negative result does not exclude infection with M. tuberculosis. ??In patients at high risk for M. tuberculosis infection, a second test should be considered. TB1 Ag minus Nil 0.00 IU/ml 03/20/20 11:13 EST [facility] TB2 Ag minus Nil 0.01 IU/mL 03/20/20 11:13 EST [facility] Blood VENOUS BLOOD / Unknown 03/16/2022 15:13 EST 03/20/2022 11:10 EST Narrative [facility] - 03/20/2022 11:13 EST Results were obtained with the Qiagen QuantiFERON-TB Gold Plus CLIA. New platform in use 12/22/2020 Provider Outr Resulting Lab IMMUNOLOGY A ND SEROLOGY ORDERABLES Performing Organization Address [facility] Co de Phone Number [facility] [address] [place] [address] * QUANTIFERON MITOGEN (PERFORMABLE) (03/16/2022 15:13 EST) Blood VENOUS BLOOD / Unknown 03/16/2022 15:13 EST 03/17/2022 18:35 EST Provider Outr Resulting Lab IMMUNOLOGY A ND SEROLOGY ORDERABLES Performing Organization Address City/[facility]/ZIP Co de Phone Number [facility] [address] [place] [address] * QUANTIFERON TB2 (PERFORMABLE) (03/16/2022 15:13 EST) Blood VENOUS BLOOD / Unknown 03/16/2022 15:13 EST 03/17/2022 18:35 EST Provider Outr Resulting Lab IMMUNOLOGY A ND SEROLOGY ORDERABLES Performing Organization Address [facility]/ZIP Co de Phone Number [facility] [address] [place] [address] * QUANTIFERON TB1 (PERFORMABLE) (03/16/2022 15:13 EST) Blood VENOUS BLOOD / Unknown 03/16/2022 15:13 EST 03/17/2022 18:35 EST Provider Outr Resulting Lab IMMUNOLOGY A ND SEROLOGY ORDERABLES Performing Organization Address [facility] de Phone Number [facility] [address] [place] [address] * QUANTIFERON NIL (PERFORMABLE) (03/16/2022 15:13 EST) Blood VENOUS BLOOD / Unknown 03/16/2022 15:13 EST 03/17/2022 18:35 EST Provider Outr Resulting Lab IMMUNOLOGY A ND SEROLOGY ORDERABLES Performing Organization Address [facility] de Phone Number [facility] [address] [place] [address] documented in this encounter Visit Diagnoses Not on filedocumented in this encounter Care Teams Tipping Machine Operator Automatic Relationship Specialty Start Date End Date Rosemary Patel FNP [address] [place] [address] PCP - General 08/07/08 documented as of this encounter
--- OUTSIDE RECORDS SUMMARY | 2024-02-22 11:29 | XMS_ITS | Encounter Summary ---
Author Organization [facility] [place] [address] Care Team Providers Care Hiv Nurse Name Role Phone Neetu Suresh Brigid MANN Primary Care Provider [phone] Reason for Referral * Diagnostic Test (Routine) - Closed Specialty Diagnoses / Procedures Referred By Aislinn lawson Referred To Contact Diagnoses Chest pain, unspecified type Procedures Echocardiogram Stress (Treadmill) Ernie Peterson MD [facility] [place] [address] [facility] [place] [address] Referral ID Status Reason Start Date Expiration Date V isits Requested Visits Authorized [id number] Closed Specialty Service Requested 01/28/2024 01/27/2025 1 1 Reason for Visit * Consultation (Urgent) - Closed Specialty Diagnoses / Procedures Referred By Aislinn lawson Referred To Contact Cardiology Diagnoses Chest pain, unspecified type Hypertension, unspecified type S/P ED @[facility] for chest pain. PMH arrhythmia, HTN. Aleksey Paz MD [address] [place] [address] [place] [address] [facility] [address] [place] [phone] Referral ID Status Reason Start Date Expiration Date V isits Requested Visits Authorized [id number] Closed Consult, Test & Treat PCP Updated and/or Approved 01/02/2024 07/01/2024 6 6 Encounter Details Date Type Department Care Team (Late st Contact Info) Description 01/28/2024 11:20 AM EDT Office Visit Cardiology at [address] [place] [phone] Ernie Peterson MD [facility] [place] [address] Chest pain, unspecified type Social History Tobacco Use Types Packs/Day Years [...] Pulse 71 01/28/2024 11:12 AM EDT Temperature - - Respiratory Rate - - Oxygen Saturation 98% 01/28/2024 11:12 AM EDT Inhaled Oxygen Concentration - - Weight 81.2 kg (179 lb) 01/28/2024 11:12 AM EDT Height 172.7 cm (5' 8) 01/28/2024 11:12 AM EDT Body Mass Index 27.22 01/28/2024 11:12 AM EDT documented in this encounter Progress Notes * Ernie Peterson MD - 01/28/2024 11:20 AM EDT Images from the original note were not included. [facility] [place] [id number] CARDIOLOGY OUTPATIENT PROGRESS NOTE PRIMARY CARE PROVIDER: Neetu Suresh APRN REFERRING PROVIDER: Neetu Suresh PROBLEM LIST: Patient Active Problem List Diagnosis Multiple thyroid nodules MEDICATIONS: Current Outpatient Medications Medication Sig Dispense Refill levothyroxine (Synthroid) 25 mcg tablet Take 25 mcg by mouth daily. traZODone (Desyrel) 100 mg tablet Take 100 mg by mouth nightly. Magnesium Oxide 250 mg magnesium Tablet Take 1 tablet by mouth daily. b complex vitamins Tablet Take 1 tablet by mouth daily. uembogfc-euwz-WW-calcium-mins (Women's Daily Formula) 18 mg iron-400 mcg-500 mg Ca Tablet Take 1 tablet by mouth daily. vitamin E 400 unit capsule Take 1 capsule by mouth. Takes 1000mg amLODIPine (NORVASC) 5 mg Tablet take 1 tablet by mouth once daily 0 No current facility-administered medications for this visit. Subjective: Patient ID: Sin Thornton is a 64 y.o. patient of Neetu Suresh APRN. HPI: This patient was referred to the cardiology clinic for episodes of chest pain and uncontrolled hypertension. She has a history of thyroid nodules, and underwent thyroidectomy in 02/11/2020. She Has Been in thyroid replacement therapy and has been doing well. She has a history of mild hypertension but in 12/28/2023 went to the emergency department in [place] complaining of chest pain which was retrosternal intense, lasted several hours and radiated towards the left axilla. After treatmentin the emergency department the chest pain went away however the discomfort under the axilla remainand had pleuritic component as it was made worse by inspiration. During this visit to the emergencyroom she was found to have uncontrolled hypertension which was 200 systolic. An acute coronary syndrome was ruled out with serial electrocardiogram and enzymes determinations she also refers a history of a known heart murmur in the past She is now free of pain and denies dyspnea exertion, orthopnea, paroxysmal nocturnal dyspnea or ankle edema. No syncope or presyncope, no palpitations REVIEW OF SYSTEMS: Noncontributory Family History: No family history on file. Social History: Social History Socioeconomic History Marital status: Spouse name: Not on file Number of children: Not on file Years of education: Not on file Highest education level: Not on file Occupational History Not on file Tobacco Use Smoking status: Never Smokeless tobacco: Never Vaping Use Vaping status: Never Used Substance and Sexual Activity Alcohol use: Not on file Drug use: Not on file Sexual activity: Not on file Other Topics Concern Not on file Social History Narrative Not on file Social Determinants of Health Financial Resource Strain: Not on file Food Insecurity: Not on file Transportation Needs: Not on file Physical Activity: Not on file Intimate Partner Violence: Not on file Housing Stability: Not on file Objective: PHYSICAL EXAM: BP 127/68 (BP Location (NBP): Left arm, Patient Position: Sitting, BP Cuff Sizes: Adult (25-34 cm)) Pulse 71 Ht 172.7 cm (5' 8) Wt 81.2 kg (179 lb) SpO2 98% BMI 27.22 kg/m?? , Body mass index is 27.22 kg/m??. General: Pleasant. No distress. Skin: Warm and dry. HEENT: Anicteric sclera. Neck: JVP not elevated. No AJR. No carotid bruits. Chest: Clear to auscultation Heart: No heave. Regularly regular rhythm. Normal S1 and S2. No gallops. 2 out of 6 systolic murmur. Abdomen: Nondistended. Soft. Nontender. Extremities: No edema. HEATING OPERATORS ENGINEER: Normal mentation. Psych: Appropriate affect. Labs: Assessment and Plan: #1 Chest pain Atypical for angina and has pleuritic component. Will proceed with a stress echocardiogram to evaluate her also for the presence of a murmur #2 Heart murmur LV outflow murmur. Same as above #3 Hypertension Controlled on amlodipine. Gives her mild ankle edema otherwise well-tolerated, continue present regimen #4 Status post thyroidectomy Apparently has normal thyroid function. Has history of palpitations. Depending on the results of the stress echo may need cardiac outpatient monitoring Thank you for the opportunity to participate in this patient's cardiovascular care. All questions were answered and I look forward to the next visit. Ernie Peterson MD documented in this encounter Plan of Treatment Scheduled Orders Name Type Priority Associated Diagnoses Orde r Schedule EKG 12 Lead ECG Routine Chest pain, unspecified type Expected: 01/28/2024, Expires: 07/29/2024 documented as of this encounter Results * STRESS ECHO W LMTD SPEC DOPP COLOR DOPP (02/05/2024 2:14 PM EDT) Anatomical Region Laterality Modality Cardiac Other 02/05/2024 1:22 PM EDT Narrative 02/05/2024 4:[address] [address] ? Exercise Stress Echocardiogram Report Name: SIN THORNTON ?Study Date: 02/05/2024 01:22 PMBP: 130/84 mmHg ? Patient Location: 4A ? HR: 68 : 1960 ? Height: 173 cm ? Account: [id number] Age: 64 yrs ? Weight: 81 kg Gender: Female ?BSA: 1.9 m2 Ordering Physician: Ernie Peterson MD Referring Physician: Ernie Peterson MD Performed By: Stephy Owen RDCS Reason For Study: Chest pain Exam Location: [facility]. Interpretation Summary CONCLUSION: There is no echocardiographic [...] Note Prem Dueñas MD - 02/05/2024 [address] [place] [address] Exercise Stress Echocardiogram Report Name: SIN THORNTON Study Date: 1:22 PMBP: 130/84 mmHg Patient Location: HR: 68 : 1960 Height: 173 cm Account: [id number] Age: 64 yrs Weight: 81 kg Gender: Female BSA: 1.9 m2 Ordering Physician: Ernie Peterson MD Referring Physician: Ernie Peterson MD Performed By: Stephy Owen RDCS Reason For Study: Chest pain Exam Location: [facility]. Interpretation Summary CONCLUSION: There is no echocardiographic [...] Aneurysmal 15-16diffuse Ernie Peterson MD ECHO ORDERABLES documented in this encounter Visit Diagnoses Diagnosis Chest pain, unspecified type Chest pain, unspecified type documented in this encounter Care Teams Hiv Nurse Relationship Specialty Start Date End Date Neetu Suresh APRN [address] [place] [address] PCP - General Family Medicine 01/02/24 documented as of this encounter
--- OUTSIDE RECORDS SUMMARY | 2024-02-22 11:29 | XMS_ITS | Encounter Summary ---
Author Organization [facility] Address [address] [place] [address] Care Team Providers Care Paste Worker Name Role Phone Rosemary Patel PROCESS CONTROL BOARD OPERATOR Primary Care Provider [phone] Encounter Details Date Type Department Care Team (Late st Contact Info) Description 02/29/2016 Results Only [facility] [phone] Jose Cruz Suh MD [address] [facility] [place], [place] [id number] Social History Tobacco Use Types Packs/Day Years [...] MARIA INES THORNTON ? Accession #: ? [id number] ? : ? 1960 (Age: 56) ??F ? Collect Date: ? 02/29/2016 ? Location: ? [facility] ? Receive Date: ? 03/01/2016 ? Provider: JOSE CRUZ SUH MD Copy to: EDWIN UMANA AGRICULTURAL EQUIPMENT SALESPERSON ? Final Pathologic Diagnosis: COLON, TRANSVERSE, POLYP, [...] (ASCP) 03/01/2016 4:36 PM End of Report [facility] 02/29/2016 13:4 5 EST 03/01/2016 13:45 EST Jose Cruz Suh MD PATHOLOGY ORDERA BLES [facility] [address] [place] [address] documented in this encounter Visit Diagnoses Not on filedocumented in this encounter Care Teams Paste Worker Relationship Specialty Start Date End Date Rosemary Patel FNP [address] [place] [address] PCP - General 08/07/08 documented as of this encounter
--- OUTSIDE RECORDS SUMMARY | 2024-02-22 11:29 | XMS_ITS | Encounter Summary ---
Author Organization [facility] [place] [address] Care Team Providers Care Research Environmental Scientist Name Role Phone KerwinShaunna yuhryn Brigid MANN Primary Care Provider [phone] Reason for Referral * Consultation (Urgent) - Closed Specialty Diagnoses / Procedures Referred By Aislinn lawson Referred To Contact Cardiology Diagnoses Chest pain, unspecified type Hypertension, unspecified type S/P ED @[facility] for chest pain. PMH arrhythmia, HTN. Aleksey Paz MD [address] [place] [address] [place] [address] [facility] [address] [place] [phone] Referral ID Status Reason Start Date Expiration Date V isits Requested Visits Authorized [id number] Closed Consult, Test & Treat PCP Updated and/or Approved 01/02/2024 07/01/2024 6 6 Encounter Details Date Type Department Care Team (Late st Contact Info) Description 01/02/2024 Transcribe Orders eDH Incoming Referrals [phone] Aleksey Paz MD [address] [place] [address] [address] [place], [place] [id number] Chest pain, unspecified type; Hypertension, unspecified type Social History Tobacco Use Types Packs/Day Years Used Date Smoking Tobacco: Never Smokeless Tobacco: Never Sex and Gender Information Value Date Recorded Sex Assigned at Not on file Gender Identity Not on file Sexual Orientation Not on file documented as of this encounter Plan of Treatment Scheduled Referrals Name Type Priority Associated Diagnoses Orde r Schedule Referral to Cardiology Outpatient Referral Urgent Chest pain, unspecified type Hypertension, unspecified type Ordered: 01/02/2024 documented as of this encounter Visit Diagnoses Diagnosis Chest pain, unspecified type Hypertension, unspecified type documented in this encounter Care Teams Research Environmental Scientist Relationship Specialty Start Date End Date Neetu Suresh APRN [address] [place] [address] PCP - General Family Medicine 01/02/24 documented as of this encounter
--- OUTSIDE RECORDS SUMMARY | 2024-02-22 11:29 | XMS_ITS | Encounter Summary ---
Author Organization [facility] Address [address] [place] [address] Care Team Providers Care Director Prison Name Role Phone Rosemary Patel JOHN Primary Care Provider [phone] Encounter Details Date Type Department Care Team (Late st Contact Info) Description 05/22/2023 Lab Requisition [facility] Pathology & Laboratory Medicine - [address] [address] Outr Resulting Lab, Provider Social History Tobacco [...] 2.8 - 5.3 pg/mL 05/22/2023 18:35 EST [facility] Blood VENOUS BLOOD / Unknown 05/21/2023 15:05 EST 05/22/2023 17:58 EST Provider Outr Resulting Lab CHEMISTRY & BLOOD GAS ORDERABLES [facility] [address] [place] [address] documented in this encounter Visit Diagnoses Not on filedocumented in this encounter Care Teams Director Prison Relationship Specialty Start Date End Date Rosemary Patel FNP [address] [place], [place] [id number] PCP - General 08/07/08 documented as of this encounter
--- OUTSIDE RECORDS SUMMARY | 2024-02-22 11:29 | XMS_ITS | Encounter Summary ---
[place] [address] Care Team Providers Care Electronic Tech Name Role Phone Neetu Suresh MACKENZIE Primary Care Provider [phone] Encounter Details Date Type Department Care Team (Latest Contact Info) Description 03/26/2020 10:20 AM EST Laboratory Appointment Lab [address] [place] [id number] Multiple thyroid nodules Social History Tobacco Use [...] Stimulating Hormone 2.47 0.27 - 4.20 mcIU/mL [facility] Blood specimen (specimen) 03/26/2020 10:18 AM EST 03/26/2020 10:33 AM EST Narrative Resulting Agency Comment Spec In Lab Marilou Dozier MD CHEMISTRY ORDERAB LES [facility] [place] [address] documented in this encounter Visit Diagnoses Diagnosis Multiple thyroid nodules Nontoxic multinodular goiter documented in this encounter Care Teams Electronic Tech Relationship Specialty Start Date End Date Neetu Suresh APRN [address] [place] [address] PCP - General Family Medicine 05/31/16 01/01/24 documented as of this encounter
--- OUTSIDE RECORDS SUMMARY | 2024-02-22 11:29 | XMS_ITS | Encounter Summary ---
Author Organization [facility] Address [address] [place] [address] Care Team Providers Care Barrel And Receiver Aligner Name Role Phone Rosemary Patel Primary Care Provider [phone] Encounter Details Date Type Department Care Team (Latest Contact Info) Description 10/21/2018 10:14 EDT - 10/21/2018 23:59 EDT Hospital Encounter [address] [address] Unknown, Provider, MD Discharge Disposition: Home or [...] on filedocumented in this encounter Care Teams Barrel And Receiver Aligner Relationship Specialty Start Date End Date Rosemary Patel FNP [address] [place] [address] PCP - General 08/07/08 documented as of this encounter
--- OUTSIDE RECORDS SUMMARY | 2024-02-22 11:29 | XMS_ITS | Encounter Summary ---
Author Organization [facility] Address [address] [place] [address] Care Team Providers Care Warp Starter Name Role Phone Hannah Patel ALGORITHM DEVELOPER Primary Care Provider Encounter Details Date Type Department Care Team (Late st Contact Info) Description 09/07/2003 Results Only [facility] - [facility] conversion [address] [place] [address] Blaine Pérez MD [address] [place] [address] Social History Tobacco Use Types Packs/Day Years [...] MARIA INES THORNTON ? Accession #: ? [id number] ? : ? 1960 (Age: 43) ??F ? Collect Date: ? 09/07/2003 ? Location: ? [facility] ? Receive Date: ? 09/07/2003 ? Provider: BLAINE PÉREZ MD Copy to: HANNAH PATEL ALGORITHM DEVELOPER ? Final Pathologic Diagnosis: ? Breast, right, [...] entirely submitted as (A1) and (A2). ??(Lizbet Mir)/[facility] End of Report A[facility]DRE[facility] GRANADO 09/07/2003 09/07/2003 15: 07 EDT Blaine Pérez MD PATHOLOGY ORDERABLE S [facility] G[facility]NA[facility] [address] [place] [address] documented in this encounter Visit Diagnoses Not on filedocumented in this encounter Care Teams Warp Starter Relationship Specialty Start Date End Date Hannah Patel FNP [address] [place], [place] [address] PCP - General 08/07/08 documented as of this encounter
--- OUTSIDE RECORDS SUMMARY | 2024-02-22 11:29 | XMS_ITS | Encounter Summary ---
Author Organization [facility] Address [address] [place] [address] Care Team Providers Care Traction Power Engineer Name Role Phone Rosemary Patel SUPERVISOR [employer]ER FARM Primary Care Provider [phone] Encounter Details Date Type Department Care Team (Late st Contact Info) Description 11/06/2006 Results Only [facility] - Maple conversion [address] [place] [address] Soumya Marshall MD [address] [place] [address] [place] [address] Social History Tobacco Use Types Packs/Day Years [...] MARIA INES THORNTON ? Accession #: ? [id number] : ? 1960 (Age: 46) ??F ?Collect Date: ? 11/06/2006 Location: ? [facility] ? Receive Date: ? 11/07/2006 Provider: ?SOUMYA MARSHALL MD Copy to: ? Specimen/Source: ?ThinPrep Pap Test, Cervix/Endocervix, processed on [employer] ThinPrep Imaging System, with manual evaluation Last [...] City/State/[facility] Co de Phone Number AUNDREA GRANADO [address] [place] [address] documented in this encounter Visit Diagnoses Not on filedocumented in this encounter Care Teams Traction Power Engineer Relationship Specialty Start Date End Date Rosemary Patel FNP [address] [place] [address] PCP - General 08/07/08 documented as of this encounter
--- OUTSIDE RECORDS SUMMARY | 2024-02-22 11:29 | XMS_ITS | Encounter Summary ---
Author Organization [facility] Address [address] [place] [address] Care Team Providers Care Electrician Elevator Maintenance Name Role Phone Rosemary Patel INSPECTOR OUTSIDE PRODUCTION Primary Care Provider [phone] Encounter Details Date Type Department Care Team (Late st Contact Info) Description 05/20/2002 Results Only [facility] - Maple conversion [address] [place] [address] Soumya Marshall MD [address] [place] [address] [place] [address] Social History Tobacco Use Types Packs/Day Years [...] MARIA INES THORNTON ? Accession #: ? [id number] : ? 1960 (Age: 42) ??F ?Collect [...] ??05/22/2002 14:38 End of Report AUNDREA ARIAS [facility] 05/20/2002 05/22/2002 Soumya Marshall MD PATHOLOGY ORDERABLES Performing Organization Address City/State/[facility] Co de Phone Number [facility] [address] [place] [address] documented in this encounter Visit Diagnoses Not on filedocumented in this encounter Care Teams Electrician Elevator Maintenance Relationship Specialty Start Date End Date Rosemary Patel FNP [address] [place], [place] [id number] PCP - General 08/07/08 documented as of this encounter
--- OUTSIDE RECORDS SUMMARY | 2024-02-22 11:29 | XMS_ITS | Encounter Summary ---
Author Organization [facility] Address [address] [place] [address] Care Team Providers Care Powder Blender Name Role Phone Rosemary Patel CENTRAL SUPPLY AIDE Primary Care Provider [phone] Encounter Details Date Type Department Care Team (Late st Contact Info) Description 11/18/2002 Results Only [facility] - Maple conversion [address] [place] [address] Soumya Marshall MD [address] [place] [address] [place] [address] Social History Tobacco Use Types Packs/Day Years [...] MARIA INES THORNTON ? Accession #: ? [id number] : ? 1960 (Age: 42) ??F ?Collect [...] and electronically signed by: ? Mckenzie Dickens, [facility](ASCP) ? Report Date: ??11/25/2002 12:46 End of Report [facility]UND[facility] GRANA[facility] 11/18/2002 11/20/2002 Soumya Marshall MD PATHOLOGY ORDERABLES Performing Organization Address City/State/[facility] Co de Phone Number [facility] [address] [place] [address] documented in this encounter Visit Diagnoses Not on filedocumented in this encounter Care Teams Powder Blender Relationship Specialty Start Date End Date Rosemary Patel FNP [address] [place] [address] PCP - General 08/07/08 documented as of this encounter
--- OUTSIDE RECORDS SUMMARY | 2024-02-22 11:29 | XMS_ITS | Encounter Summary ---
Author Organization [place] [id number] Care Team Providers Care Director Blood Bank Name Role Phone Kerwin, Neetu Brigid MANN Primary Care Provider [phone] Reason for Referral * Diagnostic Test (Routine) - Closed Specialty Diagnoses / Procedures Referred By Contac t Referred To Contact Diagnoses Chest pain, unspecified type Procedures Echocardiogram Stress (Treadmill) Ernie Peterson MD [facility] [place] [address] [facility] [place] [address] Referral ID Status Reason Start Date Expiration Date V isits Requested Visits Authorized [id number] Closed Specialty Service Requested 01/28/2024 01/27/2025 1 1 Reason for Visit * Diagnostic Test (Routine) - Closed Specialty Diagnoses / Procedures Referred By Contjoanna t Referred To Contact Diagnoses Chest pain, unspecified type Procedures Echocardiogram Stress (Treadmill) Ernie Peterson MD [facility] [place] [address] [facility] [place] [address] Referral ID Status Reason Start Date Expiration Date V isits Requested Visits Authorized [id number] Closed Specialty Service Requested 01/28/2024 01/27/2025 1 1 Encounter Details Date Type Department Care Team (Latest Contact Info) Description 02/05/2024 12:42 PM EDT - 02/05/2024 11:59 PM EDT Hospital Encounter Non-[place]vasive [place] [address] Ernie Peterson MD [facility] [place] [address] Chest pain, unspecified type Discharge Disposition: Home Social History Tobacco Use Types Packs/Day Years Used Date Smoking Tobacco: Never Smokeless Tobacco: Never Sex and Gender Information Value Date Recorded Sex Assigned at Not on file Gender Identity Not on file Sexual Orientation Not on file documented as of this encounter Medications at Time of Discharge Medication Sig Dispensed Refills Start Date End Date levothyroxine (Synthroid) 25 mcg tablet Take 25 mcg by mouth daily. traZODone (Desyrel) 100 mg tablet Take 100 mg by mouth nightly. Magnesium Oxide 250 mg magnesium Tablet Take 1 tablet by mouth daily. b complex vitamins Tablet Take 1 tablet by mouth daily. zyqsrbul-nzgn-OZ-calcium- mins (Women's Daily Formula) 18 mg iron-400 mcg-500 mg Ca Tablet Take 1 tablet by mouth daily. vitamin E 400 unit capsule Take 1 capsule by mouth. Takes 1000mg amLODIPine (NORVASC) 5 mg Tablet take 1 tablet by mouth once daily 0 08/05/2018 documented as of this encounter Plan of Treatment Not on file documented as of this encounter Procedures Procedure Name Priority Date/Time Associated Diagnosis Comments STRESS ECHO W LMTD SPEC DOPP COLOR DOPP Routine 02/05/2024 2:14 PM EDT Chest pain, unspecified type documented in this encounter Results * STRESS ECHO W LMTD SPEC DOPP COLOR DOPP (02/05/2024 2:14 PM EDT) Anatomical Region Laterality Modality Cardiac Other 02/05/2024 1:22 PM EDT Narrative 02/05/2024 4:50 PM EDT [address] [place], [place] [id number] ? Exercise Stress Echocardiogram Report Name: SIN THORNTON ?Study Date: 02/05/2024 01:22 PMBP: 130/84 mmHg ? Patient Location: 4A ? HR: 68 : 1960 ? Height: 173 cm ? Account: [id number] Age: 64 yrs ? Weight: 81 kg Gender: Female ?BSA: 1.9 m2 Ordering Physician: Ernie Peterson MD Referring Physician: Ernie Peterson MD Performed By: Stephy Owen RDCS Reason For Study: Chest pain Exam Location: [facility]. Interpretation Summary CONCLUSION: There is no echocardiographic [...] Note Prem Dueñas MD - 02/05/2024 [address] [place] [address] Exercise Stress Echocardiogram Report Name: SIN THORNTON Study Date: 401:22 PMBP: 130/84 mmHg Patient Location: HR: 68 : 1960 Height: 173 cm Account: [id number] Age: 64 yrs Weight: 81 kg Gender: Female BSA: 1.9 m2 Ordering Physician: Ernie Peterson MD Referring Physician: Ernie Peterson MD Performed By: Stephy Owen [facility] Reason For Study: Chest pain Exam Location: [facility]. Interpretation Summary CONCLUSION: There is no echocardiographic [...] Visit Diagnoses Diagnosis Chest pain, unspecified type documented in this encounter Care Teams Director Blood Bank Relationship Specialty Start Date End Date Neetu Suresh APRN [address] [place] [address] PCP - General Family Medicine 01/02/24 documented as of this encounter
--- OUTSIDE RECORDS SUMMARY | 2024-02-22 11:29 | XMS_ITS | Encounter Summary ---
Author Organization [facility] Address [address] [place] [address] Care Team Providers Care Veneer Stapler Name Role Phone Rosemary Patel JOHN Primary Care Provider [phone] Encounter Details Date Type Department Care Team (Late st Contact Info) Description 03/17/2022 Lab Requisition [facility] Pathology & Laboratory Medicine - [facility] [address] [place] [address] Outr Resulting Lab, Provider Social History Tobacco [...] 15:13 EST) Hold Hold 03/17/2022 19:46 EST [facility] Blood VENOUS BLOOD / Unknown 03/16/2022 15:13 EST 03/17/2022 18:34 EST Provider Outr Resulting Lab LAB INFO SER VICE AND SUPPORT & PHONE RESULT Performing Organization Address [facility]/ZIP Co de Phone Number [facility] [address] [place] [address] * HOLD SST (03/16/2022 15:13 EST) Hold Hold 03/17/2022 19:46 EST [facility] Blood VENOUS BLOOD / Unknown 03/16/2022 15:13 EST 03/17/2022 18:34 EST Provider Outr Resulting Lab LAB INFO SER VICE AND SUPPORT & PHONE RESULT Performing Organization Address [facility]/ZIP Co de Phone Number [facility] [address] [place] [address] * HOLD SST (03/16/2022 15:13 EST) Hold Hold 03/17/2022 19:46 EST [facility] Blood VENOUS BLOOD / Unknown 03/16/2022 15:13 EST 03/17/2022 18:34 EST Provider Outr Resulting Lab LAB INFO SER VICE AND SUPPORT & PHONE RESULT Performing Organization Address [facility]/ZIP Co de Phone Number [facility] [address] [place] [address] * HEPATITIS B SURFACE ANTIBODY (03/16/2022 15:13 EST) Hep B Surface Ab, Quantitative 196.5 See Note mIU/mL 03/20/2022 9:32 EST [facility] Comment: Reference Range for Hep B Surface Ab, Quant: Positive: >= 10.0 mIU/mL Negative: ??< 10.0 mIU/mL Patient is presumed to be immune to infection with Hepatitis B Virus. Hep B Surface Ab, Qualitative Positive See Note 03/20/2022 9:32 EST [facility] Comment: Reference Range for Hep B Surface Ab, Qual: Unvaccinated: ??Negative Vaccinated: ??Positive Blood VENOUS BLOOD / Unknown 03/16/2022 15:13 EST 03/17/2022 18:34 EST Provider Outr Resulting Lab CHEMISTRY & BLOOD GAS ORDERABLES Performing Organization Address [facility] Co de Phone Number [facility] [address] [place] [address] * MEASLES IGG AB (03/16/2022 15:13 EST) Measles IgG Ab Positive See Note 03/20/2022 9:10 EST [facility] Comment:Presence of detectab le measles virus IgG antibodies. Blood VENOUS BLOOD / Unknown 03/16/2022 15:13 EST 03/17/2022 18:34 EST Provider Outr Resulting Lab IMMUNOLOGY A ND SEROLOGY ORDERABLES Performing Organization Address [facility] Co de Phone Number [facility] [address] [place] [address] * MUMPS ANTIBODY IGG (03/16/2022 15:13 EST) Mumps Antibody IgG Equivocal See Note 03/20/2022 11:21 EST [facility] Comment:Recommend collecting a second sample for testing in no less than one to two weeks. Blood VENOUS BLOOD / Unknown 03/16/2022 15:13 EST 03/17/2022 18:34 EST Provider Outr Resulting Lab IMMUNOLOGY A ND SEROLOGY ORDERABLES Performing Organization Address [facility] Co de Phone Number [facility] [address] [place] [address] * RUBELLA IGG ANTIBODY (03/16/2022 15:13 EST) Rubella IgG Ab Positive See Note 03/20/2022 9:16 EST [facility] Comment:Positive for IgG ant ibodies to Rubella virus. Blood VENOUS BLOOD / Unknown 03/16/2022 15:13 EST 03/17/2022 18:34 EST Provider Outr Resulting Lab CHEMISTRY & BLOOD GAS ORDERABLES Performing Organization Address City/State/[facility] Co de Phone Number [facility] [address] [place] [address] documented in this encounter Visit Diagnoses Not on filedocumented in this encounter Care Teams Veneer Stapler Relationship Specialty Start Date End Date Rosemary Patel FNP [address] [place], [place] [id number] PCP - General 08/07/08 documented as of this encounter
--- OUTSIDE RECORDS SUMMARY | 2024-02-22 11:29 | XMS_ITS | Continuity of Care Document ---
Author Organization [place] - [facility] Address [address] [place] [address] Care Team Providers Care Microbiology Coordinator Name Role Phone NEETU UMANA Primary Care Provider BOZENA BRANHAM OTHER CHEYANNE GARCIA OTHER Assessment Encounter Date Assessment Date Assessment LastModified by Organization Details LastModified Time 01/07/2024 01/07/2024 The total time devoted to today's encounter, including both the aebt-el-mnhc time with the patient and/or family/caregi sylwia and spy-xcml-tt-f tana time I personally spent is 35 minutes. Flu vaccine: she will get through employer Comirnaty: declines Td: current due 2032 PCV20: n/a Shingrix: completed RSV: Completed Pap/ HPV: current due 2024 Mammogram: declines CRC: current last 2022- due next 2027; family hx of CRC DEXA: n/a Lipids: last 06/09, ASCVD risk was 6.89% Annual: last 2.. Hep C screening: completed 4.4.19 HIV screening: declines Diabetes screening: declines Future Nursing Orders: Lab work to include TSH with R in approx 6 weeks. Primary diagnosis includes thyroid goiter. Not available 01/07/2024 10:31:02 Plan of Treatment Reminders Order Date Submit Date Provider Last Modified By Organization Details Last Modified Time Details Appointments Follow Up 30 2023 10:00A M NEETU UMANA Not available Not available Not available Annual Chronic Care (65+) 40 2024 11:50A M NEETU UMANA Not available Not available Not available Lab hemoglobi n A1C, fingersti ck 2023 024 [email or web address] [facility], [address], [place], [address], 01/07/2024 09:38:00 Referral cardiolog ist referral 2023 024 [facility]- Cardiology, [address] [place] [address] [place], [address], 01/28/2024 13:32:37 Procedures None recorded. Surgeries None recorded. Imaging exercise stress test [email or web address] [place] [address] (Radiology), [address] [place] [address] [place] [facility] [place], [address], 01/28/2024 07:49:12 Medication Orders levothyro xine 25 mcg tablet 2023 024 [facility], [address] [place] [address] [place], [address], 01/07/2024 09:40:22 Patient TargetsNo targets recorded. Patient Instructions Encounter Date Encounter Id Patient Instructions Last Modified By Organization Details Last Modified Time 01/07/2024 [id number] Dear Anitha, Thank you for visiting us [...] any questions or concerns. Best regards, Padma [email or web address] Not available 01/07/2024 09:39:34 Reason for Referral Lab Pack Chemist Referral for Ch est pain Referring Physician: Neetu Umana, Family Medicine, Encounter Date: 01/07/2024 Results Created Date Observation Date Name Description Value Unit Range Abnormal Flag Note LastModifiedBy Organization Detail LastModifiedTime 01/07/20 24 01/07/2024 hemog lobin A1C, finge rstic k hemoglobin A1C 5.8 % <5.7 Not Available [address], [address], 01/07/2024 08:48:13 12/29/1912/29/2023 x-ray imagi ng repor t Uday t Name: Jack Valencia Unit #: [id number] Loc: ER Orderi ng Provid er: Glenn Knowles M.D. t #: [id number] Status : DEP ER Primar y Care Provid er: Albania Gonzalez Date of Exam: Sex: F Admiss ion Date: : 1959 Age: 63 Exam(s ) XR CHEST 2V PA LATERA L EXAM: XR CHEST 2V PA LATERA L CLINIC AL HISTOR Y: chest pain sob TECHNI QUE: 2D digita l imagin g was perfor med. Two views. COMPAR SHELLEY: No exams were availa ble for compar shelley FINDIN GS: HEART: Normal size. Aorta: Not dilate d. PULMON CATHRYN VASCUL ATURE: Normal . MEDIAS TINUM: Unrema rkable . LUNGS: Clear. PLEURA L SPACE: No pleura l effusi on or pneumo thorax . BONE:U nremar kable for age. SOFT TISSUE S: Unrema rkable . IMPRES KEILA: No acute abnorm ality. DATA REPOSI TORY: [...] bution by any person other than this [facility] is strict ly prohib ited. If you receiv e this report in error, please notify us immedi ately at and return the origin al report to us at the addres s above. Thank- you. INTERFACE [facility] [address], [place], [address] 12/29/2023 07:50:03 12/31/19 24 06/08/2022 imagi ng/di agnos tic resul t No observ ation record ed. Not Available 12/30 06:54:48 12/31/19 24 06/22/2022 imagi ng/di agnos tic resul t No observ ation record ed. Not Available 12/30 06:54:49 12/31/19 09/06/2022 imagi ng/di agnos tic resul t No observ ation record ed. Not Available 12/30 06:54:50 12/31/1908/23/2018 MAMMO , diagn ostic No observ ation [...] PATIEN T NAME: Jack Valencia UNIT #: [id number] ORDERI NG PROVID ER: Albania Gonzalez ACCOUN T #: [id number] PRIMAR Y CARE PROVID ER: Karmen GONZALEZ APRN DATE/T DENNIS OF SERV E: ADMITT ING PROVID ER: ROLANDO GUERRA MD : 1959 ------ ------ --- APPROV ED REPORT ------ ------ -- Exam: Exerci se Treadm ill Patien t Locati on: Out-Pa tient Room/B ed: Stress Nurse: Earlene purcell RN Orderi ng Provid er:Aislinn CORTEZ Number : [id number] BMI: 27.51 Baseli ne Rhythm : Sinus [...] ics: None Exerci se Histor y: Sedent cathryn Physic al Disabi lities : None Lung [...] Score: None Rate Pressu re Produc t: 51640 Stress ECG Conclu keila 1. Restin g electr ocardi ogram was normal 2. Patien t exerci sed on the René protoc ol and comple day worklo ad of 9.64 METS 3. Normal heart rate and blood pressu re respon se to exerci se. The patien t achiev ed 87% of maximu m predic day heart rate for age 4. There was [...] ------ ------ ---- -- Dictat ed by: ROLANDO GUERRA MD Dictat ed:: 936 Transc ribed Date: Transc ribed Time: 936 By: CELINA This is privil eged, confid ential inform ation, intend ed only for the provid er named. Any use or distri bution by any person other than this [facility] is strict ly prohib ited. If you receiv e this report in error, please notify us immedi joycely at and return the origin al report to us at the addres s above. Thank you. [email or web address] [facility] (Radiology) [facility] [place], [address], 02/20/2024 08:56:37 02/14/2002/14/2024 DEXChristi Doddrahat lawson Name: Jack Valencia Unit #: [id number] Loc: DI Orderi ng [facility] er: Elizabeth Álvarez t #: [id number] Status : REG CLI Primar y Care Provid er: Albania Gonzalez Date of Exam: Sex: F Admiss ion Date: : 1959 Age: 64 Exam(s ) XR DEXA BONE DENSIT Y W/WO TRUMAN EXAM: XR DEXA BONE DENSIT Y W/WO TRUMAN CLINIC AL HISTOR Y: Menopa usal and female climac teric states , N95.1 TECHNI QUE: Routin e DEXA evalua tion of the lumbar spine, hip, or forear m. COMPAR SHELLEY: No exams were availa ble for compar shelley FINDIN GS: Perfor med on a Hologi c unit. Latera l image: No compre ssion fractu re eviden t. Lumbar Spine total T-scor e: -1.9 Hip total T-scor e:-0.9 Indepe ndent readin g at the level of the femora l neck yields T-scor e of -1.5 Forear m total T-scor e: -1.4 IMPRES KEILA: Bone minera l densit y measur es [...] at or below -2.5 Ordere d By: Elizabeth Álvarez CC: ------ ------ ------ ------ ------ ------ ------ ------ ------ ------ ------ ------ - Dictat ed By: Rajinder Nichols M.D. 1410 1410 Transc ribed By: Simone RAMIREZ,Tyrese sepulveda 1410 This is privil eged, confid ential inform ation intend ed only for the provid er named. Any use or distri bution by any person other than this provid er is strict ly prohib ited. If you receiv e this report in error, please notify us immedi joycely at [phone] and return the origin al report to us at the addres s above. Thank- you. [facility] (Radiology) [address], [place], [address], 02/20/2024 08:56:28 Result Notes None recorded. Problems Name Problem SNOMED Code Status Onset Date Resolution Date Notes Provider Name and Address Organization Details Recorded Time Osteopen ia 329224190 Active 2023 Major risk is 8.8% Hip fracture risk is 0.9% NEETU UMANA APRN [address], [place], [address] , [facility] 4 15:37:18 Cardiac arrhythm ia 868795540 Active 200210/25/19 19 - Comments only - Neetu Umana APRN - asymptom atic. if becomes symptoma tic, evaluate further. Problem Code: I49.9; Problem Code Type: ICD-10; [address], [place], [address] , [facility] 4 07:13:29 Heart murmur 27227868 Active 200210/25/19 19 - Comments only - Neetu Umana APRN - monitor routinel y. If becomes more promimen t, would do echocard iogram. Problem Code: R01.1; Problem Code Type: ICD-10; [address], [place], [address] , [facility] 4 07:13:29 Adult health examinat ion Active 201505/14/19 18 - Comments only - Neetu Umana SEXUAL ABUSE COUNSELLOR - annual exam complete d today. UTD on pap smear and HPV testing. Order mammogra m. UTD on colonosc opy. UTD on vaccines , flu shot through employer . Problem Code: Z00.00; Problem Code Type: ICD-10; [address], [place], [address] , [facility] 4 07:13:29 Family history of malignan t neoplasm of digestiv e organ 452946938 Active 201505/08/19 17 - Comments only - Neetu Umana APRN - UTD on routine colonosc opy, due every 5 years, next due in 2020. Problem Code: Z80.0; Problem Code Type: ICD-10; [address], [place], [address] , [facility] 4 07:13:29 Insomnia 482781110 Active 201610/25/19 19 - Comments only - Neetu Umana APRN - Well controll ed, continue OTC sleep aid since effectiv e. Problem Code: G47.00; Problem Code Type: ICD-10; [address], [place], [address] , [facility] 4 07:13:29 Genuine stress incontin ence 68585366 Active 201605/14/19 18 - Comments only - Neetu Umana APRN - [facility] ed pelvic floor exercise s, kegel exercise s. Problem Code: N39.3; Problem Code Type: ICD-10; [address], [place], [address] , [facility] 4 07:13:29 Seasonal allergic rhinitis 933239340 Active 201610/25/19 19 - Comments only - Neetu Umana APRN - asymptom atic. monitor for now and treat as indicate d. Problem Code: J30.2; Problem Code Type: ICD-10; [address], [place], [address] , [facility] 4 07:13:29 Melanocy tic nevus 060951424 Active 201605/08/19 17 - Comments only - Neetu Umana SEXUAL ABUSE COUNSELLOR - right ear lobe. Most likely benign. Desires to have removed, refer to ENT for further manageme nt. Problem Code: D22.9; Problem Code Type: ICD-10; [address], [place], [address] , [facility] 4 07:13:29 Non-toxi c uninodul ar goiter 343165832 Active 2016 Problem Code: E04.1; Problem Code Type: ICD-10; [address], [place], [address] , [facility] 4 07:13:29 Neck pain 28293281 Active 201610/25/19 19 - Comments only - Neetu Umana SEXUAL ABUSE COUNSELLOR - resolved . Problem Code: M54.2; Problem Code Type: ICD-10; [address], [place], [address] , [facility] 4 07:13:29 Screenin g mammogra phy Completed 201707/12/2017 Problem Code: Z12.31; Problem Code Type: ICD-10; [address], [facility] [address] , [facility] 4 07:13:29 Screenin g mammogra phy Active 2018 Problem Code: Z12.31; Problem Code Type: ICD-10; [address], [place], [address] , [facility] 4 07:13:29 Headache 28108737 Active 201810/25/19 19 - Comments only - Neetu Umana SEXUAL ABUSE COUNSELLOR - improved . continue APAP PRN. continue norvasc since helping headache s as well. Problem Code: R51; Problem Code Type: ICD-10; [address], [place], [address] , [facility] 4 07:13:29 Essentia l hyperten keila 53266000 Active 201810/25/19 19 - Comments only - Neetu Umana APRN - stable, continue medicati on regimen. Problem Code: I10; Problem Code Type: ICD-10; [address], [place], [address] , [facility] 4 07:13:29 Screenin g for malignan t neoplasm of colon Active 2020 Problem Code: Z12.11; Problem Code Type: ICD-10; [address], [place], [address] , [facility] 4 07:13:29 Localize d edema 853967787 Active 2022 Problem Code: R60.0; Problem Code Type: ICD-10; [address], [place], [address] , [facility] 4 07:13:29 Pain of left shoulder joint 08912530801 116161 Active 2022 Problem Code: M25.512; Problem Code Type: ICD-10; [address], [place], [address] , [facility] 4 07:13:29 Cramp in lower limb associat ed with sleep 06565606480 4104 Active 2022 Problem Code: G47.62; Problem Code Type: ICD-10; NEETU UMANA APRN [address], [place], [address] , [facility], [facility]. 4 07:13:29 Conjunct ival hemorrha ge of left eye 20113967089 9102 Completed 201710/31/2019 Problem Code: H11.32; Problem Code Type: ICD-10; Not Available [facility] 3 04:02:41 Urinary tract infectio us disease 77180201 Completed 201505/08/2016 Problem Code: N39.0; Problem Code Type: ICD-10; Not Available [facility] 3 04:02:41 Dysuria 93253606 Completed 201505/08/2016 Problem Code: R30.0; Problem Code Type: ICD-10; Not Available [facility] 3 04:02:42 Chest pain 31912310 Completed 201705/03/2020 Problem Code: R07.89; Problem Code Type: ICD-10; NEETU UMANA APRN [address], [place], [address] , [facility], [facility]. 4 05:12:03 Foot pain 89007292 Completed 201811/08/2020 Problem Code: M79.673; Problem Code Type: ICD-10; Not Available [facility] 3 04:02:44 Hyperlip idemia 01841769 Active 2023 ASCVD risk 6.89% calculat ed 05/22/23 NEETU UMANA APRN [address], [place], [address] , [facility], [facility]. 4 06:56:16 Rib pain 449155147 Active [address], [place], [address] , [facility], [facility]. 4 11:24:12 Menopaus e present 205115527 Active [address], [place], [address] , [facility], [facility] 4 12:36:07 [place] ht 577953665 Active [address], [facility] [address] , [facility], [facility] 4 08:39:51 Acute right otitis media 534410743 Active [address], [facility] [address] , [facility], [facility] 4 08:50:39 Chest pain 15772127 Active 2023 Problem Code: R07.89; Problem Code Type: ICD-10; [address], [facility] [address] , [facility], [facility] 4 05:12:02 Hypergly cemia 18786668 Active [address], [facility] [address] , [facility] 4 08:23:35 Prediabe hilary 455131021 Active [address], [facility] [address] , [facility] 4 08:31:22 Dysfunct ion of eustachi an tube 42971303 Active [address], [place], [address] , [facility] 4 08:35:51 Notes:*Problem Name: Arrhyth fallon Heart [...] Name and Address Organization Details Recorded Time 14141 ampicilli n trihydrat e medicatio n hives Not available Not available 02/23/20232002 50584 5 RxNorm rash/ hives Aller gyRea ction : 'rash / hives '; Not Available [facility] 3 16:22:03 17980 amoxicill in trihydrat e medicatio n hives Not available Not available 02/23/20232003 99945 8 RxNorm rash/ hives Aller gyCod e: '3081 82'; Aller gyNam e: 'AMOX ICILL IN'; Aller gyCon ceptT ype: 'RX Norm' ; Aller gyRea ction : 'rash / hives '; Not Available [facility] 3 16:22:03 97863 Medicinal product containin g penicilli n and acting as antibacte rial agent (product) medicatio n hives Not available Not available 02/23/20232006 80622 05 SNOMED rash/ hives Aller gyCod e: '8340 61'; Aller gyNam e: 'PENI CILLI N'; Aller gyCon ceptT ype: 'RX Norm' ; Aller gyRea ction : 'rash / hives '; Not Available [facility] 3 16:22:03 Medications Name Sig Start Date [...] and Address Organization Details Last Updated DateTime 171.45 cm 28 kg/m2 43233.6 2 g 98.2 [degF] 96 % 96 % 76 /min 148 mm[Hg] 66 mm[Hg] JOLENE PARRY CMA [facility] 08:10:55 Date Recorded Systolic blood pressure Diastolic blood pressure Provider Name and Address Organization Details Last Updated DateTime 01/07/2024 122 mm[Hg] 78 mm[Hg] NEETU UMANA APRN [address], [place], [address], [facility] 01/07/2024 08:18:26 Social History Question Answer Notes LastModified by Organizat ion Details LastModified Time Tobacco Smoking Status Never Smoker JOLENE PARRY CMA null, [facility] 05/21/2023 14:26:48 Care Coordination Start Date: 01/17/2024 [...] Have Housing. Information not available 05/21/2023 Assigned Regional Operations Manager: Bozena westfall Information not available 01/18/2024 Is [facility] The Lead Regional Operations Manager? Yes [email or web address] Information no t available 01/18/2024 Level Of Intensity: Bi-Annuall y [email or web address] Information not available 01/18/2024 Team Based Care: No Informat ion not available 01/18/2024 Other Barriers To Care (See Note) Yes Just Finding It Hard To Stick With A Diet And Exercise Regime Especially When Stress Creeps In. [email or web address] Information not available 01/18/2024 Learning Barrier No [...] Recorded Time MMR 05/03/2022 completed Not Available [facility] 05:06:54 MMR 03/27/2022 completed Not Available [facility] 05:06:54 Tdap 05/16/2022 completed Not Available [facility] 05:06:55 Tdap 06/14/2012 completed Not Available [facility] 05:06:55 Td(adult) unspecified formulation 04/30/1999 completed Not Available [facility] 02/23/2023 05:06:56 Influenza, split virus, quadrivalent, PF 03/15/2022 completed Not Available [facility] 02/23/2023 05:06:57 zoster recombinant 07/24/2019 completed Not Available [facility] 02/23/2023 05:06:57 zoster recombinant 10/31/2019 completed Not Available [facility] 02/23/2023 05:06:58 COVID-19, mRNA, LNP-S, PF, 100 mcg/0.5mL dose or 50 mcg/0.25mL dose 08/30/2020 completed Not Available [facility] 02/23/2023 05:06:59 COVID-19, mRNA, LNP-S, PF, 100 mcg/0.5mL dose or 50 mcg/0.25mL dose 03/02/2021 completed Not Available [facility] 02/23/2023 05:06:59 SARS-COV-2 (COVID-19) vaccine, UNSPECIFIED 08/02/2020 completed Not Available [facility] 02/23/2023 05:07:00 SARS-COV-2 (COVID-19) vaccine, UNSPECIFIED 09/08/2021 completed Not Available [facility] 02/23/2023 05:07:00 COVID-19, mRNA, LNP-S, bivalent, PF, 30 mcg/0.3 mL dose 03/17/2022 completed Not Available [facility] 02/24/20 05:07:00 Hep B, unspecified formulation 05/29/2002 completed Not Available [facility] 02/23/2023 05:07:01 Hep B, unspecified formulation 07/09/2002 completed Not Available [facility] 02/23/2023 05:07:01 Hep B, unspecified formulation 12/09/2003 completed Not Available [facility] 02/23/2023 05:07:01 influenza, unspecified formulation 2019 completed Not Available [facility] 02/23/2023 05:07:01 influenza, unspecified formulation 01/25/2020 completed Not Available [facility] 02/23/2023 05:07:02 influenza, unspecified formulation 01/27/2014 completed Not Available [facility] 02/23/2023 05:07:02 influenza, unspecified formulation 01/31/2017 completed Not Available [facility] 02/23/2023 05:07:02 influenza, unspecified formulation 02/25/2021 completed Not Available [facility] 02/23/2023 05:07:02 influenza, unspecified formulation 02/26/2018 completed Not Available [facility] 02/23/2023 05:07:02 Pneumococcal conjugate PCV20, polysaccharide [id number] conjugate, adjuvant, PF 02/22/2024 completed PHILOMENA RESENDEZ, [facility] 02/22/2024 10:43:46 COVID-19, mRNA, LNP-S, PF, 100 mcg/0.5mL dose or 50 mcg/0.25mL dose 05/04/2023 completed PHILOMENA RESENDEZ, [facility]. 05/15/2023 12:34:41 influenza, unspecified formulation 03/01/2023 completed JOLENE PARRY CMA null, [facility] 05/15/2023 12:35:59 Respiratory syncytial virus (RSV) vaccine, unspecified 05/10/2023 completed PHILOMENA RESENDEZ, [facility] 05/21/2023 14:26:21 Influenza, adjuvanted, trivalent, PF 01/25/2024 completed PHILOMENA RESENDEZ, [facility] 02/22/2024 07:33:35 Past Encounters Encounter ID Performer Location Encounter Start Date Encounter Closed Date Diagnosis/Indication Diagnosis SNOMED-CT Code Diagnosis ICD10 Code [id number] NEETU UMANAMACKENZIE [address] [address] 01/07/2024 07:58:51 01/07/2024 08:53:50 Essential hypertension 20694852 I10 Chest pain 67572633 R07. 9 Non-toxic uninodular goiter 459628382 E04.1 Prediabetes 347668614 R7 3.03 Dysfunctio n of eustachian tube 15634958 H69.93 Insomnia 290013981 G47.0 0 Goals Section Goal Description Status Start Date [...] Member ID [place] Member ID Guarantor Name 01/07/2024 1 [employer] [facility] - [employer] (PPO) Maria Ines Valencia [id number] Maria Ines Valencia Notes Date Note Type Note Provider Name and Address Organization Details Recorded Time 01/07/2024 text/html HPI Notes: Is he re for ER. Was at [facility] ER on 12.28.23 for [...] was greatly effective for her. NEETU UMANA, SEXUAL ABUSE COUNSELLOR [address], [place], [address], [facility]. 01/07/2024 10:31:12 OBGyn Episode No OBEpisode recorded.
--- OUTSIDE RECORDS SUMMARY | 2024-02-22 11:29 | XMS_ITS | Encounter Summary ---
Author Organization [facility] Address [address] [place] [address] Care Team Providers Care Mortgage Closer Name Role Phone Rosemary Patel WAIT STAFF Primary Care Provider [phone] Encounter Details Date Type Department Care Team (Late st Contact Info) Description 02/03/2004 Results Only [facility] - [facility] conversion [address] [place] [address] Soumya Marshall MD [address] [place] [address] [place] [address] Social History Tobacco Use Types Packs/Day Years [...] MARIA INES THORNTON ? Accession #: ? [id number] : ? 1960 (Age: 44) ??F ?Collect [...] Marshall MD PATHOLOGY ORDERABLES Performing Organization Address City/State/[facility] Co de Phone Number [facility] [address] [place] [address] documented in this encounter Visit Diagnoses Not on filedocumented in this encounter Care Teams Mortgage Closer Relationship Specialty Start Date End Date Rosemary Patel FNP [address] [place] [address] PCP - General 08/07/08 documented as of this encounter
--- OUTSIDE RECORDS SUMMARY | 2024-02-22 11:29 | XMS_ITS | Clinical Summary ---
Author Organization [facility] Address [address] [place] [address] Care Team Providers Care Ski Maker Name Role Phone Rosemary Patel Primary Care Provider [phone] Social History Tobacco Use Types Packs/Day Years [...] COVID-19 Vaccine (2022- season) 2022 Care Teams Ski Maker Relationship Specialty Start Date End Date Rosemary Patel FNP [address] [place] [address] PCP - General 08/07/08
--- OUTSIDE RECORDS SUMMARY | 2024-02-22 11:29 | XMS_ITS | Encounter Summary ---
Author Organization [facility] Address [address] [place] [address] Care Team Providers Care Cook Manager Name Role Phone Hannah Patel GASTROENTEROLOGY TECHNICIAN Primary Care Provider [phone] Encounter Details Date Type Department Care Team (Late st Contact Info) Description 07/24/2016 Results Only [facility] [phone] Eliseo Davalos, [address] [place], [place] [id number] Social History Tobacco Use Types Packs/Day Years [...] MARIA INES THORNTON ? Accession #: ? [id number] ? : ? 1960 (Age: 56) ??F ? Collect Date: ? 07/24/2016 ? Location: ? [facility] ? Receive Date: ? 07/26/2016 ? Provider: ELISEO DAVALOS DO Copy to: HANNAH PATEL GASTROENTEROLOGY TECHNICIAN ? Final Pathologic Diagnosis: A. ??SKIN OF [...] clinical history and examination is recommended. ??(Dr. Moreno)/[facility] Microscopic Description: (A) ??Sections are of a papule with mild epidermal hyperplasia and hyperkeratosis. ??There is a proliferation of melanocytes within the dermis. ??The proliferation consists of nests, cords, and strands that diminish in size with descent into the dermis. ??The melanocytes are slightly enlarged but generally have round-oval nuclei and a moderate amount of cytoplasm. ??The melanocytes show resin filterer maturation. ?? (B) ??Sections consist of a shave biopsy of skin that transects the epidermis and papillary dermis. ??There is orthohyperkeratosis and parakeratosis. ??The epidermis is mildly hyperplastic. ??In areas, there is mild atypia along the basal zone. ??Deeper sections have similar features. ??(Dr. Moreno)/[facility] Document reviewed and electronically signed by: CAMILLE [...] (ASCP) 07/26/2016 10:19 AM End of Report [facility] 07/24/2016 9:09 EDT 07/26/2016 9:09 EDT Eliseo Davalos DO PATHOLOGY ORDER GERDA [facility] [address] [place] [address] documented in this encounter Visit Diagnoses Not on filedocumented in this encounter Care Teams Cook Manager Relationship Specialty Start Date End Date Hannah Patel FNP [address] [place] [address] PCP - General 08/07/08 documented as of this encounter
--- OUTSIDE RECORDS SUMMARY | 2024-02-22 11:29 | XMS_ITS | Encounter Summary ---
[place] [address] Care Team Providers Care Sports Therapist Name Role Phone KerwinShaunna yuhrmarly Rainey MACKENZIE Primary Care Provider [phone] Encounter Details Date Type Department Care Team (Late st Contact Info) Description 02/20/2020 Telephone [place] [address] Amira León APRN [facility] [place] [address] Social History Tobacco Use Types Packs/Day Years [...] on filedocumented in this encounter Care Teams Sports Therapist Relationship Specialty Start Date End Date Neetu Suresh APRN [address] [place] [address] PCP - General Family Medicine 05/31/16 01/01/24 documented as of this encounter
--- OUTSIDE RECORDS SUMMARY | 2024-02-22 11:29 | XMS_ITS | Referral Summary ---
Author Organization [facility] Address [address] [place] [address] Care Team Providers Care Customs Manager Name Role Phone Rosemary Patel Primary Care Provider [phone] Social History Tobacco Use Types Packs/Day Years Used Date Smoking Tobacco: Never Assessed Interpersonal Safety Answer Date Record ed Physically Hurt Never 11/16/2019 Verbally Threaten Not on file 11/16/2019 Sex and Gender Information Value Date Recorded Sex Assigned at Not on file Gender Identity Not on file Sexual Orientation Not on file Plan of Treatment Not on file Care Teams Customs Manager Relationship Specialty Start Date End Date Rosemary Patel FNP [address] [place] [address] PCP - General 08/07/08
--- OUTSIDE RECORDS SUMMARY | 2024-02-22 11:29 | XMS_ITS | Encounter Summary ---
Author Organization [facility] Address [address] [place] [address] Care Team Providers Care Dairy Cattle Farm Worker Name Role Phone Unavailable Primary Care Provider Unavailabl e Encounter Details Date Type Department Care Team (Late st Contact Info) Description 08/05/2008 Orders Only [facility] Medicine [address] [address] Travis Talley MD [address] [place], [place] [id number] Social History Tobacco Use Types Packs/Day Years [...] HILLARY, MARIA INES ? Accession #: ? [id number] ? : ? 1960 (Age: 48) ??F ? Collect Date: ? 08/05/2008 ? Location: ? [facility] ? Receive Date: ? 08/05/2008 ? Provider: TRAVIS WALKO MD ? Copy to: HANNAH JANG CATTLE TESTER ? Final Pathologic Diagnosis: ? Ileocecal valve, [...] Talley MD PATHOLOGY ORDERABLES Performing Organization Address City/State/[facility] Co de Phone Number [facility] [address] [place] [address] documented in this encounter Visit Diagnoses Not on filedocumented in this encounter
--- OUTSIDE RECORDS SUMMARY | 2024-02-22 11:30 | XMS_ITS | Encounter Summary ---
[place] [address] Care Team Providers Care Ditch Repairer Name Role Phone Neetu Suresh MACKENZIE Primary Care Provider [phone] Encounter Details Date Type Department Care Team (Late st Contact Info) Description 07/12/2016 Telephone [place] [address] Norah Boswell RN Social History Tobacco Use Types Packs/Day Years Used Date Smoking Tobacco: Never Smokeless Tobacco: Never Sex and Gender Information Value Date Recorded Sex Assigned at Not on file Gender Identity Not on file Sexual Orientation Not on file documented as of this encounter Miscellaneous Notes * Telephone Encounter - Norah Boswell RN - 07/12/2016 8:40 AM EDT Babak Maria Ines - 07/05/16 << Less Detail ?? Mckenzie [...] on filedocumented in this encounter Care Teams Ditch Repairer Relationship Specialty Start Date End Date Neetu Suresh APRN [address] [place] [address] PCP - General Family Medicine 05/31/16 01/01/24 documented as of this encounter
--- OUTSIDE RECORDS SUMMARY | 2024-02-22 11:30 | XMS_ITS | Encounter Summary ---
[place] [address] Care Team Providers Care Police Aide Name Role Phone Neetu Suresh MACKENZIE Primary Care Provider [phone] Encounter Details Date Type Department Care Team (Late st Contact Info) Description 02/28/2019 3:00 PM EST Office [place] [address] Mckenzie Muñiz MD [facility] [place] [address] Multiple thyroid nodules Social History Tobacco Use [...] Office Visit from 02/28/2019 in Endocrinology at [facility] Weight 90.8 kg (200 lb 3.2 oz) [...] for thyroid nodule reassessment. MCKENZIE MUÑIZ MD Public Housing Managerauthorization rep Section of Endocrinology [facility] * Mckenzie Muñiz MD - 02/28/2019 3:00 [...] recently as August 2018. Mckenzie Muñiz MD Public Housing Managerauthorization rep Section of Endocrinology [facility] documented in this encounter Plan of Treatment Not on file documented as of this encounter Visit Diagnoses Diagnosis Multiple thyroid nodules Nontoxic multinodular goiter documented in this encounter Care Teams Police Aide Relationship Specialty Start Date End Date Neetu Suresh, ACCOUNTING ADMINISTRATOR [address] [place] [address] PCP - General Family Medicine 05/31/16 01/01/24 documented as of this encounter
--- OUTSIDE RECORDS SUMMARY | 2024-02-22 11:30 | XMS_ITS | Encounter Summary ---
Author Organization [place] [address] Care Team Providers Care Pasteurizer Helper Name Role Phone Neetu Suresh APRN Primary Care Provider [phone] Reason for Visit * Reason Comments Thyroid Nodule * Consultation (Routine) - Closed Specialty Diagnoses / Procedures Referred By Aislinn lawson Referred To Contact Endocrinology Diagnoses thyroid nodules Neetu Suresh APRN [address] [place] [address] [facility] [address] [place] [address] Referral ID Status Reason Start Date Expiration Date V isits Requested Visits Authorized [id number] Closed Consult, Test & Treat Connection Center 05/31/2016 05/31/2017 1 1 Encounter Details Date Type Department Care Team (Late st Contact Info) Description 07/05/2016 2:00 PM EDT Office Visit [place] [address] Mckenzie Muñiz MD [facility] [place] [address] Nontoxic single thyroid nodule Social [...] Progress Notes * Mckenzie Muñiz MD - 07/05/2016 2:00 PM EDT [...] --FNA of 2.6cm L thyroid nodule today. MCKENZIE MUÑIZ MD Network Infrastructure Architectwreath and garland maker hand Section of Endocrinology [facility] [place] [place] * Mckenzie Muñiz MD - 07/05/2016 2:00 PM EDT [...] present during the procedure. Mckenzie Muñiz MD Network Infrastructure Architectwreath and garland maker hand Section of Endocrinology * Mckeznie Muñiz MD - 07/05/2016 2:00 PM EDT [...] solid-cystic nodule meeting size criteria for FNA. Mckenzie Muñiz MD Network Infrastructure Architectwreath and garland maker hand Section of Endocrinology [facility] [place] [place] documented in this encounter Plan of Treatment Not on file documented as of this encounter Procedures Procedure Name Priority Date/Time Associated Diagnosis Comments NON-SEAT COVER INSTALLER FINAL REPORT Routine 07/05/2016 3:36 PM EDT CYTOPATHOLOGY NON-GYNECOLOGICAL Routine 07/05/2016 2:46 PM EDT Nontoxic single thyroid nodule documented in this encounter Results * Non-Order Checker Packer Processer Final Report (07/05/2016 3:36 PM EDT) Diagnosis Discussion [id number] ?Location: 5C The signing pathologist has (i) examined the relevant preparation(s) for the specimen(s) and (ii) rendered or confirmed the diagnosis(es). . ? Non-Order Checker Packer Processer Final DIAGNOSIS Negative for Malignancy Electronically signed by: ??Alpesh RAMIREZ, [place] Verified: ??07/06/2016 ?Pathologist DISCUSSION Thyroid, left (US [...] for completed interpretation. 07/06/2016 2:18 PM EDT [facility] THYROID STRUCTURE / Unknown 07/05/2016 3:36 PM EDT 07/05/2016 3:36 PM EDT Mckenzie Muñiz MD PATHOLOGY/CYTOLOGY O PETE Performing Organization Address City/[facility]/[place] [address] * Cytopathology Non-Gynecological (07/05/2016 2:46 PM EDT) AP Specimen 07/05/2016 2:46 PM EDT 07/05/2016 2:46 PM EDT Narrative [facility] - 07/05/2016 2:46 PM EDT Specimen requisition ordered. ??Separate Pathology report to follow Mckenzie Muñiz MD PATHOLOGY/CYTOLOGY O PETE Performing Organization Address [facility] [place] [address] documented in this encounter Visit Diagnoses Diagnosis Nontoxic single thyroid nodule Nontoxic uninodular goiter documented in this encounter Care Teams Pasteurizer Helper Relationship Specialty Start Date End Date Neetu Suresh, [employer] MINER [address] [place] [address] PCP - General Family Medicine 05/31/16 01/01/24 documented as of this encounter
--- OUTSIDE RECORDS SUMMARY | 2024-02-22 11:30 | XMS_ITS | Encounter Summary ---
[place] [address] Care Team Providers Care Milliner Helper Name Role Phone Neetu Suresh MACKENZIE Primary Care Provider [phone] Reason for Referral * Consultation (Routine) - Closed Specialty Diagnoses / Procedures Referred By Aislinn lawson Referred To Contact General Surgery Diagnoses Nontoxic single thyroid nodule Mckenzie Muñiz MD [facility] [place] [address] Marilou Dozier MD [facility] [place] [address] Referral ID Status Reason Start Date Expiration Date V isits Requested Visits Authorized [id number] Closed Consult, Test & Treat 09/01/2019 08/31/2020 1 1 Reason for Visit * Reason Comments Follow-up Encounter Details Date Type Department Care Team (Late st Contact Info) Description 09/01/2019 4:30 PM EDT Office [place] [address] Mckenzie Muñiz MD [facility] [place] [address] Nontoxic single thyroid nodule Social [...] Progress Notes * Mckenzie Muñiz MD - 09/01/2019 4:30 PM EDT [...] Office Visit from 09/01/2019 in Endocrinology at [place] Weight 90.7 kg (200 lb) Height 172.7 [...] be helpful due to the probability of samplingerror.Maria Ines is interested in pursuing thyroidectomy. PLAN: --referral for L hemithyroidectomy vs total thyroidectomy. MCKENZIE MUÑIZ MD Wool Washer Feederapartment coordinator Section of Endocrinology [place] * Mckenzie Muñiz MD - 09/01/2019 4:30 PM EDT [...] 4cm threshold for proceeding to surgical resection. Mckenzie Muñiz MD Wool Washer Feederapartment coordinator Section of Endocrinology [place] documented in this encounter Plan of Treatment Scheduled Referrals Name Type Priority Associated Diagnoses Orde r Schedule Referral to General Surgery Outpatient Referral Routine Nontoxic single thyroid nodule Ordered: 09/01/2019 documented as of this encounter Visit Diagnoses Diagnosis Nontoxic single thyroid nodule Nontoxic uninodular goiter documented in this encounter Care Teams Milliner Helper Relationship Specialty Start Date End Date Neetu Suresh APRN [address] [place] [address] PCP - General Family Medicine 05/31/16 01/01/24 documented as of this encounter
--- OUTSIDE RECORDS SUMMARY | 2024-02-22 11:30 | XMS_ITS | Encounter Summary ---
Author Organization [facility] [place] [address] Care Team Providers Care Casino Controller Name Role Phone Neetu Suresh MACKENZIE Primary Care Provider [phone] Reason for Visit * Auth/Cert Specialty Diagnoses / Procedures Referred By Aislinn lawson Referred To Contact Diagnoses THYROID NODULE Procedures PRO THYROID LOBECTOMY, UNILAT PRG EMG, LARYNX THYROIDECTOMY, LOBECTOMY, TOTAL, UNILATERAL (WRVU 11.19) FACIAL NERVE MONITORING, SETUP LARYNGEAL (WRVU 1.57) Referral ID Status Reason Start Date Expiration Date Visits Re quested Visits Authorized [id number] 1 1 Encounter Details Date Type Department Care Team (Latest Contact Info) Description 02/11/2020 9:11 AM EDT - 02/11/2020 1:48 PM EDT Hospital Encounter [place] [address] Rosanna Torres MD [facility] [place] [address] Multiple thyroid nodules Discharge Disposition: Home Social [...] closest emergency room or call the hospital digester operator at [phone] and ask for physician balloon pilot covering for your physician. Questions or problems after 5pm or on a weekend: Call the [facility] digester operator at and ask for the physician balloon pilot covering for your doctor. * Patient Instructions* [...] Take NSAIDS or Tylenol every 6 hours [id number] for the first 3-5 days following surgery [...] Torres in approximately 6 weeks. Please call [phone] to confirm the date and time of your appointment if you do not hear from us in the next 2 weeks or if you need to reschedule. Call Doctor for: Call if you have trouble talking or breathing (call [phone] if this is severe) Call if you [...] days after surgery. Phone number for questions: [phone] before 5 PM on weekdays [phone] after 5 PM and on weekends/holidays. Ask for the general surgery resident balloon pilot. documented in this encounter Medications at Time [...] patient was questioned regarding travel outside of [facility], fever, cough, SOB or other illness in [...] again, temperature will be taken, patient and caregiver/trencher driver will be given a mask to [...] left-sided thyroid nodule who presents to [facility] for left thyroidectomy S: Maria Ines Valencia [...] MD - 02/11/2020 12:26 PM EDT [facility] Operative Note Patient Name: Maria Ines Valencia : [id number] MR#: [id number] Case Date: 02/11/2020 Surgeon: Surgeon(s) and Role: [...] left-sided thyroid nodule and FNA demonstrating benign ([place] 2) cytology. The nodule has been enlarging [...] anesthesia was achieved by anesthesiology with the Style on Screen recurrent laryngeal nerve monitoring system. A natural [...] Note Patient Name: Maria Ines Valencia : [id number] MR#: [id number] Case Date: 02/11/2020 Surgeon: Surgeon(s) and Role: [...] 12:12 PM EDT Needle Electromyography, Larynx Global ([id number]) Yes 02/11/2020 11:04 AM EDT THYROID NODULE Total Thyroid Lobectomy Unilateral W/Wo Isthmusectomy ([id number]) Yes 02/11/2020 11:04 AM EDT THYROID NODULE documented in this encounter Results * TSH (03/26/2020 10:18 AM EST) Thyroid Stimulating Hormone 2.47 0.27 - 4.20 mcIU/mL [facility] Blood specimen (specimen) 03/26/2020 10:18 AM EST 03/26/2020 10:33 AM EST Narrative Resulting Agency Comment Spec In Lab Rosanna Torres MD CHEMISTRY ORDERAB LES [facility] [place] [address] * Surgical Pathology Report (02/11/2020 12:12 PM EDT) Final Diagnosis [id number] ? Location: [facility] The signing pathologist has (i) examined the relevant preparation(s) for the specimen(s) and (ii) rendered or confirmed the diagnosis(es). . 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 Electronically signed by: ??MD Eligio, Tyler Lamb Verified: ??02/17/2020 ?Pathologist Performed at: ??-[facility] Dept. of Pathology, [place], [place] SPECIMEN(S) SUBMITTED A - Left hemithyroid [...] to inferior ??RT 02/17/2020 2:02 PM EST [facility] THYROID STRUCTURE / Unknown 02/11/2020 12:12 PM EDT 02/11/2020 12:12 PM EDT Rosanna Torres MD PATHOLOGY/CYTOLOG Y ORDERABLES [facility] [place] [address] * Specimen to Pathology (02/11/2020 12:12 PM EDT) AP Specimen 02/11/2020 12:1 2 PM EDT 02/11/2020 12:12 PM EDT Narrative [facility] - 02/11/2020 12:12 PM EDT Specimen requisition ordered. ??Separate Pathology report to follow Rosanna Torres MD PATHOLOGY/CYTOLOG Y ORDERABLES [facility] [place] [address] documented in this encounter Visit Diagnoses Diagnosis [...] time.) documented in this encounter Care Teams Casino Controller Relationship Specialty Start Date End Date Neetu Suresh APRN [address] [place] [address] PCP - General Family Medicine 05/31/16 01/01/24 documented as of this encounter
--- OUTSIDE RECORDS SUMMARY | 2024-02-22 11:30 | XMS_ITS | Encounter Summary ---
[place] [address] Care Team Providers Care Sawmill Hand Name Role Phone Neetu Suresh MACKENZIE Primary Care Provider [phone] [phone] Encounter Details Date Type Department Care Team (Late st Contact Info) Description 08/22/2017 4:30 PM EDT Office Visit [place] [address] Mckenzie Muñiz MD [facility] [place] [address] Multiple thyroid nodules Social History Tobacco Use [...] Office Visit from 08/22/2017 in Endocrinology at [place] Weight 83.9 kg (185 lb) Height 172.7 [...] nodule continues to enlarge. MCKENZIE MUÑIZ MD Electrician Chiefsenior ui developer Section of Endocrinology [facility] * Mckenzie Muñiz MD - 08/22/2017 4:30 [...] contains more cystic areas. Mckenzie Muñiz MD Electrician Chiefsenior ui developer Section of Endocrinology [facility] documented in this encounter Plan of Treatment Not on file documented as of this encounter Visit Diagnoses Diagnosis Multiple thyroid nodules Nontoxic multinodular goiter documented in this encounter Care Teams Sawmill Hand Relationship Specialty Start Date End Date Neetu Suresh APRN [address] [place] [address] PCP - General Family Medicine 05/31/16 01/01/24 documented as of this encounter
--- OUTSIDE RECORDS SUMMARY | 2024-02-22 11:30 | XMS_ITS | Encounter Summary ---
Author Organization [facility] [place] [address] Care Team Providers Care Deputy Treasurer Name Role Phone Neetu Suresh MACKENZIE Primary Care Provider [phone] Reason for Visit * Auth/Cert Specialty Diagnoses / Procedures Referred By Aislinn lawson Referred To Contact Diagnoses THYROID NODULE Procedures PRO THYROID LOBECTOMY, UNILAT PRG EMG, LARYNX THYROIDECTOMY, LOBECTOMY, TOTAL, UNILATERAL (WRVU 11.19) FACIAL NERVE MONITORING, SETUP LARYNGEAL (WRVU 1.57) Referral ID Status Reason Start Date Expiration Date Visits Re quested Visits Authorized [id number] 1 1 Encounter Details Date Type Department Care Team (Late st Contact Info) Description 02/11/2020 11:04 AM EDT Anesthesia Event Outpatient [place] [address] Matt Bernard MD [facility] [place] [address] Berry Longoria MD [facility] [place] [address] Anesthesia Record Procedure Summary Procedure Name Responsible [...] basilic vein (medial side of arm), left; ljhl-sur-wsfaue catheter system; 20 gauge, 1 in length; [...] Procedure Summary Date: 02/11/20 Room / Location: [facility] [place] [address] [place] [address] Anesthesia Start: 1104 Anesthesia Stop: 1244 Procedures: THYROIDECTOMY, LOBECTOMY, TOTAL, UNILATERAL (WRVU 11.19) (N/A Neck) FACIAL NERVE MONITORING, SETUP LARYNGEAL (WRVU 1.57) (N/A Neck) Diagnosis: (THYROID NODULE) Surgeon: Marilou Dozier MD Responsible Provider: Matt Bernard MD Anesthesia Type: general ASA Status: 3 All Anesthesia Providers: Anesthesiologist: Matt Bernard MD Child Caregiver Private Home: Berry Longoria MD Vitals Value Taken Time BP Temp Pulse Resp SpO2 Pain Level Patient Location: PACU/SD Level of Consciousness: Conscious but Sleepy Pain [...] mg documented in this encounter Care Teams Deputy Treasurer Relationship Specialty Start Date End Date Neetu Suresh APRN [address] [place] [address] PCP - General Family Medicine 05/31/16 01/01/24 documented as of this encounter
--- OUTSIDE RECORDS SUMMARY | 2024-02-22 11:30 | XMS_ITS | Encounter Summary ---
Author Organization [facility] [place] [address] Care Team Providers Care Elementary Science Teacher Name Role Phone Neetu Suresh MACKENZIE Primary Care Provider [phone] Reason for Visit * Auth/Cert Specialty Diagnoses / Procedures Referred By Aislinn lawson Referred To Contact Diagnoses THYROID NODULE Procedures PRO THYROID LOBECTOMY, UNILAT PRG EMG, LARYNX THYROIDECTOMY, LOBECTOMY, TOTAL, UNILATERAL (WRVU 11.19) FACIAL NERVE MONITORING, SETUP LARYNGEAL (WRVU 1.57) Referral ID Status Reason Start Date Expiration Date Visits Re quested Visits Authorized [id number] 1 1 Encounter Details Date Type Department Care Team (Late st Contact Info) Description 02/11/2020 10:21 AM EDT - 02/11/2020 12:20 PM EDT Surgery [facility] [place] [address] Rosanna Torres MD [facility] [place] [address] THYROIDECTOMY, LOBECTOMY, TOTAL, UNILATERAL (WRVU 11.19) Social [...] closest emergency room or call the hospital pattern data operator at [phone] and ask for physician education specialist covering for your physician. Questions or problems after 5pm or on a weekend: Call the [facility] pattern data operator at and ask for the physician education specialist covering for your doctor. * Patient Instructions* [...] Take NSAIDS or Tylenol every 6 hours [id number] for the first 3-5 days following surgery [...] Torres in approximately 6 weeks. Please call [phone] to confirm the date and time of [...] days after surgery. Phone number for questions: [phone] before 5 PM on weekdays [phone] after 5 PM and on weekends/holidays. Ask for the general surgery resident education specialist. documented in this encounter Medications at Time [...] patient was questioned regarding travel outside of [facility], fever, cough, SOB or other illness [...] again, temperature will be taken, patient and caregiver/haul truck driver will be given a mask to [...] of left-sided thyroid nodule who presents to [facility] for left thyroidectomy S: Maria Ines Valencia [...] Torres MD - 02/11/2020 12:26 PM EDT [facility] Operative Note Patient Name: Maria Ines Valencia : [id number] MR#: [id number] Case Date: 02/11/2020 Surgeon: Surgeon(s) and Role: [...] left-sided thyroid nodule and FNA demonstrating benign ([place] 2) cytology. The nodule has been enlarging [...] anesthesia was achieved by anesthesiology with the [employer]raw[employer] energytronic recurrent laryngeal nerve monitoring system. A natural [...] Note Patient Name: Maria Ines Valencia : [id number] MR#: [id number] Case Date: 02/11/2020 Surgeon: Surgeon(s) and Role: [...] 12:12 PM EDT Needle Electromyography, Larynx Global ([id number]) Yes 02/11/2020 11:04 AM EDT THYROID NODULE Total Thyroid Lobectomy Unilateral W/Wo Isthmusectomy ([id number]) Yes 02/11/2020 11:04 AM EDT THYROID NODULE documented in this encounter Results * TSH (03/26/2020 10:18 AM EST) Thyroid Stimulating Hormone 2.47 0.27 - 4.20 mcIU/mL [facility] Blood specimen (specimen) 03/26/2020 10:18 AM EST 03/26/2020 10:33 AM EST Narrative Resulting Agency Comment Spec In Lab Rosanna Torres MD CHEMISTRY ORDERAB LES [facility] [place] [address] * Surgical Pathology Report (02/11/2020 12:12 PM EDT) Final Diagnosis [id number] ? Location: [facility] The signing pathologist has (i) examined the relevant preparation(s) for the specimen(s) and (ii) rendered or confirmed the diagnosis(es). . 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 Electronically signed by: ??MD Eligio, Tyler Lamb Verified: ??02/17/2020 ?Pathologist Performed at: ??-[facility] Dept. of Pathology, [place], [place] SPECIMEN(S) SUBMITTED A - Left hemithyroid [...] to inferior ??RT 02/17/2020 2:02 PM EST [facility] THYROID STRUCTURE / Unknown 02/11/2020 12:12 PM EDT 02/11/2020 12:12 PM EDT Rosanna Torres MD PATHOLOGY/CYTOLOG Y ORDERABLES Performing Organization Address City/[facility]/ZIP Co de Phone Number [facility] [place] [address] * Specimen to Pathology (02/11/2020 12:12 PM EDT) AP Specimen 02/11/2020 12:1 2 PM EDT 02/11/2020 12:12 PM EDT Narrative [facility] - 02/11/2020 12:12 PM EDT Specimen requisition ordered. ??Separate Pathology report to follow Rosanna Torres MD PATHOLOGY/CYTOLOG Y ORDERABLES Performing Organization Address City/[facility]/[place] [address] documented in this encounter Visit Diagnoses Not [...] time.) documented in this encounter Care Teams Elementary Science Teacher Relationship Specialty Start Date End Date Neetu Suresh APRN [address] [place] [address] PCP - General Family Medicine 05/31/16 01/01/24 documented as of this encounter
--- OUTSIDE RECORDS SUMMARY | 2024-02-22 11:30 | XMS_ITS | Encounter Summary ---
[place] [address] Care Team Providers Care Hypoid Gear Generator Name Role Phone KerwinShaunnaNeetu Brigid MANN Primary Care Provider [phone] Encounter Details Date Type Department Care Team (Late st Contact Info) Description 09/05/2018 Telephone [place] [id number] Stephanie Bryan LPN Social History Tobacco Use [...] ----- Message ----- From: Hung, Lab In [facility] Sent: 09/04/2018 ?? 2:18 PM To: Mckenzie Muñiz MD documented in this encounter Plan of Treatment Not on file documented as of this encounter Visit Diagnoses Not on filedocumented in this encounter Care Teams Hypoid Gear Generator Relationship Specialty Start Date End Date Neetu Suresh APRN [address] [place] [address] PCP - General Family Medicine 05/31/16 01/01/24 documented as of this encounter
--- OUTSIDE RECORDS SUMMARY | 2024-02-22 11:30 | XMS_ITS | Encounter Summary ---
[place] [address] Care Team Providers Care Mold Injector Name Role Phone Neetu Suresh MACKENZIE Primary Care Provider [phone] Encounter Details Date Type Department Care Team (Late st Contact Info) Description 09/03/2018 3:00 PM EDT Office [place] [address] Mckenzie Muñiz MD [facility] [place] [address] Multiple thyroid nodules; Nontoxic single thyroid nodule [...] Office Visit from 09/03/2018 in Endocrinology at [place] Weight 88.5 kg (195 lb) Height 172.7 [...] preference (versus 1 year). MCKENZIE MUÑIZ MD Tone Regulatormusic librarian Section of Endocrinology [facility] * Mckenzie Muñiz MD - 09/03/2018 3:00 [...] 3.2cm in greatest dimension. Mckenzie Muñiz MD Tone Regulatormusic librarian Section of Endocrinology [facility] * Mckenzie Muñiz MD - 09/03/2018 3:00 [...] present during the procedure. Mckenzie Muñiz MD Tone Regulatormusic librarian Section of Endocrinology documented in this encounter Plan of Treatment Not on file documented as of this encounter Procedures Procedure Name Priority Date/Time Associated Diagnosis Comments NON-SALES REPRESENTATIVE SUPERVISOR FINAL REPORT Routine 09/03/2018 3:32 PM EDT CYTOPATHOLOGY NON-GYNECOLOGICAL Routine 09/03/2018 3:32 PM EDT Nontoxic single thyroid nodule documented in this encounter Results * Non-Industrial Hygienist Final Report (09/03/2018 3:32 PM EDT) Diagnosis Discussion [id number] ? Location: 5C The signing pathologist has (i) examined the relevant preparation(s) for the specimen(s) and (ii) rendered or confirmed the diagnosis(es). . ? Non-Industrial Hygienist Final DIAGNOSIS Benign Electronically signed by: ??Rachael RAMIREZ PhD, Gonzales Rios Verified: ??09/04/2018 ?Pathologist Performed at: ??-[facility] Dept. of Pathology, [place], [place] DISCUSSION Thyroid, left (US-guided FNA): Benign (see note). Cytologic preservation: ?? Adequate Cellularity (follicular cells): ?? Low, adequate Colloid: ?? Absent Macrophages: ?? Present Architectural pattern: ?? Predominantly macrofollicular pattern. Note: Recommend clinicopathologic correlation and follow up as clinically indicated. Reference: Samaria PEREZ, Jose LINO. The [place] System for Reporting Thyroid Cytopathology. [place]: [place]; 2018. CLINICAL INFORMATION Specimen Source : [...] potential molecular testing. 09/04/2018 2:18 PM EDT [facility] THYROID STRUCTURE / Unknown 09/03/2018 3:32 PM EDT 09/03/2018 3:32 PM EDT Mckenzie Muñiz MD PATHOLOGY/CYTOLOGY O [place] Performing Organization Address City/[facility]/[place] [address] * Cytopathology Non-Gynecological (09/03/2018 3:32 PM EDT) AP Specimen 09/03/2018 3:32 PM EDT 09/03/2018 3:32 PM EDT Narrative [facility] - 09/03/2018 3:32 PM EDT Specimen requisition ordered. ??Separate Pathology report to follow Mckenzie Muñiz MD PATHOLOGY/CYTOLOGY [place] Performing Organization Address [facility] [place] [address] documented in this encounter Visit Diagnoses Diagnosis Multiple thyroid nodules Nontoxic multinodular goiter Nontoxic single thyroid nodule Nontoxic uninodular goiter documented in this encounter Care Teams Mold Injector Relationship Specialty Start Date End Date Neetu Suresh, SHIPPING PROCESSOR [address] [place] [address] PCP - General Family Medicine 05/31/16 01/01/24 documented as of this encounter
--- OUTSIDE RECORDS SUMMARY | 2024-02-22 11:30 | XMS_ITS | Encounter Summary ---
[place] [address] Care Team Providers Care Supportability Engineer Name Role Phone Neetu Suresh MACKENZIE Primary Care Provider [phone] Encounter Details Date Type Department Care Team (Late st Contact Info) Description 03/05/2018 3:00 PM EST Office [place] [address] Mckenzie Muñiz MD [facility] [place] [address] Multiple thyroid nodules Social History Tobacco Use [...] Office Visit from 03/05/2018 in Endocrinology at [place] Weight 86.3 kg (190 lb 3.2 oz) [...] case FNA is needed. MCKENZIE MUÑIZ MD Wool Pullerhome performance consultant Section of Endocrinology [facility] * Mckenzie Muñiz MD - 03/05/2018 3:00 [...] transverse dimension this time. Mckenzie Muñiz MD Wool Pullerhome performance consultant Section of Endocrinology [facility] documented in this encounter Plan of Treatment Not on file documented as of this encounter Visit Diagnoses Diagnosis Multiple thyroid nodules Nontoxic multinodular goiter documented in this encounter Care Teams Supportability Engineer Relationship Specialty Start Date End Date Neetu Suresh APRN [address] [place] [address] PCP - General Family Medicine 05/31/16 01/01/24 documented as of this encounter
--- OUTSIDE RECORDS SUMMARY | 2024-02-22 11:30 | XMS_ITS | Encounter Summary ---
Author Organization [facility] Address [place] [id number] Care Team Providers Care Hedis Manager Name Role Phone Neetu Suresh MACKENZIE Primary Care Provider [phone] Reason for Visit * Consultation (Routine) - Closed Specialty Diagnoses / Procedures Referred By Aislinn lawson Referred To Contact General Surgery Diagnoses Nontoxic single thyroid nodule Mckenzie Muñiz MD [facility] [place] [address] Marilou Dozier MD [facility] [place] [address] Referral ID Status Reason Start Date Expiration Date V isits Requested Visits Authorized [id number] Closed Consult, Test & Treat 09/01/2019 08/31/2020 1 1 Encounter Details Date Type Department Care Team (Late st Contact Info) Description 11/13/2019 9:30 AM EDT Office [place] [id number] Marilou Dozier MD [facility] [place] [address] Thyroid nodule Social History Tobacco Use Types [...] ultrasound [facility], including a spongiform nodule on the left that measures 4.1cm. There is not a reported substernal component. Fine needle aspiration biopsy has been performed twice, and cytology was benign ([place] 2). She is now referred to me [...] ago). Nonsmoker. Social EtOH. 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 She does not do any professional public [...] left-sided thyroid nodule and FNA demonstrating benign ([place] 2) cytology. The nodule has been enlarging [...] surgery for the next mutually convenient date. CESQIP Data Body mass index is 30.68 kg/m??. Race: Patient Ethnicity & Race Ethnic Group Patient Race Not nor White Prior neck irradiation: no Prior anterior neck surgery: no Pre-operative laryngoscopy: no Anti-coagulation meds (aspirin, warfarin, clopidogrel, heparin, oral thrombin or factor Xa inhibitors): no Substernal component: no Symptoms of compression: no FNA: yes FNA Classification: [place] 2 documented in this encounter Plan of Treatment Scheduled Referrals Name Type Priority Associated Diagnoses Orde r Schedule Referral to General Surgery Outpatient Referral Routine Nontoxic single thyroid nodule Ordered: 09/01/2019 documented as of this encounter Visit Diagnoses Diagnosis Thyroid nodule Nontoxic uninodular goiter documented in this encounter Care Teams Hedis Manager Relationship Specialty Start Date End Date Neetu Suresh APRN [address] [place] [address] PCP - General Family Medicine 05/31/16 01/01/24 documented as of this encounter
[2024-02-22 15:22] LABS: TSH (W/Ref FT4) 1.69 uIU/mL (0.36-3.74)
[2024-02-27 16:44] LABS: 25-Hydroxy D Total 24 ng/mL; 25-Hydroxy D2 <4.0 ng/mL; 25-Hydroxy D3 24 ng/mL
== END 2024-02-22 11:26 | disposition home or self-care (01) ==
LOC: NCHCN 11:25
PROVIDERS: PCP Nurse Practitioner Family; Visit Provider Nurse Practitioner Family
DX: E04.1 Nontoxic single thyroid nodule (principal); M85.89 Other specified disorders of bone density and structure, multiple sites
CPT/HCPCS: 82306; 84443

== ENCOUNTER 2024-06-17 14:30 | Outpatient (REF) | payer OTHER, SELFPAY ==
--- NOTE | 2024-06-17 12:15 | PAPFT_PTH ---
PATIENT: Maria Ines Hilliard LOC: [facility][id number] AGE/SX: 64/F ROOM: RE06/17/[address]: Neetu Suresh : 1960 BED: DIS: 06/17/2024 SPEC #: [id number] RECD: 06/18/24 12:46 STATUS: ROCK REIsidra #: [id number] [place]: 06/17/24 12:[address]: Neetu Suresh DEPT: [facility] Cytology RECD BY: Clarisa Howell Tissues: 1 - CX/ENDOCX FOR PAP SMEARS Procedures: PAP THIN PREP/UVM Screening HPV DNA PROBE Comments: [id number] (HPV 16 & 18/45)
[2024-06-17 21:33] LABS: Calculated LDL 99 mg/dL (<100); Cholesterol 192 mg/dL (<200); HDL Cholesterol 77 mg/dL (>or=50); Triglyceride 81 mg/dL (<150)
[2024-06-17 21:33] LABS: Bilirubin Negative (Negative); Blood Negative (Negative); Clarity Clear (Clear); Glucose Negative (Negative); Ketones Negative (Negative); Leukocyte Esterase Trace (Negative); Nitrite Negative (Negative); Specific Gravity 1.015 (1.005-1.025); Urobilinogen 0.2 mg/dL (Up to 0.2); pH 6.5 (5-8)
[2024-06-17 21:35] LABS: Hemoglobin A1C 5.8 % (<5.7)
[2024-06-17 21:45] LABS: Bacteria Negative HPF (Negative); C & S Indicated? No; Crystals Negative HPF (Negative); Epithelial Cells Many HPF (Negative); Mucus Negative (Negative); Other Cells Rare Transitional (Negative); RBC 0-2 HPF (0-2); WBC 0-2 HPF (0-5)
[2024-06-17 21:54] LABS: COMMENT (LAB VIEW ONLY) 71.28 mg/dL; Microalb ug/mg Crea 11.6 ug/mg Cr
== END 2024-06-17 14:31 | disposition home or self-care (01) ==
LOC: NCHCN 14:30
PROVIDERS: PCP Nurse Practitioner Family; Visit Provider Nurse Practitioner Family
DX: Z11.51 Encounter for screening for human papillomavirus (HPV) (principal); Z01.419 Encounter for gynecological examination (general) (routine) without abnormal findings; I10 Essential (primary) hypertension; E66.3 Overweight
CPT/HCPCS: 80061; 88142; 81003; 81015; 82043; 82570; 83036; 87624

== ENCOUNTER 2024-07-30 01:37 | Outpatient (CLI) | payer OTHER, SELFPAY ==
--- NOTE | 2024-07-30 | DI.MAMMO_ITS ---
Exam(s) MAMMO SCREENING EXAM: MAMMO SCREENING CLINICAL HISTORY: SCREENING, Z12.31. TECHNIQUE: Bilateral full field digital CC and MLO mammographic images were obtained with 3D tomosyn thesis and utilizing computer aided detection (CAD). COMPARISON: Prior mammograms dating back to 2017 were reviewed. FINDINGS: There has been no significant change in the appearance and distribution of the fibroglandular tissue. Mild asymmetric tissue laterally in the right breast seen on CC view is unchanged 17. Some asymmetric tissue anteriorly in the left breast seen on the MLO view was also unchanged prior ma mmograms. There are no new spiculated masses nor new malignant appearing microcalcification groups. There is no significant architectural distortion nor skin thickening-retraction. IMPRESSION: No radiographic evidence of malignancy. BI-RADS Category 1 - Negative Breast Density - Category B - Scattered areas of fibroglandular density Breast density Category C or D implies that the patient has dense breast tissue. Dense breast tissue can make it harder to find cancer on a mammogram. Dense breast tissue is also associated with an incr eased risk of breast cancer. This information about the result of the mammogram report was provided to the patient to raise their awareness. Use this report when you speak with the patient about their risks for breast cancer, which includes their family history. At that time, you may recommend additional screening tests (Ultrasoun d or MRI) as these tests may add significant information. A negative radiographic report should not delay biopsy if a dominant or clinically suspicious mass is present. Up to ten percent of cancers are not identified on mammography. A negative report may reinforce clinical impression. Adenosis and dense breasts may obscure an underlying neoplasm. False positive reports average 6 to 10%. Patient will receive a letter notifying them of these results.
== END 2024-07-30 01:57 ==
LOC: DI 01:37
PROVIDERS: PCP Nurse Practitioner Family; Visit Provider Nurse Practitioner Family
DX: Z12.31 Encounter for screening mammogram for malignant neoplasm of breast (principal); R92.323 Mammographic fibroglandular density, bilateral breasts
CPT/HCPCS: 77063; 77067

== ENCOUNTER 2025-03-02 10:57 | Outpatient (REF) | payer OTHER, SELFPAY ==
[2025-03-02 14:59] LABS: TSH (W/Ref FT4) 3.35 uIU/mL (0.55-4.78)
== END 2025-03-02 10:58 | disposition home or self-care (01) ==
LOC: NCHCN 10:57
PROVIDERS: PCP Nurse Practitioner Family; Visit Provider Nurse Practitioner Family
DX: E04.1 Nontoxic single thyroid nodule (principal)
CPT/HCPCS: 84443